=== PATIENT | female | born 1960 | race Caucasian/White ===

== ENCOUNTER 2018-04-07 00:08 | Emergency (ER) | payer BC ==
[2018-04-07] MEDS ORDERED: Albuterol/Ipratropium NEB.SOL* Albuterol 2.5 MG/Ipratropium 0.5 MG 3 ML INH ONE (00:55)
--- NOTE | 2018-04-07 02:10 | ED ---
Shortness of Breath - HPI Summary HPI Summary: Patient complains of shortness of breath, increased use of home nebs, increased sputum production, exertional fatigue 2 days. Called PCP this a.m. and Levaquin and prednisone were called in for her. Patient has history of COPD, on 02 3L /. Denies fever, increasing chronic cough, sore throat, CP, N/V/D, abdominal pain, change in urinary BM. Also denies admission to hospital for alf stay in the past 3 months, dialysis, chemotherapy, immunocompromise , regular EtOH, recent trauma or surgery, estrogen supplements, history of blood clot. - History of Current Complaint Chief Complaint: EDShortnessOfBreath Time Seen by Provider: 04/07/18 00:55 Hx Obtained From: Patient - Allergy/Home Medications Allergies/Adverse Reactions: Allergies Allergy/AdvReac Type Severity Reaction Status Date / Time metronidazole [From Flagyl] Allergy Unknown Verified 04/07/18 00:13 Reaction Details Sulfa (Sulfonamide Allergy Unknown Verified 04/07/18 00:13 Antibiotics) Reaction Details PMH/Surg Hx/FS Hx/Imm Hx Respiratory History: Reports: Hx Asthma, Hx Chronic Bronchitis, Hx Chronic Obstructive Pulmonary Disease (COPD), Hx Pneumonia, Other Respiratory Problems/ Disorders - pneumonia, pseudomonas RECENT DX GI History: Reports: Hx Diverticulosis, Other GI Disorders - Appendectomy Sensory History: Reports: Hx Contacts or Glasses Opthamlomology History: Reports: Hx Contacts or Glasses Psychiatric History: Reports: Hx Anxiety - takes xanax routinely at home - Surgical History Surgery Procedure, Year, and Place: wisdom teeth. x1. hysterectomy. Tubal ligation. Appendectomy- [facility]- 11/2014 ([facility]) Hx Anesthesia Reactions: No - Immunization History Date of Tetanus Vaccine: unk Date of Influenza Vaccine: none Infectious Disease History: No Infectious Disease History: Denies: Traveled Outside the [place] in Last 30 Days - Social History Alcohol Use: None Substance Use Type: Reports: None Smoking Status (MU): Former Smoker Type: Cigarettes Review of Systems Constitutional: Negative Eyes: Negative ENT: Negative Cardiovascular: Negative Positive: Shortness Of Breath, Cough Gastrointestinal: Negative Genitourinary: Negative Musculoskeletal: Negative Skin: Negative Neurological: Negative Psychological: Normal All Other Systems Reviewed And Are Negative: Yes Physical Exam Triage Information Reviewed: Yes Vital Signs On Initial Exam: Initial Vitals Temp Pulse Resp BP Pulse Ox 97.5 F 109 22 139/88 93 04/07/18 00:10 04/07/18 00:10 04/07/18 00:10 04/07/18 00:10 04/07/18 00:10 Vital Signs Reviewed: Yes Appearance: Positive: Well-Appearing Skin: Positive: Warm Head/Face: Positive: Normal Head/Face Inspection Eyes: Positive: Normal Neck: Positive: Supple Respiratory/Lung Sounds: Positive: Decreased Breath Sounds - Left base, Wheezes - mild Bilaterally. Cardiovascular: Positive: Normal Abdomen Description: Positive: Nontender Musculoskeletal: Positive: Normal Neurological: Positive: Normal Psychiatric: Positive: Normal AVPU Assessment: Alert - [place] Coma Scale Best Eye Response: 4 - Spontaneous Best Motor Response: 6 - Obeys Commands Best Verbal Response: 5 - Oriented Coma Scale Total: 15 Diagnostics - Vital Signs Vital Signs Temp Pulse Resp BP Pulse Ox 04/07/18 01:18 100 18 98 04/07/18 01:00 95 94 04/07/18 00:30 111 103/86 89 04/07/18 00:10 97.5 F 109 22 139/88 93 - Laboratory Lab Results: Lab Results 04/07/18 Range/Units 00:57 ABG pH 7.38 (7.35-7.45) ABG pCO2 54 H (35-45) mmHg ABG pO2 76 L (80-100) mmHg ABG HCO3 29.0 (19-31) mmol/L ABG O2 Saturation 95.9 (95-98) % ABG Base Excess 5.4 H (-2.0-2.0) Result Diagrams: 04/07/18 01:44 04/07/18 01:44 Lab Statement: Any lab studies that have been ordered have been reviewed, and results considered in the medical decision making process. Course/Dx - Course Course Of Treatment: Patient complains of shortness of breath, increased use of home nebs, increased sputum production, exertional fatigue 2 days. Called PCP this a.m. and Levaquin and prednisone were called in for her. Patient has history of COPD, on 02 3L 24/. Denies fever, increasing chronic cough, sore throat, CP, N/V/D, abdominal pain, change in urinary BM. Also denies admission to hospital for alf stay in the past 3 months, dialysis, chemotherapy, immunocompromise, regular EtOH, recent trauma or surgery, estrogen supplements, history of blood clot. Discussed patient with Dr. Dobbs. Vital signs within normal limits and stable. Labs unremarkable. Imaging indicates likely pneumonia. No risk factors for HCAP. Patient has home O2, nebs. Currently on Levaquin and prednisone started yesterday. Recommend continue Levaquin and prednisone and nebs as needed. Return for any worsening symptoms. Patient agrees with plan. - Diagnoses Provider Diagnoses: Community acquired pneumonia Discharge - Sign-Out/Discharge Documenting (check all that apply): Discharge/Admit/Transfer - Discharge Plan Condition: Good Disposition: HOME Patient Education Materials: Community Acquired Pneumonia (ED) Referrals: Harpreet Padilla MD [Primary Care Provider] - Additional Instructions: Continue with Levaquin and prednisone. Follow-up with primary care. Return to the ED for any new or worsening symptoms - Billing Disposition and Condition Condition: GOOD Disposition: HOME
[2018-04-07 02:20] LABS: ABS Basophils 0 10^3/ul (0-0.2); ABS Eosinophils 0 10^3/ul (0-0.6); ABS Lymphocytes 0.6 10^3/ul (1.0-4.8); ABS Monocytes 0.1 10^3/ul (0-0.8); ABS Neutrophils 6.4 10^3/ul (1.5-7.7); ABS Nucleated RBC 0 10^3/ul; Eosinophil % 0 % (0-6); Hematocrit 40 % (35-47); Hemoglobin 13.2 g/dl (12.0-16.0); Lymphocyte % 8.5 % (25-47); Mean Corpuscular HGB Conc 34 g/dl (31-36); Mean Corpuscular Hemoglobin 30 pg (27-31); Mean Corpuscular Volume 90 fL (80-97); Mean Platelet Volume 8.5 um3 (7.4-10.4); Nucleated Red Blood Cells % 0; Platelet Count 323 10^3/ul (150-450); Red Blood Count 4.39 10^6/ul (4.0-5.4); Red Cell Distribution Width 14 % (10.5-15); White Blood Count 7.1 10^3/ul (3.5-10.8)
[2018-04-07 02:58] VITALS: BP 119/77
--- NOTE | 2018-04-07 09:06 | RAD ---
INDICATION: Shortness of breath. History of pseudomonas pneumonia. Chronic obstructive pulmonary disease. COMPARISON: November 25, 2014 CT abdomen. December 10, 2013 chest radiograph. TECHNIQUE: Dual energy PA and routine lateral views of the chest were obtained. REPORT: Elevated lung volumes and both diffuse mild prominence of the interstitial markings and patchy rarefaction of the mid to upper lung zone interstitial markings. Patchy alveolar consolidation at the bilateral mid to lower lung zones. Rounded branching opacities at the LEFT lung base are most suspicious for mucus impaction in regions of bronchiectasis based on correlation with prior exams. Probable small pleural effusions. Negative for pneumothorax. Negative for cardiomegaly. Unremarkable central pulmonary vasculature and mediastinal contours. IMPRESSION: 1. Chronic obstructive pulmonary disease. 2. Bilateral basilar inflammatory infiltrates with suggestion of mucus plugging. Probable small pleural effusions. Radiographic follow-up after therapy warranted to assess for resolution in order to exclude underlying neoplastic lesions.
== END 2018-04-07 03:06 | disposition home or self-care (01) ==
LOC: ED 00:08
DX: J18.9 Pneumonia, unspecified organism (principal); R53.83 Other fatigue; R06.02 Shortness of breath; R05 Cough; Z87.891 Personal history of nicotine dependence
CPT/HCPCS: 36415; 71046; 80053; 82803; 83605; 85025; 86140; 99283; A9270-GY

== ENCOUNTER 2018-08-01 17:31 | Inpatient (IN) | payer BC ==
[2018-08-01] MEDS ORDERED: Albuterol/Ipratropium NEB.SOL* Albuterol 2.5 MG/Ipratropium 0.5 MG 3 ML ONE (17:40)
[2018-08-01] MEDS ORDERED: methylPREDNISolone 125 MG* 2 ML VIAL ONE (17:45)
[2018-08-01] MEDS ORDERED: Albuterol/Ipratropium NEB.SOL* Albuterol 2.5 MG/Ipratropium 0.5 MG 3 ML INH ONE (17:48)
[2018-08-01] MEDS ORDERED: methylPREDNISolone 125 MG* 2 ML VIAL IV ONE (18:02)
--- NOTE | 2018-08-01 18:02 | ED ---
Shortness of Breath - HPI Summary HPI Summary: This patient is a 57 year old F presenting to [facility] with a chief complaint of SOB since 1200. Her current O2 sat at 79% on 6 L in room. She endorses productive cough and denies CP. PMHx COPD. 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 Pt denies smoking currently, is a former smoker. - History of Current Complaint Chief Complaint: EDShortnessOfBreath Time Seen by Provider: 08/01/18 17:56 Hx Obtained From: Patient Onset/Duration: Sudden Onset, Lasting Hours, Still Present Current Severity: Severe Dyspnea At: Rest Aggrevating Factors: Nothing Alleviating Factors: Nothing Associated Signs & Symptoms: Cough (Productive) - Allergy/Home Medications Allergies/Adverse Reactions: Allergies Allergy/AdvReac Type Severity Reaction Status Date / Time metronidazole [From Flagyl] Allergy Unknown Verified 08/01/18 18:17 Reaction Details Sulfa (Sulfonamide Allergy Unknown Verified 08/01/18 18:17 Antibiotics) Reaction Details Home Medications: Home Medications Albuterol 2.5MG/3ML (0.083%)* [Ventolin 2.5 MG/3 ML NEB.LUIGI*] 08/01/18 [History ] Albuterol/Ipratropium RESP(NF) [Combivent Respimat (NF)] 08/01/18 [History] Montelukast Sodium TAB* [Singulair TAB*] 10 mg PO DAILY 08/01/18 [History Confirmed 08/01/18] Tiotropium CAP.INH* [Spiriva CAP.INH*] 1 inh INH DAILY 08/01/18 [History Confirmed 08/01/18] PMH/Surg Hx/FS Hx/Imm Hx Endocrine/Hematology History: Denies: Hx Sickle Cell Disease Respiratory History: Reports: Hx Asthma, Hx Chronic Bronchitis, Hx Chronic Obstructive Pulmonary Disease (COPD), Hx Pneumonia, Other Respiratory Problems/ Disorders - pneumonia, pseudomonas RECENT DX GI History: Reports: Hx Diverticulosis, Other GI Disorders - Appendectomy Sensory History: Reports: Hx Contacts or Glasses Denies: Hx Deafness Opthamlomology History: Reports: Hx Contacts or Glasses EENT History: Denies: Hx Deafness Psychiatric History: Reports: Hx Anxiety - takes xanax routinely at home - Surgical History Surgery Procedure, Year, and Place: wisdom teeth. x1. hysterectomy. Tubal ligation. Appendectomy- [facility] [place]- 11/2014 ([facility]) Hx Anesthesia Reactions: No - Immunization History Date of Tetanus Vaccine: unk Date of Influenza Vaccine: none Infectious Disease History: No Infectious Disease History: Denies: Traveled Outside the [place] in Last 30 Days - Social History Alcohol Use: None Substance Use Type: Reports: None Hx Tobacco Use: Yes Smoking Status (MU): Former Smoker Type: Cigarettes Review of Systems Negative: Fever Negative: Chest Pain Positive: Shortness Of Breath, Cough - productive Positive: no symptoms reported All Other Systems Reviewed And Are Negative: Yes Physical Exam - Summary Physical Exam Summary: Appearance: mod distress Skin: warm, dry, reflects adequate perfusion Head/face: normal Eyes: EOMI, LINDSAY ENT: normal Neck: supple, non-tender Respiratory: , bilateral wheeze, poor air entry bilaterally, respiratory distress. Cardiovascular: Tachycardia, pulses symmetrical Abdomen: non-tender, soft Bowel: present Musculoskeletal: normal, strength/ROM intact Neuro: normal, sensory motor intact, A&Ox3 Triage Information Reviewed: Yes Vital Signs On Initial Exam: Initial Vitals Temp Pulse Resp BP Pulse Ox 99.6 F 137 26 136/75 90 08/01/18 17:35 08/01/18 17:35 08/01/18 17:35 08/01/18 17:35 08/01/18 17:35 Vital Signs Reviewed: Yes Diagnostics - Vital Signs Vital Signs Temp Pulse Resp BP Pulse Ox 08/01/18 17:50 133 27 96 08/01/18 17:35 99.6 F 137 26 136/75 90 - Laboratory Lab Results: Lab Results 08/01/18 Range/Units 17:45 Patient Temperature Not Reportable ABG pH Pending ABG pH (Temp Correct) Pending ABG pCO2 Pending ABG pCO2 (Temp Corrct Pending ABG pO2 Pending ABG pO2 (Temp Correct Pending ABG HCO3 Pending ABG O2 Saturation Pending ABG Base Excess Pending Respiration Rate Not Reportable O2 Delivery Device 6lpm nc Ventilator Type Not Reportable Vent Mode Not Reportable FiO2 Not Reportable Inspiratory Time Not Reportable PEEP Not Reportable Pressure Support Not Reportable Pressure Control Not Reportable EPAP Not Reportable IPAP Not Reportable BiPAP Not Reportable Result Diagrams: 08/01/18 17:58 08/01/18 17:58 Lab Statement: Any lab studies that have been ordered have been reviewed, and results considered in the medical decision making process. - Radiology CXR Xray Interpretation: Positive (See Comments) Radiology Interpretation Completed By: ED Physician - Bilateral lower lobe infiltrates. Pending official imaging report. - EKG 1805 Cardiac Rate: Tachycardia - 137 EKG Rhythm: Sinus Rhythm ST Segment: Normal Ectopy: None EKG Interpretation: No acute changes. Course/Dx - Course Course Of Treatment: This patient is a 57 year old F presenting to [facility] with a chief complaint of SOB since 1200. Her current O2 sat at 79% on 6 L in room. She endorses productive cough and denies CP. PMHx COPD. 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 Pt denies smoking. A CXR reveals bilateral lower lobe infiltrates. An EKG revealed sinus tachycardia at 137 BPM with no acute changes. - Diagnoses Differential Diagnosis/HQI/PQRI: Positive: Asthma, Bronchitis, CHF, COPD Exacerbation, Pneumonia, Pulmonary Edema Provider Diagnoses: COPD exacerbation, PNA (pneumonia), Respiratory failure, Hypoxia - Physician Notifications Discussed Care of Patient With: Edward Leonard Time Discussed With Above Provider: 19:35 Instructed by Provider To: Other - Accepts admission. - Critical Care Time Critical Care Time: 75-104 min - 30 Discharge - Sign-Out/Discharge Documenting (check all that apply): Patient Departure - admit - Discharge Plan Condition: Fair Disposition: ADMITTED TO [facility] Referrals: Harpreet Padilla MD [Primary Care Provider] - - Billing Disposition and Condition Condition: FAIR Disposition: Admitted to [facility] - Attestation Statements Document Initiated by Sylwiaibsugey: Yes Documenting Scribe: Duglas Garay Provider For Whom Cristela is Documenting (Include Credential): Dr. Rodriguez Peoples MD Scribe Attestation: Duglas Valle scribed for Dr. Rodriguez Peoples MD on 08/01/18 at 2004. Scribe Documentation Reviewed: Yes Provider Attestation: The documentation as recorded by the Duglas garg accurately reflects the service I personally performed and the decisions made by me, Dr. Rodriguez Peoples MD
--- OUTSIDE RECORDS SUMMARY | 2018-08-01 18:02 | XMS REPORT | Continuity of Care Document ---
:1960 Author Organization [facility] Office Address [address] [address] Phone Care Team Providers Name Role Phone Vivgriselda Harpreet Unavailable Harpreet Padilla Unavailable Dr. Pedro Jo MD Unavailable Unavailable Unavailable Problems ANXIETY (F41.9) (300.00) Keara Mcgee AR (ALLERGIC RHINITIS) (J30.9) (477.9) Keara Mcgee COPD (CHRONIC OBSTRUCTIVE PULMONARY DISEASE) (J44.9) (496) MD Pedro Jo Dr. Prognosis: Long talk with the patient, she is having diarrhea, cough (dry) and some dizziness. We will give her a drug holiday, and have her restart meds next week ().I am going to have her drop her Daliresp to 1/2 pill a day...she will call us with her response. as of 04-Jul-2018 DIVERTICULOSIS (K57.90) (562.10) Keara Mcgee DYSPNEA (R06.00) (786.09) Keara Mcgee FORMER SMOKER (Z87.891) (V15.82) Keara Mcgee Allergies and Adverse Reactions Flagyl *ANTI-INFECTIVE AGENTS - MISC.* (Allergy) HYDROcodone Bitartrate *CHEMICALS* (Allergy) Reaction: Vomiting OxyCODONE HCl *ANALGESICS - OPIOID* (Allergy) Reaction: Vomiting Sulfa Drugs (Allergy) Vicodin *ANALGESICS - OPIOID* (Allergy) Status: Inactive as of 28-Jun-2018 Medications Albuterol Sulfate (2.5 MG/3ML) 0.083% Inhalation Nebulization Solution 1 UAD ((2.5 MG/3ML) 0.083%) Mitzi-D 24 Hour 180-240 MG Oral Tablet Extended Release 24 Hour 1 daily (180-240 MG) ALPRAZolam 0.25 MG Oral Tablet Comments: Medication taken as 1 four times daily, as needed needed. (0.25 MG) Combivent Respimat 20-100 MCG/ACT Inhalation Aerosol Solution 2 puffs UAD (20-100 MCG/ACT) Daliresp 500 MCG Oral Tablet 1 (one) Tablet daily for 30 days Ordered: Start: 28-Jun-2018 Quantity: 30 Shivaluz CALLI NPC, [place] Refills: 2 Flonase 50 MCG/ACT Nasal Suspension 2 sprays ea nostril (50 MCG/ACT) Flonase 50 MCG/ACT Nasal Suspension 2 sprays ea nostril daily (50 MCG/ACT) Ipratropium [place] 0.02 % Inhalation Solution UAD (0.02 %) Montelukast Sodium 10 MG Oral Tablet 1 daily (10 MG) NyQuil Liquicaps 30-6.25-10-250 MG Oral Capsule UAD (30-6.25-10-250 MG) OXYGEN (Inhalation Gas) (Free Text) 3 L UAD Plexus Vitabione Plexus Vitaimone 1 daily Probiotic Oral Capsule 1 two times daily Robitussin DM 100-10 MG/5ML Comments: Medication taken as Oral Syrup as needed (100-10 needed. MG/5ML) Spiriva HandiHaler 18 MCG Inhalation Capsule 1 daily (18 MCG) Symbicort 160-4.5 MCG/ACT Inhalation Aerosol 2 puffs two times daily (160-4.5 MCG/ACT) Ventolin HFA 108 (90 Base) Comments: Medication taken as MCG/ACT Inhalation Aerosol needed. Solution 2 puffs four times daily, as needed (108 (90 Base) MCG/ACT) Vitamin C 1000 MG Oral Tablet 1 daily (1000 MG) Procedures REST OXIMETRY (75102) ERIC Rick Status: Completed 28-Jun-2018 RESPIRATORY FLOW VOLUME LOOP ERIC Rick Status: Completed 2017 (45229) PRE AND POST (94315) ERIC Rick Status: Completed 28-Jun-2018 Appendectomy Marcel DOG CONTROL OFFICER Brionna Status: Completed (65259) RodJASONN Brionna Status: Completed Chest X-ray Marcel DOG CONTROL OFFICER Brionna Status: Completed 07-Apr-2018 Comments: [facility] Chest X-ray Keara Mcgee Status: Completed 28-Jun-2018 Comments: changes consistent with COPD Flu Vaccine RodJASONN Brionna Status: Completed 2016 Comments: Refused PFT Keara Mcgee Status: Completed 28-Jun-2018 Comments: Severe Obstruction. Prevnar 13 KENYATTA Rod Status: Completed 2016 Comments: Pt refuses Tubal Ligation RodJASONN Brionna Status: Completed WISDOM TEETH EXTRACTED RodJASONN Brionna Status: Completed Procedure: [place] Sleepiness ScaleResult: Date: 28-Jun-2018 13:11 [Situation] Sitting and Readin=Would never Status: Completed 28-Jun-2018 13:24 doze; Watching Television: 3=High chance of JASON RodN Brionna dozing; Sitting inactive in a public place (theatre, meeting): 0=Would never doze; As a passenger in a car for an hour without a break: 0=Would never doze; Lying down to rest in the afternoon: 0=Would never doze; Sitting and talking to someone: 0=Would never doze; Sitting quietly after lunch without alcohol: 0=Would never doze; In a car, while stopping for a few minutes in traffic: 0=Would never doze [Total] Score: 03 Family History Father Status: Active Comments: Bone cancer Mother Status: Active Comments: . Heart disease,diabetes Social History Alcohol use: Denies alcohol use. Caffeine use: Coffee. Carbonated beverages. 1 serving / day. 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 No drug use Tobacco use: Former smoker. Comments: Age [age] 1.5ppd Former smoker Female Plan of Treatment AIRFLOW RESISTANCE MEASUREMENT: PULM FUNCT TEST Start: 27-Sep-2018 Intent OSCILLOMETRY (60295) DLCO (CARBON MONOXIDE DIFFUSING CAPACITY) (77632) Start: 27-Sep-2018 Intent PRE AND POST (87180) Start: 27-Sep-2018 Intent RESPIRATORY FLOW VOLUME LOOP (75071) Start: 27-Sep-2018 Intent THORACIC GAS VOLUME: AIRWAY CLOSING VOLUME MEASUREMENT: Start: 27-Sep-2018 Intent PULM FUNCTION TEST BY GAS (68475) TOTAL BODY PLETHYSMOGRAPHY: AIRWAY CLOSING VOLUME Start: 27-Sep-2018 Intent MEASUREMENT: PULM FUNCT TST PLETHYSMOGRAP (99296) TOTAL VITAL CAPACITY (39726) Start: 27-Sep-2018 Intent COMPLETE ECHOCARDIOGRAPHY (88467) Start: 28-Jun-2018 Intent LOW DOSE COMPUTED TOMOGRAPHY OF LUNGS FOR LUNG CANCER Start: 28-Jun-2018 Intent SCREENING (G0297) Medical; FULL PFT 30 - Start: 30-Aug-2018 14:00 Appointment Request Pulmonary [facility] Resp Therapy [place], [facility] Medical; FOLLOW UP mn fu w/full Start: 30-Aug-2018 14:30 Appointment Request [facility] Office MD Pedro Jo Dr. COPD (CHRONIC OBSTRUCTIVE PULMONARY DISEASE) : Alpha 1 Kit Indication: COPD (CHRONIC OBSTRUCTIVE PULMONARY DISEASE) Results No Result Information Available Vital Signs 28-Jun-2018 12:52 Comments: SaO2 taken on 3L cont. Pulse 116 /min Comments: Pattern: Regular O2 SAT 87 % FiO2 3 L/min Comments: 3L O2 Weight 147 lb Height 63 in BMI 26.04 kg/m2 BSA 1.7 m2 Advance Directives HIPAA - Effective on 06/28/2018. Expires on 06/28/2019. Effective: 28-Jun-2018 Scanned Document is available upon request. Encounters Phone Encounter 04-Jul-2018 11:11 To 04-Jul-2018 11:18 Encounter Diagnosis: COPD (CHRONIC OBSTRUCTIVE PULMONARY DISEASE) [place] [facility] Office Visit 28-Jun-2018 12:50 To 28-Jun-2018 14:09 Encounter Reason: COPD - The referring provider is Dr. Harpreet Padilla. The Gold Classification is Stage 4: Very Severe COPD (FEV1 15%). Symptoms include dyspnea on exertion, non-productive cough, productive cough and alexis [facility] Office ar sputum production, while symptoms do not include dyspnea at rest or wheezing. Onset was gradual 8 year(s) ago. The symptoms occur constantly. The patient describes this as moderate in severity and un changed. Associated symptoms include leg edema, while associated symptoms do not include fever, hemoptysis or chest pain. Current treatment includes inhaled albuterol, inhaled short-acting beta-2 agonis ts, inhaled long-acting beta-2 agonists, inhaled anticholinergics, inhaled corticosteroids and supplemental oxygen. By report there is good compliance with treatment and good tolerance of treatment. Per tinent medical history includes smoking (has quit), oxygen dependency and pneumonia, while pertinent medical history does not include steroid dependency, prior intubation and ventilator therapy, congestive heart failure or lung cancer. Encounter Diagnosis: COPD (CHRONIC OBSTRUCTIVE PULMONARY DISEASE), FORMER SMOKER, DYSPNEA Historical Summary 25-Jun-2018 11:20 To 25-Jun-2018 11:52 Pulmonary [facility] Office Payers [facility] [address] [address] [facility] [address] Group Number: NONE tel: Mylene Gotti [address] [facility] [address] tel:
--- OUTSIDE RECORDS SUMMARY | 2018-08-01 18:02 | XMS REPORT | Continuity of Care Document ---
:1960 Author Organization [facility] Office Address [address] [place] [address] Phone Care Team Providers Name Role Phone Vivjuniormandy Harpreet Unavailable Harpreet Padilla Unavailable Dr. Pedro [...] (V15.82) Keara Mcgee Allergies and Adverse Reactions Daliresp *ANTIASTHMATIC AND BRONCHODILATOR AGENTS* (Allergy) Reaction: Diarrhea, Nausea Comments: trouble sleeping and aggression Flagyl *ANTI-INFECTIVE AGENTS - MISC.* (Allergy) HYDROcodone Bitartrate *CHEMICALS* (Allergy) Reaction: Vomiting OxyCODONE HCl *ANALGESICS - OPIOID* (Allergy) Reaction: Vomiting Sulfa Drugs (Allergy) Vicodin *ANALGESICS - OPIOID* (Allergy) Status: Inactive as of 28-Jun-2018 Medications Albuterol Sulfate (2.5 MG/3ML) 0.083% Inhalation Nebulization Solution; 1 UAD ((2.5 MG/3ML) 0.083%) Mitzi-D 24 Hour 180-240 MG Oral Tablet Extended Release 24 Hour; 1 daily (180-240 MG) ALPRAZolam 0.25 MG Oral Tablet; Comments: Medication taken as 1 four times daily, as needed needed. (0.25 MG) Combivent Respimat 20-100 MCG/ACT Inhalation Aerosol Solution; 2 puffs UAD (20-100 MCG/ACT) Daliresp 500 MCG Oral Tablet; 1 (one) Tablet daily for 30 days Ordered: Jun-2018 Start: 28-Jun-2018 Quantity: 30 Goich [facility] [place] Refills: 2 Flonase 50 MCG/ACT Nasal Suspension; 2 sprays ea nostril (50 MCG/ACT) Flonase 50 MCG/ACT Nasal Suspension; 2 sprays ea nostril daily (50 MCG/ACT) Ipratropium [place] 0.02 % Inhalation Solution; UAD (0.02 %) Montelukast Sodium 10 MG Oral Tablet; 1 daily (10 MG) NyQuil Liquicaps 30-6.25-10-250 MG Oral Capsule; UAD (30-6.25-10-250 MG) OXYGEN (Inhalation Gas) (Free Text); 3 L UAD Plexus Vitabione Plexus Vitaimone; 1 daily Probiotic Oral Capsule; 1 two times daily Robitussin DM 100-10 MG/5ML Comments: Medication taken as Oral Syrup; as needed (100-10 needed. MG/5ML) Spiriva HandiHaler 18 MCG Inhalation Capsule; 1 daily (18 MCG) Symbicort 160-4.5 MCG/ACT Inhalation Aerosol; 2 puffs two times daily (160-4.5 MCG/ACT) Ventolin HFA 108 (90 Base) Comments: Medication taken as MCG/ACT Inhalation Aerosol needed. Solution; 2 puffs four times daily, as needed (108 (90 Base) MCG/ACT) Vitamin C 1000 MG Oral Tablet; 1 daily (1000 MG) Procedures REST OXIMETRY (02765) ERIC Rick Status: Completed 28-Jun-2018 RESPIRATORY FLOW VOLUME LOOP ERIC Rick Status: Completed 2017 (54307) PRE AND POST (35814) ERIC Rick Status: Completed 28-Jun-2018 Appendectomy JASON RodN Brionna Status: Completed (23204) JASON RodN Brionna Status: Completed Chest X-ray JASON RodN Brionna Status: Completed 07-Apr-2018 Comments: [facility] Chest X-ray Keara Mcgee Status: Completed 28-Jun-2018 Comments: changes consistent with COPD Flu Vaccine KENYATTA Rod Status: Completed 2016 Comments: Refused PFT Keara Mcgee Status: Completed 28-Jun-2018 Comments: Severe Obstruction. Prevnar 13 JASON RodN Brionna Status: Completed 2016 Comments: Pt refuses Tubal Ligation JASON RodN Brionna Status: Completed WISDOM TEETH EXTRACTED JASON RodN Brionna Status: Completed Procedure: [place] Sleepiness ScaleResult: Date: 28-Jun-2018 13:11 [Situation] Sitting and Readin=Would never Status: Completed 28-Jun-2018 13:24 doze; Watching Television: 3=High chance of KENYATTA Rod dozing; Sitting inactive in a public place [...] / day. 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 No drug use Tobacco use: Former smoker. Comments: Age 14-48 1.5ppd Former smoker Female Plan of Treatment AIRFLOW RESISTANCE MEASUREMENT: PULM FUNCT TEST Start: 27-Sep-2018 Intent OSCILLOMETRY (96534) DLCO (CARBON MONOXIDE DIFFUSING CAPACITY) (01378) Start: 27-Sep-2018 Intent PRE AND POST (41003) Start: 27-Sep-2018 Intent RESPIRATORY FLOW VOLUME LOOP (47559) Start: 27-Sep-2018 Intent THORACIC GAS VOLUME: AIRWAY CLOSING VOLUME MEASUREMENT: Start: 27-Sep-2018 Intent PULM FUNCTION TEST BY GAS (35282) TOTAL BODY PLETHYSMOGRAPHY: AIRWAY CLOSING VOLUME Start: 27-Sep-2018 Intent MEASUREMENT: PULM FUNCT TST PLETHYSMOGRAP (51012) TOTAL VITAL CAPACITY (77223) Start: 27-Sep-2018 Intent COMPLETE ECHOCARDIOGRAPHY (80339) Start: 28-Jun-2018 Intent LOW DOSE COMPUTED TOMOGRAPHY OF LUNGS FOR LUNG CANCER Start: 28-Jun-2018 Intent SCREENING (G0297) Medical; FULL PFT 30 - Start: 30-Aug-2018 14:00 Appointment Request Pulmonary [facility] Office Resp Therapy [place], [place] Medical; FOLLOW UP mn fu w/full Start: 30-Aug-2018 14:30 Appointment Request Pulmonary [facility] Office MD Pedro Jo Dr. COPD [...] Scanned Document is available upon request. Encounters Historical Summary 18-Jul-2018 8:37 To 18-Jul-2018 8:40 [facility] Office Phone Encounter 04-Jul-2018 11:11 To 04-Jul-2018 11:18 Encounter Diagnosis: COPD (CHRONIC OBSTRUCTIVE PULMONARY DISEASE) [place] [facility] Office Visit 28-Jun-2018 12:50 To 28-Jun-2018 14:09 Encounter Reason: COPD - The referring provider is Dr. Harpreet Padilla. The Gold Classification is Stage 4: Very Severe COPD (FEV1 15%). Symptoms include dyspnea on exertion, non-productive cough, productive cough and alexis [facility] Office ar sputum production, while symptoms do [...] treatment and good tolerance of treatment. Per ugo medical history includes smoking (has quit), oxygen dependency and pneumonia, while pertinent medical history does not include steroid dependency, prior intubation and ventilator therapy, congestive heart failure or lung cancer. Encounter Diagnosis: COPD (CHRONIC OBSTRUCTIVE PULMONARY DISEASE), FORMER SMOKER, DYSPNEA Historical Summary 25-Jun-2018 11:20 To 25-Jun-2018 11:52 Pulmonary [facility] Office Payers [facility] [place] [address] [facility] [address] Group Number: NONE tel: Mylene Gotti [address] [place] [phone] tel:
--- OUTSIDE RECORDS SUMMARY | 2018-08-01 18:02 | XMS REPORT | Continuity of Care Document ---
:1960 Author Organization [facility], Address [address] [address] Phone Care Team Providers Name Role Phone Harpreet Padilla Unavailable ValerieHarpreet Unavailable Dr. Pedro Jo MD Unavailable Unavailable Unavailable Problems [id number] DEFICIENCY (E88.01) (273.4) Keara Mcgee Comments: REECE ANXIETY (F41.9) (300.00) Keara Mcgee AR (ALLERGIC [...] Ordered: Jun-2018 Start: 28-Jun-2018 Quantity: 30 Goich [facility] Refills: 2 Flonase 50 MCG/ACT Nasal Suspension; 2 sprays ea nostril (50 MCG/ACT) Flonase 50 MCG/ACT Nasal Suspension; 2 sprays ea nostril daily (50 MCG/ACT) Ipratropium [place] 0.02 % Inhalation Solution; UAD (0.02 %) [...] 1 daily (1000 MG) Procedures REST OXIMETRY (03882) ERIC Rick Status: Completed 28-Jun-2018 RESPIRATORY FLOW VOLUME LOOP ERIC Rick Status: Completed 2017 (56777) PRE AND POST (80706) ERIC Rick Status: Completed 28-Jun-2018 Appendectomy JASON RodN Brionna Status: Completed (13401) Marcel PARAFFIN PLANT SWEATER OPERATOR Brionna Status: Completed Chest X-ray KENYATTA Rod Status: Completed 07-Apr-2018 Comments: [facility] Chest X-ray Keara Mcgee Status: Completed 28-Jun-2018 Comments: changes consistent with COPD Flu Vaccine KENYATTA Rod Status: Completed 2016 Comments: Refused PFT Keara Mcgee Status: Completed 28-Jun-2018 Comments: Severe Obstruction. Prevnar 13 JASON RodN Brionna Status: Completed 2016 Comments: Pt refuses Tubal Ligation JASON RodN Brionna Status: Completed WISDOM TEETH EXTRACTED Marcel PARAFFIN PLANT SWEATER OPERATOR Brionna Status: Completed Procedure: [place] Sleepiness ScaleResult: Date: 28-Jun-2018 13:11 [Situation] Sitting [...] / day. Current work status: Full-time. Comments: [employer] Marital status: . No drug use Tobacco use: Former smoker. Comments: Age [age] 1.5ppd Former smoker Female Plan of Treatment AIRFLOW RESISTANCE MEASUREMENT: PULM FUNCT TEST Start: 27-Sep-2018 Intent OSCILLOMETRY (81325) DLCO (CARBON MONOXIDE DIFFUSING CAPACITY) (18305) Start: 27-Sep-2018 Intent PRE AND POST (34083) Start: 27-Sep-2018 Intent RESPIRATORY FLOW VOLUME LOOP (48497) Start: 27-Sep-2018 Intent THORACIC GAS VOLUME: AIRWAY CLOSING VOLUME MEASUREMENT: Start: 27-Sep-2018 Intent PULM FUNCTION TEST BY GAS (53248) TOTAL BODY PLETHYSMOGRAPHY: AIRWAY CLOSING VOLUME Start: 27-Sep-2018 Intent MEASUREMENT: PULM FUNCT TST PLETHYSMOGRAP (99901) TOTAL VITAL CAPACITY (54919) Start: 27-Sep-2018 Intent COMPLETE ECHOCARDIOGRAPHY (43606) Start: 28-Jun-2018 Intent LOW DOSE COMPUTED TOMOGRAPHY OF LUNGS FOR LUNG CANCER Start: 28-Jun-2018 Intent SCREENING (G0297) Medical; FULL PFT 30 - Start: 30-Aug-2018 14:00 Appointment Request Pulmonary [facility] Office Resp Therapy [place], RT Medical; FOLLOW UP 30 - 2 mnth fu w/full Start: 30-Aug-2018 14:30 Appointment Request [facility] Office MD Pedro Jo Dr. COPD (CHRONIC [...] is available upon request. Encounters Historical Summary 23-Jul-2018 8:57 To 23-Jul-2018 9:10 [facility], Historical Summary 18-Jul-2018 8:37 To 18-Jul-2018 8:40 [facility] Office Phone Encounter 04-Jul-2018 11:11 To 04-Jul-2018 11:18 Encounter Diagnosis: COPD (CHRONIC OBSTRUCTIVE PULMONARY DISEASE) [place] [facility] Office Visit 28-Jun-2018 12:50 To 28-Jun-2018 14:09 Encounter Reason: COPD - The referring provider is Dr. Harpreet Padilla. The Gold Classification is Stage 4: Very Severe COPD (FEV1 15%). Symptoms include dyspnea on exertion, non-productive cough, productive cough and alexis [facility] ar sputum production, while symptoms [...] Summary 25-Jun-2018 11:20 To 25-Jun-2018 11:52 Pulmonary [facility] Office Payers [facility] [address] [address] [facility] [address] Group Number: NONE tel: Mylene Gotti [address] [place] [address] tel:
[2018-08-01] MEDS ORDERED: Magnesium Sulfate IV* 2 GM in NS 0.9% 100 ML* 100 ML IV ONE (18:03)
[2018-08-01] MEDS ORDERED: Magnesium Sulfate 2 GM IV* 2 GM/50 ML BAG ONE (18:07)
[2018-08-01 18:27] LABS: ABS Basophils 0 10^3/ul (0-0.2); ABS Eosinophils 0.1 10^3/ul (0-0.6); ABS Lymphocytes 1.2 10^3/ul (1.0-4.8); ABS Monocytes 0.9 10^3/ul (0-0.8); ABS Neutrophils 9.8 10^3/ul (1.5-7.7); ABS Nucleated RBC 0 10^3/ul; Eosinophil % 0.9 % (0-6); Hematocrit 36 % (35-47); Hemoglobin 11.9 g/dl (12.0-16.0); Lymphocyte % 9.8 % (25-47); Mean Corpuscular HGB Conc 33 g/dl (31-36); Mean Corpuscular Hemoglobin 29 pg (27-31); Mean Corpuscular Volume 89 fL (80-97); Mean Platelet Volume 8.9 um3 (7.4-10.4); Nucleated Red Blood Cells % 0; Platelet Count 363 10^3/ul (150-450); Red Cell Distribution Width 14 % (10.5-15)
[2018-08-01 18:28] LABS: INR 1.05 (0.77-1.02)
[2018-08-01] MEDS ORDERED: Azithromycin IV(*) 500 MG in NS 0.9% 250 ML* 250 ML IVPB ONE (18:30)
[2018-08-01] MEDS ORDERED: cefTRIAXone(*) 1 GM in NS 0.9% 50 ML* 50 ML IVPB ONE (18:30)
[2018-08-01 18:41] LABS: EGFR Non-African American 82.5 (>60)
[2018-08-01] MEDS ORDERED: Magnesium Sulfate 2 GM IV* 2 GM/50 ML BAG IV ONE (19:00)
--- NOTE | 2018-08-01 20:33 | HP ---
H&P (Free Text) History and Physical: PCP: Mere Padilla MD Date/Time: 08/01/20182029 CC: SOB HPI: Mrs Gotti is a 57YO female former smoker HX COPD presents reporting cough x3 days producing yellow to greenish phlegm without F/C, sweats, chest pain, or hemoptysis. Today around 1600 she experienced the rapid onset of SOB, but no chest pain, palpitations, light-headedness, N/V/D, or other issues. She denies LE pain or swelling. She has had similar episodes in the past associated with COPD exacerbations. In ED she was given IV methylprednisolone IV, magnesium IV, albuterol nebs, and placed on BiPap. ABG shows mild compensated hypercarbia pCO2 of 53 pH 7.37. PMedHx COPD seasonal allergies anxiety Ambulatory Orders ALPRAZolam TAB* [Xanax TAB*] 0.25 mg PO QID 01/16/13 Budesonide/Formote 160/4.5(NF) [Symbicort 160/4.5 (NF)] 2 puff INH BID 07/24/13 Combivent Inhaler* 2 puff INH QID 07/24/13 Ascorbic Acid TAB* [Vitamin C TAB*] 1 tab PO DAILY 12/10/13 Albuterol 2.5MG/3ML (0.083%)* [Ventolin 2.5 MG/3 ML NEB.LUIGI*] 08/01/18 Albuterol/Ipratropium RESP(NF) [Combivent Respimat (NF)] 08/01/18 Montelukast Sodium TAB* [Singulair TAB*] 10 mg PO DAILY 08/01/18 Tiotropium CAP.INH* [Spiriva CAP.INH*] 1 inh INH DAILY 08/01/18 Allergies metronidazole [From Flagyl] Allergy (Verified 08/01/18 18:17) Unknown Reaction Details Sulfa (Sulfonamide Antibiotics) Allergy (Verified 08/01/18 18:17) Unknown Reaction Details PSurgHx appendectomy wisdom teeth extraction hysterectomy x1 SocHx: quit smoking ~6 years ago w/ ~30PYHX, no alcohol or recreational drugs; ; full code status FamHx: Mother passed at 68 2nd complications of DM2 & CAD. Father passed at 63 2nd complications of DM2 & CAD. Brothers x2: DM2; Sister: DM2 & CVA ROS: as above, otherwise reviewed and all were negative vitals: Vital Signs Temp 36.7 C 08/01/18 23:19 Pulse 102 08/02/18 01:26 Resp 19 08/02/18 01:26 BP 115/69 08/02/18 00:01 Pulse Ox 97 08/02/18 01:26 Intake & Output 08/01/18 08/01/18 08/02/18 11:59 23:59 11:59 Intake Total 830 2000 Output Total 600 Balance 230 2000 Weight 64.7 kg Intake: IV Fluids 350 2000 NS (0.9%) 2000 Oral 480 Output: Urine 600 Constitutional: NAD, normally developed, well-nourished HEENM: atraumatic; sclera/conjunctiva: anicteric/clear; hearing: clinically intact; oropharynx: clear, mucosa moist Neck: soft tissue: non-tender; thyroid: normal Pulmonary: diminished w/ B end-expiratory wheeze, fair aeration, no accessory muscle use CV: TR/RR, normal S1S2, no carotid bruit, no jugular venous distention, 2+ B DP/ PT, no edema Abdominal: soft, non-distended, non-tender, no rebound/guarding/rigidity, normoactive bowel sounds, no hepatosplenomegaly or masses, no costovertebral angle tenderness Musculoskeletal: general: grossly intact, non-tender Integumental: normal appearance and texture of exposed skin Psychiatric orientation: AA&O to PPS affect: calm mood: cooperative eye contact: fair content: reliable responses: difficult 2nd BiPap mask insight: fair Testing: Lab Results 08/01/18 08/01/18 08/01/18 Range/Units 17:45 17:58 17:58 WBC 12.0 H (3.5-10.8) 10^3/ul RBC 4.10 (4.00-5.40) 10^6/ul Hgb 11.9 L (12.0-16.0) g/dl Hct 36 (35-47) % MCV 89 (80-97) fL MCH 29 (27-31) pg MCHC 33 (31-36) g/dl RDW 14 (10.5-15) % Plt Count 363 (150-450) 10^3/ul MPV 8.9 (7.4-10.4) um3 Neut % (Auto) 81.9 (38-83) % Lymph % (Auto) 9.8 L (25-47) % [place] % (Auto) 7.2 H (0-7) % Eos % (Auto) 0.9 (0-6) % Baso % (Auto) 0.2 (0-2) % Absolute Neuts (auto) 9.8 H (1.5-7.7) 10^3/ul Absolute Lymphs (auto) 1.2 (1.0-4.8) 10^3/ul Absolute Monos (auto) 0.9 H (0-0.8) 10^3/ul Absolute Eos (auto) 0.1 (0-0.6) 10^3/ul Absolute Basos (auto) 0 (0-0.2) 10^3/ul Absolute Nucleated RBC 0 10^3/ul Nucleated RBC % 0 INR (Anticoag Therapy) 1.05 H (0.77-1.02) APTT 36.0 (26.0-36.3) seconds Patient Temperature Not Reportable ABG pH 7.37 (7.35-7.45) ABG pH (Temp Correct) Not Reportable ABG pCO2 58 H (35-45) mmHg ABG pCO2 (Temp Corrct Not Reportable ABG pO2 61 L (80-100) mmHg ABG pO2 (Temp Correct Not Reportable ABG HCO3 29.8 (19-31) mmol/L ABG O2 Saturation 93.5 L (95-98) % ABG Base Excess 6.5 H (-2.0-2.0) Respiration Rate Not Reportable O2 Delivery Device 6lpm nc Ventilator Type Not Reportable Vent Mode Not Reportable FiO2 Not Reportable Inspiratory Time Not Reportable PEEP Not Reportable Pressure Support Not Reportable Pressure Control Not Reportable EPAP Not Reportable IPAP Not Reportable BiPAP Not Reportable Sodium (135-145) mmol/L Potassium (3.5-5.0) mmol/L Chloride (101-111) mmol/L Carbon Dioxide (22-32) mmol/L Anion Gap (2-11) mmol/L BUN (6-24) mg/dL Creatinine (0.51-0.95) mg/dL Est GFR ( Amer) (>60) Est GFR (Non-Af Amer) (>60) BUN/Creatinine Ratio (8-20) Glucose (70-100) mg/dL Lactic Acid (0.5-2.0) mmol/L Calcium (8.6-10.3) mg/dL Total Bilirubin (0.2-1.0) mg/dL AST (13-39) U/L ALT (7-52) U/L Alkaline Phosphatase (34-104) U/L Troponin I (<0.04) ng/mL B-Natriuretic Peptide ( - 100) pg/mL Total Protein (6.4-8.9) g/dL Albumin (3.2-5.2) g/dL Globulin (2-4) g/dL Albumin/Globulin Ratio (1-3) 08/01/18 08/01/18 08/01/18 Range/Units 17:58 17:58 17:58 WBC (3.5-10.8) 10^3/ul RBC (4.00-5.40) 10^6/ul Hgb (12.0-16.0) g/dl Hct (35-47) % MCV (80-97) fL MCH (27-31) pg MCHC (31-36) g/dl RDW (10.5-15) % Plt Count (150-450) 10^3/ul MPV (7.4-10.4) um3 Neut % (Auto) (38-83) % Lymph % (Auto) (25-47) % [place] % (Auto) (0-7) % Eos % (Auto) (0-6) % Baso % (Auto) (0-2) % Absolute Neuts (auto) (1.5-7.7) 10^3/ul Absolute Lymphs (auto) (1.0-4.8) 10^3/ul Absolute Monos (auto) (0-0.8) 10^3/ul Absolute Eos (auto) (0-0.6) 10^3/ul Absolute Basos (auto) (0-0.2) 10^3/ul Absolute Nucleated RBC 10^3/ul Nucleated RBC % INR (Anticoag Therapy) (0.77-1.02) APTT (26.0-36.3) seconds Patient Temperature ABG pH (7.35-7.45) ABG pH (Temp Correct) ABG pCO2 (35-45) mmHg ABG pCO2 (Temp Corrct ABG pO2 (80-100) mmHg ABG pO2 (Temp Correct ABG HCO3 (19-31) mmol/L ABG O2 Saturation (95-98) % ABG Base Excess (-2.0-2.0) Respiration Rate O2 Delivery Device Ventilator Type Vent Mode FiO2 Inspiratory Time PEEP Pressure Support Pressure Control EPAP IPAP BiPAP Sodium 141 (135-145) mmol/L Potassium 3.9 (3.5-5.0) mmol/L Chloride 102 (101-111) mmol/L Carbon Dioxide 32 (22-32) mmol/L Anion Gap 7 (2-11) mmol/L BUN 12 (6-24) mg/dL Creatinine 0.73 (0.51-0.95) mg/dL Est GFR ( Amer) 99.8 (>60) Est GFR (Non-Af Amer) 82.5 (>60) BUN/Creatinine Ratio 16.4 (8-20) Glucose 121 H (70-100) mg/dL Lactic Acid 0.9 (0.5-2.0) mmol/L Calcium 9.0 (8.6-10.3) mg/dL Total Bilirubin 0.40 (0.2-1.0) mg/dL AST 26 (13-39) U/L ALT 23 (7-52) U/L Alkaline Phosphatase 115 H (34-104) U/L Troponin I 0.01 (<0.04) ng/mL B-Natriuretic Peptide 32 ( - 100) pg/mL Total Protein 7.8 (6.4-8.9) g/dL Albumin 3.7 (3.2-5.2) g/dL Globulin 4.1 H (2-4) g/dL Albumin/Globulin Ratio 0.9 L (1-3) 08/01/18 08/01/18 Range/Units 20:01 21:09 WBC (3.5-10.8) 10^3/ul RBC (4.00-5.40) 10^6/ul Hgb (12.0-16.0) g/dl Hct (35-47) % MCV (80-97) fL MCH (27-31) pg MCHC (31-36) g/dl RDW (10.5-15) % Plt Count (150-450) 10^3/ul MPV (7.4-10.4) um3 Neut % (Auto) (38-83) % Lymph % (Auto) (25-47) % [place] % (Auto) (0-7) % Eos % (Auto) (0-6) % Baso % (Auto) (0-2) % Absolute Neuts (auto) (1.5-7.7) 10^3/ul Absolute Lymphs (auto) (1.0-4.8) 10^3/ul Absolute Monos (auto) (0-0.8) 10^3/ul Absolute Eos (auto) (0-0.6) 10^3/ul Absolute Basos (auto) (0-0.2) 10^3/ul Absolute Nucleated RBC 10^3/ul Nucleated RBC % INR (Anticoag Therapy) (0.77-1.02) APTT (26.0-36.3) seconds Patient Temperature Not Reportable ABG pH 7.38 (7.35-7.45) ABG pH (Temp Correct) Not Reportable ABG pCO2 53 H (35-45) mmHg ABG pCO2 (Temp Corrct Not Reportable ABG pO2 240 H (80-100) mmHg ABG pO2 (Temp Correct Not Reportable ABG HCO3 28.9 (19-31) mmol/L ABG O2 Saturation 99.8 H (95-98) % ABG Base Excess 5.1 H (-2.0-2.0) Respiration Rate Not Reportable O2 Delivery Device Bipap Ventilator Type Not Reportable Vent Mode Not Reportable FiO2 100 Inspiratory Time Not Reportable PEEP Not Reportable Pressure Support Not Reportable Pressure Control Not Reportable EPAP 6 IPAP 12 BiPAP S/t Sodium (135-145) mmol/L Potassium (3.5-5.0) mmol/L Chloride (101-111) mmol/L Carbon Dioxide (22-32) mmol/L Anion Gap (2-11) mmol/L BUN (6-24) mg/dL Creatinine (0.51-0.95) mg/dL Est GFR ( Amer) (>60) Est GFR (Non-Af Amer) (>60) BUN/Creatinine Ratio (8-20) Glucose (70-100) mg/dL Lactic Acid (0.5-2.0) mmol/L Calcium (8.6-10.3) mg/dL Total Bilirubin (0.2-1.0) mg/dL AST (13-39) U/L ALT (7-52) U/L Alkaline Phosphatase (34-104) U/L Troponin I 0.02 (<0.04) ng/mL B-Natriuretic Peptide ( - 100) pg/mL Total Protein (6.4-8.9) g/dL Albumin (3.2-5.2) g/dL Globulin (2-4) g/dL Albumin/Globulin Ratio (1-3) ECG, personally reviewed: sinus tachycardia rate 137, no ischemia CXR, personally reviewed: bibasilar infiltrates similar to mildly improved relative to comparison 04/07/2018 Impression: 57F HX COPD presents with sepsis 2nd bibasilar pneumonia & COPD exacerbation DIAGNOSIS & PLAN Primary sepsis 2nd bibasilar pneumonia & COPD exacerbation : 30mg/kg IVF bolus : azithromycin & ceftriaxone IV : blood & sputum CXs : S pneumonia & Legionella urine antigens : check rapid influenza : albuterol nebs : mometasone/formoterol : tiotropium : IV methylprednisolone : guaifenesin : NIPPV protocol : ICU monitoring : supportive care Secondary seasonal allergies : continue montelukast anxiety : continue alprazolam Admission Rational: Inpatient as without the above interventions the risk of impending adverse outcome is unacceptably high; inappropriate for the outpatient setting DVTp: heparin SQ Code Status: full HCP: Critical Care time: 45minutes with >50% spent at the bedside obtaining a history , performing the examination, advising of diagnosis & treatment options along with risks/benefits/reasoning; remainder spent discussing with ER MD, reviewing labs and radiology exams
[2018-08-01] MEDS ORDERED: Melatonin 3 MG TAB PO PRN (21:04)
[2018-08-01] MEDS ORDERED: Acetaminophen TAB* 325 MG PO PRN (21:04)
[2018-08-01] MEDS ORDERED: Albuterol 2.5 MG/3 ML NEB.SOL* (0.083%) INH PRN (21:04)
[2018-08-01] MEDS ORDERED: Ondansetron ODT TAB* 4 MG PO PRN (21:06)
[2018-08-01] MEDS ORDERED: LORazepam INJ* 2 MG/ML 1 ML VIAL IV ONE (21:10)
[2018-08-01] MEDS ORDERED: LORazepam INJ* 2 MG/ML 1 ML VIAL ONE (21:15)
[2018-08-01] MEDS ORDERED: Spiriva Inhaler DEVICE* 1 EACH DEVICE SCH (22:00)
[2018-08-01] MEDS ORDERED: Tiotropium CAP.INH* CAP.INH/18 MCG (USE ORDER SET !) INH SCH (22:00)
[2018-08-01] MEDS: NS 0.9% 1000 ML* 1,000 ML IV SCH ×2 (22:15→23:18)
[2018-08-01] MEDS: guaiFENesin ER TAB 600 MG PO SCH (22:17)
[2018-08-01] MEDS: Mometasone/Formoter 200/5 MDI INH SCH (22:29)
[2018-08-01] MEDS: Tiotropium CAP.INH* CAP.INH/18 MCG (USE ORDER SET !) INH SCH (22:30)
[2018-08-02] MEDS: Benzonatate CAP* 100 MG PO PRN ×3 (01:00→21:36)
[2018-08-02] MEDS: Albuterol 2.5 MG/3 ML NEB.SOL* (0.083%) INH SCH ×4 (01:26→19:47)
[2018-08-02 05:15] LABS: ABS Basophils 0 10^3/ul (0-0.2); ABS Eosinophils 0 10^3/ul (0-0.6); ABS Lymphocytes 0.7 10^3/ul (1.0-4.8); ABS Monocytes 0.1 10^3/ul (0-0.8); ABS Neutrophils 9.1 10^3/ul (1.5-7.7); ABS Nucleated RBC 0 10^3/ul; Eosinophil % 0 % (0-6); Hematocrit 35 % (35-47); Hemoglobin 11.1 g/dl (12.0-16.0); Lymphocyte % 6.6 % (25-47); Mean Corpuscular HGB Conc 32 g/dl (31-36); Mean Corpuscular Hemoglobin 29 pg (27-31); Mean Corpuscular Volume 91 fL (80-97); Mean Platelet Volume 8.5 um3 (7.4-10.4); Nucleated Red Blood Cells % 0; Platelet Count 309 10^3/ul (150-450); Red Blood Count 3.82 10^6/ul (4.00-5.40); Red Cell Distribution Width 15 % (10.5-15); White Blood Count 9.9 10^3/ul (3.5-10.8)
[2018-08-02] MEDS: Omeprazole CAP* 20 MG PO SCH (05:21)
[2018-08-02] MEDS: Heparin VIAL(*) 5000 UNITS/ML VIAL (FIVE THOUSAND) SUBCUT SCH ×3 (05:22→21:27)
[2018-08-02] MEDS: Tiotropium CAP.INH* CAP.INH/18 MCG (USE ORDER SET !) INH SCH (07:36)
[2018-08-02] MEDS: Mometasone/Formoter 200/5 MDI INH SCH ×2 (07:36→19:47)
--- NOTE | 2018-08-02 07:51 | RAD ---
INDICATION: Shortness of breath. COMPARISON: Correlation is made with prior chest x-ray study from April and a prior CT of the chest from July 15, 2018. TECHNIQUE: A portable view of the chest was obtained. FINDINGS: Cardiac and mediastinal contours appear to be within normal limits. There are bibasilar infiltrates with bronchiectasis and trace bilateral pleural effusions which appear to have progressed from the prior CT study although appears similar to the prior chest x-ray study from April 07, 2018. IMPRESSION: BIBASILAR INFILTRATES WITH BRONCHIECTASIS AND TRACE BILATERAL PLEURAL EFFUSIONS. RECOMMEND FOLLOW-UP CHEST X-RAYS TO RESOLUTION. R1
[2018-08-02] MEDS: Docusate CAP* 100 MG PO SCH ×2 (08:46→21:27)
[2018-08-02] MEDS: guaiFENesin ER TAB 600 MG PO SCH (08:47)
[2018-08-02] MEDS: ALPRAZolam TAB* 0.25 MG PO SCH ×4 (08:48→21:27)
[2018-08-02] MEDS: Montelukast Sodium TAB* 10 MG PO SCH ×2 (08:49)
--- NOTE | 2018-08-02 10:13 | PN ---
Subjective Date of Service: 08/02/18 Interval History: Cough no longer productive, no longer wheezing. Overall better, no new c/o. Objective Active Medications: Acetaminophen (Tylenol Tab*) 650 mg PO Q6H PRN PRN Reason: FEVER/PAIN Albuterol (Ventolin 2.5 Mg/3 Ml Neb.Sandra*) 2.5 mg INH Q2H PRN PRN Reason: SOB/WHEEZING Albuterol (Ventolin 2.5 Mg/3 Ml Neb.Sandra*) 2.5 mg INH [id number] AWAKE [facility] Last Admin: 08/02/18 07:32 Dose: 2.5 mg Alprazolam (Xanax Tab*) 0.25 mg PO QID [facility] Last Admin: 08/02/18 08:48 Dose: 0.25 mg Benzonatate (Tessalon Cap*) 100 mg PO Q8H PRN PRN Reason: COUGH Last Admin: 08/02/18 08:48 Dose: 100 mg Device (Tiotropium Inhaler Device*) 1 each .SEE ORDER .USE w/ SPIRIVA CAPS [facility] Docusate Sodium (Colace Cap*) 200 mg PO BID [facility] Last Admin: 08/02/18 08:46 Dose: Not Given Guaifenesin (Mucinex*) 1,200 mg PO BID [facility] Last Admin: 08/02/18 08:47 Dose: 1,200 mg Heparin Sodium (Porcine) (Heparin Vial(*)) 5,000 units SUBCUT Q8HR [facility] Last Admin: 08/02/18 05:22 Dose: 5,000 units Sodium Chloride (Ns 0.9% 1000 Ml*) 1,000 mls @ 0 mls/hr IV WIDE OPEN [facility] Stop: 08/02/18 21:16 Last Admin: 08/01/18 23:18 Dose: 999 mls/hr Ceftriaxone Sodium 1,000 mg/ (Sodium Chloride) 50 mls @ 200 mls/hr IVPB Q24H [facility] Azithromycin 500 mg/ Sodium (Chloride) 250 mls @ 250 mls/hr IVPB Q24H [facility] Melatonin (Melatonin) 3 mg PO BEDTIME PRN; Protocol PRN Reason: Sleep Last Admin: 08/01/18 22:17 Dose: 3 mg Mometasone Furoate/Formoterol Fumar (Dulera 200/5 Mdi*) 2 puff INH BID [facility] Last Admin: 08/02/18 07:36 Dose: 2 puff Montelukast Sodium (Singulair Tab*) 10 mg PO DAILY@2100 [facility] Non-Formulary Medication (Loratadine/Pseudoephedrine [Claritin-D 12 Hour Tablet] ) 1 tab PO DAILY [facility] Omeprazole (Prilosec Cap*) 20 mg PO DAILY@0600 [facility] Last Admin: 08/02/18 05:21 Dose: 20 mg Ondansetron HCl (Zofran Odt Tab*) 4 mg PO Q6H PRN PRN Reason: n/v Prednisone (Deltasone Tab*) 60 mg PO ONCE ONE Stop: 08/03/18 10:16 Prednisone (Deltasone Tab*) 50 mg PO ONCE ONE Stop: 08/03/18 09:01 Tiotropium [place] (Spiriva Cap.Inh*) 1 cap INH DAILY [facility] Last Admin: 08/02/18 07:36 Dose: 1 cap Vital Signs - 8 hr 08/02/18 08/02/18 08/02/18 02:30 03:00 03:30 Temperature Pulse Rate 89 85 81 Respiratory 21 19 22 Rate Blood Pressure 118/61 112/62 105/60 (mmHg) O2 Sat by Pulse 94 95 96 Oximetry 08/02/18 08/02/18 08/02/18 03:40 04:00 04:30 Temperature 97.6 F Pulse Rate 78 76 Respiratory 21 21 Rate Blood Pressure 115/63 109/67 (mmHg) O2 Sat by Pulse 97 98 Oximetry 08/02/18 08/02/18 08/02/18 05:00 05:34 06:22 Temperature 98.1 F Pulse Rate 92 98 Respiratory 19 22 20 Rate Blood Pressure 133/75 125/55 (mmHg) O2 Sat by Pulse 94 91 Oximetry 08/02/18 08/02/18 08/02/18 07:39 08:00 08:48 Temperature Pulse Rate 82 Respiratory 16 19 18 Rate Blood Pressure (mmHg) O2 Sat by Pulse 96 Oximetry Oxygen Devices in Use Now: Nasal Cannula Appearance: Alert, sitting up in her bed. In good spirits. Looks comfortable. Eyes: No Scleral Icterus Respiratory: Symmetrical Chest Expansion and Respiratory Effort, Clear to Percussion, - - diminished BS BL Cardiovascular: NL Sounds; No Murmurs; No JVD, RRR, No Edema, - Extremities: No Edema, No Clubbing, Cyanosis, - Skin: No Rash or Ulcers, No Nodules or Sclerosis, - Neurological: Alert and Oriented x 3, NL Sensation Result Diagrams: 08/02/18 05:04 08/02/18 05:04 Additional Lab and Data: Lab Results 08/01/18 Range/Units 17:45 Patient Temperature Not Reportable ABG pH Pending ABG pH (Temp Correct) Pending ABG pCO2 Pending ABG pCO2 (Temp Corrct Pending ABG pO2 Pending ABG pO2 (Temp Correct Pending ABG HCO3 Pending ABG O2 Saturation Pending ABG Base Excess Pending Respiration Rate Not Reportable O2 Delivery Device 6lpm nc Ventilator Type Not Reportable Vent Mode Not Reportable FiO2 Not Reportable Inspiratory Time Not Reportable PEEP Not Reportable Pressure Support Not Reportable Pressure Control Not Reportable EPAP Not Reportable IPAP Not Reportable BiPAP Not Reportable Microbiology and Other Data: Microbiology 08/01/18 22:45 Gram Stain - Final Sputum 08/01/18 23:35 Streptococcus pneumoniae Ag Screen - Final Urine Negative S. pneumo Antigen 08/01/18 21:55 Nasal Screen MRSA (PCR) - Final Nasal Mrsa Not Detected 08/01/18 22:20 Influenza Types A,B Antigen - Final Nasal Specimen received for Influenza A/B Molecular testing Assess/Plan/Problems-Billing Assessment: - Patient Problems (1) COPD (chronic obstructive pulmonary disease) Current Visit: No Status: Chronic Code(s): J44.9 - CHRONIC OBSTRUCTIVE PULMONARY DISEASE, UNSPECIFIED SNOMED Code(s): 35089549 Comment: COPD exacerbation +/- PNA. Continue azith, ceftr. Prednisone taper. Ancticipate discharge 08/03 if stable. I spoke with as well . (2) Seasonal allergies Current Visit: Yes Status: Acute Code(s): J30.2 - OTHER SEASONAL ALLERGIC RHINITIS SNOMED Code(s): 251149750 (3) Asthma Current Visit: No Status: Chronic Code(s): J45.909 - UNSPECIFIED ASTHMA, UNCOMPLICATED SNOMED Code(s): 255134845 Comment: Continue montelukast, loratidine.
[2018-08-02] MEDS ORDERED: predniSONE TAB* 20 MG PO ONE (10:25)
[2018-08-02 11:10] LABS: Urine Appearance Cloudy; Urine Blood Negative (Negative); Urine Color Yellow; Urine Ketones Negative (Negative); Urine Protein Negative (Negative); Urine Specific Gravity 1.011 (1.010-1.030); Urine Urobilinogen Negative (Negative)
[2018-08-02 11:17] LABS: Urine Red Blood Cell 1+(3-5/hpf) (Absent); Urine White Blood Cell 1+(6-10/hpf) (Absent)
[2018-08-02] MEDS ORDERED: guaiFENesin LIQ* 100 MG/5 ML UDC PO PRN (16:30)
[2018-08-02] MEDS ORDERED: cefTRIAXone VIAL(*) 1,000 MG in NS 0.9% 50 ML* 50 ML IVPB SCH (17:00)
[2018-08-02] MEDS: guaiFENesin LIQ* 100 MG/5 ML UDC PO SCH ×2 (17:07→21:26)
[2018-08-02] MEDS ORDERED: Azithromycin IV(*) 500 MG in NS 0.9% 250 ML* 250 ML IVPB SCH (18:00)
[2018-08-02] MEDS ORDERED: Cetirizine* 10 MG TAB PO SCH (21:00)
[2018-08-02] MEDS ORDERED: Montelukast Sodium TAB* 10 MG PO SCH (21:00)
[2018-08-02] MEDS: Pseudoephedrine HCL ER TAB* 120 MG PO SCH (21:27)
[2018-08-03] MEDS: Albuterol 2.5 MG/3 ML NEB.SOL* (0.083%) INH SCH ×2 (00:57→07:42)
[2018-08-03] MEDS: Omeprazole CAP* 20 MG PO SCH (05:57)
[2018-08-03] MEDS: Heparin VIAL(*) 5000 UNITS/ML VIAL (FIVE THOUSAND) SUBCUT SCH (05:57)
[2018-08-03] MEDS: Tiotropium CAP.INH* CAP.INH/18 MCG (USE ORDER SET !) INH SCH (07:42)
[2018-08-03] MEDS: Mometasone/Formoter 200/5 MDI INH SCH (07:42)
[2018-08-03 08:58] VITALS: BP 119/57
[2018-08-03] MEDS ORDERED: predniSONE TAB* 50 MG PO ONE (09:00)
[2018-08-03] MEDS: ALPRAZolam TAB* 0.25 MG PO SCH (09:15)
[2018-08-03] MEDS: Pseudoephedrine HCL ER TAB* 120 MG PO SCH (09:15)
[2018-08-03] MEDS: guaiFENesin LIQ* 100 MG/5 ML UDC PO SCH (09:15)
[2018-08-03] MEDS: Docusate CAP* 100 MG PO SCH (09:16)
--- NOTE | 2018-08-03 09:21 | PN ---
Progress Note - Progress Note Date of Service: 08/03/18 Note: Time spent on discharge 35 minutes, including exam of patient, discussion with patient, nurse, review of EMR and preparation of discharge documents.
[2018-08-03] MEDS ORDERED: predniSONE TAB* 20 MG PO ONE (10:15)
--- NOTE | 2018-08-03 10:18 | DS ---
CC: Harpreet Padilla MD DISCHARGE SUMMARY: DATE OF ADMISSION: 08/01/18 DATE OF DISCHARGE: 08/03/18 HOSPITAL COURSE: This 57-year-old woman presented with shortness of breath and cough. She has a julee g history of COPD and is on home oxygen. She had a 3-day history of cough with [id number] sputu m. She does not have fevers, chills, sweats, chest pain, or hemoptysis. She was more shortness of b reath on the afternoon of admission and came to the emergency room. The rest of history is detailed in the admission note. The patient was initially admitted to intensive care unit, but improved rapidly and within I believe less than 12 hours was transferred to the medical floor. She has been given some amount of noninvasi ve positive pressure ventilation. She continued to do well and was stable for discharge on the day of discharge. She will complete 7 d ays of cephalosporin, 5 days of azithromycin and have a tapering course of prednisone. Her chest x-ray showed bibasilar infiltrates, not much different from previous x- rays that suspect s he has bronchiectasis whether the changes are related to technique, progression of bronchiectasis or concurrent infection is not clear. In any case, she would be treated for either bronchitis or exacer bation of COPD bronchiectasis and possible pneumonic infiltration infiltration. DISCHARGE DIAGNOSIS: Chronic obstructive pulmonary disease with infection. DISCHARGE MEDICATIONS: 1. Azithromycin 250 mg daily for 3 more days. 2. Cefuroxime 500 mg b.i.d. for 5 days. 3. Prednisone 10 mg taper from 4 to 0 over 4 days. 4. Alprazolam 0.25 mg 4 times a day as prescribed. 5. Combivent inhaler 2 puffs 4 times a day. 6. Budesonide/formoterol 160/4.5 two puffs b.i.d. 7. Ascorbic acid 1 tablet daily. 8. Montelukast 10 mg h.s. 9. Tiotropium 1 daily. 10. Combivent Respimat as prescribed. 11. Albuterol 2.5 mg by nebulizer as prescribed. 12. Loratadine/pseudoephedrine as prescribed. CONDITION ON DISCHARGE: Improved. DISPOSITION ON DISCHARGE: Home. [id number]/[facility] #: [id number]
== END 2018-08-03 10:58 | disposition home or self-care (01) | DRG 140 ==
LOC: ED 17:31 → ICU 20:38 → MED 08-02 06:35
PROVIDERS: ADMIT Hospitalist; ATTEND Internal Medicine
DX: J47.0 Bronchiectasis with acute lower respiratory infection (principal); J18.9 Pneumonia, unspecified organism; Z99.81 Dependence on supplemental oxygen; F41.9 Anxiety disorder, unspecified; J30.2 Other seasonal allergic rhinitis; Z87.891 Personal history of nicotine dependence; Z88.2 Allergy status to sulfonamides; Z88.8 Allergy status to other drugs, medicaments and biological substances; Z79.899 Other long term (current) drug therapy; Z83.3 Family history of diabetes mellitus; Z82.49 Family history of ischemic heart disease and other diseases of the circulatory system
CPT/HCPCS: 36415; 71045; 80048; 80053; 81003; 81015; 82803; 83605; 83880; 84484; 85025; 85610; 85730; 87040; 87070; 87077; 87086; 87186; 87205; 87641; 87899; 93005; 94640; 99283; A9270-GY; J0456; J0696; J1644; J2060; J2930; J3475; J7512

== ENCOUNTER 2019-11-16 18:15 | Inpatient (IN) | payer OTHER ==
--- OUTSIDE RECORDS SUMMARY | 2019-11-16 18:24 | XMS REPORT ---
:1960 Author Organization [facility] Care Team Providers Name Role Phone Unavailable Unavailable Unavailable Problems This patient has no known problems. Allergies, Adverse Reactions, Alerts Allergy Name Allergy Status Severity Reaction(s) Onset Inactive Treating Comments Type Date Date Clinician metronidazol Base Active Unknown Reaction Interface e Ingredient Unknown 1-10 Sulfa Unknown Active Unknown Reaction Unknown (Sulfonamide Unknown 1-10 Antibiotics) amoxicillin Base Active Unknown Reaction Interface Ingredient Unknown 1-10 azithromycin Base Active Unknown Reaction Interface Ingredient Unknown 1-10 Medications Ordered Filled Start Stop Current Ordering Indication Dosage Frequency Signature Comments Components Medication Medication Date Date Medication? Clinician (SIG) Name Name Budesonide/ Budesonide/ No Unknown Unknown Unknown Formote Formote 07-24 160/4.5(Nf) 160/4.5(Nf) ascorbic ascorbic No Unknown Unknown Unknown acid acid 2-05 (vitamin C) (vitamin C) 500 mg 500 mg tablet tablet montelukast montelukast No Unknown Unknown Unknown 10 mg 10 mg 08-01 tablet tablet albuterol albuterol No Unknown Unknown Unknown sulfate 2.5 sulfate 2.5 1-25 mg/3 mL mg/3 mL (0.083 %) (0.083 %) solution solution for for nebulizatio nebulizatio n n ipratropium ipratropium Yes Unknown Unknown Unknown bromide bromide -08 0.02 % 0.02 % solution solution for for inhalation inhalation Clonazepam Clonazepam Yes Unknown Unknown Unknown 1-08 Tiotropium Tiotropium Yes Unknown Unknown Unknown Brom/Olodat Brom/Olodat 1-08 geoff geoff Vital Signs Vital Name Observation Time Observation Value Comments SYSTOLIC mm[Hg] 2019-11-14 18:09:48 133 mm[Hg] mm[Hg] Method: Sit DIASTOLIC mm[Hg] 2019-11-14 18:09:48 55 mm[Hg] mm[Hg] Method: Sit PULSE 2019-11-14 18:09:48 94 /min /min RESP RATE 2019-11-14 18:09:48 22 /min /min TEMP 2019-11-14 18:09:48 97.4 [degF] Procedures This patient has no known procedures. Results Test Description Test Time Test Comments Text Results Atomic Results Result Comments Urine ascorbic acid 2019-11-12 17:40:00 Identifier 1904-2 Result Time Unknown detection 2019-11-12 17:40:00 Test Item Value Reference Range Comments Urine ascorbic acid detection (test code = 1904-2) * Unknown Unknown F Ordering Physician UnknownUrine urobilinogen measurement (units/volume) by test [id number] 17:40:00Identifier 22621-8 Result Time 2019-11-12 17:40: 00Unknown Test Item Value Reference Range Comments Urine urobilinogen measurement Negative Unknown Unknown F (units/volume) by test strip (test code = 49609-4) Ordering Physician UnknownInfluenza virus A RNA detection by probe and target amplification [id number] 17:40:00Identifier 47966-3 Result Time 17:40:00Unknown Test Item Value Reference Range Comments Influenza virus A RNA detection by probe Negative Unknown Unknown F and target amplification method (test code = 40546-7) Ordering Physician UnknownInfluenza virus B RNA detection by probe and target amplification [id number] 17:40:00Identifier 33823-9 Result Time 17:40:00Unknown Test Item Value Reference Range Comments Influenza virus B RNA detection by probe Negative Unknown Unknown F and target amplification method (test code = 97910-9) Ordering Physician UnknownUrine total bilirubin detection by automated test [id number] 17:40:00Identifier 38463-0 Result Time 2019-11-12 17:40: 00Unknown Test Item Value Reference Range Comments Urine total bilirubin detection by Negative Unknown Unknown F automated test strip (test code = 68176-7) Ordering Physician UnknownUrine clarity by refractometry [id number] 17: 40:00Identifier 93215-9 Result Time 2019-11-12 17:40:00Unknown Test Item Value Reference Range Comments Urine clarity by refractometry automated Clear Unknown Unknown F (test code = 40365-0) Ordering Physician UnknownColor of Urine by Lmxo3534-24-79 17:40:00Identifier 79949-5 Result Time 2019-11-12 17:40:00Unknown Test Item Value Reference Range Comments Color of Urine by Auto (test code = 35275-5) Straw Unknown Unknown F Ordering Physician UnknownUrine glucose detection by automated test [id number] -08 17:40:00Identifier 89619-4 Result Time 2019-11-12 17:40:00Unknown Test Item Value Reference Range Comments Urine glucose detection by automated test Negative Unknown Unknown F strip (test code = 40181-8) Ordering Physician UnknownKetones [Mass/volume] in Urine by Automated test [id number] 17:40:00Identifier 95863-8 Result Time 2019-11-12 17:40: 00Unknown Test Item Value Reference Range Comments Ketones [Mass/volume] in Urine by Automated Trace Unknown Unknown F test strip (test code = 45403-2) Ordering Physician UnknownUrine nitrite detection by automated test [id number] -08 17:40:00Identifier 16829-6 Result Time 2019-11-12 17:40:00Unknown Test Item Value Reference Range Comments Urine nitrite detection by automated test Negative Unknown Unknown F strip (test code = 71458-9) Ordering Physician UnknownProtein [Mass/volume] in Urine by Automated test [id number] 17:40:00Identifier 45736-5 Result Time 2019-11-12 17:40: 00Unknown Test Item Value Reference Range Comments Protein [Mass/volume] in Urine by Negative Unknown Unknown F Automated test strip (test code = 53202-1) Ordering Physician UnknownSpecific gravity of Urine by Refractometry cpwvsftin3332-31-15 17:40:00Identifier 68725-8 Result Time 2019-11-12 17:40: 00Unknown Test Item Value Reference Range Comments Specific gravity of Urine by Refractometry 1.004 Unknown Unknown F automated (test code = 27974-5) Ordering Physician UnknownUrine hemoglobin detection by test [id number] 17: 40:00Identifier 5794-3 Result Time 2019-11-12 17:40:00Unknown Test Item Value Reference Range Comments Urine hemoglobin detection by test strip Negative Unknown Unknown F (test code = 5794-3) Ordering Physician UnknownUrine leukocyte esterase detection by automated test [id number] 17:40:00Identifier 38037-3 Result Time 2019-11-12 17:40: 00Unknown Test Item Value Reference Range Comments Urine leukocyte esterase detection by Negative Unknown Unknown F automated test strip (test code = 85290-2) Ordering Physician UnknownArterial blood base excess ixfmvzqmdda6561-65-48 16:24 :00Identifier 1925-7 Result Time 2019-11-12 16:24:00Unknown Test Item Value Reference Range Comments Arterial blood base excess measurement 13.0 mmol/L Unknown Unknown F (test code = 1925-7) Ordering Physician UnknownArterial blood partial pressure of oxygen with temperature rdrazvmzrt4759-88-21 16:24:00Identifier 73156-5 Result Time 16:24:00Unknown Test Item Value Reference Range Comments Arterial blood partial pressure of Not Reportable Unknown Unknown F oxygen with temperature correction (test code = 37963-3) Ordering Physician UnknownArterial blood bicarbonate measurement (moles/volume) 2019-11-12 16:24:00Identifier 1960-4 Result Time 2019-11-12 16:24:00Unknown Test Item Value Reference Range Comments Arterial blood bicarbonate measurement 34.9 mmol/L Unknown Unknown F (moles/volume) (test code = 1960-4) Ordering Physician UnknownArterial blood gas measurement with patient temperature [id number] 16:24:00Identifier 42159-3 Result Time 16:24:00Unknown Test Item Value Reference Range Comments Arterial blood gas measurement with Not Reportable Unknown Unknown F patient temperature correction (test code = 14468-7) Ordering Physician UnknownO2 saturation arterial [id number] 16:24: 00Identifier 2708-6 Result Time 2019-11-12 16:24:00Unknown Test Item Value Reference Range Comments O2 saturation arterial blood (test code = 92.6 % Unknown Unknown F 2708-6) Ordering Physician UnknownArterial blood pH mzcnnrxdhqv1691-68-12 16:24: 00Identifier 2744-1 Result Time 2019-11-12 16:24:00Unknown Test Item Value Reference Range Comments Arterial blood pH measurement (test code = 7.40 Unknown Unknown F 2744-1) Ordering Physician UnknownPO2 arterial cord [id number] 16:24:00Identifier 28468-9 Result Time 2019-11-12 16:24:00Unknown Test Item Value Reference Range Comments PO2 arterial cord blood (test code = 59 mmHg Unknown Unknown F 29100-0) Ordering Physician UnknownArterial pCO2 with temperature djteurqrvk4745-29-39 16 :24:00Identifier 12571-2 Result Time 2019-11-12 16:24:00Unknown Test Item Value Reference Range Comments Arterial pCO2 with temperature Not Reportable Unknown Unknown F correction (test code = 26097-2) Ordering Physician UnknownSerum or plasma troponin i.cardiac measurement (mass/ volume)2019-11-12 16:11:00Identifier 52975-3 Result Time 2019-11-12 16:11: 00Unknown Test Item Value Reference Range Comments Serum or plasma troponin i.cardiac 0.00 ng/mL Unknown Unknown F measurement (mass/volume) (test code = 51002-5) Ordering Physician UnknownSerum or plasma creatine kinase MB measurement (mass/ volume)2019-11-12 16:11:00Identifier 40467-8 Result Time 2019-11-12 16:11: 00Unknown Test Item Value Reference Range Comments Serum or plasma creatine kinase MB 1.9 ng/mL Unknown Unknown F measurement (mass/volume) (test code = 90468-0) Ordering Physician UnknownSerum or plasma alanine aminotransferase measurement ( enzymatic activity/volume)2019-11-12 16:11:00Identifier 1742-6 Result Time 11-12 16:11:00Unknown Test Item Value Reference Range Comments Serum or plasma alanine aminotransferase 9 U/L Unknown Unknown F measurement (enzymatic activity/volume) (test code = 1742-6) Ordering Physician UnknownSerum or plasma albumin/globulin mass nvduc4431-77-72 16:11:00Identifier 1759-0 Result Time 2019-11-12 16:11:00Unknown Test Item Value Reference Range Comments Serum or plasma albumin/globulin mass ratio 1.1 Unknown Unknown F (test code = 1759-0) Ordering Physician UnknownSerum or plasma calcium measurement (mass/volume)11-12 16:11:00Identifier 90595-8 Result Time 2019-11-12 16:11:00Unknown Test Item Value Reference Range Comments Serum or plasma calcium measurement 9.6 mg/dL Unknown Unknown F (mass/volume) (test code = 89520-8) Ordering Physician UnknownSerum or plasma aspartate aminotransferase measurement (enzymatic activity/volume)2019-11-12 16:11:00Identifier 1920-06 Result Time 2019-11-12 16:11:00Unknown Test Item Value Reference Range Comments Serum or plasma aspartate aminotransferase 20 U/L Unknown Unknown F measurement (enzymatic activity/volume) (test code = 1920-06) Ordering Physician UnknownSerum or plasma total bilirubin measurement (mass/ volume)2019-11-12 16:11:00Identifier 1974-12 Result Time 2019-11-12 16:11: 00Unknown Test Item Value Reference Range Comments Serum or plasma total bilirubin 0.50 mg/dL Unknown Unknown F measurement (mass/volume) (test code = 1974-12) Ordering Physician UnknownSerum or plasma C reactive protein measurement (mass/ volume)2019-11-12 16:11:00Identifier 1988-03 Result Time 2019-11-12 16:11: 00Unknown Test Item Value Reference Range Comments Serum or plasma C reactive protein 1.92 mg/L Unknown Unknown F measurement (mass/volume) (test code = 1988-03) Ordering Physician UnknownSerum or plasma carbon dioxide, total measurement ( moles/volume)2019-11-12 16:11:00Identifier 2028-07 Result Time 2019-11-12 16:11: 00Unknown Test Item Value Reference Range Comments Serum or plasma carbon dioxide, total 28 mmol/L Unknown Unknown F measurement (moles/volume) (test code = 2028-07) Ordering Physician UnknownSerum or plasma chloride measurement (moles/volume) 2019-11-12 16:11:00Identifier Result Time 2019-11-12 16:11:00Unknown Test Item Value Reference Range Comments Serum or plasma chloride measurement 98 mmol/L Unknown Unknown F (moles/volume) (test code = 2074-) Ordering Physician UnknownSerum or plasma creatine kinase measurement ( enzymatic activity/volume)2019-11-12 16:11:00Identifier 2157-6 Result Time 11-12 16:11:00Unknown Test Item Value Reference Range Comments Serum or plasma creatine kinase measurement 61 U/L Unknown Unknown F (enzymatic activity/volume) (test code = 2157-6) Ordering Physician UnknownSerum or plasma creatinine measurement (mass/volume) 2019-11-12 16:11:00Identifier 2160-0 Result Time 2019-11-12 16:11:00Unknown Test Item Value Reference Range Comments Serum or plasma creatinine measurement 0.68 mg/dL Unknown Unknown F (mass/volume) (test code = 2160-0) Ordering Physician UnknownSerum glucose measurement (mass/volume)2019-11-12 16: 11:00Identifier 2345-7 Result Time 2019-11-12 16:11:00Unknown Test Item Value Reference Range Comments Serum glucose measurement (mass/volume) 93 mg/dL Unknown Unknown F (test code = 2345-7) Ordering Physician UnknownSerum or plasma lactate measurement (moles/volume)2019 16:11:00Identifier 2524-7 Result Time 2019-11-12 16:11:00Unknown Test Item Value Reference Range Comments Serum or plasma lactate measurement 0.8 mmol/L Unknown Unknown F (moles/volume) (test code = 2524-7) Ordering Physician UnknownSerum or plasma potassium measurement (moles/volume) 2019-11-12 16:11:00Identifier 2823-3 Result Time 2019-11-12 16:11:00Unknown Test Item Value Reference Range Comments Serum or plasma potassium measurement 4.3 mmol/L Unknown Unknown F (moles/volume) (test code = 2823-3) Ordering Physician UnknownSerum total protein measurement (mass/volume) 16:11:00Identifier 2885-2 Result Time 2019-11-12 16:11:00Unknown Test Item Value Reference Range Comments Serum total protein measurement 7.7 g/dL Unknown Unknown F (mass/volume) (test code = 2885-2) Ordering Physician UnknownSerum or plasma sodium measurement (moles/volume)11-12 16:11:00Identifier 2951-2 Result Time 2019-11-12 16:11:00Unknown Test Item Value Reference Range Comments Serum or plasma sodium measurement 138 mmol/L Unknown Unknown F (moles/volume) (test code = 2951-2) Ordering Physician UnknownSerum or plasma natriuretic peptide B measurement ( mass/volume)2019-11-12 16:11:00Identifier 76724-1 Result Time 2019-11-12 16:11: 00Unknown Test Item Value Reference Range Comments Serum or plasma natriuretic peptide B 33 pg/mL Unknown Unknown F measurement (mass/volume) (test code = 69240-3) Ordering Physician UnknownSerum or plasma urea nitrogen measurement (mass/volume )2019-11-12 16:11:00Identifier 3094-0 Result Time 2019-11-12 16:11:00Unknown Test Item Value Reference Range Comments Serum or plasma urea nitrogen measurement 15 mg/dL Unknown Unknown F (mass/volume) (test code = 3094-0) Ordering Physician UnknownSerum or plasma urea nitrogen/creatinine agvml0787-45- 08 16:11:00Identifier 3097-3 Result Time 2019-11-12 16:11:00Unknown Test Item Value Reference Range Comments Serum or plasma urea nitrogen/creatinine 22.1 Unknown Unknown F ratio (test code = 3097-3) Ordering Physician UnknownAutomated blood platelet mean volume goljcqscehh9752- 01-08 16:11:00Identifier 85342-4 Result Time 2019-11-12 16:11:00Unknown Test Item Value Reference Range Comments Automated blood platelet mean volume 8.4 fL Unknown Unknown F measurement (test code = 16663-1) Ordering Physician UnknownSerum or plasma anion mfm8424-38-30 16:11: 00Identifier 64959-5 Result Time 2019-11-12 16:11:00Unknown Test Item Value Reference Range Comments Serum or plasma anion gap (test code = 12 mmol/L Unknown Unknown F 02437-1) Ordering Physician UnknownAutomated blood leukocytes count corrected for nucleated erythrocytes (number/volume)2019-11-12 16:11:00Identifier 42968-9 Result Time 2019-11-12 16:11:00Unknown Test Item Value Reference Range Comments Automated blood leukocytes count 6.6 10^3/uL Unknown Unknown F corrected for nucleated erythrocytes (number/volume) (test code = 86198-6) Ordering Physician UnknownAutomated blood nucleated erythrocytes uosqryaho1193- 01-08 16:11:00Identifier 46394-0 Result Time 2019-11-12 16:11:00Unknown Test Item Value Reference Range Comments Automated blood nucleated erythrocytes 0.0 Unknown Unknown F detection (test code = 54438-5) Ordering Physician UnknownAutomated blood hematocrit (percentage)2019-11-12 16: 11:00Identifier 4544-3 Result Time 2019-11-12 16:11:00Unknown Test Item Value Reference Range Comments Automated blood hematocrit (percentage) (test 39 % Unknown Unknown F code = 4544-3) Ordering Physician UnknownEstimated glomerular filtration rate (GFR) non- Xcfhjwrx8890-66-37 16:11:00Identifier 27445-4 Result Time 2019-11-12 16: 11:00Unknown Test Item Value Reference Range Comments Estimated glomerular filtration rate (GFR) 88.9 Unknown Unknown F non- (test code = 07270-3) Ordering Physician UnknownAutomated blood monocytes/100 vpwogxltkj1805-96-54 16: 11:00Identifier 5905-5 Result Time 2019-11-12 16:11:00Unknown Test Item Value Reference Range Comments Automated blood monocytes/100 leukocytes 5.1 % Unknown Unknown F (test code = 5905-5) Ordering Physician UnknownSerum or plasma albumin measurement by bromocresol green (BCG) dye binding method ([id number] 16:11:00Identifier 80047-4 Result Time 2019-11-12 16:11:00Unknown Test Item Value Reference Range Comments Serum or plasma albumin measurement by 4.0 g/dL Unknown Unknown F bromocresol green (BCG) dye binding method (ma (test code = 66923-1) Ordering Physician UnknownSerum or plasma alkaline phosphatase measurement ( enzymatic activity/volume)2019-11-12 16:11:00Identifier 6768-6 Result Time 11-12 16:11:00Unknown Test Item Value Reference Range Comments Serum or plasma alkaline phosphatase 97 U/L Unknown Unknown F measurement (enzymatic activity/volume) (test code = 6768-6) Ordering Physician UnknownAutomated blood basophil count (number/volume) 16:11:00Identifier 704-7 Result Time 2019-11-12 16:11:00Unknown Test Item Value Reference Range Comments Automated blood basophil count 0.0 10^3/ul Unknown Unknown F (number/volume) (test code = 704-7) Ordering Physician UnknownAutomated blood basophils/100 qddllhdocn2315-13-16 16: 11:00Identifier 706-2 Result Time 2019-11-12 16:11:00Unknown Test Item Value Reference Range Comments Automated blood basophils/100 leukocytes 0.3 % Unknown Unknown F (test code = 706-2) Ordering Physician UnknownAutomated blood eosinophil count (number/volume)11-12 16:11:00Identifier 711-2 Result Time 2019-11-12 16:11:00Unknown Test Item Value Reference Range Comments Automated blood eosinophil count 0.1 10^3/ul Unknown Unknown F (number/volume) (test code = 711-2) Ordering Physician UnknownAutomated blood eosinophils/100 zbmvgwbfdc9444-22-67 16:11:00Identifier 713-8 Result Time 2019-11-12 16:11:00Unknown Test Item Value Reference Range Comments Automated blood eosinophils/100 leukocytes 1.8 % Unknown Unknown F (test code = 713-8) Ordering Physician UnknownBlood hemoglobin measurement (mass/volume)2019-11-12 16:11:00Identifier 718-7 Result Time 2019-11-12 16:11:00Unknown Test Item Value Reference Range Comments Blood hemoglobin measurement 12.5 g/dL Unknown Unknown F (mass/volume) (test code = 718-7) Ordering Physician UnknownBlood lymphocytes automated count (number/volume)11-12 16:11:00Identifier 731-0 Result Time 2019-11-12 16:11:00Unknown Test Item Value Reference Range Comments Blood lymphocytes automated count 1.1 10^3/ul Unknown Unknown F (number/volume) (test code = 731-0) Ordering Physician UnknownAutomated blood lymphocytes/100 ptqgahrqbr8579-54-28 16:11:00Identifier 736-9 Result Time 2019-11-12 16:11:00Unknown Test Item Value Reference Range Comments Automated blood lymphocytes/100 leukocytes 16.3 % Unknown Unknown F (test code = 736-9) Ordering Physician UnknownBlood monocytes automated count (number/volume)2019-11 16:11:00Identifier 742-7 Result Time 2019-11-12 16:11:00Unknown Test Item Value Reference Range Comments Blood monocytes automated count 0.3 10^3/ul Unknown Unknown F (number/volume) (test code = 742-7) Ordering Physician UnknownAutomated blood neutrophils/100 bzdeevmvea6944-64-46 16:11:00Identifier 770-8 Result Time 2019-11-12 16:11:00Unknown Test Item Value Reference Range Comments Automated blood neutrophils/100 leukocytes 76.5 % Unknown Unknown F (test code = 770-8) Ordering Physician UnknownBlood nucleated erythrocytes automated count (number/ volume)2019-11-12 16:11:00Identifier 771-6 Result Time 2019-11-12 16:11: 00Unknown Test Item Value Reference Range Comments Blood nucleated erythrocytes automated 0.0 10^3/ul Unknown Unknown F count (number/volume) (test code = 771-6) Ordering Physician UnknownAutomated blood platelet count (number/volume) 16:11:00Identifier 777-3 Result Time 2019-11-12 16:11:00Unknown Test Item Value Reference Range Comments Automated blood platelet count 254 10^3/uL Unknown Unknown F (number/volume) (test code = 777-3) Ordering Physician UnknownAutomated erythrocyte mean corpuscular hemoglobin ( mass per erythrocyte)2019-11-12 16:11:00Identifier 785-6 Result Time 2019-11-12 16:11:00Unknown Test Item Value Reference Range Comments Automated erythrocyte mean corpuscular 30 pg Unknown Unknown F hemoglobin (mass per erythrocyte) (test code = 785-6) Ordering Physician UnknownAutomated erythrocyte mean corpuscular hemoglobin concentration measurement (mass/ohm1384-80-41 16:11:00Identifier 786-4 Result Time 2019-11-12 16:11:00Unknown Test Item Value Reference Range Comments Automated erythrocyte mean corpuscular 33 g/dL Unknown Unknown F hemoglobin concentration measurement (mass/vol (test code = 786-4) Ordering Physician UnknownAutomated erythrocyte mean corpuscular qkiswe3180-35- 08 16:11:00Identifier 787-2 Result Time 2019-11-12 16:11:00Unknown Test Item Value Reference Range Comments Automated erythrocyte mean corpuscular volume 91 fL Unknown Unknown F (test code = 787-2) Ordering Physician UnknownAutomated erythrocyte distribution width cjcsu7211-18- 08 16:11:00Identifier 788-0 Result Time 2019-11-12 16:11:00Unknown Test Item Value Reference Range Comments Automated erythrocyte distribution width ratio 15 % Unknown Unknown F (test code = 788-0) Ordering Physician UnknownAutomated blood erythrocyte count (number/volume)11-12 16:11:00Identifier 789-8 Result Time 2019-11-12 16:11:00Unknown Test Item Value Reference Range Comments Automated blood erythrocyte count 4.24 10^6 /uL Unknown Unknown F (number/volume) (test code = 789-8) Ordering Physician UnknownLymphocyte proliferation [id number] 16:11: 00Identifier [id number] Result Time 2019-11-12 16:11:00Unknown Test Item Value Reference Range Comments Lymphocyte proliferation test (test 5.0 10^3/ul Unknown Unknown F code = GJR8458) Ordering Physician Unknown
--- OUTSIDE RECORDS SUMMARY | 2019-11-16 18:24 | XMS REPORT ---
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) (acute) exacerbatio exacerbatio n n Allergies, Adverse Reactions, Alerts Allergy Name Allergy Status Severity Reaction(s) Onset Inactive Treating Comments Type Date Date Clinician metronidazol Base Active Unknown Reaction Interface e Ingredient Unknown -27 Sulfa Unknown Active Unknown Reaction Interface (Sulfonamide Unknown 9-27 Antibiotics) amoxicillin Base Active Unknown DIARRHEA Ayah Beam Ingredient 1-10 azithromycin Base Active Unknown Diarrhea Ayah Beam Ingredient 1-10 Medications Ordered Filled Start Stop Current Ordering Indication Dosage Frequency Signature Comments Components Medication Medication Date Date Medication? Clinician (SIG) Name Name No Known No Known No None None None Medications Medications For This For This Patient Patient Procedures This patient has no known procedures. Results This patient has no known results.
[2019-11-16] MEDS ORDERED: Albuterol/Ipratropium NEB.SOL* Albuterol 2.5 MG/Ipratropium 0.5 MG 3 ML INH ONE ×2 (18:45→19:36)
--- NOTE | 2019-11-16 18:45 | ED ---
Shortness of Breath - HPI Summary HPI Summary: Pt is a 59 y/o F presenting to the ED with a chief complaint of shortness of breath initially onset a couple of days ago. Pt states [facility] and d/jenny on 11/15/2019, stating she felt fine. She has been coughing up lots of yellow phlegm, and notes hx of COPD, asthma, PNA, and PTX. Also notes her epigastric region feels rock hard. She denies fever, pain or edema in calves, nausea, or vomiting. Notes she only has 15% usage of her lungs. - History of Current Complaint Chief Complaint: EDShortnessOfBreath Time Seen by Provider: 11/16/19 18:35 Hx Obtained From: Patient Onset/Duration: Gradual Onset, Lasting Days, Still Present Timing: Constant Current Severity: Moderate Dyspnea At: Rest Aggravating Factors: Nothing Alleviating Factors: Nothing Associated Signs & Symptoms: Cough (Productive) - Allergy/Home Medications Allergies/Adverse Reactions: Allergies Allergy/AdvReac Type Severity Reaction Status Date / Time metronidazole [From Flagyl] Allergy Unknown Verified 11/16/19 18:20 Reaction Details Sulfa (Sulfonamide Allergy Unknown Verified 11/16/19 18:20 Antibiotics) Reaction Details amoxicillin AdvReac Diarrhea Verified 11/16/19 18:20 azithromycin AdvReac Diarrhea Verified 11/16/19 18:20 PMH/Surg Hx/FS Hx/Imm Hx Previously Healthy: Yes Endocrine/Hematology History: Denies: Hx Diabetes, Hx Sickle Cell Disease Cardiovascular History: Reports: Other Cardiovascular Problems/Disorders - BLE swelling-possible heART HISTORY Denies: Hx Congestive Heart Failure, Hx Hypercholesterolemia, Hx Hypertension Respiratory History: Reports: Hx Asthma, Hx Chronic Bronchitis, Hx Chronic Obstructive Pulmonary Disease (COPD), Hx Pneumonia, Other Respiratory Problems/ Disorders - pneumonia, pseudomonas GI History: Reports: Hx Diverticulosis, Other GI Disorders - Appendectomy Sensory History: Reports: Hx Contacts or Glasses Denies: Hx Legally Blind, Hx Deafness, Hx Hearing Aid Opthamlomology History: Reports: Hx Contacts or Glasses Denies: Hx Legally Blind Psychiatric History: Reports: Hx Anxiety - Surgical History Surgery Procedure, Year, and Place: wisdom teeth. x1. hysterectomy. Tubal ligation. Appendectomy- [facility] 11/2014 ([place]) Hx Anesthesia Reactions: No - Immunization History Date of Tetanus Vaccine: unk Date of Influenza Vaccine: none Infectious Disease History: No Infectious Disease History: Reports: History Other Infectious Disease - pseudomonas sputum Denies: Traveled Outside the [place] in Last 30 Days - Family History Known Family History: Negative: Diabetes - Social History Alcohol Use: None Hx Substance Use: No Substance Use Type: Reports: None Hx Tobacco Use: Yes Smoking Status (MU): Former Smoker Type: Cigarettes Review of Systems Negative: Fever Positive: Shortness Of Breath, Cough Positive: Abdominal Pain. Negative: Vomiting, Nausea Negative: Myalgia, Edema All Other Systems Reviewed And Are Negative: Yes Physical Exam - Summary Physical Exam Summary: Constitutional: Well-developed, Well-nourished, Alert. (-) Distressed Skin: Warm, Dry HENT: Normocephalic; Atraumatic Eyes: Conjunctiva normal Neck: Musculoskeletal ROM normal neck. (-) JVD, (-) Stridor, (-) Tracheal deviation Cardio: Rhythm regular, rate normal, Heart sounds normal; Intact distal pulses; The pedal pulses are 2+ and symmetric. Radial pulses are 2+ and symmetric. (-) Murmur Pulmonary/Chest wall: Effort normal. Decreased breath sounds. (-) Respiratory distress, (-) Wheezes, (-) Rales Abd: Soft, (-) tenderness, (-) Distension, (-) Guarding, (-) Rebound Musculoskeletal: (-) Edema Lymph: (-) Cervical adenopathy Neuro: Alert, Oriented x3 Psych: Mood and affect Normal Triage Information Reviewed: Yes Vital Signs On Initial Exam: Initial Vitals Temp Pulse Resp BP Pulse Ox 98.9 F 102 22 141/81 92 11/16/19 18:16 11/16/19 18:16 11/16/19 18:16 11/16/19 18:16 11/16/19 18:16 Vital Signs Reviewed: Yes Procedures - Sedation Patient Received Moderate/Deep Sedation with Procedure: No Diagnostics - Vital Signs Vital Signs Temp Pulse Resp BP Pulse Ox 11/16/19 18:16 98.9 F 102 22 141/81 92 - Laboratory Result Diagrams: 11/16/19 18:51 11/16/19 18:51 Lab Statement: Any lab studies that have been ordered have been reviewed, and results considered in the medical decision making process. - Radiology CXR Radiology Interpretation Completed By: ED Physician Summary of Radiographic Findings: Bibasilar infiltrates. Pending official radiology report. - EKG 1851 Cardiac Rate: NL - 96bpm EKG Rhythm: Sinus Rhythm ST Segment: Normal Ectopy: None Summary of EKG Findings: EKG at 185 shows NSR at 96bpm with no ischemic changes. Dr. Combs has reviewed and interpreted this EKG. Course/Dx - Course Course Of Treatment: Pt is a 59 y/o F presenting to the ED with a chief complaint of shortness of breath initially onset a couple of days ago. She has been coughing up lots of yellow phlegm, and notes her epigastric region feels rock hard. She denies fever, pain or edema in calves, nausea, or vomiting. Mentioned she only has 15% usage of her lungs. Physical exam WNL. CXR shows bibasilar infiltrates. Pending official radiology report. EKG at 1851 shows NSR at 96bpm with no ischemic changes. Dr. Combs has reviewed and interpreted this EKG. I spoke with Dr. Ku at 1930 who will come to evaluate pt for admission. Dx includes PNA & COPD exacerbation. - Diagnoses Provider Diagnoses: COPD exacerbation, PNA (pneumonia) Discharge ED - Sign-Out/Discharge Documenting (check all that apply): Patient Departure - Discharge Plan Condition: Stable Disposition: ADMITTED TO [facility] Referrals: Harpreet Padilla MD [Primary Care Provider] - - Billing Disposition and Condition Condition: STABLE Disposition: Admitted to [facility] - Attestation Statements Document Initiated by Cristela: Yes Documenting Scribe: Rae Garcia Provider For Whom Cristela is Documenting (Include Credential): Kody Combs DO. Scribe Attestation: Rae Valle scribed for Kody Combs DO. on 11/16/19 at 2142. Scribe Documentation Reviewed: Yes Provider Attestation: The documentation as recorded by the Rae garg accurately reflects the service I personally performed and the decisions made by , Kody Combs DO. Status of Scribe Document: Viewed
[2019-11-16] MEDS ORDERED: NS 0.9% 1000 ML** 1,000 ML IV ONE (18:46)
[2019-11-16 18:58] LABS: ABS Lymphocytes 0.5 10^3/ul (1.0-4.8); ABS Monocytes 0.2 10^3/ul (0-0.8); ABS Neutrophils 6.6 10^3/ul (1.5-7.7); Hematocrit 36 % (35-47); Hemoglobin 11.8 g/dL (12.0-16.0); Lymphocyte % 6.7 %; Mean Corpuscular HGB Conc 33 g/dL (31-36); Mean Corpuscular Hemoglobin 29 pg (27-31); Mean Corpuscular Volume 90 fL (80-97); Mean Platelet Volume 8.9 fL (7.4-10.4); Platelet Count 213 10^3/uL (150-450); Red Cell Distribution Width 15 % (10-15); White Blood Count 7.3 10^3/uL (3.5-10.8)
[2019-11-16 19:16] LABS: Albumin 3.8 g/dL (3.2-5.2); Albumin/Globulin Ratio 1.2 (1-3); BUN/Creatinine Ratio 32.3 (8-20); Calcium 9.1 mg/dL (8.6-10.3); EGFR African American 113.3 (>60); EGFR Non-African American 93.6 (>60); Globulin 3.3 g/dL (2-4); Potassium 4.1 mmol/L (3.5-5.0); Total Bilirubin 0.5 mg/dL (0.2-1.0); Total Protein 7.1 g/dL (6.4-8.9)
[2019-11-16] MEDS ORDERED: Cefepime 2 GM in Dextrose(*) 2 GM/50 ML BAG IV ONE (19:30)
[2019-11-16] MEDS ORDERED: methylPREDNISolone 125 MG* 2 ML VIAL IV ONE (19:36)
[2019-11-16] MEDS ORDERED: Lorazepam PYXIS KEY PRN (20:21)
[2019-11-16] MEDS ORDERED: LORazepam INJ* 2 MG/ML 1 ML VIAL IV PUSH ONE (20:21)
[2019-11-16] MEDS ORDERED: Lorazepam PYXIS KEY ONE (20:27)
[2019-11-16] MEDS ORDERED: NS 0.9% 1000 ML** 1,000 ML IV SCH (21:15)
[2019-11-16 22:44] LABS: Influenza A Molecular NEGATIVE (Negative); Influenza B Molecular NEGATIVE (Negative)
--- NOTE | 2019-11-16 23:13 | HP ---
HISTORY AND PHYSICAL: DATE OF ADMISSION: 11/16/19 PRIMARY CARE PROVIDER: Dr. Harpreet Padilla. AIRCRAFT STRUCTURAL DESIGN ENGINEER: Velasquez Gotti, patient's . CODE STATUS: Full. SOURCE OF INFORMATION: HPI is obtained from the patient. She is a fair to poor historian. HISTORY OF PRESENT ILLNESS: A 59-year-old female with past medical history of severe GOLD D COPD, emphysema with chronic hypercarbic and hypoxic respiratory failure, on home 3 to 4 L nasal cannula with bronchiectasis; severe anxiety; with benzodiazepine dependence. She was admitted from 11/12/19 to 11/15/19 for a COPD exacerbation with no evidence of acute infiltrate, was discharged on DuoNeb, cefdinir, doxy, and pred taper of 40 mg and an increase in her clonazepam to 4 times per day. The patient reports that she went home and had worsening shortness of breath, anxiety, and also started coughing up productive green sputum, which she notes with a change in color from her typical white. She denies fevers or chills. She denies craig chest pain, orthopnea, myalgia, GI or symptoms. She reports she used her nebulizer only once on the day that she was discharged but she did take her antibiotics and prednisone as instructed. In the emergency room, temperature is 98.9, blood pressure is 140/80, heart rate is 102, she is satting 92% on 5 L, BUN in the high 20s. Repeat labs were unremarkable. Repeat chest x-ray showed no significant change, although there was a possible retrocardiac opacity, although there was no retrocardiac chest x- ray to compare with from her prior admission. Her labs do show mild acute on chronic retention, although an ABG showed a stable pH. EKG showed sinus tachycardia with no evidence of ST changes. Because of her tachypnea, acute on chronic retention, hospitalists were asked to admit for COPD exacerbation, acute on chronic hypercarbic respiratory failure and possible hospital-acquired pneumonia. She received cefepime, methylprednisone, normal saline 1 L, DuoNeb before I evaluated the patient. PAST MEDICAL HISTORY: 1. Severe COPD and emphysema, oxygen dependent. 2. Chronic hypercarbic hypoxic respiratory failure. 3. Severe anxiety with benzodiazepine dependence. 4. Bronchiectasis. 5. History of pneumothorax in 2019 with known pseudomonas ? possible colonization. PAST SURGICAL HISTORY: 1. Pneumothorax in 2019, status post chest tube. 2. Appendectomy. 3. Status post tubal ligation. 4. Status post . MEDICATIONS: 1. Prednisone 40 mg p.o. daily which was prescribed on last admission. 2. Clonazepam 1 mg p.o. 4 times a day which was recently increased. 3. Montelukast 10 mg p.o. daily. 4. Probiotic 1 cap p.o. daily. 5. Doxycycline 100 mg p.o. b.i.d. that was prescribed on last admission. 6. Cefdinir 30 mg p.o. b.i.d. that was prescribed on last admission. 7. Budesonide formoterol 160/4.5 two puffs inhaled b.i.d. 8. Ascorbic acid tab 1000 mg p.o. daily. 9. DuoNeb 1 neb inhaled q.4 hours p.r.n. while awake or as needed. ALLERGIES: METRONIDAZOLE, SULFA, AMOXICILLIN, AZITHROMYCIN. FAMILY HISTORY: Her mother is from heart disease and her father is from bone cancer. SOCIAL HISTORY: The patient is disabled. Lives at home with her . She has a [id number] history of tobacco and quit in 1999. She denies alcohol or illicits. REVIEW OF SYSTEMS: Constitutional: Negative for fevers, chills, or malaise. HEENT: Negative for headaches, vision changes, sore throat. Cardiovascular: Negative for chest pain, palpitations, or orthopnea. Respiratory: Positive for shortness of breath, cough, and chest tightness. GI: Negative for nausea, vomiting, diarrhea, abdominal pain. : Negative for dysuria, hematuria. Musculoskeletal: Negative for myalgias, arthralgias. Skin: Negative for new rashes or lesions. Neurologic: Negative for focal weakness or numbness. Psychiatric: Positive for increased in anxiety. Negative for depression, suicidal attempts. Endocrine: Negative for polyuria or polydipsia. Heme: Negative for easy bruising, bleeding, or lymphadenopathy. PHYSICAL EXAMINATION GENERAL APPEARANCE: This is an anxious woman, mildly tachypneic in the low 20s , but can speak in full sentences. Pleasant and conversant. Largely overwhelmed. A and O x3 and follows all commands. VITAL SIGNS: At the time of physical exam, blood pressure is 140/80, temperature is 98, pulse is 100 and sinus, oxygen saturation is 94 on 5 L, and respiratory rate is 22. HEENT: Pupils are equal and reactive. She has anicteric sclerae. Extraocular muscles are intact. Her mucous membranes are dry in her oropharynx, but otherwise without lesions. NECK: Supple with no supraclavicular or cervical lymphadenopathy. RESPIRATORY: She has pursed-lip breathing with respiratory rate in the 20s. No intercostal muscles have been used. She can speak in full sentences. She has inspiratory and expiratory wheezes and otherwise distant lung sounds. CARDIAC: She has sinus tachycardia with no murmurs, rubs, or gallops. Belly is soft, nontender, and nondistended with normoactive bowel sounds. SIN: Without rashes or lesions. MUSCULOSKELETAL: She moves all 4 limbs spontaneously. EXTREMITIES: Warm and well perfused without evidence of edema. NEURO: Cranial nerves II through XII are intact. No focal neurologic deficits. Sensation intact. PSYCH: The patient is anxiety and affect is congruent. DIAGNOSTIC STUDIES/LAB DATA: White blood cell count 7.3, hemoglobin 11.8, hematocrit 36, platelets 213. CMP: Sodium 141, potassium 4.1, chloride 97, carbon dioxide 42, anion gap 2, BUN 21, creatinine 0.65. Lactic acid 0.8. Glucose 136. AST 19, ALT 19, alk phos 82. Imaging includes chest x-ray which shows diffuse evidence of interstitial lung disease with scarring, atelectasis, clear costophrenic angles, no cardiomegaly, retrocardiac space shows possible opacity adjacent to the pleura. Only significant change from 11/12/19 chest x-ray is the appearance of possible retrocardiac opacity. EKG shows sinus tachycardia with no evidence of acute ST changes. ASSESSMENT AND PLAN: A 59-year-old female with severe emphysema and GOLD D chronic obstructive pulmonary disease with chronic hypercarbic and hypoxic respiratory failure, on home 3 to 4 L nasal cannula; bronchiectasis; severe anxiety with benzo dependence. She was admitted from 11/12/19 to 11/15/19 for chronic obstructive pulmonary disease exacerbation, ? community acquired pneumonia, who is re- presenting with chronic obstructive pulmonary disease exacerbation that was most likely driven by inflammation and anxiety, although chest x-ray does show retrocardiac opacity, cannot exclude hospital-acquired pneumonia given she was discharged within the last 48 hours. She has no signs of sepsis or end-organ damage and her work of breathing is stable for admission to the floor. 1. Acute on chronic hypercarbic respiratory failure. The patient shows preserved pH, most of her shortness of breath is driven by anxiety and there is no acute need for BiPAP at this time. Her work of breathing is improved with nebs and clonazepam. We will continue DuoNeb q. 4 hours while awake. Methylprednisone 125 mg x1 was given. We will place her on Solu-Medrol IV 40 mg q.8 for now, may need a longer and more intensive taper in the future, was optimized on triple antibiotic therapy at home. Oxygen requirements of 5 L on nasal cannula at this time. 2. Chronic obstructive pulmonary disease exacerbation. As per above, seems driven by inflammation, although cannot rule out a possible true infection, was covered with steroids and DuoNeb as per above. 3. Possible hospital-acquired pneumonia. Per IDSA guidelines, reasonable to cover with 2 g cefepime q.2 hours. She did have known colonization of pseudomonas that was resistant to levofloxacin in the past and given her acute deterioration at home, it is reasonable to cover with a broader spectrum for true HAP. Sputum culture can be induced, Strep pneumo and urine legionella can be checked. 4. Anxiety. Her home meds can be continued. Her clonazepam was recently increased. 5. DVT prophylaxis: The patient was placed on Lovenox. 6. Code status is full. DISPOSITION: Stable to be admitted to [address] [place] [address] with telemetry given her sinus tachycardia. TIME SPENT: Sixty-five minutes was spent on planning this admission with over half of that spent directly at the bedside with the patient to provide direct patient care. Plan of care is discussed with the patient and her , they have no further questions. [id number]/[facility] #: [id number] MTDD
[2019-11-17] MEDS: clonazePAM TAB(*) 1 MG PO PRN ×5 (00:18→22:35)
[2019-11-17] MEDS: Enoxaparin(*) 40 MG/0.4 ML SYR SUBCUT SCH ×2 (00:19→22:37)
[2019-11-17] MEDS: Cefepime 2 GM in Dextrose(*) 2 GM/50 ML BAG IV SCH ×3 (04:58→23:33)
[2019-11-17] MEDS ORDERED: methylPREDNISolone SOD 40 MG* 1 ML VIAL IV SCH (06:00)
[2019-11-17 06:07] LABS: ABS Lymphocytes 0.5 10^3/ul (1.0-4.8); ABS Monocytes 0.3 10^3/ul (0-0.8); ABS Neutrophils 4.5 10^3/ul (1.5-7.7); Hematocrit 32 % (35-47); Hemoglobin 10.1 g/dL (12.0-16.0); Lymphocyte % 9.2 %; Mean Corpuscular HGB Conc 32 g/dL (31-36); Mean Corpuscular Hemoglobin 29 pg (27-31); Mean Corpuscular Volume 92 fL (80-97); Mean Platelet Volume 8.7 fL (7.4-10.4); Platelet Count 171 10^3/uL (150-450); Red Blood Count 3.44 10^6 /uL (3.70-4.87); Red Cell Distribution Width 15 % (10-15); White Blood Count 5.3 10^3/uL (3.5-10.8)
[2019-11-17 06:21] LABS: BUN/Creatinine Ratio 29.6 (8-20); Calcium 8.3 mg/dL (8.6-10.3); EGFR African American 87.9 (>60); EGFR Non-African American 72.6 (>60); Potassium 4.4 mmol/L (3.5-5.0)
[2019-11-17 06:46] LABS: TSH (Thyroid Stimulating Horm) 0.22 mcIU/mL (0.34-5.60)
[2019-11-17] MEDS: Lactobacillus Acidophilus* 1 TAB PO SCH (07:35)
[2019-11-17] MEDS: Ascorbic Acid TAB* 500 MG PO SCH (07:35)
[2019-11-17] MEDS: Albuterol/Ipratropium NEB.SOL* Albuterol 2.5 MG/Ipratropium 0.5 MG 3 ML INH PRN ×2 (09:58→17:09)
[2019-11-17] MEDS: Saline NASAL SPRAY 0.65%* BTL BOTH NARES PRN ×2 (12:48→22:37)
[2019-11-17] MEDS: guaiFENesin 100 mg/5 ml LIQ unit dose cup PO PRN ×2 (14:15→22:34)
[2019-11-17] MEDS ORDERED: SPIRIVA Respimat* (tiotropium) 2.5 mcg/inh Inhaler INH SCH (17:00)
[2019-11-17] MEDS: methylPREDNISolone SOD 40 MG* 1 ML VIAL IV SCH (17:36)
[2019-11-17] MEDS ORDERED: Albuterol 2.5 MG/3 ML NEB.SOL* (0.083%) INH PRN (19:15)
[2019-11-17] MEDS: Mometasone/Formoter 200/5 MDI INH SCH ×2 (20:02→22:44)
[2019-11-17] MEDS: Albuterol/Ipratropium NEB.SOL* Albuterol 2.5 MG/Ipratropium 0.5 MG 3 ML INH SCH (20:05)
--- NOTE | 2019-11-17 21:41 | PN ---
Subjective Date of Service: 11/17/19 Interval History: patient reports that she continues to fell like lungs at tight and she can not breath. Respirations easy and even. O2 sat 96 %, Denies chest pain. Denies abd pain n/v/d. denies fever or chills. Patient reports that she feels very anxious and is requesting increasing medications to help with anxiety. Patient and family updated- about findings and condition. Family History: Unchanged from Admission Social History: Unchanged from Admission Past Medical History: Unchanged from Admission Objective Active Medications: Albuterol (Ventolin 2.5 Mg/3 Ml Neb.Sandra*) 2.5 mg INH Q4H PRN PRN Reason: SOB/WHEEZING Albuterol/Ipratropium (Duoneb (Albuterol 2.5 Mg/Ipratropium 0.5 Mg)) 1 neb INH Q4H [facility] Last Admin: 11/17/19 20:05 Dose: 1 neb Ascorbic Acid (Vitamin C Tab*) 1,000 mg PO DAILY [facility] Last Admin: 11/17/19 07:35 Dose: 1,000 mg Clonazepam (Klonopin Tab(*)) 1 mg PO FIVE TIMES DAILY PRN PRN Reason: ANXIETY Enoxaparin Sodium (Lovenox(*)) 40 mg SUBCUT BEDTIME [facility] Last Admin: 11/17/19 00:19 Dose: 40 mg Guaifenesin (Robitussin 100 Mg/5ml Liq) 5 ml PO Q6H PRN PRN Reason: COUGH Last Admin: 11/17/19 14:15 Dose: 5 ml Cefepime HCl (Maxipime 2 Gm In Dextrose Duplex (*)) 2 gm in 50 mls @ 100 mls/ hr IV Q8H [facility] Last Admin: 11/17/19 12:39 Dose: 100 mls/hr Lactobacillus Rhamnosus (Lactobacillus Acidophilus*) 1 tab PO DAILY [facility] Last Admin: 11/17/19 07:35 Dose: 1 tab Methylprednisolone Sodium Succinate (Solu-Medrol 40 Mg) 40 mg IV Q12H [facility] Last Admin: 11/17/19 17:36 Dose: 40 mg Miscellaneous (Ativan Pyxis Webb) 1 ea N/A .ATIVAN IV WEBB PRN PRN Reason: PYXIS WEBB Mometasone Furoate/Formoterol Fumar (Dulera 200/5 Mdi*) 2 puff INH BID [facility] Last Admin: 11/17/19 20:02 Dose: Not Given Montelukast Sodium (Singulair Tab*) 10 mg PO BEDTIME [facility] Sodium Chloride (Sodium Chloride 0.65% Nasal [place]*) 1 spray BOTH NARES Q4H PRN PRN Reason: CONGESTION Last Admin: 11/17/19 12:48 Dose: 1 spray Vital Signs - 8 hr 11/17/19 11/17/19 11/17/19 15:15 18:18 20:07 Temperature 98.1 F Pulse Rate 75 75 Respiratory 16 22 20 Rate Blood Pressure 133/67 (mmHg) O2 Sat by Pulse 99 99 Oximetry Oxygen Devices in Use Now: Nasal Cannula Appearance: alert, oriented x 3 , mild respiratory distress, appears anxious Eyes: No Scleral Icterus Ears/Nose/Mouth/Throat: Clear Oropharnyx, Mucous Membranes Moist Neck: NL Appearance and Movements; NL JVP, Trachea Midline Respiratory: Symmetrical Chest Expansion and Respiratory Effort, - - diminshed t /o bilat Cardiovascular: NL Sounds; No Murmurs; No JVD, No Edema Abdominal: NL Sounds; No Tenderness; No Distention Extremities: No Edema, No Clubbing, Cyanosis Skin: No Rash or Ulcers Neurological: Alert and Oriented x 3 Nutrition: Taking PO's Result Diagrams: 11/17/19 05:57 11/17/19 05:57 Microbiology and Other Data: Microbiology 11/17/19 04:11 Gram Stain - Final Sputum Assess/Plan/Problems-Billing Assessment: - Patient Problems (1) Healthcare-associated pneumonia Current Visit: No Status: Acute Code(s): J18.9 - PNEUMONIA, UNSPECIFIED ORGANISM SNOMED Code(s): 475117557 Comment: - CXR -bibasliar infiltrates - Previously had Pseudomonas pneumonia - Continue cefepime Solu-Medrol, nebs (2) Acute respiratory failure with hypoxia and hypercarbia Current Visit: No Status: Acute Code(s): J96.01 - ACUTE RESPIRATORY FAILURE WITH HYPOXIA; J96.02 - ACUTE RESPIRATORY FAILURE WITH HYPERCAPNIA SNOMED Code( s): 845936102 Comment: - 2/2 underlying pneumonia with underlying COPD exacerbation - will continue solu medrol at 40 mg Q12h - continue duo nebs, spiriva and dulera - cefepime - blood cultures pending (3) COPD exacerbation Current Visit: No Status: Acute Code(s): J44.1 - CHRONIC OBSTRUCTIVE PULMONARY DISEASE W (ACUTE) EXACERBATION SNOMED Code(s): 718693057 Comment: - Secondary to HAP - - CXR -bibasliar infiltrates - Previously had Pseudomonas pneumonia - Continue cefepime Solu-Medrol, nebs - will likely require longer taper prednisone at discharge (4) Anxiety Current Visit: No Status: Chronic Code(s): F41.9 - ANXIETY DISORDER, UNSPECIFIED SNOMED Code(s): 81861485 Comment: - Continue clonazepam (frequency increased from home dose) (5) DVT prophylaxis Current Visit: No Status: Acute Code(s): ESR4032 - SNOMED Code(s): 159939298 Comment: - Lovenox (6) Full code status Current Visit: No Status: Acute Code(s): Z78.9 - OTHER SPECIFIED HEALTH STATUS SNOMED Code(s): 773571061 Comment:
[2019-11-17] MEDS: Montelukast Sodium TAB* 10 MG PO SCH (22:35)
[2019-11-18] MEDS: Albuterol/Ipratropium NEB.SOL* Albuterol 2.5 MG/Ipratropium 0.5 MG 3 ML INH SCH ×7 (00:23→20:01)
[2019-11-18] MEDS: clonazePAM TAB(*) 1 MG PO PRN ×3 (03:46→20:32)
[2019-11-18] MEDS: methylPREDNISolone SOD 40 MG* 1 ML VIAL IV SCH ×2 (06:03→18:38)
[2019-11-18] MEDS: Cefepime 2 GM in Dextrose(*) 2 GM/50 ML BAG IV SCH ×3 (06:05→20:32)
[2019-11-18] MEDS: guaiFENesin 100 mg/5 ml LIQ unit dose cup PO PRN ×2 (06:09→20:32)
[2019-11-18] MEDS: Lactobacillus Acidophilus* 1 TAB PO SCH (08:15)
[2019-11-18] MEDS: Ascorbic Acid TAB* 500 MG PO SCH (08:15)
[2019-11-18] MEDS: Saline NASAL SPRAY 0.65%* BTL BOTH NARES PRN ×3 (08:15→20:36)
[2019-11-18] MEDS: Mometasone/Formoter 200/5 MDI INH SCH ×2 (09:30→20:02)
[2019-11-18 12:06] LABS: BUN/Creatinine Ratio 33.3 (8-20); Calcium 9.2 mg/dL (8.6-10.3); EGFR African American 100.7 (>60); EGFR Non-African American 83.2 (>60); Potassium 4.3 mmol/L (3.5-5.0)
[2019-11-18 12:18] LABS: Free T4 0.92 ng/dL (0.61-1.12)
--- NOTE | 2019-11-18 19:46 | PN ---
Subjective Date of Service: 11/18/19 Interval History: continues to c/o short of breath . Patient is maintaining oxygen saturations of 99% on 5 liters nc. Patient reports that she continues to feel anxious Denies chest pain. denies abd pain n/v/d. Family History: Unchanged from Admission Social History: Unchanged from Admission Past Medical History: Unchanged from Admission Objective Active Medications: Albuterol (Ventolin 2.5 Mg/3 Ml Neb.Sandra*) 2.5 mg INH Q4H PRN PRN Reason: SOB/WHEEZING Albuterol/Ipratropium (Duoneb (Albuterol 2.5 Mg/Ipratropium 0.5 Mg)) 1 neb INH Q4H [facility] Ascorbic Acid (Vitamin C Tab*) 1,000 mg PO DAILY [facility] Last Admin: 11/18/19 08:15 Dose: 1,000 mg Clonazepam (Klonopin Tab(*)) 1 mg PO FIVE TIMES DAILY PRN PRN Reason: ANXIETY Last Admin: 11/18/19 08:15 Dose: 1 mg Enoxaparin Sodium (Lovenox(*)) 40 mg SUBCUT BEDTIME [facility] Last Admin: 11/17/19 22:37 Dose: 40 mg Guaifenesin (Robitussin 100 Mg/5ml Liq) 5 ml PO Q6H PRN PRN Reason: COUGH Last Admin: 11/18/19 06:09 Dose: 5 ml Cefepime HCl (Maxipime 2 Gm In Dextrose Duplex (*)) 2 gm in 50 mls @ 100 mls/ hr IV Q8H [facility] Last Admin: 11/18/19 14:10 Dose: 100 mls/hr Lactobacillus Rhamnosus (Lactobacillus Acidophilus*) 1 tab PO DAILY [facility] Last Admin: 11/18/19 08:15 Dose: 1 tab Methylprednisolone Sodium Succinate (Solu-Medrol 40 Mg) 40 mg IV Q12H [facility] Last Admin: 11/18/19 18:38 Dose: 40 mg Miscellaneous (Ativan Pyxis Webb) 1 ea N/A .ATIVAN IV WEBB PRN PRN Reason: PYXIS WEBB Mometasone Furoate/Formoterol Fumar (Dulera 200/5 Mdi*) 2 puff INH BID [facility] Last Admin: 11/18/19 09:30 Dose: 2 inh Montelukast Sodium (Singulair Tab*) 10 mg PO BEDTIME [facility] Last Admin: 11/17/19 22:35 Dose: 10 mg Sodium Chloride (Sodium Chloride 0.65% Nasal [place]*) 1 spray BOTH NARES Q4H PRN PRN Reason: CONGESTION Last Admin: 11/18/19 14:20 Dose: 1 spray Vital Signs - 8 hr 11/18/19 11/18/19 11/18/19 14:10 15:15 16:48 Temperature 97.7 F Pulse Rate 76 74 Respiratory 20 20 15 Rate Blood Pressure 137/69 (mmHg) O2 Sat by Pulse 98 97 Oximetry Oxygen Devices in Use Now: Nasal Cannula Appearance: appears anxious, alert Eyes: No Scleral Icterus Ears/Nose/Mouth/Throat: NL Teeth, Lips, Gums, Mucous Membranes Moist Neck: NL Appearance and Movements; NL JVP Respiratory: Symmetrical Chest Expansion and Respiratory Effort, - - diminished t/o bilat , few scattered exp wheezes Cardiovascular: NL Sounds; No Murmurs; No JVD, No Edema Abdominal: NL Sounds; No Tenderness; No Distention Extremities: No Edema, No Clubbing, Cyanosis Skin: No Rash or Ulcers, No Nodules or Sclerosis Neurological: Alert and Oriented x 3 Nutrition: Taking PO's Result Diagrams: 11/17/19 05:57 11/19/19 07:19 Microbiology and Other Data: Microbiology 11/17/19 04:11 Gram Stain - Final Sputum Assess/Plan/Problems-Billing Assessment: - Patient Problems (1) Healthcare-associated pneumonia Current Visit: No Status: Acute Code(s): J18.9 - PNEUMONIA, UNSPECIFIED ORGANISM SNOMED Code(s): 738168055 Comment: - CXR -bibasliar infiltrates - Sputum with Pseudomonas Aeruginosa - Continue cefepime Solu-Medrol, nebs (2) Acute respiratory failure with hypoxia and hypercarbia Current Visit: No Status: Acute Code(s): J96.01 - ACUTE RESPIRATORY FAILURE WITH HYPOXIA; J96.02 - ACUTE RESPIRATORY FAILURE WITH HYPERCAPNIA SNOMED Code( s): 177745106 Comment: - 2/2 underlying pneumonia with underlying COPD exacerbation - will continue solu medrol at 40 mg Q12h - continue duo nebs, spiriva and dulera - cefepime - blood cultures pending (3) COPD exacerbation Current Visit: No Status: Acute Code(s): J44.1 - CHRONIC OBSTRUCTIVE PULMONARY DISEASE W (ACUTE) EXACERBATION SNOMED Code(s): 421328870 Comment: - Secondary to HAP - - CXR -bibasliar infiltrates - Previously had Pseudomonas pneumonia - Continue cefepime Solu-Medrol, nebs- will add meta nebs - will likely require longer taper prednisone at discharge (4) Anxiety Current Visit: No Status: Chronic Code(s): F41.9 - ANXIETY DISORDER, UNSPECIFIED SNOMED Code(s): 91913630 Comment: - Continue clonazepam (frequency increased from home dose) (5) DVT prophylaxis Current Visit: No Status: Acute Code(s): GVG5203 - SNOMED Code(s): 593155373 Comment: - Lovenox (6) Full code status Current Visit: No Status: Acute Code(s): Z78.9 - OTHER SPECIFIED HEALTH STATUS SNOMED Code(s): 963207536 Comment: Status and Disposition: inpatient
[2019-11-18] MEDS: Montelukast Sodium TAB* 10 MG PO SCH (20:32)
[2019-11-18] MEDS: Enoxaparin(*) 40 MG/0.4 ML SYR SUBCUT SCH (20:32)
[2019-11-18] MEDS: Polyethylene Glycol 3350* 17 GM PACKET PO PRN (20:36)
[2019-11-19] MEDS: Albuterol/Ipratropium NEB.SOL* Albuterol 2.5 MG/Ipratropium 0.5 MG 3 ML INH SCH ×7 (00:04→23:05)
[2019-11-19] MEDS: guaiFENesin 100 mg/5 ml LIQ unit dose cup PO PRN ×2 (02:27→21:19)
[2019-11-19] MEDS: clonazePAM TAB(*) 1 MG PO PRN ×5 (02:27→21:23)
[2019-11-19] MEDS: methylPREDNISolone SOD 40 MG* 1 ML VIAL IV SCH ×2 (06:15→17:42)
[2019-11-19] MEDS: Cefepime 2 GM in Dextrose(*) 2 GM/50 ML BAG IV SCH ×2 (06:16→13:16)
[2019-11-19] MEDS: Mometasone/Formoter 200/5 MDI INH SCH ×2 (07:42→20:18)
[2019-11-19 07:57] LABS: BUN/Creatinine Ratio 38.8 (8-20); Calcium 8.4 mg/dL (8.6-10.3); EGFR African American 109.4 (>60); EGFR Non-African American 90.4 (>60); Potassium 4.1 mmol/L (3.5-5.0)
[2019-11-19] MEDS ORDERED: TOBRAMYCIN 300 MG/5 ML INH SCH (09:00)
[2019-11-19] MEDS: Ascorbic Acid TAB* 500 MG PO SCH (09:51)
[2019-11-19] MEDS: Lactobacillus Acidophilus* 1 TAB PO SCH (09:51)
[2019-11-19] MEDS: Saline NASAL SPRAY 0.65%* BTL BOTH NARES PRN ×2 (09:51→19:45)
--- NOTE | 2019-11-19 17:41 | PN ---
Subjective Date of Service: 11/19/19 Interval History: patient reports that she continues to feel anxious. Continues to report shortness of breath, but does report slight improvement. Denies chest pain. Denies fever or chills. Denies abd pain n/v/d. Patient continues to reported minimal improvement in breathing- encouraged patient to ambulate today Family History: Unchanged from Admission Social History: Unchanged from Admission Past Medical History: Unchanged from Admission Objective Active Medications: Albuterol (Ventolin 2.5 Mg/3 Ml Neb.Sandra*) 2.5 mg INH Q4H PRN PRN Reason: SOB/WHEEZING Albuterol/Ipratropium (Duoneb (Albuterol 2.5 Mg/Ipratropium 0.5 Mg)) 1 neb INH Q4H [facility] Last Admin: 11/19/19 14:23 Dose: 1 neb Ascorbic Acid (Vitamin C Tab*) 1,000 mg PO DAILY [facility] Last Admin: 11/19/19 09:51 Dose: 1,000 mg Clonazepam (Klonopin Tab(*)) 1 mg PO FIVE TIMES DAILY PRN PRN Reason: ANXIETY Last Admin: 11/19/19 16:57 Dose: 1 mg Enoxaparin Sodium (Lovenox(*)) 40 mg SUBCUT BEDTIME [facility] Last Admin: 11/18/19 20:32 Dose: 40 mg Guaifenesin (Robitussin 100 Mg/5ml Liq) 5 ml PO Q6H PRN PRN Reason: COUGH Last Admin: 11/19/19 02:27 Dose: 5 ml Cefepime HCl (Maxipime 2 Gm In Dextrose Duplex (*)) 2 gm in 50 mls @ 100 mls/ hr IV Q8H [facility] Last Admin: 11/19/19 13:16 Dose: 100 mls/hr Lactobacillus Rhamnosus (Lactobacillus Acidophilus*) 1 tab PO DAILY [facility] Last Admin: 11/19/19 09:51 Dose: 1 tab Magnesium Hydroxide (Milk Of Magnesia Liq*) 30 ml PO Q4H PRN PRN Reason: CONSTIPATION Miscellaneous (Ativan Pyxis Webb) 1 ea N/A .ATIVAN IV WEBB PRN PRN Reason: PYXIS WEBB Mometasone Furoate/Formoterol Fumar (Dulera 200/5 Mdi*) 2 puff INH BID [facility] Last Admin: 11/19/19 07:42 Dose: 2 puff Montelukast Sodium (Singulair Tab*) 10 mg PO BEDTIME [facility] Last Admin: 11/18/19 20:32 Dose: 10 mg Polyethylene Glycol/Electrolytes (Miralax*) 17 gm PO DAILY PRN PRN Reason: CONSTIPATION Last Admin: 11/18/19 20:36 Dose: 17 gm Prednisone (Deltasone 20 Mg Tab) 40 mg PO DAILY [facility] Sodium Chloride (Sodium Chloride 0.65% Nasal [place]*) 1 spray BOTH NARES Q4H PRN PRN Reason: CONGESTION Last Admin: 11/19/19 09:51 Dose: 1 spray Tobramycin (Trish(Nf)) 300 mg INH Q12HR [facility] Last Admin: 11/19/19 10:22 Dose: 300 mg Vital Signs - 8 hr 11/19/19 11/19/19 11/19/19 09:51 10:22 11:15 Temperature 97.1 F Pulse Rate 68 83 Respiratory 24 20 20 Rate Blood Pressure 144/61 (mmHg) O2 Sat by Pulse 98 93 Oximetry 11/19/19 11/19/19 11/19/19 12:44 13:16 14:26 Temperature Pulse Rate 83 Respiratory 22 24 20 Rate Blood Pressure (mmHg) O2 Sat by Pulse 96 Oximetry 11/19/19 11/19/19 15:15 16:57 Temperature 98.7 F Pulse Rate 92 Respiratory 18 20 Rate Blood Pressure 149/69 (mmHg) O2 Sat by Pulse 93 Oximetry Oxygen Devices in Use Now: Nasal Cannula Appearance: mild respiratory distress, alert Eyes: No Scleral Icterus Ears/Nose/Mouth/Throat: Clear Oropharnyx, Mucous Membranes Moist Neck: NL Appearance and Movements; NL JVP, Trachea Midline Respiratory: Symmetrical Chest Expansion and Respiratory Effort, - - diminished with exp wheezes bilat Cardiovascular: NL Sounds; No Murmurs; No JVD, No Edema Abdominal: NL Sounds; No Tenderness; No Distention Extremities: No Edema, No Clubbing, Cyanosis Skin: No Rash or Ulcers Neurological: Alert and Oriented x 3 Nutrition: Taking PO's Result Diagrams: 11/17/19 05:57 11/19/19 07:19 Microbiology and Other Data: Microbiology 11/17/19 04:11 Gram Stain - Final Sputum Assess/Plan/Problems-Billing Assessment: - Patient Problems (1) Healthcare-associated pneumonia Current Visit: No Status: Acute Code(s): J18.9 - PNEUMONIA, UNSPECIFIED ORGANISM SNOMED Code(s): 352648778 Comment: - CXR -bibasliar infiltrates - Sputum with Pseudomonas Aeruginosa- - Continue nebs - stopped cefepime- finished 7 days between 11/12-11/19/2019 - 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 next available - outpatient is option - blood cultures pending (3) COPD exacerbation Current Visit: No Status: Acute Code(s): J44.1 - CHRONIC OBSTRUCTIVE PULMONARY DISEASE W (ACUTE) EXACERBATION SNOMED Code(s): 801126339 Comment: - Secondary to HAP - - CXR -bibasliar infiltrates - Previously had Pseudomonas pneumonia - continue nebs- will add meta nebs - stopped cefepime - change solumedrol to prednisone - will likely require longer taper prednisone at discharge (4) Anxiety Current Visit: No Status: Chronic Code(s): F41.9 - ANXIETY DISORDER, UNSPECIFIED SNOMED Code(s): 79028896 Comment: - Continue clonazepam (frequency increased from home dose) (5) DVT prophylaxis Current Visit: No Status: Acute Code(s): NTQ5536 - SNOMED Code(s): 971169515 Comment: - Lovenox (6) Full code status Current Visit: No Status: Acute Code(s): Z78.9 - OTHER SPECIFIED HEALTH STATUS SNOMED Code(s): 914546921 Comment: Status and Disposition: inpatient- discharge when medically stable
[2019-11-19] MEDS: Magnesium Hydroxide LIQ* 30 ML UDC PO PRN (21:20)
[2019-11-19] MEDS: Montelukast Sodium TAB* 10 MG PO SCH (21:20)
[2019-11-19] MEDS: Enoxaparin(*) 40 MG/0.4 ML SYR SUBCUT SCH (22:37)
[2019-11-20] MEDS: Albuterol/Ipratropium NEB.SOL* Albuterol 2.5 MG/Ipratropium 0.5 MG 3 ML INH SCH ×5 (03:05→19:22)
[2019-11-20] MEDS: Mometasone/Formoter 200/5 MDI INH SCH ×2 (07:20→19:23)
[2019-11-20] MEDS: clonazePAM TAB(*) 1 MG PO PRN ×3 (07:41→18:18)
[2019-11-20] MEDS: Ascorbic Acid TAB* 500 MG PO SCH (07:41)
[2019-11-20] MEDS: Lactobacillus Acidophilus* 1 TAB PO SCH (07:41)
[2019-11-20] MEDS: Magnesium Hydroxide LIQ* 30 ML UDC PO PRN (10:33)
[2019-11-20] MEDS: Polyethylene Glycol 3350* 17 GM PACKET PO PRN (10:33)
[2019-11-20] MEDS: methylPREDNISolone SOD 40 MG* 1 ML VIAL IV SCH (10:33)
[2019-11-20] MEDS ORDERED: Iohexol 300* (CONTRAST) 10 ML SDV IV ONE (11:17)
--- NOTE | 2019-11-20 12:23 | PN ---
Subjective Date of Service: 11/20/19 Interval History: Reports ongoing SOB and reports feeling poorly. Family History: Unchanged from Admission Social History: Unchanged from Admission Past Medical History: Unchanged from Admission Objective Active Medications: Albuterol (Ventolin 2.5 Mg/3 Ml Neb.Sandra*) 2.5 mg INH Q4H PRN PRN Reason: SOB/WHEEZING Albuterol/Ipratropium (Duoneb (Albuterol 2.5 Mg/Ipratropium 0.5 Mg)) 1 neb INH Q4H [facility] Last Admin: 11/20/19 10:37 Dose: 1 neb Ascorbic Acid (Vitamin C Tab*) 1,000 mg PO DAILY [facility] Last Admin: 11/20/19 07:41 Dose: 1,000 mg Clonazepam (Klonopin Tab(*)) 1 mg PO FIVE TIMES DAILY PRN PRN Reason: ANXIETY Last Admin: 11/20/19 07:41 Dose: 1 mg Enoxaparin Sodium (Lovenox(*)) 40 mg SUBCUT BEDTIME [facility] Last Admin: 11/19/19 22:37 Dose: 40 mg Guaifenesin (Robitussin 100 Mg/5ml Liq) 5 ml PO Q6H PRN PRN Reason: COUGH Last Admin: 11/19/19 21:19 Dose: 5 ml Lactobacillus Rhamnosus (Lactobacillus Acidophilus*) 1 tab PO DAILY [facility] Last Admin: 11/20/19 07:41 Dose: 1 tab Magnesium Hydroxide (Milk Of Magnesia Liq*) 30 ml PO Q4H PRN PRN Reason: CONSTIPATION Last Admin: 11/20/19 10:33 Dose: 30 ml Methylprednisolone Sodium Succinate (Solu-Medrol 40 Mg) 40 mg IV DAILY [facility] Last Admin: 11/20/19 10:33 Dose: 40 mg Miscellaneous (Ativan Pyxis Webb) 1 ea N/A .ATIVAN IV WEBB PRN PRN Reason: PYXIS WEBB Mometasone Furoate/Formoterol Fumar (Dulera 200/5 Mdi*) 2 puff INH BID [facility] Last Admin: 11/20/19 07:20 Dose: 2 puff Montelukast Sodium (Singulair Tab*) 10 mg PO BEDTIME [facility] Last Admin: 11/19/19 21:20 Dose: 10 mg Polyethylene Glycol/Electrolytes (Miralax*) 17 gm PO DAILY PRN PRN Reason: CONSTIPATION Last Admin: 11/20/19 10:33 Dose: 17 gm Sodium Chloride (Sodium Chloride 0.65% Nasal [place]*) 1 spray BOTH NARES Q4H PRN PRN Reason: CONGESTION Last Admin: 11/19/19 19:45 Dose: 1 spray Vital Signs - 8 hr 11/20/19 11/20/19 11/20/19 07:15 07:21 07:41 Temperature 97.6 F Pulse Rate 74 74 Respiratory 16 20 20 Rate Blood Pressure 106/46 (mmHg) O2 Sat by Pulse 100 98 Oximetry 11/20/19 11/20/19 11/20/19 08:00 10:16 10:38 Temperature Pulse Rate 74 Respiratory 22 22 20 Rate Blood Pressure (mmHg) O2 Sat by Pulse 95 Oximetry 11/20/19 11:15 Temperature 97.7 F Pulse Rate 73 Respiratory 16 Rate Blood Pressure 132/53 (mmHg) O2 Sat by Pulse 94 Oximetry Oxygen Devices in Use Now: Nasal Cannula Eyes: No Scleral Icterus Ears/Nose/Mouth/Throat: NL Teeth, Lips, Gums Neck: NL Appearance and Movements; NL JVP Respiratory: Symmetrical Chest Expansion and Respiratory Effort, - - Dec breat sounds bilaterally and occasional rhonchi Cardiovascular: NL Sounds; No Murmurs; No JVD Abdominal: NL Sounds; No Tenderness; No Distention Extremities: No Edema Neurological: Alert and Oriented x 3 Result Diagrams: 11/17/19 05:57 11/19/19 07:19 Microbiology and Other Data: Microbiology 11/17/19 04:11 Gram Stain - Final Sputum Assess/Plan/Problems-Billing Assessment: - Patient Problems (1) Acute respiratory failure with hypoxia and hypercarbia Current Visit: No Status: Acute Code(s): J96.01 - ACUTE RESPIRATORY FAILURE WITH HYPOXIA; J96.02 - ACUTE RESPIRATORY FAILURE WITH HYPERCAPNIA SNOMED Code( s): 915570577 Comment: - 2/2 underlying pneumonia with underlying COPD exacerbation - Was transitioned to po prednisone.will increase to solumedrol 40 iv daily - continue duo nebs, spiriva and dulera - cefepime - completed 7 days - stoppped - consult to pulm. next available - outpatient is option - blood cultures pending -Ongoing sob.Severe bronchiectasis and emphesema.Last Ct with PTX in 2019.Will get a CT wth Contrast to r/o malignancy, abscess and eval emphesema.bronchiectasis (2) COPD exacerbation Current Visit: No Status: Acute Code(s): J44.1 - CHRONIC OBSTRUCTIVE PULMONARY DISEASE W (ACUTE) EXACERBATION SNOMED Code(s): 249135114 Comment: - Secondary to HAP - - CXR -bibasliar infiltrates - Previously had Pseudomonas pneumonia - continue nebs- will add meta nebs - stopped cefepime - change prednisone to solumedrol - will likely require longer taper prednisone at discharge (3) Healthcare-associated pneumonia Current Visit: No Status: Acute Code(s): J18.9 - PNEUMONIA, UNSPECIFIED ORGANISM SNOMED Code(s): 735016687 Comment: - CXR -bibasliar infiltrates - Sputum with Pseudomonas Aeruginosa- - Continue nebs - stopped cefepime- finished 7 days between 11/12-11/19/2019 - 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- ok to stop IV antibiotics, would not recommend trish nebs d/t the risk of increased resistance - will stop -CT today (4) Anxiety Current Visit: No Status: Chronic Code(s): F41.9 - ANXIETY DISORDER, UNSPECIFIED SNOMED Code(s): 52025697 Comment: - Continue clonazepam (frequency increased from home dose) (5) DVT prophylaxis Current Visit: No Status: Acute Code(s): LSK1217 - SNOMED Code(s): 161147578 Comment: - Lovenox (6) Full code status Current Visit: No Status: Acute Code(s): Z78.9 - OTHER SPECIFIED HEALTH STATUS SNOMED Code(s): 652991761 Comment: Status and Disposition: inpatient- discharge when medically stable
[2019-11-20] MEDS: Saline NASAL SPRAY 0.65%* BTL BOTH NARES PRN ×2 (12:27→20:19)
[2019-11-20] MEDS: guaiFENesin 100 mg/5 ml LIQ unit dose cup PO PRN (19:22)
[2019-11-20] MEDS: Acetylcysteine INHALATION SOL* 200 MG/ML NEB.SOLN 10 ML INH SCH (19:22)
[2019-11-20] MEDS: Montelukast Sodium TAB* 10 MG PO SCH (20:19)
[2019-11-20] MEDS: Enoxaparin(*) 40 MG/0.4 ML SYR SUBCUT SCH (20:20)
[2019-11-21] MEDS: Albuterol/Ipratropium NEB.SOL* Albuterol 2.5 MG/Ipratropium 0.5 MG 3 ML INH SCH ×7 (00:20→23:34)
[2019-11-21] MEDS: Acetylcysteine INHALATION SOL* 200 MG/ML NEB.SOLN 10 ML INH SCH ×4 (00:20→19:57)
[2019-11-21] MEDS: guaiFENesin 100 mg/5 ml LIQ unit dose cup PO PRN ×2 (02:42→08:33)
[2019-11-21] MEDS: clonazePAM TAB(*) 1 MG PO PRN ×4 (02:42→20:29)
[2019-11-21 05:43] LABS: Hematocrit 31 % (35-47); Hemoglobin 9.9 g/dL (12.0-16.0); Mean Corpuscular HGB Conc 32 g/dL (31-36); Mean Corpuscular Hemoglobin 29 pg (27-31); Mean Corpuscular Volume 91 fL (80-97); Red Blood Count 3.37 10^6 /uL (3.70-4.87); Red Cell Distribution Width 16 % (10-15); White Blood Count 11.1 10^3/uL (3.5-10.8)
[2019-11-21 05:48] LABS: BUN/Creatinine Ratio 40.3 (8-20); Calcium 8.2 mg/dL (8.6-10.3); EGFR African American 119.6 (>60); EGFR Non-African American 98.9 (>60); Potassium 3.9 mmol/L (3.5-5.0)
[2019-11-21 06:07] LABS: ABS Lymphocytes 1.8 10^3/ul (1.0-4.8); ABS Monocytes 1.3 10^3/ul (0-0.8); Eosinophil % 0.3 %; Large Platelets Present; Lymphocyte % 15.8 %; Mean Platelet Volume 10.4 fL (7.4-10.4); Platelet Count 127 10^3/uL (150-450); Polychromasia 1+
[2019-11-21] MEDS: Mometasone/Formoter 200/5 MDI INH SCH ×2 (07:47→23:16)
[2019-11-21] MEDS: methylPREDNISolone SOD 40 MG* 1 ML VIAL IV SCH (08:32)
[2019-11-21] MEDS: Lactobacillus Acidophilus* 1 TAB PO SCH (08:33)
[2019-11-21] MEDS: Ascorbic Acid TAB* 500 MG PO SCH (08:33)
[2019-11-21] MEDS: Saline NASAL SPRAY 0.65%* BTL BOTH NARES PRN ×2 (09:57→15:07)
--- NOTE | 2019-11-21 16:05 | PN ---
Subjective Date of Service: 11/21/19 Interval History: Still very sob and tight.Cough. Family History: Unchanged from Admission Social History: Unchanged from Admission Past Medical History: Unchanged from Admission Objective Active Medications: Acetylcysteine (Mucomyst Inhalation Sandra*) 400 mg INH RT.[id number] AWAKE [facility] Last Admin: 11/21/19 14:34 Dose: 400 mg Albuterol (Ventolin 2.5 Mg/3 Ml Neb.Sandra*) 2.5 mg INH Q4H PRN PRN Reason: SOB/WHEEZING Albuterol/Ipratropium (Duoneb (Albuterol 2.5 Mg/Ipratropium 0.5 Mg)) 1 neb INH Q4H [facility] Last Admin: 11/21/19 14:34 Dose: 1 neb Ascorbic Acid (Vitamin C Tab*) 1,000 mg PO DAILY [facility] Last Admin: 11/21/19 08:33 Dose: 1,000 mg Clonazepam (Klonopin Tab(*)) 1 mg PO FIVE TIMES DAILY PRN PRN Reason: ANXIETY Last Admin: 11/21/19 11:37 Dose: 1 mg Enoxaparin Sodium (Lovenox(*)) 40 mg SUBCUT BEDTIME [facility] Last Admin: 11/20/19 20:20 Dose: 40 mg Guaifenesin (Robitussin 100 Mg/5ml Liq) 5 ml PO Q6H PRN PRN Reason: COUGH Last Admin: 11/21/19 08:33 Dose: 5 ml Lactobacillus Rhamnosus (Lactobacillus Acidophilus*) 1 tab PO DAILY [facility] Last Admin: 11/21/19 08:33 Dose: 1 tab Magnesium Hydroxide (Milk Of Magnesia Liq*) 30 ml PO Q4H PRN PRN Reason: CONSTIPATION Last Admin: 11/20/19 10:33 Dose: 30 ml Methylprednisolone Sodium Succinate (Solu-Medrol 40 Mg) 40 mg IV DAILY [facility] Last Admin: 11/21/19 08:32 Dose: 40 mg Miscellaneous (Ativan Pyxis Webb) 1 ea N/A .ATIVAN IV WEBB PRN PRN Reason: PYXIS WEBB Mometasone Furoate/Formoterol Fumar (Dulera 200/5 Mdi*) 2 puff INH BID [facility] Last Admin: 11/21/19 07:47 Dose: 2 puff Montelukast Sodium (Singulair Tab*) 10 mg PO BEDTIME [facility] Last Admin: 11/20/19 20:19 Dose: 10 mg Polyethylene Glycol/Electrolytes (Miralax*) 17 gm PO DAILY PRN PRN Reason: CONSTIPATION Last Admin: 11/20/19 10:33 Dose: 17 gm Sodium Chloride (Sodium Chloride 0.65% Nasal [place]*) 1 spray BOTH NARES Q4H PRN PRN Reason: CONGESTION Last Admin: 11/21/19 15:07 Dose: 1 spray Vital Signs - 8 hr 11/21/19 11/21/19 11/21/19 08:00 08:32 09:20 Temperature Pulse Rate Respiratory 20 20 Rate Blood Pressure 120/46 (mmHg) O2 Sat by Pulse Oximetry 11/21/19 11/21/19 11/21/19 10:11 11:15 11:37 Temperature 98.4 F Pulse Rate 84 Respiratory 20 20 20 Rate Blood Pressure 115/31 (mmHg) O2 Sat by Pulse 99 Oximetry 11/21/19 11/21/19 11/21/19 13:08 14:36 15:15 Temperature 97.9 F Pulse Rate 98 Respiratory 22 18 20 Rate Blood Pressure 115/50 (mmHg) O2 Sat by Pulse 95 Oximetry Oxygen Devices in Use Now: Nasal Cannula Eyes: No Scleral Icterus Ears/Nose/Mouth/Throat: NL Teeth, Lips, Gums Neck: NL Appearance and Movements; NL JVP Respiratory: Symmetrical Chest Expansion and Respiratory Effort, - - Dec bilateral air entry very tight some rhonchi Cardiovascular: NL Sounds; No Murmurs; No JVD Abdominal: NL Sounds; No Tenderness; No Distention Extremities: No Edema Neurological: Alert and Oriented x 3 Result Diagrams: 11/21/19 05:18 11/21/19 05:18 Microbiology and Other Data: Microbiology 11/17/19 04:11 Gram Stain - Final Sputum Assess/Plan/Problems-Billing Assessment: - Patient Problems (1) Acute respiratory failure with hypoxia and hypercarbia Current Visit: No Status: Acute Code(s): J96.01 - ACUTE RESPIRATORY FAILURE WITH HYPOXIA; J96.02 - ACUTE RESPIRATORY FAILURE WITH HYPERCAPNIA SNOMED Code( s): 240071885 Comment: - 2/2 underlying pneumonia with underlying COPD exacerbation - Was transitioned to po prednisone.will increase to solumedrol 40 iv daily - continue duo nebs, spiriva and dulera - cefepime - completed 7 days - stoppped - consult to pulm. next available - outpatient is option - blood cultures pending -Ongoing sob.Severe bronchiectasis and emphesema.Last Ct with PTX in 2019. -CT reviewed.Severe bronchiectasis with mucous plugging -Mucomyst, Chest PT (2) COPD exacerbation Current Visit: No Status: Acute Code(s): J44.1 - CHRONIC OBSTRUCTIVE PULMONARY DISEASE W (ACUTE) EXACERBATION SNOMED Code(s): 878970341 Comment: - Secondary to HAP - - CXR -bibasliar infiltrates - Previously had Pseudomonas pneumonia - continue nebs- will add meta nebs - stopped cefepime - change prednisone to solumedrol - will likely require longer taper prednisone at discharge (3) Healthcare-associated pneumonia Current Visit: No Status: Acute Code(s): J18.9 - PNEUMONIA, UNSPECIFIED ORGANISM SNOMED Code(s): 509625764 Comment: - CXR -bibasliar infiltrates - Sputum with Pseudomonas Aeruginosa- - Continue nebs - stopped cefepime- finished 7 days between 11/12-11/19/2019 - 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- ok to stop IV antibiotics, would not recommend trish nebs d/t the risk of increased resistance - will stop -CT today (4) Anxiety Current Visit: No Status: Chronic Code(s): F41.9 - ANXIETY DISORDER, UNSPECIFIED SNOMED Code(s): 16210045 Comment: - Continue clonazepam (frequency increased from home dose) (5) DVT prophylaxis Current Visit: No Status: Acute Code(s): DIT0265 - SNOMED Code(s): 971325873 Comment: - Lovenox (6) Full code status Current Visit: No Status: Acute Code(s): Z78.9 - OTHER SPECIFIED HEALTH STATUS SNOMED Code(s): 423532905 Comment: Status and Disposition: inpatient- discharge when medically stable
[2019-11-21] MEDS: Enoxaparin(*) 40 MG/0.4 ML SYR SUBCUT SCH (20:24)
[2019-11-21] MEDS: Montelukast Sodium TAB* 10 MG PO SCH (20:24)
[2019-11-22] MEDS: clonazePAM TAB(*) 1 MG PO PRN ×6 (01:09→23:56)
[2019-11-22] MEDS: Acetylcysteine INHALATION SOL* 200 MG/ML NEB.SOLN 10 ML INH SCH ×4 (02:51→20:56)
[2019-11-22] MEDS: Albuterol/Ipratropium NEB.SOL* Albuterol 2.5 MG/Ipratropium 0.5 MG 3 ML INH SCH ×6 (02:53→23:04)
[2019-11-22 06:42] LABS: ABS Eosinophils 0.1 10^3/ul (0-0.6); ABS Monocytes 0.9 10^3/ul (0-0.8); ABS Neutrophils 5.1 10^3/ul (1.5-7.7); Eosinophil % 0.7 %; Hematocrit 30 % (35-47); Lymphocyte % 24.6 %; Mean Corpuscular HGB Conc 33 g/dL (31-36); Mean Corpuscular Hemoglobin 30 pg (27-31); Mean Corpuscular Volume 91 fL (80-97); Mean Platelet Volume 9.1 fL (7.4-10.4); Platelet Count 162 10^3/uL (150-450); Red Blood Count 3.36 10^6 /uL (3.70-4.87); Red Cell Distribution Width 16 % (10-15); White Blood Count 8.1 10^3/uL (3.5-10.8)
[2019-11-22 07:01] LABS: BUN/Creatinine Ratio 53.4 (8-20); Blood Urea Nitrogen 31 mg/dL (6-24); Calcium 8.1 mg/dL (8.6-10.3); Chloride 98 mmol/L (101-111); EGFR African American 129.2 (>60); EGFR Non-African American 106.8 (>60); Glucose 85 mg/dL (70-100); Potassium 3.8 mmol/L (3.5-5.0); Sodium 142 mmol/L (135-145)
[2019-11-22 07:07] LABS: CO2 Carbon Dioxide 45 mmol/L (22-32)
[2019-11-22] MEDS: Mometasone/Formoter 200/5 MDI INH SCH ×2 (07:12→20:56)
[2019-11-22] MEDS: Ascorbic Acid TAB* 500 MG PO SCH (09:04)
[2019-11-22] MEDS: Lactobacillus Acidophilus* 1 TAB PO SCH (09:05)
[2019-11-22] MEDS: methylPREDNISolone SOD 40 MG* 1 ML VIAL IV SCH (09:05)
[2019-11-22] MEDS: Saline NASAL SPRAY 0.65%* BTL BOTH NARES PRN ×2 (10:37→23:57)
[2019-11-22] MEDS ORDERED: Simethicone TAB* 80 MG TAB.CHEW PO PRN (14:04)
[2019-11-22] MEDS ORDERED: Simethicone TAB* 80 MG TAB.CHEW PO ONE (14:04)
--- NOTE | 2019-11-22 14:04 | PN ---
Subjective Date of Service: 11/22/19 Interval History: Reports ongoing sob and chest tightness Family History: Unchanged from Admission Social History: Unchanged from Admission Past Medical History: Unchanged from Admission Objective Active Medications: Acetylcysteine (Mucomyst Inhalation Sandra*) 400 mg INH [id number] AWAKE [facility] Last Admin: 11/22/19 07:12 Dose: 400 mg Albuterol (Ventolin 2.5 Mg/3 Ml Neb.Sandra*) 2.5 mg INH Q4H PRN PRN Reason: SOB/WHEEZING Albuterol/Ipratropium (Duoneb (Albuterol 2.5 Mg/Ipratropium 0.5 Mg)) 1 neb INH Q4H [facility] Last Admin: 11/22/19 11:17 Dose: 1 neb Ascorbic Acid (Vitamin C Tab*) 1,000 mg PO DAILY [facility] Last Admin: 11/22/19 09:04 Dose: 1,000 mg Clonazepam (Klonopin Tab(*)) 1 mg PO Q3H PRN PRN Reason: ANXIETY Last Admin: 11/22/19 12:27 Dose: 1 mg Enoxaparin Sodium (Lovenox(*)) 40 mg SUBCUT BEDTIME [facility] Last Admin: 11/21/19 20:24 Dose: 40 mg Guaifenesin (Robitussin 100 Mg/5ml Liq) 5 ml PO Q6H PRN PRN Reason: COUGH Last Admin: 11/21/19 08:33 Dose: 5 ml Lactobacillus Rhamnosus (Lactobacillus Acidophilus*) 1 tab PO DAILY [facility] Last Admin: 11/22/19 09:05 Dose: 1 tab Magnesium Hydroxide (Milk Of Magnesia Liq*) 30 ml PO Q4H PRN PRN Reason: CONSTIPATION Last Admin: 11/20/19 10:33 Dose: 30 ml Methylprednisolone Sodium Succinate (Solu-Medrol 40 Mg) 40 mg IV DAILY [facility] Last Admin: 11/22/19 09:05 Dose: 40 mg Miscellaneous (Ativan Pyxis Webb) 1 ea N/A .ATIVAN IV WEBB PRN PRN Reason: PYXIS WEBB Mometasone Furoate/Formoterol Fumar (Dulera 200/5 Mdi*) 2 puff INH BID [facility] Last Admin: 11/22/19 07:12 Dose: 2 puff Montelukast Sodium (Singulair Tab*) 10 mg PO BEDTIME [facility] Last Admin: 11/21/19 20:24 Dose: 10 mg Polyethylene Glycol/Electrolytes (Miralax*) 17 gm PO DAILY PRN PRN Reason: CONSTIPATION Last Admin: 11/20/19 10:33 Dose: 17 gm Sodium Chloride (Sodium Chloride 0.65% Nasal [place]*) 1 spray BOTH NARES Q4H PRN PRN Reason: CONGESTION Last Admin: 11/22/19 10:37 Dose: 1 spray Vital Signs - 8 hr 11/22/19 11/22/19 11/22/19 06:47 07:15 07:25 Temperature 98.0 F Pulse Rate 87 86 Respiratory 18 18 18 Rate Blood Pressure 108/51 (mmHg) O2 Sat by Pulse 97 98 Oximetry 11/22/19 11/22/19 11/22/19 09:05 11:15 11:18 Temperature 98.1 F Pulse Rate 87 86 Respiratory 20 22 20 Rate Blood Pressure 124/56 (mmHg) O2 Sat by Pulse 94 95 Oximetry 11/22/19 11/22/19 11:25 12:27 Temperature Pulse Rate Respiratory 22 20 Rate Blood Pressure (mmHg) O2 Sat by Pulse Oximetry Oxygen Devices in Use Now: Nasal Cannula Eyes: No Scleral Icterus Ears/Nose/Mouth/Throat: NL Teeth, Lips, Gums Neck: NL Appearance and Movements; NL JVP Respiratory: - - dec bilateral air entry Cardiovascular: NL Sounds; No Murmurs; No JVD Abdominal: NL Sounds; No Tenderness; No Distention Extremities: No Edema, - - edema present Neurological: Alert and Oriented x 3 Result Diagrams: 11/22/19 06:33 11/22/19 06:33 Microbiology and Other Data: Microbiology 11/17/19 04:11 Gram Stain - Final Sputum Assess/Plan/Problems-Billing Assessment: - Patient Problems (1) Acute respiratory failure with hypoxia and hypercarbia Current Visit: No Status: Acute Code(s): J96.01 - ACUTE RESPIRATORY FAILURE WITH HYPOXIA; J96.02 - ACUTE RESPIRATORY FAILURE WITH HYPERCAPNIA SNOMED Code( s): 126097793 Comment: - 2/2 underlying pneumonia with underlying COPD exacerbation - Was transitioned to po prednisone.will increase to solumedrol 40 iv daily - continue duo nebs, spiriva and dulera - cefepime - completed 7 days - stoppped - consult to pulm. next available - outpatient is option - blood cultures pending -Ongoing sob.Severe bronchiectasis and emphesema.Last Ct with PTX in 2019. -CT reviewed.Severe bronchiectasis with mucous plugging -Mucomyst, Chest PT (2) COPD exacerbation Current Visit: No Status: Acute Code(s): J44.1 - CHRONIC OBSTRUCTIVE PULMONARY DISEASE W (ACUTE) EXACERBATION SNOMED Code(s): 458728232 Comment: - Secondary to HAP - - CXR -bibasliar infiltrates - Previously had Pseudomonas pneumonia - continue nebs- will add meta nebs - stopped cefepime - change prednisone to solumedrol as she was very sob on po prednisone - will likely require longer taper prednisone at discharge (3) Healthcare-associated pneumonia Current Visit: No Status: Acute Code(s): J18.9 - PNEUMONIA, UNSPECIFIED ORGANISM SNOMED Code(s): 882982362 Comment: - CXR -bibasliar infiltrates - Sputum with Pseudomonas Aeruginosa- - Continue nebs - stopped cefepime- finished 7 days between 11/12-11/19/2019 - 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- ok to stop IV antibiotics, would not recommend trish nebs d/t the risk of increased resistance - will stop -CT today (4) Anxiety Current Visit: No Status: Chronic Code(s): F41.9 - ANXIETY DISORDER, UNSPECIFIED SNOMED Code(s): 70320778 Comment: - Continue clonazepam (frequency increased from home dose) (5) DVT prophylaxis Current Visit: No Status: Acute Code(s): ACN8699 - SNOMED Code(s): 395878915 Comment: - Lovenox (6) Full code status Current Visit: No Status: Acute Code(s): Z78.9 - OTHER SPECIFIED HEALTH STATUS SNOMED Code(s): 232897800 Comment: Status and Disposition: inpatient- discharge when medically stable
[2019-11-22] MEDS: Pantoprazole IV* 40 MG IV SCH (15:44)
[2019-11-22] MEDS: Enoxaparin(*) 40 MG/0.4 ML SYR SUBCUT SCH (20:07)
[2019-11-22] MEDS: Montelukast Sodium TAB* 10 MG PO SCH (23:56)
[2019-11-23] MEDS: Albuterol/Ipratropium NEB.SOL* Albuterol 2.5 MG/Ipratropium 0.5 MG 3 ML INH SCH ×6 (02:59→23:44)
[2019-11-23] MEDS: Acetylcysteine INHALATION SOL* 200 MG/ML NEB.SOLN 10 ML INH SCH ×5 (02:59→23:44)
[2019-11-23 04:53] LABS: ABS Lymphocytes 1.7 10^3/ul (1.0-4.8); ABS Neutrophils 4.8 10^3/ul (1.5-7.7); Eosinophil % 0.4 %; Hematocrit 30 % (35-47); Hemoglobin 9.9 g/dL (12.0-16.0); Mean Corpuscular HGB Conc 33 g/dL (31-36); Mean Corpuscular Hemoglobin 30 pg (27-31); Mean Corpuscular Volume 92 fL (80-97); Mean Platelet Volume 9.7 fL (7.4-10.4); Platelet Count 166 10^3/uL (150-450); Red Cell Distribution Width 15 % (10-15); White Blood Count 7.6 10^3/uL (3.5-10.8)
[2019-11-23 05:11] LABS: BUN/Creatinine Ratio 42.2 (8-20); Calcium 8.2 mg/dL (8.6-10.3); EGFR African American 115.3 (>60); EGFR Non-African American 95.3 (>60); Potassium 3.7 mmol/L (3.5-5.0)
[2019-11-23] MEDS: Mometasone/Formoter 200/5 MDI INH SCH ×2 (06:59→19:26)
[2019-11-23] MEDS: clonazePAM TAB(*) 1 MG PO PRN ×4 (07:25→19:34)
[2019-11-23] MEDS: methylPREDNISolone SOD 40 MG* 1 ML VIAL IV SCH (08:29)
[2019-11-23] MEDS: Pantoprazole IV* 40 MG IV SCH (08:29)
[2019-11-23] MEDS: Ascorbic Acid TAB* 500 MG PO SCH (08:29)
[2019-11-23] MEDS: Lactobacillus Acidophilus* 1 TAB PO SCH (08:29)
[2019-11-23] MEDS: Saline NASAL SPRAY 0.65%* BTL BOTH NARES PRN ×2 (11:33→19:34)
--- NOTE | 2019-11-23 11:39 | PN ---
Subjective Date of Service: 11/23/19 Interval History: reports improvement in breathing for the first time.still reports tightness with deep breaths Family History: Unchanged from Admission Social History: Unchanged from Admission Past Medical History: Unchanged from Admission Objective Active Medications: Acetylcysteine (Mucomyst Inhalation Sandra*) 400 mg INH RT.[id number] [facility] Last Admin: 11/23/19 06:59 Dose: 400 mg Albuterol (Ventolin 2.5 Mg/3 Ml Neb.Sandra*) 2.5 mg INH Q4H PRN PRN Reason: SOB/WHEEZING Albuterol/Ipratropium (Duoneb (Albuterol 2.5 Mg/Ipratropium 0.5 Mg)) 1 neb INH Q4H [facility] Last Admin: 11/23/19 11:11 Dose: 1 neb Ascorbic Acid (Vitamin C Tab*) 1,000 mg PO DAILY [facility] Last Admin: 11/23/19 08:29 Dose: Not Given Clonazepam (Klonopin Tab(*)) 1 mg PO Q3H PRN PRN Reason: ANXIETY Last Admin: 11/23/19 07:25 Dose: 1 mg Enoxaparin Sodium (Lovenox(*)) 40 mg SUBCUT BEDTIME [facility] Last Admin: 11/22/19 20:07 Dose: 40 mg Guaifenesin (Robitussin 100 Mg/5ml Liq) 5 ml PO Q6H PRN PRN Reason: COUGH Last Admin: 11/21/19 08:33 Dose: 5 ml Lactobacillus Rhamnosus (Lactobacillus Acidophilus*) 1 tab PO DAILY [facility] Last Admin: 11/23/19 08:29 Dose: 1 tab Magnesium Hydroxide (Milk Of Magnesia Liq*) 30 ml PO Q4H PRN PRN Reason: CONSTIPATION Last Admin: 11/20/19 10:33 Dose: 30 ml Methylprednisolone Sodium Succinate (Solu-Medrol 40 Mg) 40 mg IV DAILY [facility] Last Admin: 11/23/19 08:29 Dose: 40 mg Miscellaneous (Ativan Pyxis Webb) 1 ea N/A .ATIVAN IV WEBB PRN PRN Reason: PYXIS WEBB Mometasone Furoate/Formoterol Fumar (Dulera 200/5 Mdi*) 2 puff INH BID [facility] Last Admin: 11/23/19 06:59 Dose: 2 puff Montelukast Sodium (Singulair Tab*) 10 mg PO BEDTIME [facility] Last Admin: 11/22/19 23:56 Dose: 10 mg Pantoprazole Sodium (Protonix Iv*) 40 mg IV DAILY [facility] Last Admin: 11/23/19 08:29 Dose: 40 mg Polyethylene Glycol/Electrolytes (Miralax*) 17 gm PO DAILY PRN PRN Reason: CONSTIPATION Last Admin: 11/20/19 10:33 Dose: 17 gm Simethicone (Mylicon Tab*) 80 mg PO Q6H PRN PRN Reason: INDIGESTION Sodium Chloride (Sodium Chloride 0.65% Nasal [place]*) 1 spray BOTH NARES Q4H PRN PRN Reason: CONGESTION Last Admin: 11/23/19 11:33 Dose: 1 spray Vital Signs - 8 hr 11/23/19 11/23/19 11/23/19 05:35 07:04 07:06 Temperature Pulse Rate 105 107 Respiratory 20 18 18 Rate Blood Pressure (mmHg) O2 Sat by Pulse 89 89 Oximetry 11/23/19 11/23/19 11/23/19 07:18 07:25 08:13 Temperature 98.1 F Pulse Rate 83 Respiratory 20 20 20 Rate Blood Pressure 111/41 (mmHg) O2 Sat by Pulse 93 Oximetry 11/23/19 11/23/19 10:12 11:11 Temperature Pulse Rate 89 Respiratory 18 18 Rate Blood Pressure (mmHg) O2 Sat by Pulse 90 Oximetry Oxygen Devices in Use Now: Nasal Cannula Eyes: No Scleral Icterus Ears/Nose/Mouth/Throat: NL Teeth, Lips, Gums Neck: NL Appearance and Movements; NL JVP Respiratory: Symmetrical Chest Expansion and Respiratory Effort, - - dec bilateral air entry no expiratory wheezes today Cardiovascular: NL Sounds; No Murmurs; No JVD Abdominal: NL Sounds; No Tenderness; No Distention Extremities: No Edema Result Diagrams: 11/23/19 04:07 11/23/19 04:07 Microbiology and Other Data: Microbiology 11/17/19 04:11 Gram Stain - Final Sputum Assess/Plan/Problems-Billing Assessment: - Patient Problems (1) Acute respiratory failure with hypoxia and hypercarbia Current Visit: No Status: Acute Code(s): J96.01 - ACUTE RESPIRATORY FAILURE WITH HYPOXIA; J96.02 - ACUTE RESPIRATORY FAILURE WITH HYPERCAPNIA SNOMED Code( s): 684158382 Comment: - 2/2 underlying pneumonia with underlying COPD exacerbation - Was transitioned to po prednisone.will increase to solumedrol 40 iv daily - continue duo nebs, spiriva and dulera - cefepime - completed 7 days - stoppped - consult to pulm. next available - outpatient is option - blood cultures pending -Ongoing sob.Severe bronchiectasis and emphesema.Last Ct with PTX in 2019. -CT reviewed.Severe bronchiectasis with mucous plugging -Mucomyst, Chest PT (2) COPD exacerbation Current Visit: No Status: Acute Code(s): J44.1 - CHRONIC OBSTRUCTIVE PULMONARY DISEASE W (ACUTE) EXACERBATION SNOMED Code(s): 135650298 Comment: - Secondary to HAP - - CXR -bibasliar infiltrates - Previously had Pseudomonas pneumonia - continue nebs- will add meta nebs - stopped cefepime - change prednisone to solumedrol as she was very sob on po prednisone - reports that PO prednisone has not worked for the patient in the past -Will discuss further with pulmonary (3) Healthcare-associated pneumonia Current Visit: No Status: Acute Code(s): J18.9 - PNEUMONIA, UNSPECIFIED ORGANISM SNOMED Code(s): 172728704 Comment: - CXR -bibasliar infiltrates - Sputum with Pseudomonas Aeruginosa- - Continue nebs - stopped cefepime- finished 7 days between 11/12-11/19/2019 - 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- ok to stop IV antibiotics, would not recommend trish nebs d/t the risk of increased resistance - will stop -CT today (4) Anxiety Current Visit: No Status: Chronic Code(s): F41.9 - ANXIETY DISORDER, UNSPECIFIED SNOMED Code(s): 23504587 Comment: - Continue clonazepam (frequency increased from home dose) (5) DVT prophylaxis Current Visit: No Status: Acute Code(s): UKF2772 - SNOMED Code(s): 150935763 Comment: - Lovenox (6) Full code status Current Visit: No Status: Acute Code(s): Z78.9 - OTHER SPECIFIED HEALTH STATUS SNOMED Code(s): 584993238 Comment: Status and Disposition: inpatient- discharge when medically stable
[2019-11-23] MEDS: guaiFENesin 100 mg/5 ml LIQ unit dose cup PO PRN (19:34)
[2019-11-23] MEDS: Enoxaparin(*) 40 MG/0.4 ML SYR SUBCUT SCH (21:40)
[2019-11-23] MEDS: Montelukast Sodium TAB* 10 MG PO SCH (21:40)
[2019-11-24] MEDS: clonazePAM TAB(*) 1 MG PO PRN ×4 (00:19→21:59)
[2019-11-24] MEDS: Albuterol/Ipratropium NEB.SOL* Albuterol 2.5 MG/Ipratropium 0.5 MG 3 ML INH SCH ×5 (03:18→19:47)
[2019-11-24 06:00] LABS: ABS Eosinophils 0.1 10^3/ul (0-0.6); ABS Lymphocytes 1.9 10^3/ul (1.0-4.8); ABS Monocytes 0.9 10^3/ul (0-0.8); ABS Neutrophils 5.4 10^3/ul (1.5-7.7); Eosinophil % 0.9 %; Hematocrit 31 % (35-47); Hemoglobin 9.9 g/dL (12.0-16.0); Lymphocyte % 23.1 %; Mean Corpuscular HGB Conc 33 g/dL (31-36); Mean Corpuscular Hemoglobin 30 pg (27-31); Mean Corpuscular Volume 91 fL (80-97); Mean Platelet Volume 9.4 fL (7.4-10.4); Platelet Count 173 10^3/uL (150-450); Red Blood Count 3.35 10^6 /uL (3.70-4.87); Red Cell Distribution Width 16 % (10-15); White Blood Count 8.2 10^3/uL (3.5-10.8)
[2019-11-24 06:17] LABS: BUN/Creatinine Ratio 44.8 (8-20); Blood Urea Nitrogen 26 mg/dL (6-24); Calcium 8.6 mg/dL (8.6-10.3); Chloride 98 mmol/L (101-111); EGFR African American 129.2 (>60); EGFR Non-African American 106.8 (>60); Glucose 87 mg/dL (70-100); Potassium 3.9 mmol/L (3.5-5.0); Sodium 141 mmol/L (135-145)
[2019-11-24 06:20] LABS: CO2 Carbon Dioxide 43 mmol/L (22-32)
[2019-11-24] MEDS: Acetylcysteine INHALATION SOL* 200 MG/ML NEB.SOLN 10 ML INH SCH ×3 (07:28→19:46)
[2019-11-24] MEDS: Mometasone/Formoter 200/5 MDI INH SCH ×2 (07:29→19:47)
[2019-11-24] MEDS: Ascorbic Acid TAB* 500 MG PO SCH (09:12)
[2019-11-24] MEDS: methylPREDNISolone SOD 40 MG* 1 ML VIAL IV SCH (09:12)
[2019-11-24] MEDS: Lactobacillus Acidophilus* 1 TAB PO SCH (09:12)
[2019-11-24] MEDS: Saline NASAL SPRAY 0.65%* BTL BOTH NARES PRN (09:13)
[2019-11-24] MEDS: Pantoprazole IV* 40 MG IV SCH (09:13)
--- NOTE | 2019-11-24 17:04 | PN ---
Subjective Date of Service: 11/24/19 Interval History: Reports improvement in breathing. Reports tightness in her diaphragm area that is ongoing. Family History: Unchanged from Admission Social History: Unchanged from Admission Past Medical History: Unchanged from Admission Objective Active Medications: Acetylcysteine (Mucomyst Inhalation Sandra*) 400 mg INH RT.[id number] [facility] Last Admin: 11/24/19 13:57 Dose: 400 mg Albuterol (Ventolin 2.5 Mg/3 Ml Neb.Sandra*) 2.5 mg INH Q4H PRN PRN Reason: SOB/WHEEZING Albuterol/Ipratropium (Duoneb (Albuterol 2.5 Mg/Ipratropium 0.5 Mg)) 1 neb INH Q4H [facility] Last Admin: 11/24/19 13:57 Dose: 1 neb Ascorbic Acid (Vitamin C Tab*) 1,000 mg PO DAILY [facility] Last Admin: 11/24/19 09:12 Dose: 1,000 mg Clonazepam (Klonopin Tab(*)) 1 mg PO Q3H PRN PRN Reason: ANXIETY Last Admin: 11/24/19 12:53 Dose: 1 mg Enoxaparin Sodium (Lovenox(*)) 40 mg SUBCUT BEDTIME [facility] Last Admin: 11/23/19 21:40 Dose: 40 mg Guaifenesin (Robitussin 100 Mg/5ml Liq) 5 ml PO Q6H PRN PRN Reason: COUGH Last Admin: 11/21/19 08:33 Dose: 5 ml Lactobacillus Rhamnosus (Lactobacillus Acidophilus*) 1 tab PO DAILY [facility] Last Admin: 11/24/19 09:12 Dose: 1 tab Magnesium Hydroxide (Milk Of Magnesia Liq*) 30 ml PO Q4H PRN PRN Reason: CONSTIPATION Last Admin: 11/20/19 10:33 Dose: 30 ml Methylprednisolone Sodium Succinate (Solu-Medrol 40 Mg) 40 mg IV DAILY [facility] Last Admin: 11/24/19 09:12 Dose: 40 mg Miscellaneous (Ativan Pyxis Webb) 1 ea N/A .ATIVAN IV WEBB PRN PRN Reason: PYXIS WEBB Mometasone Furoate/Formoterol Fumar (Dulera 200/5 Mdi*) 2 puff INH BID [facility] Last Admin: 11/24/19 07:29 Dose: 2 puff Montelukast Sodium (Singulair Tab*) 10 mg PO BEDTIME [facility] Last Admin: 11/23/19 21:40 Dose: 10 mg Pantoprazole Sodium (Protonix Iv*) 40 mg IV DAILY [facility] Last Admin: 11/24/19 09:13 Dose: 40 mg Polyethylene Glycol/Electrolytes (Miralax*) 17 gm PO DAILY PRN PRN Reason: CONSTIPATION Last Admin: 11/20/19 10:33 Dose: 17 gm Simethicone (Mylicon Tab*) 80 mg PO Q6H PRN PRN Reason: INDIGESTION Sodium Chloride (Sodium Chloride 0.65% Nasal [place]*) 1 spray BOTH NARES Q4H PRN PRN Reason: CONGESTION Last Admin: 11/24/19 09:13 Dose: 1 spray Vital Signs - 8 hr 11/24/19 11/24/19 11/24/19 09:13 11:16 11:17 Temperature 98.2 F Pulse Rate 88 86 Respiratory 20 20 16 Rate Blood Pressure 116/58 (mmHg) O2 Sat by Pulse 97 97 Oximetry 11/24/19 11/24/19 11/24/19 11:50 12:53 13:59 Temperature Pulse Rate 89 Respiratory 20 20 18 Rate Blood Pressure (mmHg) O2 Sat by Pulse 97 Oximetry 11/24/19 11/24/19 15:46 15:56 Temperature 97.6 F Pulse Rate 85 Respiratory 20 20 Rate Blood Pressure 117/51 (mmHg) O2 Sat by Pulse 95 Oximetry Oxygen Devices in Use Now: Nasal Cannula Eyes: No Scleral Icterus Ears/Nose/Mouth/Throat: NL Teeth, Lips, Gums Neck: NL Appearance and Movements; NL JVP Respiratory: Symmetrical Chest Expansion and Respiratory Effort, - - dec bilateral air entry.no wheezes or rhonchi Cardiovascular: NL Sounds; No Murmurs; No JVD Abdominal: NL Sounds; No Tenderness; No Distention Extremities: No Edema Neurological: Alert and Oriented x 3 Result Diagrams: 11/24/19 05:33 11/24/19 05:33 Microbiology and Other Data: Microbiology 11/17/19 04:11 Gram Stain - Final Sputum Assess/Plan/Problems-Billing Assessment: - Patient Problems (1) Acute respiratory failure with hypoxia and hypercarbia Current Visit: No Status: Acute Code(s): J96.01 - ACUTE RESPIRATORY FAILURE WITH HYPOXIA; J96.02 - ACUTE RESPIRATORY FAILURE WITH HYPERCAPNIA SNOMED Code( s): 473479152 Comment: - 2/2 underlying pneumonia with underlying COPD exacerbation and bronchiectasis - Was transitioned to po prednisone.will increase to solumedrol 40 iv daily - continue duo nebs, spiriva and dulera - cefepime - completed 7 days - stoppped - consult to pulm. next available - outpatient is option - blood cultures pending -Ongoing sob.Severe bronchiectasis and emphesema.Last Ct with PTX in 2019. -CT reviewed.Severe bronchiectasis with mucous plugging -Mucomyst, Chest PT -Consult with Dr Mccoy today -Improving -on 3.5-4l home oxygen at baseline -Discussed with case.Close to getting BIPAP machine -Need 0ximetry on oxygen tonight to qualify for BIPAP( ordered (2) COPD exacerbation Current Visit: No Status: Acute Code(s): J44.1 - CHRONIC OBSTRUCTIVE PULMONARY DISEASE W (ACUTE) EXACERBATION SNOMED Code(s): 184678841 Comment: - Secondary to HAP - - CXR -bibasliar infiltrates - Previously had Pseudomonas pneumonia - continue nebs- will add meta nebs - stopped cefepime - change prednisone to solumedrol as she was very sob on po prednisone - reports that PO prednisone has not worked for the patient in the past -Will discuss further with pulmonary (3) Healthcare-associated pneumonia Current Visit: No Status: Acute Code(s): J18.9 - PNEUMONIA, UNSPECIFIED ORGANISM SNOMED Code(s): 201799093 Comment: - CXR -bibasliar infiltrates - Sputum with Pseudomonas Aeruginosa- - Continue nebs - stopped cefepime- finished 7 days between 11/12-11/19/2019 - 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- ok to stop IV antibiotics, would not recommend trish nebs d/t the risk of increased resistance -stopped -CT reviewed (4) Anxiety Current Visit: No Status: Chronic Code(s): F41.9 - ANXIETY DISORDER, UNSPECIFIED SNOMED Code(s): 87668912 Comment: - Continue clonazepam (frequency increased from home dose) (5) DVT prophylaxis Current Visit: No Status: Acute Code(s): MIT2101 - SNOMED Code(s): 228440860 Comment: - Lovenox (6) Full code status Current Visit: No Status: Acute Code(s): Z78.9 - OTHER SPECIFIED HEALTH STATUS SNOMED Code(s): 266943801 Comment: Status and Disposition: oximetry on oxygen for bipap qualification today, pulmonary evaluation and anticipated discharge in am if improved
--- NOTE | 2019-11-24 19:23 | CONS ---
PULMONARY CONSULTATION REPORT: DATE OF CONSULT: 11/24/19 CONSULTATION REQUESTED BY: Dr. Vazquez. REASON FOR CONSULT: Evaluation of bronchiectasis and COPD. HISTORY OF PRESENT ILLNESS: The patient is a 59-year-old female with significant smoking history; also with occupational exposures to chemicals, exhaust fumes; with history of GOLD stage D COPD with chronic hypercapnic and hypoxemic respiratory failure, on home O2 at 3 to 4 L; history of bronchiectasis ; severe anxiety; and benzodiazepine dependence. The patient was recently admitted for acute COPD exacerbation in November, was treated with antibiotics and prednisone taper. She returns back for evaluation of worsening shortness of breath associated with cough and green phlegm. The patient at baseline has cough productive of white phlegm. She denied fevers or chills. She has denied chest pain, orthopnea, palpitations, syncope, myalgias, urinary complaints. She has history of bloating and abdominal discomfort after eating. The patient has been on nebulizers and budesonide/formoterol inhaler at home. She has been on montelukast for allergies. Further evaluation in the emergency room revealed the patient with O2 sats at 92% on 5 L. Chest x-ray showed possible airspace opacity in the retrocardiac area, which was further evaluated with a CT scan. I have personally reviewed CT scan of the chest from 11/20/19. The patient with evidence of emphysematous changes in the upper lung zones. The patient with evidence of significant bronchiectasis predominantly in the lower lungs with evidence of mucus plugging. The patient reports that she recently had pneumothorax while she was having air travel, which appears to have been the inciting event. The patient also reports anxiety affects her breathing. The patient had arterial blood gas on admission that showed hypercapnia with a chronic picture with pCO2 of 67 and normal pH. She was also noted to have worsening of hypercapnia with elevated bicarb on the BMP. She has seen intensivist in [place] and also seen intensivist in [place]. She would like to establish locally. The patient is currently being treated for acute COPD exacerbation and acute bronchiectasis exacerbation. She was noted to have pseudomonas on sputum cultures, which is resistant to ciprofloxacin, cefazolin, and levofloxacin. The patient is currently on Solu-Medrol and Mucomyst. She was also initiated on nebulizers. The patient reports some improvement in her symptoms. Still continues to have productive cough. She also reports chest tightness. She has discomfort in her abdomen and inability to take deep breaths after eating. She also feels bloated. She has completed a 7-day course of cefepime. PAST MEDICAL HISTORY: 1. Severe COPD and emphysema, O2 dependent. 2. Chronic hypercapnic and hypoxemic respiratory failure. 3. Severe anxiety with benzodiazepine dependence. 4. Bronchiectasis. 5. 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 PAST SURGICAL HISTORY: 1. Pneumothorax in 2019, status post chest tube placement. 2. Appendectomy. 3. Tubal ligation. 4. . MEDICATIONS: 1. Prednisone 40 mg from last admission. 2. Klonopin. 3. Montelukast. 4. Probiotic. 5. Doxycycline. 6. Cefdinir. 7. Budesonide. 8. Ascorbic acid. 9. DuoNeb. ALLERGIES: METRONIDAZOLE, SULFA, AMOXICILLIN, AZITHROMYCIN. FAMILY HISTORY: Mother with heart disease and father from bone cancer. SOCIAL HISTORY: The patient is disabled, lives at home with her . She has a 18-euqh-mgei history of smoking and quit in 1999. Denies alcohol or drug abuse. REVIEW OF SYSTEMS: All 14 systems reviewed and as per HPI. PHYSICAL EXAM: The patient is a thin female, in no apparent distress, slightly anxious. Vital Signs: Temperature 98.2, pulse 89 beats per minute, respiratory rate 18 per minute, O2 sat 97% on 5 L, blood pressure 116/58. HEENT: Pupils equal, reactive to light. Mucous membranes moist. Lungs: Diminished air entry bilaterally, expiratory wheeze present. Cardiovascular: S1, S2 present, regular. Abdomen: Soft, nontender, nondistended. Bowel sounds present. Extremities: Normal range of motion. Skin: No rash. DIAGNOSTIC STUDIES/LAB DATA: WBC count 8.2, hemoglobin 9.9, hematocrit 31, platelet count 173. Blood gas analysis showed pH of 7.41, pCO2 of 67, pO2 of 101, bicarb 36.2. Sodium 141, potassium 3.9, chloride 98, bicarb 43, BUN 26, creatinine 0.58. Influenza A and B negative. Sputum cultures suggestive of pseudomonas with susceptibility to meropenem, Zosyn, and cefepime. Chest x-ray and CT scan of the chest as described above in HPI. IMPRESSION AND RECOMMENDATIONS: 59-year-old female with bronchiectasis and chronic obstructive pulmonary disease, with acute chronic obstructive pulmonary disease exacerbation and bronchiectasis exacerbation secondary to pseudomonas. The patient is improving clinically. I encouraged the patient to use flutter device regularly. Would also continue with chest PT. She has completed course of antibiotics. She is currently receiving nebulizers and Mucomyst to help mobilize her secretions. O2 requirement is slightly higher than her baseline. Her pCO2 has also been increasing. She is a candidate for BiPAP at home given chronic hypercapnic respiratory failure. Discussed possible lung transplant in the future. Thank you for allowing me to participate in the care of the patient. Will follow up with the patient also as an outpatient. [id number]/[facility] #: [id number] TYRESE
[2019-11-24] MEDS: Montelukast Sodium TAB* 10 MG PO SCH (21:51)
[2019-11-24] MEDS: Enoxaparin(*) 40 MG/0.4 ML SYR SUBCUT SCH (21:51)
[2019-11-25] MEDS: Acetylcysteine INHALATION SOL* 200 MG/ML NEB.SOLN 10 ML INH SCH ×4 (00:35→19:05)
[2019-11-25] MEDS: Albuterol/Ipratropium NEB.SOL* Albuterol 2.5 MG/Ipratropium 0.5 MG 3 ML INH SCH ×7 (00:35→22:37)
[2019-11-25] MEDS: clonazePAM TAB(*) 1 MG PO PRN ×4 (05:45→21:33)
[2019-11-25] MEDS: Saline NASAL SPRAY 0.65%* BTL BOTH NARES PRN ×2 (05:46→10:49)
[2019-11-25 07:01] LABS: ABS Eosinophils 0.1 10^3/ul (0-0.6); ABS Lymphocytes 1.6 10^3/ul (1.0-4.8); ABS Monocytes 0.6 10^3/ul (0-0.8); ABS Neutrophils 3.8 10^3/ul (1.5-7.7); Eosinophil % 0.8 %; Hematocrit 31 % (35-47); Hemoglobin 10.1 g/dL (12.0-16.0); Lymphocyte % 26.2 %; Mean Corpuscular HGB Conc 33 g/dL (31-36); Mean Corpuscular Hemoglobin 30 pg (27-31); Mean Corpuscular Volume 91 fL (80-97); Mean Platelet Volume 9.4 fL (7.4-10.4); Platelet Count 169 10^3/uL (150-450); Red Blood Count 3.38 10^6 /uL (3.70-4.87); Red Cell Distribution Width 15 % (10-15)
[2019-11-25 07:11] LABS: BUN/Creatinine Ratio 40.3 (8-20); Calcium 8.2 mg/dL (8.6-10.3); EGFR African American 119.6 (>60); EGFR Non-African American 98.9 (>60); Potassium 3.9 mmol/L (3.5-5.0)
[2019-11-25] MEDS: Mometasone/Formoter 200/5 MDI INH SCH ×2 (08:51→19:04)
[2019-11-25] MEDS: Pantoprazole IV* 40 MG IV SCH (08:59)
[2019-11-25] MEDS: Lactobacillus Acidophilus* 1 TAB PO SCH (08:59)
[2019-11-25] MEDS: Ascorbic Acid TAB* 500 MG PO SCH (08:59)
[2019-11-25] MEDS: methylPREDNISolone SOD 40 MG* 1 ML VIAL IV SCH (08:59)
--- NOTE | 2019-11-25 13:50 | PN ---
Subjective Date of Service: 11/25/19 Interval History: Ms. Gotti states that she is SOB currently and believes this is related to anxiety. She has a dry cough that is chronic and has been coughing less recently. She denies wheeze, fever, although she does c/o chills, sweats, which she states is chronic. She has been experiencing loose stools, but no abd pain, n/v/d. She c/o feeling "jittery" and increasingly anxious with PO steroid use, but is willing to transition to PO starting tomorrow. She has no other complaints today. Family History: Unchanged from Admission Social History: Unchanged from Admission Past Medical History: Unchanged from Admission Objective Active Medications: Acetylcysteine (Mucomyst Inhalation Sandra*) 400 mg INH RT.[id number] [facility] Last Admin: 11/25/19 11:33 Dose: 400 mg Albuterol (Ventolin 2.5 Mg/3 Ml Neb.Sandra*) 2.5 mg INH Q4H PRN PRN Reason: SOB/WHEEZING Albuterol/Ipratropium (Duoneb (Albuterol 2.5 Mg/Ipratropium 0.5 Mg)) 1 neb INH Q4H [facility] Last Admin: 11/25/19 11:33 Dose: 1 neb Ascorbic Acid (Vitamin C Tab*) 1,000 mg PO DAILY [facility] Last Admin: 11/25/19 08:59 Dose: 1,000 mg Clonazepam (Klonopin Tab(*)) 1 mg PO Q3H PRN PRN Reason: ANXIETY Last Admin: 11/25/19 09:00 Dose: 1 mg Enoxaparin Sodium (Lovenox(*)) 40 mg SUBCUT BEDTIME [facility] Last Admin: 11/24/19 21:51 Dose: 40 mg Guaifenesin (Robitussin 100 Mg/5ml Liq) 5 ml PO Q6H PRN PRN Reason: COUGH Last Admin: 11/21/19 08:33 Dose: 5 ml Lactobacillus Rhamnosus (Lactobacillus Acidophilus*) 1 tab PO DAILY [facility] Last Admin: 11/25/19 08:59 Dose: 1 tab Magnesium Hydroxide (Milk Of Magnesia Liq*) 30 ml PO Q4H PRN PRN Reason: CONSTIPATION Last Admin: 11/20/19 10:33 Dose: 30 ml Miscellaneous (Ativan Pyxis Webb) 1 ea N/A .ATIVAN IV WEBB PRN PRN Reason: PYXIS WEBB Mometasone Furoate/Formoterol Fumar (Dulera 200/5 Mdi*) 2 puff INH BID [facility] Last Admin: 11/25/19 08:51 Dose: 2 puff Montelukast Sodium (Singulair Tab*) 10 mg PO BEDTIME [facility] Last Admin: 11/24/19 21:51 Dose: 10 mg Pantoprazole Sodium (Protonix Iv*) 40 mg IV DAILY [facility] Last Admin: 11/25/19 08:59 Dose: 40 mg Polyethylene Glycol/Electrolytes (Miralax*) 17 gm PO DAILY PRN PRN Reason: CONSTIPATION Last Admin: 11/20/19 10:33 Dose: 17 gm Prednisone (Deltasone 10 Mg Tab) 40 mg PO DAILY [facility]; Taper Stop: 12/16/19 08:59 Simethicone (Mylicon Tab*) 80 mg PO Q6H PRN PRN Reason: INDIGESTION Sodium Chloride (Sodium Chloride 0.65% Nasal [place]*) 1 spray BOTH NARES Q4H PRN PRN Reason: CONGESTION Last Admin: 11/25/19 10:49 Dose: 1 spray Vital Signs: Temp Pulse Resp BP Pulse Ox 98.8 F 81 18 118/51 100 11/25/19 11:38 11/25/19 11:38 11/25/19 12:18 11/25/19 11:38 11/25/19 11:38 Oxygen Devices in Use Now: Nasal Cannula Appearance: Ms. Gotti is a middle-aged white woman who appears cachectic and older than stated age; she is mildly anxious with some increased work of breathing. Eyes: No Scleral Icterus, PERRLA Ears/Nose/Mouth/Throat: NL Teeth, Lips, Gums, Clear Oropharnyx, Mucous Membranes Moist Neck: NL Appearance and Movements; NL JVP, Trachea Midline Respiratory: - - mild increased work of breathing; breath sounds diminished with end expiratory wheezing throughout b/l lung sears Cardiovascular: NL Sounds; No Murmurs; No JVD, RRR, No Edema Abdominal: NL Sounds; No Tenderness; No Distention, No Hepatosplenomegaly Extremities: No Edema, No Clubbing, Cyanosis Neurological: Alert and Oriented x 3 Result Diagrams: 11/25/19 06:39 11/25/19 06:39 Microbiology and Other Data: Microbiology 11/17/19 04:11 Gram Stain - Final Sputum Assess/Plan/Problems-Billing Assessment: 59 PMHx severe COPD, chronic hypercapneic, hypoxic respiratory failure, chronic anxiety presents with COPD exacerbation after hospitalization from 11/12-11/15 for same. - Patient Problems (1) Acute respiratory failure with hypoxia and hypercarbia Comment: -acute on chronic respiratory failure -2/2 underlying pneumonia with underlying COPD exacerbation and bronchiectasis -solumedrol 40 IV to PO prednisone 40 with plans to taper by 10mg q5d -continue duo nebs, spiriva and dulera -completed 7d course of cefepime -continue Mucomyst, Chest PT -pulmonology consulted; thank you for recommendations -inpatient overnight pulse ox shows no desat overnight -pulm recommends BiPAP overnight/with naps outpatient, for hypercapnia -on baseline supplemental O2 requirements -CM working on obtaining BiPAP (2) COPD exacerbation Comment: -secondary to HAP -CXR -bibasliar infiltrates -previously had Pseudomonas pneumonia -continue nebs -completed 7d course cefepime -transition from IV to PO steroid; patient reports increased anxiety with PO steroids, which will be managed with timing adjustment of PO anxiety rx (3) Healthcare-associated pneumonia Comment: -CXR -bibasliar infiltrates -sputum with Pseudomonas Aeruginosa -continue nebs -stopped cefepime- finished 7 days between 11/12-11/19/2019 -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- ok to stop IV antibiotics, would not recommend trish nebs d/t the risk of increased resistance -stopped (4) Anxiety Comment: - Continue clonazepam (frequency increased from home dose) (5) DVT prophylaxis Comment: -Lovenox (6) Full code status Comment: Status and Disposition: Inpatient. Discharge when stable. Attempting to obtain outpatient BiPAP.
[2019-11-25] MEDS: guaiFENesin 100 mg/5 ml LIQ unit dose cup PO PRN (17:45)
[2019-11-25] MEDS: Montelukast Sodium TAB* 10 MG PO SCH (21:33)
[2019-11-25] MEDS: Enoxaparin(*) 40 MG/0.4 ML SYR SUBCUT SCH (21:34)
[2019-11-26] MEDS: clonazePAM TAB(*) 1 MG PO PRN ×3 (00:46→13:54)
[2019-11-26] MEDS: Acetylcysteine INHALATION SOL* 200 MG/ML NEB.SOLN 10 ML INH SCH ×3 (01:20→11:11)
[2019-11-26] MEDS: Albuterol/Ipratropium NEB.SOL* Albuterol 2.5 MG/Ipratropium 0.5 MG 3 ML INH SCH ×4 (03:02→14:51)
[2019-11-26] MEDS: Mometasone/Formoter 200/5 MDI INH SCH (07:38)
[2019-11-26] MEDS: Lactobacillus Acidophilus* 1 TAB PO SCH (08:26)
[2019-11-26] MEDS: Ascorbic Acid TAB* 500 MG PO SCH (08:26)
[2019-11-26] MEDS: guaiFENesin 100 mg/5 ml LIQ unit dose cup PO PRN (08:27)
[2019-11-26] MEDS: Saline NASAL SPRAY 0.65%* BTL BOTH NARES PRN (08:27)
--- NOTE | 2019-11-26 08:50 | PN ---
Hospitalist Progress Note Date of Service: 11/26/19 Ms. Gotti is a 59yof PMHx chronic respiratory failure due to severe COPD. She received overnight pulse oximetry test on 11/24/2019 and sats remained greater than or equal to 90% while on home dose of 3.5L O2 per [place]. Patient attempted to use hospital BiPAP overnight, but became anxious and was unable to tolerate > 15min. BiPAP has been proven ineffective for this patient. Therefore, I feel that Ms. Gotti would benefit from a non-invasive mechanical ventilator.
[2019-11-26] MEDS ORDERED: Pantoprazole TAB * 40 MG TAB PO SCH (09:00)
[2019-11-26] MEDS ORDERED: busPIRone TAB* 10 MG PO SCH (12:00)
[2019-11-26 12:50] VITALS: BP 136/59
--- NOTE | 2019-11-26 21:51 | DS ---
CC: Dr. Harpreet Padilla; Dr. Bindu Mccoy; Dr. Taty Buenrostro * DISCHARGE SUMMARY: DATE OF ADMISSION: 11/16/19 DATE OF DISCHARGE: 11/26/19 PRIMARY CARE PROVIDER: Dr. Harpreet Padilla. OTHER PROVIDER: Dr. Bindu Mccoy. ATTENDING PHYSICIAN: Dr. Taty Buenrostro * (dictated by SABAS Lombardi). PRIMARY DIAGNOSES: 1. Acute on chronic respiratory failure with hypoxia and hypercapnia. 2. Chronic obstructive pulmonary disease exacerbation. 3. Generalized anxiety disorder. SECONDARY DIAGNOSES: 1. Severe chronic obstructive pulmonary disease and emphysema requiring oxygen at all times. 2. Chronic hypercarbic, hypoxic respiratory failure. 3. Bronchiectasis. 4. History of pneumothorax 2019 with known pseudomonas, questionable colonization. 5. Severe anxiety, on chronic benzodiazepine. STUDIES WHILE IN THE HOSPITAL: 1. Chest x-ray, impression: Perihilar and bibasilar infiltrates, unchanged. Recommend continued followup. Bronchiectasis, COPD. 2. CT chest with impression: Emphysema. Extensive bronchiectasis with pulmonary nodularity that appears to represent mucus plugging with ectatic airways. There is no loculated fluid collection to suggest pulmonary parenchymal abscess. CONSULTATIONS WHILE IN THE HOSPITAL: Pulmonology. Recommendations: A 59-year- old female with bronchiectasis and COPD, acute chronic obstructive pulmonary disease exacerbation and bronchiectasis exacerbation secondary to pseudomonas. The patient improving clinically, encourage flutter device. Continue chest PT. She has completed a course of antibiotics. Currently receiving nebulizers and Mucomyst to help mobilize secretions. O2 requirement slightly higher than baseline. PCO2 increasing. Candidate for BiPAP at home given chronic hypercapnic respiratory failure. Discussed possible lung transplant in the future. We will follow along outpatient. DISCHARGE MEDICATIONS: Home medications: 1. Albuterol/ipratropium 1 neb inhalation q.4 hours p.r.n. 2. Ascorbic acid 1000 mg p.o. daily. 3. Budesonide/formoterol 160/4.5 two puffs inhalation b.i.d. 4. Clonazepam 1 mg p.o. four times a day p.r.n. 5. Lactobacillus acidophilus 1 cap p.o. daily. 6. Montelukast sodium 10 mg p.o. at bedtime. New home medications: 1. Buspirone 10 mg p.o. b.i.d. 2. Prednisone taper 40 mg p.o. x4 days, then decrease by 10 mg p.o. q.5 days. After this is finished, start 5 mg p.o. daily until outpatient followup with Pulmonology. HISTORY OF PRESENT ILLNESS/HOSPITAL COURSE: Ms. Gotti is a 59-year-old female with past medical history of severe GOLD-D COPD; chronic hypoxic, hypercapnic respiratory failure, on 3 to 4 L; bronchiectasis; severe anxiety, with benzodiazepine dependence, who presented to the hospital on 11/16/19, with complaints of worsening shortness of breath, anxiety, productive cough. It is important to note that she was admitted 11/12/19 to 11/15/19 for COPD exacerbation without evidence of infiltrate and was discharged on DuoNeb, cefdinir, and doxy as well as prednisone taper. For full and complete details, please see the history and physical dictated by Dr. Kaela Ku, but in short, the patient presented with the above symptoms. She was admitted for acute on chronic respiratory failure. Differentials included COPD exacerbation, community -acquired pneumonia, hospital- acquired pneumonia, or anxiety driven dyspnea. She has had many sputum cultures in the past that have grown . She was therefore started on cefepime and completed a 7-day course of cefepime ranging from 11/12/19 to 11/19/19. The patient had overlying COPD exacerbation during her hospitalization and was placed on methyl prednisolone IV. She was eventually transitioned to oral prednisone with instructions to taper. The patient has a very extensive history of anxiety, which she admits exacerbates her shortness of breath at times. For this, we discussed possible psychiatric followup for nonpharmacological anxiety management. In the interim, the patient was placed on buspirone and she will continue her home clonazepam and to follow with her primary care provider. The patient will also follow with Dr. Mccoy outpatient. Throughout her stay, the patient was afebrile. There was 1 episode of mild leukocytosis, which was suspected to be due to prednisone. She is chronically hypercapnic and at discharge, her CO2 level is 40. Urine was negative for legionella or Strep pneumo. Sputum culture from grew pseudomonas, which again was treated with cefepime. At the time of discharge, the patient continues to have shortness of breath and anxiety. She will report a dry cough, but notes that she is coughing less. She denies wheezing or fever, but does complain of chronic chills/sweats. During her hospital stay, pulse oximetry testing was performed and the patient was noted to never desat below 90. She was therefore not eligible for BiPAP. She was sent home with an Astral device and instructions on how to use the device. Ms. Gotti is stable for discharge home. PHYSICAL EXAMINATION: General: Ms. Gotti is a well-developed, thin, middle- aged white woman, who appears older than her stated age. She has some increased work of breathing and can speak in mostly full sentences. She is experiencing mild respiratory distress. Heart rate, regular rate and rhythm with S1 and S2 present. No murmurs, rubs, clicks, or gallops. There is no JVD or peripheral edema. Pulmonary: Symmetrical chest expansion, some use of accessory muscles, breath sounds diminished throughout without wheeze, rhonchi, or rales. Abdomen: Flat bowel sounds in all quadrants. Soft, nontender to palpation. Musculoskeletal: Full range of motion without pain or deformities. Neuro: The patient is awake. She is alert and oriented x3. Cranial nerves II through XII grossly intact. DISCHARGE PLAN: Ms. Gotti will be discharged to home. CONDITION: Fair. The patient is stable, but is generally in poor health and likely will return. DISPOSITION: Home. ACTIVITY: As tolerated. MEDICATIONS: 1. Buspirone 10 mg p.o. b.i.d. 2. Prednisone taper as above. EDUCATION: 1. Follow up outpatient with [facility], [facility]. 2. Continue chest PT and flutter valve. 3. Follow up with primary care provider in 4 to 7 days, discuss recent hospitalization, anxiety. 4. Consider Psychiatry for management of anxiety. 5. Follow up with Pulmonology, Dr. Mccoy, within 2 weeks. 6. Return to the ER or nearest hospital if she experiences any return or worsening of symptoms, chest pain or discomfort, shortness of breath, dizziness , lightheadedness, loss of consciousness, high fever, chills, night sweats, or any other worrisome signs or symptoms. This is a summarized report of complex medical history and hospital stay. For further details, please see the entire medical record. TIME SPENT: Approximately 35 minutes was spent on this discharge. Greater than half that time was spent [id number] with the patient discussing discharge plans and instructions. SABAS MAN [id number]/[facility] #: [id number] MTDCam
== END 2019-11-26 16:25 | disposition home or self-care (01) | DRG 140 ==
LOC: ED 18:15 → MEDTELE 20:16
PROVIDERS: ADMIT Internal Medicine; ATTEND Internal Medicine
PROC: 5A09357 Assistance with Respiratory Ventilation, Less than 24 Consecutive Hours, Continuous Positive Airway Pressure (ICD-10-PCS; principal; 2019-11-25)
DX: J43.9 Emphysema, unspecified (principal); J96.21 Acute and chronic respiratory failure with hypoxia; J15.1 Pneumonia due to Pseudomonas; J96.22 Acute and chronic respiratory failure with hypercapnia; J47.1 Bronchiectasis with (acute) exacerbation; J47.0 Bronchiectasis with acute lower respiratory infection; K57.90 Diverticulosis of intestine, part unspecified, without perforation or abscess without bleeding; Y95 Nosocomial condition; F41.1 Generalized anxiety disorder; Z88.2 Allergy status to sulfonamides; Z88.0 Allergy status to penicillin; Z88.1 Allergy status to other antibiotic agents; Z87.891 Personal history of nicotine dependence; Z28.21 Immunization not carried out because of patient refusal; Z79.899 Other long term (current) drug therapy; Z99.81 Dependence on supplemental oxygen; Z79.51 Long term (current) use of inhaled steroids
CPT/HCPCS: 36415; 71046; 71260; 80048; 80053; 82803; 83605; 84439; 84443; 84481; 84484; 85025; 87070; 87077; 87186; 87205; 87899; 93005; 94640; 94660; 94667; 94668; 94762; 99284; A9270-GY; J0692; J1650; J2060; J2920; J2930; J3535; J7512; Q9967

== ENCOUNTER 2020-01-19 15:44 | Inpatient (IN) | payer OTHER ==
[~2020-01-19 15:44] MED LIST: Cefepime 2 GM in Dextrose(*) 2 GM/50 ML BAG IV SCH
--- OUTSIDE RECORDS SUMMARY | 2020-01-19 15:55 | XMS REPORT ---
:1960 Author Organization [facility] Care Team Providers Name Role Phone Unavailable [...] Physician UnknownUrine urobilinogen measurement (units/volume) by test [id number] 17:40:00Identifier 93602-0 Result Time 2019-11-12 17:40: 00Unknown Test Item Value Reference Range Comments Urine urobilinogen measurement Negative Unknown Unknown F (units/volume) by test strip (test code = 88647-5) Ordering Physician UnknownInfluenza virus A RNA detection by probe and target amplification [id number] 17:40:00Identifier 29927-2 Result Time 17:40:00Unknown Test Item Value Reference Range Comments Influenza virus A RNA detection by probe Negative Unknown Unknown F and target amplification method (test code = 00373-5) Ordering Physician UnknownInfluenza virus B RNA detection by probe and target amplification [id number] 17:40:00Identifier 98640-6 Result Time 17:40:00Unknown Test Item Value Reference Range Comments Influenza virus B RNA detection by probe Negative Unknown Unknown F and target amplification method (test code = 22316-0) Ordering Physician UnknownUrine total bilirubin detection by automated test [id number] 17:40:00Identifier 34308-3 Result Time 2019-11-12 17:40: 00Unknown Test Item Value Reference Range Comments Urine total bilirubin detection by Negative Unknown Unknown F automated test strip (test code = 28173-5) Ordering Physician UnknownUrine clarity by refractometry [id number] 17: 40:00Identifier 21713-1 Result Time 2019-11-12 17:40:00Unknown Test Item Value Reference Range Comments Urine clarity by refractometry automated Clear Unknown Unknown F (test code = 41815-2) Ordering Physician UnknownColor of Urine by [id number] 17:40:00Identifier 57609-1 Result Time 2019-11-12 17:40:00Unknown Test Item Value Reference Range Comments Color of Urine by Auto (test code = 13003-5) Straw Unknown Unknown F Ordering Physician UnknownUrine glucose detection by automated test [id number] -08 17:40:00Identifier 62745-8 Result Time 2019-11-12 17:40:00Unknown Test Item Value Reference Range Comments Urine glucose detection by automated test Negative Unknown Unknown F strip (test code = 18591-4) Ordering Physician UnknownKetones [Mass/volume] in Urine by Automated test [id number] 17:40:00Identifier 30349-2 Result Time 2019-11-12 17:40: 00Unknown Test Item Value Reference Range Comments Ketones [Mass/volume] in Urine by Automated Trace Unknown Unknown F test strip (test code = 33591-6) Ordering Physician UnknownUrine nitrite detection by automated test [id number] -08 17:40:00Identifier 98164-7 Result Time 2019-11-12 17:40:00Unknown Test Item Value Reference Range Comments Urine nitrite detection by automated test Negative Unknown Unknown F strip (test code = 85575-2) Ordering Physician UnknownProtein [Mass/volume] in Urine by Automated test [id number] 17:40:00Identifier 50741-4 Result Time 2019-11-12 17:40: 00Unknown Test Item Value Reference Range Comments Protein [Mass/volume] in Urine by Negative Unknown Unknown F Automated test strip (test code = 15941-4) Ordering Physician UnknownSpecific gravity of Urine by Refractometry [id number] 17:40:00Identifier 96558-6 Result Time 2019-11-12 17:40: 00Unknown Test Item Value Reference Range Comments Specific gravity of Urine by Refractometry 1.004 Unknown Unknown F automated (test code = 63873-2) Ordering Physician UnknownUrine hemoglobin detection by test [id number] 17: 40:00Identifier 5794-3 Result Time 2019-11-12 17:40:00Unknown Test Item Value Reference Range Comments Urine hemoglobin detection by test strip Negative Unknown Unknown F (test code = 5794-3) Ordering Physician UnknownUrine leukocyte esterase detection by automated test [id number] 17:40:00Identifier 93308-8 Result Time 2019-11-12 17:40: 00Unknown Test Item Value Reference Range Comments Urine leukocyte esterase detection by Negative Unknown Unknown F automated test strip (test code = 29766-3) Ordering Physician UnknownArterial blood base excess [id number] 16:24 :00Identifier 1925-7 Result Time 2019-11-12 16:24:00Unknown Test Item Value Reference Range Comments Arterial blood base excess measurement 13.0 mmol/L Unknown Unknown F (test code = 1925-7) Ordering Physician UnknownArterial blood partial pressure of oxygen with temperature [id number] 16:24:00Identifier 64598-7 Result Time 16:24:00Unknown Test Item Value Reference Range Comments Arterial blood partial pressure of Not Reportable Unknown Unknown F oxygen with temperature correction (test code = 05193-4) Ordering Physician UnknownArterial blood bicarbonate measurement (moles/volume) 2019-11-12 16:24:00Identifier 1960-4 Result Time 2019-11-12 16:24:00Unknown Test Item Value Reference Range Comments Arterial blood bicarbonate measurement 34.9 mmol/L Unknown Unknown F (moles/volume) (test code = 1960-4) Ordering Physician UnknownArterial blood gas measurement with patient temperature [id number] 16:24:00Identifier 12433-2 Result Time 16:24:00Unknown Test Item Value Reference Range Comments Arterial blood gas measurement with Not Reportable Unknown Unknown F patient temperature correction (test code = 48035-6) Ordering Physician UnknownO2 saturation arterial [id number] 16:24: 00Identifier 2708-6 Result Time 2019-11-12 16:24:00Unknown Test Item Value Reference Range Comments O2 saturation arterial blood (test code = 92.6 % Unknown Unknown F 2708-6) Ordering Physician UnknownArterial blood pH [id number] 16:24: 00Identifier 2744-1 Result Time 2019-11-12 16:24:00Unknown Test Item Value Reference Range Comments Arterial blood pH measurement (test code = 7.40 Unknown Unknown F 2744-1) Ordering Physician UnknownPO2 arterial cord [id number] 16:24:00Identifier 74794-8 Result Time 2019-11-12 16:24:00Unknown Test Item Value Reference Range Comments PO2 arterial cord blood (test code = 59 mmHg Unknown Unknown F 74218-0) Ordering Physician UnknownArterial pCO2 with temperature [id number] 16 :24:00Identifier 49603-9 Result Time 2019-11-12 16:24:00Unknown Test Item Value Reference Range Comments Arterial pCO2 with temperature Not Reportable Unknown Unknown F correction (test code = 14076-9) Ordering Physician UnknownSerum or plasma troponin i.cardiac measurement (mass/ volume)2019-11-12 16:11:00Identifier 13954-4 Result Time 2019-11-12 16:11: 00Unknown Test Item Value Reference Range Comments Serum or plasma troponin i.cardiac 0.00 ng/mL Unknown Unknown F measurement (mass/volume) (test code = 48039-4) Ordering Physician UnknownSerum or plasma creatine kinase MB measurement (mass/ volume)2019-11-12 16:11:00Identifier 96887-1 Result Time 2019-11-12 16:11: 00Unknown Test Item Value Reference Range Comments Serum or plasma creatine kinase MB 1.9 ng/mL Unknown Unknown F measurement (mass/volume) (test code = 75632-9) Ordering Physician UnknownSerum or plasma alanine aminotransferase measurement ( enzymatic activity/volume)2019-11-12 16:11:00Identifier 1742-6 Result Time 11-12 16:11:00Unknown Test Item Value Reference Range Comments Serum or plasma alanine aminotransferase 9 U/L Unknown Unknown F measurement (enzymatic activity/volume) (test code = 1742-6) Ordering Physician UnknownSerum or plasma albumin/globulin mass [id number] 16:11:00Identifier 1759-0 Result Time 2019-11-12 16:11:00Unknown Test Item Value Reference Range Comments Serum or plasma albumin/globulin mass ratio 1.1 Unknown Unknown F (test code = 1759-0) Ordering Physician UnknownSerum or plasma calcium measurement (mass/volume)11-12 16:11:00Identifier 21797-7 Result Time 2019-11-12 16:11:00Unknown Test Item Value Reference Range Comments Serum or plasma calcium measurement 9.6 mg/dL Unknown Unknown F (mass/volume) (test code = 16716-2) Ordering Physician UnknownSerum or plasma aspartate aminotransferase [...] natriuretic peptide B measurement ( mass/volume)2019-11-12 16:11:00Identifier 54797-2 Result Time 2019-11-12 16:11: 00Unknown Test Item Value Reference Range Comments Serum or plasma natriuretic peptide B 33 pg/mL Unknown Unknown F measurement (mass/volume) (test code = 74757-2) Ordering Physician UnknownSerum or plasma urea nitrogen measurement (mass/volume )2019-11-12 16:11:00Identifier 3094-0 Result Time 2019-11-12 16:11:00Unknown Test Item Value Reference Range Comments Serum or plasma urea nitrogen measurement 15 mg/dL Unknown Unknown F (mass/volume) (test code = 3094-0) Ordering Physician UnknownSerum or plasma urea nitrogen/creatinine [id number]- 08 16:11:00Identifier 3097-3 Result Time 2019-11-12 16:11:00Unknown Test Item Value Reference Range Comments Serum or plasma urea nitrogen/creatinine 22.1 Unknown Unknown F ratio (test code = 3097-3) Ordering Physician UnknownAutomated blood platelet mean volume xbxwzqnevvk5416- 01-08 16:11:00Identifier 38856-4 Result Time 2019-11-12 16:11:00Unknown Test Item Value Reference Range Comments Automated blood platelet mean volume 8.4 fL Unknown Unknown F measurement (test code = 40799-6) Ordering Physician UnknownSerum or plasma anion [id number] 16:11: 00Identifier 58636-8 Result Time 2019-11-12 16:11:00Unknown Test Item Value Reference Range Comments Serum or plasma anion gap (test code = 12 mmol/L Unknown Unknown F 89819-8) Ordering Physician UnknownAutomated blood leukocytes count corrected for nucleated erythrocytes (number/volume)2019-11-12 16:11:00Identifier 45462-6 Result Time 2019-11-12 16:11:00Unknown Test Item Value Reference Range Comments Automated blood leukocytes count 6.6 10^3/uL Unknown Unknown F corrected for nucleated erythrocytes (number/volume) (test code = 11013-9) Ordering Physician UnknownAutomated blood nucleated erythrocytes beaolmdvz5302- 01-08 16:11:00Identifier 46688-2 Result Time 2019-11-12 16:11:00Unknown Test Item Value Reference Range Comments Automated blood nucleated erythrocytes 0.0 Unknown Unknown F detection (test code = 88056-1) Ordering Physician UnknownAutomated blood hematocrit (percentage)2019-11-12 16: 11:00Identifier 4544-3 Result Time 2019-11-12 16:11:00Unknown Test Item Value Reference Range Comments Automated blood hematocrit (percentage) (test 39 % Unknown Unknown F code = 4544-3) Ordering Physician UnknownEstimated glomerular filtration rate (GFR) non- Xlhaujvu1906-42-46 16:11:00Identifier 19780-1 Result Time 2019-11-12 16: 11:00Unknown Test Item Value Reference Range Comments Estimated glomerular filtration rate (GFR) 88.9 Unknown Unknown F non- (test code = 57003-2) Ordering Physician UnknownAutomated blood monocytes/100 [id number] 16: 11:00Identifier 5905-5 Result Time 2019-11-12 16:11:00Unknown Test Item Value Reference Range Comments Automated blood monocytes/100 leukocytes 5.1 % Unknown Unknown F (test code = 5905-5) Ordering Physician UnknownSerum or plasma albumin measurement by bromocresol green (BCG) dye binding method ([id number] 16:11:00Identifier 34265-7 Result Time 2019-11-12 16:11:00Unknown Test Item Value Reference Range Comments Serum or plasma albumin measurement by 4.0 g/dL Unknown Unknown F bromocresol green (BCG) dye binding method (ma (test code = 43370-4) Ordering Physician UnknownSerum or plasma alkaline phosphatase [...] = 704-7) Ordering Physician UnknownAutomated blood basophils/100 nvyvfdxjev1330-02-72 16: 11:00Identifier 706-2 Result Time 2019-11-12 16:11:00Unknown [...] = 711-2) Ordering Physician UnknownAutomated blood eosinophils/100 tbjyygyvzy1848-66-02 16:11:00Identifier 713-8 Result Time 2019-11-12 16:11:00Unknown Test [...] = 731-0) Ordering Physician UnknownAutomated blood lymphocytes/100 izwshlajrp3680-94-68 16:11:00Identifier 736-9 Result Time 2019-11-12 16:11:00Unknown Test Item Value Reference Range Comments Automated blood lymphocytes/100 leukocytes 16.3 % Unknown Unknown F (test code = 736-9) Ordering Physician UnknownBlood monocytes automated count (number/volume)2019-11 16:11:00Identifier 742-7 Result Time 2019-11-12 16:11:00Unknown Test Item Value Reference Range Comments Blood monocytes automated count 0.3 10^3/ul Unknown Unknown F (number/volume) (test code = 742-7) Ordering Physician UnknownAutomated blood neutrophils/100 vmacydeuwr8106-25-90 16:11:00Identifier 770-8 Result Time 2019-11-12 16:11:00Unknown Test [...] UnknownAutomated erythrocyte mean corpuscular hemoglobin concentration measurement (mass/npv5027-23-19 16:11:00Identifier 786-4 Result Time 2019-11-12 16:11:00Unknown Test Item Value Reference Range Comments Automated erythrocyte mean corpuscular 33 g/dL Unknown Unknown F hemoglobin concentration measurement (mass/vol (test code = 786-4) Ordering Physician UnknownAutomated erythrocyte mean corpuscular holwph8054-73- 08 16:11:00Identifier 787-2 Result Time 2019-11-12 16:11:00Unknown Test Item Value Reference Range Comments Automated erythrocyte mean corpuscular volume 91 fL Unknown Unknown F (test code = 787-2) Ordering Physician UnknownAutomated erythrocyte distribution width [id number]- 08 16:11:00Identifier 788-0 Result Time 2019-11-12 16:11:00Unknown [...] code = 789-8) Ordering Physician UnknownLymphocyte proliferation [id number] 16:11: 00Identifier [id number] Result Time 2019-11-12 16:11:00Unknown Test Item Value Reference Range Comments Lymphocyte proliferation test (test 5.0 10^3/ul Unknown Unknown F code = WYU6542) Ordering Physician Unknown
--- OUTSIDE RECORDS SUMMARY | 2020-01-19 15:55 | XMS REPORT ---
:1960 Author Organization [facility] Team Providers Name Role Phone Unavailable [...] Budesonide/ No Unknown Unknown Unknown Formote Formote - 160/4.5(Nf) 160/4.5(Nf) ascorbic ascorbic No Unknown Unknown [...] Physician UnknownUrine urobilinogen measurement (units/volume) by test [id number] 17:40:00Identifier 25778-7 Result Time 2019-11-12 17:40: 00Unknown Test Item Value Reference Range Comments Urine urobilinogen measurement Negative Unknown Unknown F (units/volume) by test strip (test code = 26442-7) Ordering Physician UnknownInfluenza virus A RNA detection by probe and target amplification [id number] 17:40:00Identifier 63674-2 Result Time 17:40:00Unknown Test Item Value Reference Range Comments Influenza virus A RNA detection by probe Negative Unknown Unknown F and target amplification method (test code = 20121-2) Ordering Physician UnknownInfluenza virus B RNA detection by probe and target amplification [id number] 17:40:00Identifier 30546-5 Result Time 17:40:00Unknown Test Item Value Reference Range Comments Influenza virus B RNA detection by probe Negative Unknown Unknown F and target amplification method (test code = 70722-0) Ordering Physician UnknownUrine total bilirubin detection by automated test [id number] 17:40:00Identifier 68617-3 Result Time 2019-11-12 17:40: 00Unknown Test Item Value Reference Range Comments Urine total bilirubin detection by Negative Unknown Unknown F automated test strip (test code = 34207-0) Ordering Physician UnknownUrine clarity by refractometry [id number] 17: 40:00Identifier 52995-0 Result Time 2019-11-12 17:40:00Unknown Test Item Value Reference Range Comments Urine clarity by refractometry automated Clear Unknown Unknown F (test code = 26584-1) Ordering Physician UnknownColor of Urine by Ctqm7975-63-38 17:40:00Identifier 10167-4 Result Time 2019-11-12 17:40:00Unknown Test Item Value Reference Range Comments Color of Urine by Auto (test code = 84837-1) Straw Unknown Unknown F Ordering Physician UnknownUrine glucose detection by automated test fgyuq4036-79 -08 17:40:00Identifier 54292-0 Result Time 2019-11-12 17:40:00Unknown Test Item Value Reference Range Comments Urine glucose detection by automated test Negative Unknown Unknown F strip (test code = 86815-7) Ordering Physician UnknownKetones [Mass/volume] in Urine by Automated test [id number] 17:40:00Identifier 86637-4 Result Time 2019-11-12 17:40: 00Unknown Test Item Value Reference Range Comments Ketones [Mass/volume] in Urine by Automated Trace Unknown Unknown F test strip (test code = 05763-2) Ordering Physician UnknownUrine nitrite detection by automated test [id number] -08 17:40:00Identifier 85914-0 Result Time 2019-11-12 17:40:00Unknown Test Item Value Reference Range Comments Urine nitrite detection by automated test Negative Unknown Unknown F strip (test code = 18692-8) Ordering Physician UnknownProtein [Mass/volume] in Urine by Automated test [id number] 17:40:00Identifier 61614-3 Result Time 2019-11-12 17:40: 00Unknown Test Item Value Reference Range Comments Protein [Mass/volume] in Urine by Negative Unknown Unknown F Automated test strip (test code = 16781-0) Ordering Physician UnknownSpecific gravity of Urine by Refractometry [id number] 17:40:00Identifier 86715-0 Result Time 2019-11-12 17:40: 00Unknown Test Item Value Reference Range Comments Specific gravity of Urine by Refractometry 1.004 Unknown Unknown F automated (test code = 77380-1) Ordering Physician UnknownUrine hemoglobin detection by test [id number] 17: 40:00Identifier 5794-3 Result Time 2019-11-12 17:40:00Unknown Test Item Value Reference Range Comments Urine hemoglobin detection by test strip Negative Unknown Unknown F (test code = 5794-3) Ordering Physician UnknownUrine leukocyte esterase detection by automated test [id number] 17:40:00Identifier 36258-3 Result Time 2019-11-12 17:40: 00Unknown Test Item Value Reference Range Comments Urine leukocyte esterase detection by Negative Unknown Unknown F automated test strip (test code = 70967-9) Ordering Physician UnknownArterial blood base excess [id number] 16:24 :00Identifier 1925-7 Result Time 2019-11-12 16:24:00Unknown Test Item Value Reference Range Comments Arterial blood base excess measurement 13.0 mmol/L Unknown Unknown F (test code = 1925-7) Ordering Physician UnknownArterial blood partial pressure of oxygen with temperature kvagbjmhni8558-44-35 16:24:00Identifier 07573-4 Result Time 16:24:00Unknown Test Item Value Reference Range Comments Arterial blood partial pressure of Not Reportable Unknown Unknown F oxygen with temperature correction (test code = 70133-6) Ordering Physician UnknownArterial blood bicarbonate measurement (moles/volume) 2019-11-12 16:24:00Identifier 1960-4 Result Time 2019-11-12 16:24:00Unknown Test Item Value Reference Range Comments Arterial blood bicarbonate measurement 34.9 mmol/L Unknown Unknown F (moles/volume) (test code = 1960-4) Ordering Physician UnknownArterial blood gas measurement with patient temperature rirhzgyrbx6703-28-64 16:24:00Identifier 97454-9 Result Time 16:24:00Unknown Test Item Value Reference Range Comments Arterial blood gas measurement with Not Reportable Unknown Unknown F patient temperature correction (test code = 14292-4) Ordering Physician UnknownO2 saturation arterial fivzq7520-98-22 16:24: 00Identifier 2708-6 Result Time 2019-11-12 16:24:00Unknown Test Item Value Reference Range Comments O2 saturation arterial blood (test code = 92.6 % Unknown Unknown F 2708-6) Ordering Physician UnknownArterial blood pH urodhewlexl1387-92-23 16:24: 00Identifier 2744-1 Result Time 2019-11-12 16:24:00Unknown Test Item Value Reference Range Comments Arterial blood pH measurement (test code = 7.40 Unknown Unknown F 2744-1) Ordering Physician UnknownPO2 arterial cord lfgcm2531-96-95 16:24:00Identifier 43067-7 Result Time 2019-11-12 16:24:00Unknown Test Item Value Reference Range Comments PO2 arterial cord blood (test code = 59 mmHg Unknown Unknown F 11676-9) Ordering Physician UnknownArterial pCO2 with temperature ubkxttdkoz0551-03-97 16 :24:00Identifier 32465-8 Result Time 2019-11-12 16:24:00Unknown Test Item Value Reference Range Comments Arterial pCO2 with temperature Not Reportable Unknown Unknown F correction (test code = 34862-4) Ordering Physician UnknownSerum or plasma troponin i.cardiac measurement (mass/ volume)2019-11-12 16:11:00Identifier 58226-4 Result Time 2019-11-12 16:11: 00Unknown Test Item Value Reference Range Comments Serum or plasma troponin i.cardiac 0.00 ng/mL Unknown Unknown F measurement (mass/volume) (test code = 57425-9) Ordering Physician UnknownSerum or plasma creatine kinase MB measurement (mass/ volume)2019-11-12 16:11:00Identifier 03133-0 Result Time 2019-11-12 16:11: 00Unknown Test Item Value Reference Range Comments Serum or plasma creatine kinase MB 1.9 ng/mL Unknown Unknown F measurement (mass/volume) (test code = 35326-5) Ordering Physician UnknownSerum or plasma alanine aminotransferase measurement ( enzymatic activity/volume)2019-11-12 16:11:00Identifier 1742-6 Result Time 11-12 16:11:00Unknown Test Item Value Reference Range Comments Serum or plasma alanine aminotransferase 9 U/L Unknown Unknown F measurement (enzymatic activity/volume) (test code = 1742-6) Ordering Physician UnknownSerum or plasma albumin/globulin mass [id number] 16:11:00Identifier 1759-0 Result Time 2019-11-12 16:11:00Unknown Test Item Value Reference Range Comments Serum or plasma albumin/globulin mass ratio 1.1 Unknown Unknown F (test code = 1759-0) Ordering Physician UnknownSerum or plasma calcium measurement (mass/volume)11-12 16:11:00Identifier 58916-0 Result Time 2019-11-12 16:11:00Unknown Test Item Value Reference Range Comments Serum or plasma calcium measurement 9.6 mg/dL Unknown Unknown F (mass/volume) (test code = 33658-8) Ordering Physician UnknownSerum or plasma aspartate aminotransferase [...] natriuretic peptide B measurement ( mass/volume)2019-11-12 16:11:00Identifier 44086-9 Result Time 2019-11-12 16:11: 00Unknown Test Item Value Reference Range Comments Serum or plasma natriuretic peptide B 33 pg/mL Unknown Unknown F measurement (mass/volume) (test code = 55813-5) Ordering Physician UnknownSerum or plasma urea nitrogen measurement (mass/volume )2019-11-12 16:11:00Identifier 3094-0 Result Time 2019-11-12 16:11:00Unknown Test Item Value Reference Range Comments Serum or plasma urea nitrogen measurement 15 mg/dL Unknown Unknown F (mass/volume) (test code = 3094-0) Ordering Physician UnknownSerum or plasma urea nitrogen/creatinine dwrwd0334-04- 08 16:11:00Identifier 3097-3 Result Time 2019-11-12 16:11:00Unknown Test Item Value Reference Range Comments Serum or plasma urea nitrogen/creatinine 22.1 Unknown Unknown F ratio (test code = 3097-3) Ordering Physician UnknownAutomated blood platelet mean volume kvqkphyibrn0991- 01-08 16:11:00Identifier 60443-3 Result Time 2019-11-12 16:11:00Unknown Test Item Value Reference Range Comments Automated blood platelet mean volume 8.4 fL Unknown Unknown F measurement (test code = 93123-6) Ordering Physician UnknownSerum or plasma anion ads8396-87-38 16:11: 00Identifier 29310-1 Result Time 2019-11-12 16:11:00Unknown Test Item Value Reference Range Comments Serum or plasma anion gap (test code = 12 mmol/L Unknown Unknown F 11896-4) Ordering Physician UnknownAutomated blood leukocytes count corrected for nucleated erythrocytes (number/volume)2019-11-12 16:11:00Identifier 05061-8 Result Time 2019-11-12 16:11:00Unknown Test Item Value Reference Range Comments Automated blood leukocytes count 6.6 10^3/uL Unknown Unknown F corrected for nucleated erythrocytes (number/volume) (test code = 00298-8) Ordering Physician UnknownAutomated blood nucleated erythrocytes emhbcuesb5047- 01-08 16:11:00Identifier 50697-8 Result Time 2019-11-12 16:11:00Unknown Test Item Value Reference Range Comments Automated blood nucleated erythrocytes 0.0 Unknown Unknown F detection (test code = 84859-9) Ordering Physician UnknownAutomated blood hematocrit (percentage)2019-11-12 16: 11:00Identifier 4544-3 Result Time 2019-11-12 16:11:00Unknown Test Item Value Reference Range Comments Automated blood hematocrit (percentage) (test 39 % Unknown Unknown F code = 4544-3) Ordering Physician UnknownEstimated glomerular filtration rate (GFR) non- Egiaxfhn4927-28-79 16:11:00Identifier 52055-4 Result Time 2019-11-12 16: 11:00Unknown Test Item Value Reference Range Comments Estimated glomerular filtration rate (GFR) 88.9 Unknown Unknown F non- (test code = 55020-3) Ordering Physician UnknownAutomated blood monocytes/100 vgqxcbbclz7343-90-96 16: 11:00Identifier 5905-5 Result Time 2019-11-12 16:11:00Unknown Test Item Value Reference Range Comments Automated blood monocytes/100 leukocytes 5.1 % Unknown Unknown F (test code = 5905-5) Ordering Physician UnknownSerum or plasma albumin measurement by bromocresol green (BCG) dye binding method ([id number] 16:11:00Identifier 48833-9 Result Time 2019-11-12 16:11:00Unknown Test Item Value Reference Range Comments Serum or plasma albumin measurement by 4.0 g/dL Unknown Unknown F bromocresol green (BCG) dye binding method (ma (test code = 84329-6) Ordering Physician UnknownSerum or plasma alkaline phosphatase [...] = 704-7) Ordering Physician UnknownAutomated blood basophils/100 npabctafzz5289-95-84 16: 11:00Identifier 706-2 Result Time 2019-11-12 16:11:00Unknown [...] = 711-2) Ordering Physician UnknownAutomated blood eosinophils/100 zcdjmvjpiy2450-13-67 16:11:00Identifier 713-8 Result Time 2019-11-12 16:11:00Unknown Test [...] = 731-0) Ordering Physician UnknownAutomated blood lymphocytes/100 raqjhotrwv7681-74-51 16:11:00Identifier 736-9 Result Time 2019-11-12 16:11:00Unknown Test Item Value Reference Range Comments Automated blood lymphocytes/100 leukocytes 16.3 % Unknown Unknown F (test code = 736-9) Ordering Physician UnknownBlood monocytes automated count (number/volume)2019-11 16:11:00Identifier 742-7 Result Time 2019-11-12 16:11:00Unknown Test Item Value Reference Range Comments Blood monocytes automated count 0.3 10^3/ul Unknown Unknown F (number/volume) (test code = 742-7) Ordering Physician UnknownAutomated blood neutrophils/100 qpwysyayvl9050-47-67 16:11:00Identifier 770-8 Result Time 2019-11-12 16:11:00Unknown Test [...] UnknownAutomated erythrocyte mean corpuscular hemoglobin concentration measurement (mass/pof3762-08-47 16:11:00Identifier 786-4 Result Time 2019-11-12 16:11:00Unknown Test Item Value Reference Range Comments Automated erythrocyte mean corpuscular 33 g/dL Unknown Unknown F hemoglobin concentration measurement (mass/vol (test code = 786-4) Ordering Physician UnknownAutomated erythrocyte mean corpuscular sptote7477-30- 08 16:11:00Identifier 787-2 Result Time 2019-11-12 16:11:00Unknown Test Item Value Reference Range Comments Automated erythrocyte mean corpuscular volume 91 fL Unknown Unknown F (test code = 787-2) Ordering Physician UnknownAutomated erythrocyte distribution width xpsvx7611-25- 08 16:11:00Identifier 788-0 Result Time 2019-11-12 16:11:00Unknown [...] code = 789-8) Ordering Physician UnknownLymphocyte proliferation vzfl8484-54-22 16:11: 00Identifier UBC2190 Result Time 2019-11-12 16:11:00Unknown Test Item Value Reference Range Comments Lymphocyte proliferation test (test 5.0 10^3/ul Unknown Unknown F code = XAT9812) Ordering Physician Unknown
--- OUTSIDE RECORDS SUMMARY | 2020-01-19 15:55 | XMS REPORT ---
:1960 Author Organization [facility] Care Team Providers Name Role Phone Unavailable [...] Physician UnknownUrine urobilinogen measurement (units/volume) by test [id number] 17:40:00Identifier 48185-9 Result Time 2019-11-12 17:40: 00Unknown Test Item Value Reference Range Comments Urine urobilinogen measurement Negative Unknown Unknown F (units/volume) by test strip (test code = 30396-8) Ordering Physician UnknownInfluenza virus A RNA detection by probe and target amplification [id number] 17:40:00Identifier 41797-1 Result Time 17:40:00Unknown Test Item Value Reference Range Comments Influenza virus A RNA detection by probe Negative Unknown Unknown F and target amplification method (test code = 18316-1) Ordering Physician UnknownInfluenza virus B RNA detection by probe and target amplification [id number] 17:40:00Identifier 51449-1 Result Time 17:40:00Unknown Test Item Value Reference Range Comments Influenza virus B RNA detection by probe Negative Unknown Unknown F and target amplification method (test code = 56439-1) Ordering Physician UnknownUrine total bilirubin detection by automated test [id number] 17:40:00Identifier 40070-5 Result Time 2019-11-12 17:40: 00Unknown Test Item Value Reference Range Comments Urine total bilirubin detection by Negative Unknown Unknown F automated test strip (test code = 50781-0) Ordering Physician UnknownUrine clarity by refractometry [id number] 17: 40:00Identifier 39537-1 Result Time 2019-11-12 17:40:00Unknown Test Item Value Reference Range Comments Urine clarity by refractometry automated Clear Unknown Unknown F (test code = 49303-1) Ordering Physician UnknownColor of Urine by Tbef9805-69-93 17:40:00Identifier 84229-7 Result Time 2019-11-12 17:40:00Unknown Test Item Value Reference Range Comments Color of Urine by Auto (test code = 77093-5) Straw Unknown Unknown F Ordering Physician UnknownUrine glucose detection by automated test [id number] -08 17:40:00Identifier 37045-6 Result Time 2019-11-12 17:40:00Unknown Test Item Value Reference Range Comments Urine glucose detection by automated test Negative Unknown Unknown F strip (test code = 95344-5) Ordering Physician UnknownKetones [Mass/volume] in Urine by Automated test [id number] 17:40:00Identifier 86833-5 Result Time 2019-11-12 17:40: 00Unknown Test Item Value Reference Range Comments Ketones [Mass/volume] in Urine by Automated Trace Unknown Unknown F test strip (test code = 67416-3) Ordering Physician UnknownUrine nitrite detection by automated test [id number] -08 17:40:00Identifier 04934-5 Result Time 2019-11-12 17:40:00Unknown Test Item Value Reference Range Comments Urine nitrite detection by automated test Negative Unknown Unknown F strip (test code = 20766-0) Ordering Physician UnknownProtein [Mass/volume] in Urine by Automated test durts2822-82-21 17:40:00Identifier 45297-8 Result Time 2019-11-12 17:40: 00Unknown Test Item Value Reference Range Comments Protein [Mass/volume] in Urine by Negative Unknown Unknown F Automated test strip (test code = 58401-3) Ordering Physician UnknownSpecific gravity of Urine by Refractometry [id number] 17:40:00Identifier 05663-9 Result Time 2019-11-12 17:40: 00Unknown Test Item Value Reference Range Comments Specific gravity of Urine by Refractometry 1.004 Unknown Unknown F automated (test code = 65185-0) Ordering Physician UnknownUrine hemoglobin detection by test [id number] 17: 40:00Identifier 5794-3 Result Time 2019-11-12 17:40:00Unknown Test Item Value Reference Range Comments Urine hemoglobin detection by test strip Negative Unknown Unknown F (test code = 5794-3) Ordering Physician UnknownUrine leukocyte esterase detection by automated test [id number] 17:40:00Identifier 79421-9 Result Time 2019-11-12 17:40: 00Unknown Test Item Value Reference Range Comments Urine leukocyte esterase detection by Negative Unknown Unknown F automated test strip (test code = 78650-7) Ordering Physician UnknownArterial blood base excess gcwinwhyjmt5497-85-93 16:24 :00Identifier 1925-7 Result Time 2019-11-12 16:24:00Unknown Test Item Value Reference Range Comments Arterial blood base excess measurement 13.0 mmol/L Unknown Unknown F (test code = 1925-7) Ordering Physician UnknownArterial blood partial pressure of oxygen with temperature ahbsigkxfd8455-44-75 16:24:00Identifier 90414-5 Result Time 16:24:00Unknown Test Item Value Reference Range Comments Arterial blood partial pressure of Not Reportable Unknown Unknown F oxygen with temperature correction (test code = 59215-8) Ordering Physician UnknownArterial blood bicarbonate measurement (moles/volume) 2019-11-12 16:24:00Identifier 1960-4 Result Time 2019-11-12 16:24:00Unknown Test Item Value Reference Range Comments Arterial blood bicarbonate measurement 34.9 mmol/L Unknown Unknown F (moles/volume) (test code = 1960-4) Ordering Physician UnknownArterial blood gas measurement with patient temperature gwakagpcuf6144-76-87 16:24:00Identifier 64373-1 Result Time 16:24:00Unknown Test Item Value Reference Range Comments Arterial blood gas measurement with Not Reportable Unknown Unknown F patient temperature correction (test code = 53783-3) Ordering Physician UnknownO2 saturation arterial [id number] 16:24: 00Identifier 2708-6 Result Time 2019-11-12 16:24:00Unknown Test Item Value Reference Range Comments O2 saturation arterial blood (test code = 92.6 % Unknown Unknown F 2708-6) Ordering Physician UnknownArterial blood pH tuyyxvxnbxt3073-65-80 16:24: 00Identifier 2744-1 Result Time 2019-11-12 16:24:00Unknown Test Item Value Reference Range Comments Arterial blood pH measurement (test code = 7.40 Unknown Unknown F 2744-1) Ordering Physician UnknownPO2 arterial cord heltr2536-99-22 16:24:00Identifier 53382-4 Result Time 2019-11-12 16:24:00Unknown Test Item Value Reference Range Comments PO2 arterial cord blood (test code = 59 mmHg Unknown Unknown F 50559-9) Ordering Physician UnknownArterial pCO2 with temperature hbjpcahzvk9049-28-97 16 :24:00Identifier 81643-6 Result Time 2019-11-12 16:24:00Unknown Test Item Value Reference Range Comments Arterial pCO2 with temperature Not Reportable Unknown Unknown F correction (test code = 46595-1) Ordering Physician UnknownSerum or plasma troponin i.cardiac measurement (mass/ volume)2019-11-12 16:11:00Identifier 28196-8 Result Time 2019-11-12 16:11: 00Unknown Test Item Value Reference Range Comments Serum or plasma troponin i.cardiac 0.00 ng/mL Unknown Unknown F measurement (mass/volume) (test code = 53380-5) Ordering Physician UnknownSerum or plasma creatine kinase MB measurement (mass/ volume)2019-11-12 16:11:00Identifier 72084-7 Result Time 2019-11-12 16:11: 00Unknown Test Item Value Reference Range Comments Serum or plasma creatine kinase MB 1.9 ng/mL Unknown Unknown F measurement (mass/volume) (test code = 49190-9) Ordering Physician UnknownSerum or plasma alanine aminotransferase measurement ( enzymatic activity/volume)2019-11-12 16:11:00Identifier 1742-6 Result Time 11-12 16:11:00Unknown Test Item Value Reference Range Comments Serum or plasma alanine aminotransferase 9 U/L Unknown Unknown F measurement (enzymatic activity/volume) (test code = 1742-6) Ordering Physician UnknownSerum or plasma albumin/globulin mass mykrm1683-25-41 16:11:00Identifier 1759-0 Result Time 2019-11-12 16:11:00Unknown Test Item Value Reference Range Comments Serum or plasma albumin/globulin mass ratio 1.1 Unknown Unknown F (test code = 1759-0) Ordering Physician UnknownSerum or plasma calcium measurement (mass/volume)11-12 16:11:00Identifier 08669-1 Result Time 2019-11-12 16:11:00Unknown Test Item Value Reference Range Comments Serum or plasma calcium measurement 9.6 mg/dL Unknown Unknown F (mass/volume) (test code = 20288-4) Ordering Physician UnknownSerum or plasma aspartate aminotransferase [...] natriuretic peptide B measurement ( mass/volume)2019-11-12 16:11:00Identifier 27975-1 Result Time 2019-11-12 16:11: 00Unknown Test Item Value Reference Range Comments Serum or plasma natriuretic peptide B 33 pg/mL Unknown Unknown F measurement (mass/volume) (test code = 38107-2) Ordering Physician UnknownSerum or plasma urea nitrogen measurement (mass/volume )2019-11-12 16:11:00Identifier 3094-0 Result Time 2019-11-12 16:11:00Unknown Test Item Value Reference Range Comments Serum or plasma urea nitrogen measurement 15 mg/dL Unknown Unknown F (mass/volume) (test code = 3094-0) Ordering Physician UnknownSerum or plasma urea nitrogen/creatinine qnvlq0600-06- 08 16:11:00Identifier 3097-3 Result Time 2019-11-12 16:11:00Unknown Test Item Value Reference Range Comments Serum or plasma urea nitrogen/creatinine 22.1 Unknown Unknown F ratio (test code = 3097-3) Ordering Physician UnknownAutomated blood platelet mean volume zveniqwyzvh8546- 01-08 16:11:00Identifier 21214-1 Result Time 2019-11-12 16:11:00Unknown Test Item Value Reference Range Comments Automated blood platelet mean volume 8.4 fL Unknown Unknown F measurement (test code = 05282-5) Ordering Physician UnknownSerum or plasma anion gur5679-16-38 16:11: 00Identifier 93264-1 Result Time 2019-11-12 16:11:00Unknown Test Item Value Reference Range Comments Serum or plasma anion gap (test code = 12 mmol/L Unknown Unknown F 50119-8) Ordering Physician UnknownAutomated blood leukocytes count corrected for nucleated erythrocytes (number/volume)2019-11-12 16:11:00Identifier 77623-9 Result Time 2019-11-12 16:11:00Unknown Test Item Value Reference Range Comments Automated blood leukocytes count 6.6 10^3/uL Unknown Unknown F corrected for nucleated erythrocytes (number/volume) (test code = 75476-9) Ordering Physician UnknownAutomated blood nucleated erythrocytes jppecewqe2180- 01-08 16:11:00Identifier 53741-6 Result Time 2019-11-12 16:11:00Unknown Test Item Value Reference Range Comments Automated blood nucleated erythrocytes 0.0 Unknown Unknown F detection (test code = 85297-1) Ordering Physician UnknownAutomated blood hematocrit (percentage)2019-11-12 16: 11:00Identifier 4544-3 Result Time 2019-11-12 16:11:00Unknown Test Item Value Reference Range Comments Automated blood hematocrit (percentage) (test 39 % Unknown Unknown F code = 4544-3) Ordering Physician UnknownEstimated glomerular filtration rate (GFR) non- Nbuguhie3814-09-53 16:11:00Identifier 86759-6 Result Time 2019-11-12 16: 11:00Unknown Test Item Value Reference Range Comments Estimated glomerular filtration rate (GFR) 88.9 Unknown Unknown F non- (test code = 75666-5) Ordering Physician UnknownAutomated blood monocytes/100 revadoumgd2548-05-71 16: 11:00Identifier 5905-5 Result Time 2019-11-12 16:11:00Unknown Test Item Value Reference Range Comments Automated blood monocytes/100 leukocytes 5.1 % Unknown Unknown F (test code = 5905-5) Ordering Physician UnknownSerum or plasma albumin measurement by bromocresol green (BCG) dye binding method ([id number] 16:11:00Identifier 62179-7 Result Time 2019-11-12 16:11:00Unknown Test Item Value Reference Range Comments Serum or plasma albumin measurement by 4.0 g/dL Unknown Unknown F bromocresol green (BCG) dye binding method (ma (test code = 71369-3) Ordering Physician UnknownSerum or plasma alkaline phosphatase [...] = 704-7) Ordering Physician UnknownAutomated blood basophils/100 yxtgtuiysz6419-65-91 16: 11:00Identifier 706-2 Result Time 2019-11-12 16:11:00Unknown [...] = 711-2) Ordering Physician UnknownAutomated blood eosinophils/100 jgtanijttc3965-68-21 16:11:00Identifier 713-8 Result Time 2019-11-12 16:11:00Unknown Test [...] = 731-0) Ordering Physician UnknownAutomated blood lymphocytes/100 evrcmnwqlw1794-80-97 16:11:00Identifier 736-9 Result Time 2019-11-12 16:11:00Unknown Test Item Value Reference Range Comments Automated blood lymphocytes/100 leukocytes 16.3 % Unknown Unknown F (test code = 736-9) Ordering Physician UnknownBlood monocytes automated count (number/volume)2019-11 16:11:00Identifier 742-7 Result Time 2019-11-12 16:11:00Unknown Test Item Value Reference Range Comments Blood monocytes automated count 0.3 10^3/ul Unknown Unknown F (number/volume) (test code = 742-7) Ordering Physician UnknownAutomated blood neutrophils/100 puoaoxucwy2315-73-54 16:11:00Identifier 770-8 Result Time 2019-11-12 16:11:00Unknown Test [...] UnknownAutomated erythrocyte mean corpuscular hemoglobin concentration measurement (mass/fxr7325-80-66 16:11:00Identifier 786-4 Result Time 2019-11-12 16:11:00Unknown Test Item Value Reference Range Comments Automated erythrocyte mean corpuscular 33 g/dL Unknown Unknown F hemoglobin concentration measurement (mass/vol (test code = 786-4) Ordering Physician UnknownAutomated erythrocyte mean corpuscular xfywal2052-38- 08 16:11:00Identifier 787-2 Result Time 2019-11-12 16:11:00Unknown Test Item Value Reference Range Comments Automated erythrocyte mean corpuscular volume 91 fL Unknown Unknown F (test code = 787-2) Ordering Physician UnknownAutomated erythrocyte distribution width bhpww0393-43- 08 16:11:00Identifier 788-0 Result Time 2019-11-12 16:11:00Unknown [...] code = 789-8) Ordering Physician UnknownLymphocyte proliferation aoec6992-81-93 16:11: 00Identifier [id number] Result Time 2019-11-12 16:11:00Unknown Test Item Value Reference Range Comments Lymphocyte proliferation test (test 5.0 10^3/ul Unknown Unknown F code = HOT5178) Ordering Physician Unknown
--- OUTSIDE RECORDS SUMMARY | 2020-01-19 15:55 | XMS REPORT ---
:1960 Author Organization [facility] Care Team Providers Name Role Phone Unavailable [...] Physician UnknownUrine urobilinogen measurement (units/volume) by test [id number] 17:40:00Identifier 78513-4 Result Time 2019-11-12 17:40: 00Unknown Test Item Value Reference Range Comments Urine urobilinogen measurement Negative Unknown Unknown F (units/volume) by test strip (test code = 08014-9) Ordering Physician UnknownInfluenza virus A RNA detection by probe and target amplification [id number] 17:40:00Identifier 33005-0 Result Time 17:40:00Unknown Test Item Value Reference Range Comments Influenza virus A RNA detection by probe Negative Unknown Unknown F and target amplification method (test code = 56858-3) Ordering Physician UnknownInfluenza virus B RNA detection by probe and target amplification [id number] 17:40:00Identifier 40834-6 Result Time 17:40:00Unknown Test Item Value Reference Range Comments Influenza virus B RNA detection by probe Negative Unknown Unknown F and target amplification method (test code = 89031-2) Ordering Physician UnknownUrine total bilirubin detection by automated test [id number] 17:40:00Identifier 37014-1 Result Time 2019-11-12 17:40: 00Unknown Test Item Value Reference Range Comments Urine total bilirubin detection by Negative Unknown Unknown F automated test strip (test code = 00821-3) Ordering Physician UnknownUrine clarity by refractometry [id number] 17: 40:00Identifier 21063-5 Result Time 2019-11-12 17:40:00Unknown Test Item Value Reference Range Comments Urine clarity by refractometry automated Clear Unknown Unknown F (test code = 14709-2) Ordering Physician UnknownColor of Urine by Pvho3829-98-11 17:40:00Identifier 63214-3 Result Time 2019-11-12 17:40:00Unknown Test Item Value Reference Range Comments Color of Urine by Auto (test code = 17754-6) Straw Unknown Unknown F Ordering Physician UnknownUrine glucose detection by automated test [id number] -08 17:40:00Identifier 02140-3 Result Time 2019-11-12 17:40:00Unknown Test Item Value Reference Range Comments Urine glucose detection by automated test Negative Unknown Unknown F strip (test code = 48573-4) Ordering Physician UnknownKetones [Mass/volume] in Urine by Automated test [id number] 17:40:00Identifier 67042-5 Result Time 2019-11-12 17:40: 00Unknown Test Item Value Reference Range Comments Ketones [Mass/volume] in Urine by Automated Trace Unknown Unknown F test strip (test code = 95223-7) Ordering Physician UnknownUrine nitrite detection by automated test drepm1124-37 -08 17:40:00Identifier 70561-8 Result Time 2019-11-12 17:40:00Unknown Test Item Value Reference Range Comments Urine nitrite detection by automated test Negative Unknown Unknown F strip (test code = 28770-0) Ordering Physician UnknownProtein [Mass/volume] in Urine by Automated test [id number] 17:40:00Identifier 35472-2 Result Time 2019-11-12 17:40: 00Unknown Test Item Value Reference Range Comments Protein [Mass/volume] in Urine by Negative Unknown Unknown F Automated test strip (test code = 86185-8) Ordering Physician UnknownSpecific gravity of Urine by Refractometry [id number] 17:40:00Identifier 70644-3 Result Time 2019-11-12 17:40: 00Unknown Test Item Value Reference Range Comments Specific gravity of Urine by Refractometry 1.004 Unknown Unknown F automated (test code = 31567-9) Ordering Physician UnknownUrine hemoglobin detection by test [id number] 17: 40:00Identifier 5794-3 Result Time 2019-11-12 17:40:00Unknown Test Item Value Reference Range Comments Urine hemoglobin detection by test strip Negative Unknown Unknown F (test code = 5794-3) Ordering Physician UnknownUrine leukocyte esterase detection by automated test [id number] 17:40:00Identifier 14540-1 Result Time 2019-11-12 17:40: 00Unknown Test Item Value Reference Range Comments Urine leukocyte esterase detection by Negative Unknown Unknown F automated test strip (test code = 32725-6) Ordering Physician UnknownArterial blood base excess [id number] 16:24 :00Identifier 1925-7 Result Time 2019-11-12 16:24:00Unknown Test Item Value Reference Range Comments Arterial blood base excess measurement 13.0 mmol/L Unknown Unknown F (test code = 1925-7) Ordering Physician UnknownArterial blood partial pressure of oxygen with temperature aoaujietjd1082-27-27 16:24:00Identifier 49936-9 Result Time 16:24:00Unknown Test Item Value Reference Range Comments Arterial blood partial pressure of Not Reportable Unknown Unknown F oxygen with temperature correction (test code = 45490-5) Ordering Physician UnknownArterial blood bicarbonate measurement (moles/volume) 2019-11-12 16:24:00Identifier 1960-4 Result Time 2019-11-12 16:24:00Unknown Test Item Value Reference Range Comments Arterial blood bicarbonate measurement 34.9 mmol/L Unknown Unknown F (moles/volume) (test code = 1960-4) Ordering Physician UnknownArterial blood gas measurement with patient temperature zxucimjpze2984-58-43 16:24:00Identifier 03276-6 Result Time 16:24:00Unknown Test Item Value Reference Range Comments Arterial blood gas measurement with Not Reportable Unknown Unknown F patient temperature correction (test code = 94941-3) Ordering Physician UnknownO2 saturation arterial vmtvh3247-77-89 16:24: 00Identifier 2708-6 Result Time 2019-11-12 16:24:00Unknown Test Item Value Reference Range Comments O2 saturation arterial blood (test code = 92.6 % Unknown Unknown F 2708-6) Ordering Physician UnknownArterial blood pH flpdnygziuu6280-16-74 16:24: 00Identifier 2744-1 Result Time 2019-11-12 16:24:00Unknown Test Item Value Reference Range Comments Arterial blood pH measurement (test code = 7.40 Unknown Unknown F 2744-1) Ordering Physician UnknownPO2 arterial cord pacdl2833-00-45 16:24:00Identifier 22899-1 Result Time 2019-11-12 16:24:00Unknown Test Item Value Reference Range Comments PO2 arterial cord blood (test code = 59 mmHg Unknown Unknown F 34518-4) Ordering Physician UnknownArterial pCO2 with temperature gojcttrvrr8489-42-71 16 :24:00Identifier 65549-3 Result Time 2019-11-12 16:24:00Unknown Test Item Value Reference Range Comments Arterial pCO2 with temperature Not Reportable Unknown Unknown F correction (test code = 11452-2) Ordering Physician UnknownSerum or plasma troponin i.cardiac measurement (mass/ volume)2019-11-12 16:11:00Identifier 66662-8 Result Time 2019-11-12 16:11: 00Unknown Test Item Value Reference Range Comments Serum or plasma troponin i.cardiac 0.00 ng/mL Unknown Unknown F measurement (mass/volume) (test code = 92234-5) Ordering Physician UnknownSerum or plasma creatine kinase MB measurement (mass/ volume)2019-11-12 16:11:00Identifier 21203-6 Result Time 2019-11-12 16:11: 00Unknown Test Item Value Reference Range Comments Serum or plasma creatine kinase MB 1.9 ng/mL Unknown Unknown F measurement (mass/volume) (test code = 29212-0) Ordering Physician UnknownSerum or plasma alanine aminotransferase measurement ( enzymatic activity/volume)2019-11-12 16:11:00Identifier 1742-6 Result Time 11-12 16:11:00Unknown Test Item Value Reference Range Comments Serum or plasma alanine aminotransferase 9 U/L Unknown Unknown F measurement (enzymatic activity/volume) (test code = 1742-6) Ordering Physician UnknownSerum or plasma albumin/globulin mass amqym1850-87-48 16:11:00Identifier 1759-0 Result Time 2019-11-12 16:11:00Unknown Test Item Value Reference Range Comments Serum or plasma albumin/globulin mass ratio 1.1 Unknown Unknown F (test code = 1759-0) Ordering Physician UnknownSerum or plasma calcium measurement (mass/volume)11-12 16:11:00Identifier 36700-9 Result Time 2019-11-12 16:11:00Unknown Test Item Value Reference Range Comments Serum or plasma calcium measurement 9.6 mg/dL Unknown Unknown F (mass/volume) (test code = 24926-5) Ordering Physician UnknownSerum or plasma aspartate aminotransferase [...] natriuretic peptide B measurement ( mass/volume)2019-11-12 16:11:00Identifier 74732-2 Result Time 2019-11-12 16:11: 00Unknown Test Item Value Reference Range Comments Serum or plasma natriuretic peptide B 33 pg/mL Unknown Unknown F measurement (mass/volume) (test code = 77417-4) Ordering Physician UnknownSerum or plasma urea nitrogen measurement (mass/volume )2019-11-12 16:11:00Identifier 3094-0 Result Time 2019-11-12 16:11:00Unknown Test Item Value Reference Range Comments Serum or plasma urea nitrogen measurement 15 mg/dL Unknown Unknown F (mass/volume) (test code = 3094-0) Ordering Physician UnknownSerum or plasma urea nitrogen/creatinine nfvny9313-26- 08 16:11:00Identifier 3097-3 Result Time 2019-11-12 16:11:00Unknown Test Item Value Reference Range Comments Serum or plasma urea nitrogen/creatinine 22.1 Unknown Unknown F ratio (test code = 3097-3) Ordering Physician UnknownAutomated blood platelet mean volume mpeinuoezvb3165- 01-08 16:11:00Identifier 87601-1 Result Time 2019-11-12 16:11:00Unknown Test Item Value Reference Range Comments Automated blood platelet mean volume 8.4 fL Unknown Unknown F measurement (test code = 49020-2) Ordering Physician UnknownSerum or plasma anion zcw7541-40-51 16:11: 00Identifier 55435-7 Result Time 2019-11-12 16:11:00Unknown Test Item Value Reference Range Comments Serum or plasma anion gap (test code = 12 mmol/L Unknown Unknown F 27534-4) Ordering Physician UnknownAutomated blood leukocytes count corrected for nucleated erythrocytes (number/volume)2019-11-12 16:11:00Identifier 74233-1 Result Time 2019-11-12 16:11:00Unknown Test Item Value Reference Range Comments Automated blood leukocytes count 6.6 10^3/uL Unknown Unknown F corrected for nucleated erythrocytes (number/volume) (test code = 61845-4) Ordering Physician UnknownAutomated blood nucleated erythrocytes roadmelsn6055- 01-08 16:11:00Identifier 69986-8 Result Time 2019-11-12 16:11:00Unknown Test Item Value Reference Range Comments Automated blood nucleated erythrocytes 0.0 Unknown Unknown F detection (test code = 32391-2) Ordering Physician UnknownAutomated blood hematocrit (percentage)2019-11-12 16: 11:00Identifier 4544-3 Result Time 2019-11-12 16:11:00Unknown Test Item Value Reference Range Comments Automated blood hematocrit (percentage) (test 39 % Unknown Unknown F code = 4544-3) Ordering Physician UnknownEstimated glomerular filtration rate (GFR) non- Myfyspqy0672-17-30 16:11:00Identifier 55311-6 Result Time 2019-11-12 16: 11:00Unknown Test Item Value Reference Range Comments Estimated glomerular filtration rate (GFR) 88.9 Unknown Unknown F non- (test code = 50379-5) Ordering Physician UnknownAutomated blood monocytes/100 meldkcdhav9264-49-18 16: 11:00Identifier 5905-5 Result Time 2019-11-12 16:11:00Unknown Test Item Value Reference Range Comments Automated blood monocytes/100 leukocytes 5.1 % Unknown Unknown F (test code = 5905-5) Ordering Physician UnknownSerum or plasma albumin measurement by bromocresol green (BCG) dye binding method ([id number] 16:11:00Identifier 44169-6 Result Time 2019-11-12 16:11:00Unknown Test Item Value Reference Range Comments Serum or plasma albumin measurement by 4.0 g/dL Unknown Unknown F bromocresol green (BCG) dye binding method (ma (test code = 40871-4) Ordering Physician UnknownSerum or plasma alkaline phosphatase [...] = 704-7) Ordering Physician UnknownAutomated blood basophils/100 slpabvitpt4792-56-06 16: 11:00Identifier 706-2 Result Time 2019-11-12 16:11:00Unknown [...] = 711-2) Ordering Physician UnknownAutomated blood eosinophils/100 kqkcidjfes2512-75-76 16:11:00Identifier 713-8 Result Time 2019-11-12 16:11:00Unknown Test [...] = 731-0) Ordering Physician UnknownAutomated blood lymphocytes/100 xmgjnwoceo3396-75-83 16:11:00Identifier 736-9 Result Time 2019-11-12 16:11:00Unknown Test Item Value Reference Range Comments Automated blood lymphocytes/100 leukocytes 16.3 % Unknown Unknown F (test code = 736-9) Ordering Physician UnknownBlood monocytes automated count (number/volume)2019-11 16:11:00Identifier 742-7 Result Time 2019-11-12 16:11:00Unknown Test Item Value Reference Range Comments Blood monocytes automated count 0.3 10^3/ul Unknown Unknown F (number/volume) (test code = 742-7) Ordering Physician UnknownAutomated blood neutrophils/100 onennevcta8728-13-89 16:11:00Identifier 770-8 Result Time 2019-11-12 16:11:00Unknown Test [...] UnknownAutomated erythrocyte mean corpuscular hemoglobin concentration measurement (mass/gnh7069-24-95 16:11:00Identifier 786-4 Result Time 2019-11-12 16:11:00Unknown Test Item Value Reference Range Comments Automated erythrocyte mean corpuscular 33 g/dL Unknown Unknown F hemoglobin concentration measurement (mass/vol (test code = 786-4) Ordering Physician UnknownAutomated erythrocyte mean corpuscular kbdbla3614-40- 08 16:11:00Identifier 787-2 Result Time 2019-11-12 16:11:00Unknown Test Item Value Reference Range Comments Automated erythrocyte mean corpuscular volume 91 fL Unknown Unknown F (test code = 787-2) Ordering Physician UnknownAutomated erythrocyte distribution width blmtg0563-05- 08 16:11:00Identifier 788-0 Result Time 2019-11-12 16:11:00Unknown [...] code = 789-8) Ordering Physician UnknownLymphocyte proliferation ymlj2055-16-82 16:11: 00Identifier VIL2916 Result Time 2019-11-12 16:11:00Unknown Test Item Value Reference Range Comments Lymphocyte proliferation test (test 5.0 10^3/ul Unknown Unknown F code = IKC4755) Ordering Physician Unknown
--- OUTSIDE RECORDS SUMMARY | 2020-01-19 15:56 | XMS REPORT ---
:1960 Author Organization [facility] Care Team Providers Name Role Phone Unavailable [...] Physician UnknownUrine urobilinogen measurement (units/volume) by test [id number] 17:40:00Identifier 84464-2 Result Time 2019-11-12 17:40: 00Unknown Test Item Value Reference Range Comments Urine urobilinogen measurement Negative Unknown Unknown F (units/volume) by test strip (test code = 61352-9) Ordering Physician UnknownInfluenza virus A RNA detection by probe and target amplification [id number] 17:40:00Identifier 67350-3 Result Time 17:40:00Unknown Test Item Value Reference Range Comments Influenza virus A RNA detection by probe Negative Unknown Unknown F and target amplification method (test code = 06817-9) Ordering Physician UnknownInfluenza virus B RNA detection by probe and target amplification [id number] 17:40:00Identifier 41158-6 Result Time 17:40:00Unknown Test Item Value Reference Range Comments Influenza virus B RNA detection by probe Negative Unknown Unknown F and target amplification method (test code = 28145-5) Ordering Physician UnknownUrine total bilirubin detection by automated test aeotx8499-67-65 17:40:00Identifier 25159-1 Result Time 2019-11-12 17:40: 00Unknown Test Item Value Reference Range Comments Urine total bilirubin detection by Negative Unknown Unknown F automated test strip (test code = 27158-9) Ordering Physician UnknownUrine clarity by refractometry [id number] 17: 40:00Identifier 07488-3 Result Time 2019-11-12 17:40:00Unknown Test Item Value Reference Range Comments Urine clarity by refractometry automated Clear Unknown Unknown F (test code = 70374-6) Ordering Physician UnknownColor of Urine by Qufg5433-84-10 17:40:00Identifier 90984-0 Result Time 2019-11-12 17:40:00Unknown Test Item Value Reference Range Comments Color of Urine by Auto (test code = 51320-5) Straw Unknown Unknown F Ordering Physician UnknownUrine glucose detection by automated test [id number] -08 17:40:00Identifier 11730-7 Result Time 2019-11-12 17:40:00Unknown Test Item Value Reference Range Comments Urine glucose detection by automated test Negative Unknown Unknown F strip (test code = 55386-3) Ordering Physician UnknownKetones [Mass/volume] in Urine by Automated test gftiz2038-20-11 17:40:00Identifier 36012-2 Result Time 2019-11-12 17:40: 00Unknown Test Item Value Reference Range Comments Ketones [Mass/volume] in Urine by Automated Trace Unknown Unknown F test strip (test code = 98509-1) Ordering Physician UnknownUrine nitrite detection by automated test efowa1112-54 -08 17:40:00Identifier 86575-0 Result Time 2019-11-12 17:40:00Unknown Test Item Value Reference Range Comments Urine nitrite detection by automated test Negative Unknown Unknown F strip (test code = 15753-6) Ordering Physician UnknownProtein [Mass/volume] in Urine by Automated test zqskn9077-80-62 17:40:00Identifier 13107-8 Result Time 2019-11-12 17:40: 00Unknown Test Item Value Reference Range Comments Protein [Mass/volume] in Urine by Negative Unknown Unknown F Automated test strip (test code = 20572-1) Ordering Physician UnknownSpecific gravity of Urine by Refractometry hadjqddub8441-96-83 17:40:00Identifier 94608-7 Result Time 2019-11-12 17:40: 00Unknown Test Item Value Reference Range Comments Specific gravity of Urine by Refractometry 1.004 Unknown Unknown F automated (test code = 20863-4) Ordering Physician UnknownUrine hemoglobin detection by test [id number] 17: 40:00Identifier 5794-3 Result Time 2019-11-12 17:40:00Unknown Test Item Value Reference Range Comments Urine hemoglobin detection by test strip Negative Unknown Unknown F (test code = 5794-3) Ordering Physician UnknownUrine leukocyte esterase detection by automated test ayryj3846-75-29 17:40:00Identifier 29382-5 Result Time 2019-11-12 17:40: 00Unknown Test Item Value Reference Range Comments Urine leukocyte esterase detection by Negative Unknown Unknown F automated test strip (test code = 05549-5) Ordering Physician UnknownArterial blood base excess dnafukejgra5033-85-41 16:24 :00Identifier 1925-7 Result Time 2019-11-12 16:24:00Unknown Test Item Value Reference Range Comments Arterial blood base excess measurement 13.0 mmol/L Unknown Unknown F (test code = 1925-7) Ordering Physician UnknownArterial blood partial pressure of oxygen with temperature gkdahskasf9629-36-59 16:24:00Identifier 26042-1 Result Time 16:24:00Unknown Test Item Value Reference Range Comments Arterial blood partial pressure of Not Reportable Unknown Unknown F oxygen with temperature correction (test code = 48209-7) Ordering Physician UnknownArterial blood bicarbonate measurement (moles/volume) 2019-11-12 16:24:00Identifier 1960-4 Result Time 2019-11-12 16:24:00Unknown Test Item Value Reference Range Comments Arterial blood bicarbonate measurement 34.9 mmol/L Unknown Unknown F (moles/volume) (test code = 1960-4) Ordering Physician UnknownArterial blood gas measurement with patient temperature ttzevutqav6406-26-15 16:24:00Identifier 60847-1 Result Time 16:24:00Unknown Test Item Value Reference Range Comments Arterial blood gas measurement with Not Reportable Unknown Unknown F patient temperature correction (test code = 18056-0) Ordering Physician UnknownO2 saturation arterial ehcin9642-78-09 16:24: 00Identifier 2708-6 Result Time 2019-11-12 16:24:00Unknown Test Item Value Reference Range Comments O2 saturation arterial blood (test code = 92.6 % Unknown Unknown F 2708-6) Ordering Physician UnknownArterial blood pH nmnztsrlbpz9579-17-24 16:24: 00Identifier 2744-1 Result Time 2019-11-12 16:24:00Unknown Test Item Value Reference Range Comments Arterial blood pH measurement (test code = 7.40 Unknown Unknown F 2744-1) Ordering Physician UnknownPO2 arterial cord odvxs1632-26-25 16:24:00Identifier 17369-6 Result Time 2019-11-12 16:24:00Unknown Test Item Value Reference Range Comments PO2 arterial cord blood (test code = 59 mmHg Unknown Unknown F 41526-8) Ordering Physician UnknownArterial pCO2 with temperature vilfwhbzlf7836-04-60 16 :24:00Identifier 00738-5 Result Time 2019-11-12 16:24:00Unknown Test Item Value Reference Range Comments Arterial pCO2 with temperature Not Reportable Unknown Unknown F correction (test code = 92252-7) Ordering Physician UnknownSerum or plasma troponin i.cardiac measurement (mass/ volume)2019-11-12 16:11:00Identifier 11107-2 Result Time 2019-11-12 16:11: 00Unknown Test Item Value Reference Range Comments Serum or plasma troponin i.cardiac 0.00 ng/mL Unknown Unknown F measurement (mass/volume) (test code = 65692-7) Ordering Physician UnknownSerum or plasma creatine kinase MB measurement (mass/ volume)2019-11-12 16:11:00Identifier 34067-9 Result Time 2019-11-12 16:11: 00Unknown Test Item Value Reference Range Comments Serum or plasma creatine kinase MB 1.9 ng/mL Unknown Unknown F measurement (mass/volume) (test code = 42354-8) Ordering Physician UnknownSerum or plasma alanine aminotransferase measurement ( enzymatic activity/volume)2019-11-12 16:11:00Identifier 1742-6 Result Time 11-12 16:11:00Unknown Test Item Value Reference Range Comments Serum or plasma alanine aminotransferase 9 U/L Unknown Unknown F measurement (enzymatic activity/volume) (test code = 1742-6) Ordering Physician UnknownSerum or plasma albumin/globulin mass koslr7608-31-43 16:11:00Identifier 1759-0 Result Time 2019-11-12 16:11:00Unknown Test Item Value Reference Range Comments Serum or plasma albumin/globulin mass ratio 1.1 Unknown Unknown F (test code = 1759-0) Ordering Physician UnknownSerum or plasma calcium measurement (mass/volume)11-12 16:11:00Identifier 75760-3 Result Time 2019-11-12 16:11:00Unknown Test Item Value Reference Range Comments Serum or plasma calcium measurement 9.6 mg/dL Unknown Unknown F (mass/volume) (test code = 52000-0) Ordering Physician UnknownSerum or plasma aspartate aminotransferase [...] natriuretic peptide B measurement ( mass/volume)2019-11-12 16:11:00Identifier 40729-5 Result Time 2019-11-12 16:11: 00Unknown Test Item Value Reference Range Comments Serum or plasma natriuretic peptide B 33 pg/mL Unknown Unknown F measurement (mass/volume) (test code = 36123-4) Ordering Physician UnknownSerum or plasma urea nitrogen measurement (mass/volume )2019-11-12 16:11:00Identifier 3094-0 Result Time 2019-11-12 16:11:00Unknown Test Item Value Reference Range Comments Serum or plasma urea nitrogen measurement 15 mg/dL Unknown Unknown F (mass/volume) (test code = 3094-0) Ordering Physician UnknownSerum or plasma urea nitrogen/creatinine tsqlm9805-51- 08 16:11:00Identifier 3097-3 Result Time 2019-11-12 16:11:00Unknown Test Item Value Reference Range Comments Serum or plasma urea nitrogen/creatinine 22.1 Unknown Unknown F ratio (test code = 3097-3) Ordering Physician UnknownAutomated blood platelet mean volume tejlvapznxr2176- 01-08 16:11:00Identifier 68506-7 Result Time 2019-11-12 16:11:00Unknown Test Item Value Reference Range Comments Automated blood platelet mean volume 8.4 fL Unknown Unknown F measurement (test code = 91872-7) Ordering Physician UnknownSerum or plasma anion cdh9610-05-78 16:11: 00Identifier 35387-9 Result Time 2019-11-12 16:11:00Unknown Test Item Value Reference Range Comments Serum or plasma anion gap (test code = 12 mmol/L Unknown Unknown F 68355-6) Ordering Physician UnknownAutomated blood leukocytes count corrected for nucleated erythrocytes (number/volume)2019-11-12 16:11:00Identifier 53572-3 Result Time 2019-11-12 16:11:00Unknown Test Item Value Reference Range Comments Automated blood leukocytes count 6.6 10^3/uL Unknown Unknown F corrected for nucleated erythrocytes (number/volume) (test code = 07743-8) Ordering Physician UnknownAutomated blood nucleated erythrocytes weqgxanhu1386- 01-08 16:11:00Identifier 74151-7 Result Time 2019-11-12 16:11:00Unknown Test Item Value Reference Range Comments Automated blood nucleated erythrocytes 0.0 Unknown Unknown F detection (test code = 52769-5) Ordering Physician UnknownAutomated blood hematocrit (percentage)2019-11-12 16: 11:00Identifier 4544-3 Result Time 2019-11-12 16:11:00Unknown Test Item Value Reference Range Comments Automated blood hematocrit (percentage) (test 39 % Unknown Unknown F code = 4544-3) Ordering Physician UnknownEstimated glomerular filtration rate (GFR) non- Reiratyq4194-38-14 16:11:00Identifier 37585-5 Result Time 2019-11-12 16: 11:00Unknown Test Item Value Reference Range Comments Estimated glomerular filtration rate (GFR) 88.9 Unknown Unknown F non- (test code = 97997-0) Ordering Physician UnknownAutomated blood monocytes/100 sbchehpsap0859-53-80 16: 11:00Identifier 5905-5 Result Time 2019-11-12 16:11:00Unknown Test Item Value Reference Range Comments Automated blood monocytes/100 leukocytes 5.1 % Unknown Unknown F (test code = 5905-5) Ordering Physician UnknownSerum or plasma albumin measurement by bromocresol green (BCG) dye binding method (mr0275-99-62 16:11:00Identifier 38568-9 Result Time 2019-11-12 16:11:00Unknown Test Item Value Reference Range Comments Serum or plasma albumin measurement by 4.0 g/dL Unknown Unknown F bromocresol green (BCG) dye binding method (ma (test code = 38694-5) Ordering Physician UnknownSerum or plasma alkaline phosphatase [...] = 704-7) Ordering Physician UnknownAutomated blood basophils/100 atalmtvndi0602-87-67 16: 11:00Identifier 706-2 Result Time 2019-11-12 16:11:00Unknown [...] = 711-2) Ordering Physician UnknownAutomated blood eosinophils/100 ygudeygany6998-22-76 16:11:00Identifier 713-8 Result Time 2019-11-12 16:11:00Unknown Test [...] = 731-0) Ordering Physician UnknownAutomated blood lymphocytes/100 ugbnaanjir6416-34-82 16:11:00Identifier 736-9 Result Time 2019-11-12 16:11:00Unknown Test Item Value Reference Range Comments Automated blood lymphocytes/100 leukocytes 16.3 % Unknown Unknown F (test code = 736-9) Ordering Physician UnknownBlood monocytes automated count (number/volume)2019-11 16:11:00Identifier 742-7 Result Time 2019-11-12 16:11:00Unknown Test Item Value Reference Range Comments Blood monocytes automated count 0.3 10^3/ul Unknown Unknown F (number/volume) (test code = 742-7) Ordering Physician UnknownAutomated blood neutrophils/100 zzwcfozrtd3038-76-11 16:11:00Identifier 770-8 Result Time 2019-11-12 16:11:00Unknown Test [...] UnknownAutomated erythrocyte mean corpuscular hemoglobin concentration measurement (mass/uql6460-94-86 16:11:00Identifier 786-4 Result Time 2019-11-12 16:11:00Unknown Test Item Value Reference Range Comments Automated erythrocyte mean corpuscular 33 g/dL Unknown Unknown F hemoglobin concentration measurement (mass/vol (test code = 786-4) Ordering Physician UnknownAutomated erythrocyte mean corpuscular ieytdn6441-19- 08 16:11:00Identifier 787-2 Result Time 2019-11-12 16:11:00Unknown Test Item Value Reference Range Comments Automated erythrocyte mean corpuscular volume 91 fL Unknown Unknown F (test code = 787-2) Ordering Physician UnknownAutomated erythrocyte distribution width eggdo4937-37- 08 16:11:00Identifier 788-0 Result Time 2019-11-12 16:11:00Unknown [...] code = 789-8) Ordering Physician UnknownLymphocyte proliferation kvum6536-78-88 16:11: 00Identifier NIH2386 Result Time 2019-11-12 16:11:00Unknown Test Item Value Reference Range Comments Lymphocyte proliferation test (test 5.0 10^3/ul Unknown Unknown F code = AGL6785) Ordering Physician Unknown
--- OUTSIDE RECORDS SUMMARY | 2020-01-19 15:56 | XMS REPORT ---
:1960 Author Organization [facility] Care Team Providers Name Role Phone Unavailable [...] Physician UnknownUrine urobilinogen measurement (units/volume) by test [id number] 17:40:00Identifier 84844-8 Result Time 2019-11-12 17:40: 00Unknown Test Item Value Reference Range Comments Urine urobilinogen measurement Negative Unknown Unknown F (units/volume) by test strip (test code = 98389-7) Ordering Physician UnknownInfluenza virus A RNA detection by probe and target amplification [id number] 17:40:00Identifier 07954-0 Result Time 17:40:00Unknown Test Item Value Reference Range Comments Influenza virus A RNA detection by probe Negative Unknown Unknown F and target amplification method (test code = 07474-7) Ordering Physician UnknownInfluenza virus B RNA detection by probe and target amplification [id number] 17:40:00Identifier 89338-2 Result Time 17:40:00Unknown Test Item Value Reference Range Comments Influenza virus B RNA detection by probe Negative Unknown Unknown F and target amplification method (test code = 88672-1) Ordering Physician UnknownUrine total bilirubin detection by automated test [id number] 17:40:00Identifier 61328-6 Result Time 2019-11-12 17:40: 00Unknown Test Item Value Reference Range Comments Urine total bilirubin detection by Negative Unknown Unknown F automated test strip (test code = 10512-0) Ordering Physician UnknownUrine clarity by refractometry [id number] 17: 40:00Identifier 26023-4 Result Time 2019-11-12 17:40:00Unknown Test Item Value Reference Range Comments Urine clarity by refractometry automated Clear Unknown Unknown F (test code = 42013-6) Ordering Physician UnknownColor of Urine by Bpul5904-83-84 17:40:00Identifier 76704-5 Result Time 2019-11-12 17:40:00Unknown Test Item Value Reference Range Comments Color of Urine by Auto (test code = 02809-6) Straw Unknown Unknown F Ordering Physician UnknownUrine glucose detection by automated test [id number] -08 17:40:00Identifier 70773-6 Result Time 2019-11-12 17:40:00Unknown Test Item Value Reference Range Comments Urine glucose detection by automated test Negative Unknown Unknown F strip (test code = 87423-5) Ordering Physician UnknownKetones [Mass/volume] in Urine by Automated test [id number] 17:40:00Identifier 05737-0 Result Time 2019-11-12 17:40: 00Unknown Test Item Value Reference Range Comments Ketones [Mass/volume] in Urine by Automated Trace Unknown Unknown F test strip (test code = 98214-3) Ordering Physician UnknownUrine nitrite detection by automated test [id number] -08 17:40:00Identifier 09055-0 Result Time 2019-11-12 17:40:00Unknown Test Item Value Reference Range Comments Urine nitrite detection by automated test Negative Unknown Unknown F strip (test code = 51314-2) Ordering Physician UnknownProtein [Mass/volume] in Urine by Automated test [id number] 17:40:00Identifier 62245-4 Result Time 2019-11-12 17:40: 00Unknown Test Item Value Reference Range Comments Protein [Mass/volume] in Urine by Negative Unknown Unknown F Automated test strip (test code = 48891-5) Ordering Physician UnknownSpecific gravity of Urine by Refractometry [id number] 17:40:00Identifier 56827-2 Result Time 2019-11-12 17:40: 00Unknown Test Item Value Reference Range Comments Specific gravity of Urine by Refractometry 1.004 Unknown Unknown F automated (test code = 35292-1) Ordering Physician UnknownUrine hemoglobin detection by test [id number] 17: 40:00Identifier 5794-3 Result Time 2019-11-12 17:40:00Unknown Test Item Value Reference Range Comments Urine hemoglobin detection by test strip Negative Unknown Unknown F (test code = 5794-3) Ordering Physician UnknownUrine leukocyte esterase detection by automated test [id number] 17:40:00Identifier 02383-9 Result Time 2019-11-12 17:40: 00Unknown Test Item Value Reference Range Comments Urine leukocyte esterase detection by Negative Unknown Unknown F automated test strip (test code = 28147-3) Ordering Physician UnknownArterial blood base excess [id number] 16:24 :00Identifier 1925-7 Result Time 2019-11-12 16:24:00Unknown Test Item Value Reference Range Comments Arterial blood base excess measurement 13.0 mmol/L Unknown Unknown F (test code = 1925-7) Ordering Physician UnknownArterial blood partial pressure of oxygen with temperature cdcdyewmck0219-77-80 16:24:00Identifier 64239-4 Result Time 16:24:00Unknown Test Item Value Reference Range Comments Arterial blood partial pressure of Not Reportable Unknown Unknown F oxygen with temperature correction (test code = 64037-4) Ordering Physician UnknownArterial blood bicarbonate measurement (moles/volume) 2019-11-12 16:24:00Identifier 1960-4 Result Time 2019-11-12 16:24:00Unknown Test Item Value Reference Range Comments Arterial blood bicarbonate measurement 34.9 mmol/L Unknown Unknown F (moles/volume) (test code = 1960-4) Ordering Physician UnknownArterial blood gas measurement with patient temperature mevsvdhgvu0231-67-39 16:24:00Identifier 49112-7 Result Time 16:24:00Unknown Test Item Value Reference Range Comments Arterial blood gas measurement with Not Reportable Unknown Unknown F patient temperature correction (test code = 84663-4) Ordering Physician UnknownO2 saturation arterial kgwoe9620-98-78 16:24: 00Identifier 2708-6 Result Time 2019-11-12 16:24:00Unknown Test Item Value Reference Range Comments O2 saturation arterial blood (test code = 92.6 % Unknown Unknown F 2708-6) Ordering Physician UnknownArterial blood pH ejwlmiqroax7266-07-79 16:24: 00Identifier 2744-1 Result Time 2019-11-12 16:24:00Unknown Test Item Value Reference Range Comments Arterial blood pH measurement (test code = 7.40 Unknown Unknown F 2744-1) Ordering Physician UnknownPO2 arterial cord [id number] 16:24:00Identifier 88303-1 Result Time 2019-11-12 16:24:00Unknown Test Item Value Reference Range Comments PO2 arterial cord blood (test code = 59 mmHg Unknown Unknown F 87035-0) Ordering Physician UnknownArterial pCO2 with temperature fetcygqzup7957-50-36 16 :24:00Identifier 35171-2 Result Time 2019-11-12 16:24:00Unknown Test Item Value Reference Range Comments Arterial pCO2 with temperature Not Reportable Unknown Unknown F correction (test code = 93499-5) Ordering Physician UnknownSerum or plasma troponin i.cardiac measurement (mass/ volume)2019-11-12 16:11:00Identifier 05090-6 Result Time 2019-11-12 16:11: 00Unknown Test Item Value Reference Range Comments Serum or plasma troponin i.cardiac 0.00 ng/mL Unknown Unknown F measurement (mass/volume) (test code = 85178-7) Ordering Physician UnknownSerum or plasma creatine kinase MB measurement (mass/ volume)2019-11-12 16:11:00Identifier 84616-0 Result Time 2019-11-12 16:11: 00Unknown Test Item Value Reference Range Comments Serum or plasma creatine kinase MB 1.9 ng/mL Unknown Unknown F measurement (mass/volume) (test code = 17350-2) Ordering Physician UnknownSerum or plasma alanine aminotransferase measurement ( enzymatic activity/volume)2019-11-12 16:11:00Identifier 1742-6 Result Time 11-12 16:11:00Unknown Test Item Value Reference Range Comments Serum or plasma alanine aminotransferase 9 U/L Unknown Unknown F measurement (enzymatic activity/volume) (test code = 1742-6) Ordering Physician UnknownSerum or plasma albumin/globulin mass kkjoj1571-27-08 16:11:00Identifier 1759-0 Result Time 2019-11-12 16:11:00Unknown Test Item Value Reference Range Comments Serum or plasma albumin/globulin mass ratio 1.1 Unknown Unknown F (test code = 1759-0) Ordering Physician UnknownSerum or plasma calcium measurement (mass/volume)11-12 16:11:00Identifier 11203-7 Result Time 2019-11-12 16:11:00Unknown Test Item Value Reference Range Comments Serum or plasma calcium measurement 9.6 mg/dL Unknown Unknown F (mass/volume) (test code = 45868-7) Ordering Physician UnknownSerum or plasma aspartate aminotransferase [...] natriuretic peptide B measurement ( mass/volume)2019-11-12 16:11:00Identifier 06257-5 Result Time 2019-11-12 16:11: 00Unknown Test Item Value Reference Range Comments Serum or plasma natriuretic peptide B 33 pg/mL Unknown Unknown F measurement (mass/volume) (test code = 00132-8) Ordering Physician UnknownSerum or plasma urea nitrogen measurement (mass/volume )2019-11-12 16:11:00Identifier 3094-0 Result Time 2019-11-12 16:11:00Unknown Test Item Value Reference Range Comments Serum or plasma urea nitrogen measurement 15 mg/dL Unknown Unknown F (mass/volume) (test code = 3094-0) Ordering Physician UnknownSerum or plasma urea nitrogen/creatinine bxhmj5188-40- 08 16:11:00Identifier 3097-3 Result Time 2019-11-12 16:11:00Unknown Test Item Value Reference Range Comments Serum or plasma urea nitrogen/creatinine 22.1 Unknown Unknown F ratio (test code = 3097-3) Ordering Physician UnknownAutomated blood platelet mean volume baoarqmieyd7604- 01-08 16:11:00Identifier 64081-1 Result Time 2019-11-12 16:11:00Unknown Test Item Value Reference Range Comments Automated blood platelet mean volume 8.4 fL Unknown Unknown F measurement (test code = 08911-8) Ordering Physician UnknownSerum or plasma anion zlt0782-72-97 16:11: 00Identifier 23552-2 Result Time 2019-11-12 16:11:00Unknown Test Item Value Reference Range Comments Serum or plasma anion gap (test code = 12 mmol/L Unknown Unknown F 48413-1) Ordering Physician UnknownAutomated blood leukocytes count corrected for nucleated erythrocytes (number/volume)2019-11-12 16:11:00Identifier 19355-4 Result Time 2019-11-12 16:11:00Unknown Test Item Value Reference Range Comments Automated blood leukocytes count 6.6 10^3/uL Unknown Unknown F corrected for nucleated erythrocytes (number/volume) (test code = 75864-9) Ordering Physician UnknownAutomated blood nucleated erythrocytes szxwqzbhm2527- 01-08 16:11:00Identifier 27641-0 Result Time 2019-11-12 16:11:00Unknown Test Item Value Reference Range Comments Automated blood nucleated erythrocytes 0.0 Unknown Unknown F detection (test code = 47440-6) Ordering Physician UnknownAutomated blood hematocrit (percentage)2019-11-12 16: 11:00Identifier 4544-3 Result Time 2019-11-12 16:11:00Unknown Test Item Value Reference Range Comments Automated blood hematocrit (percentage) (test 39 % Unknown Unknown F code = 4544-3) Ordering Physician UnknownEstimated glomerular filtration rate (GFR) non- Waatipfl3136-85-89 16:11:00Identifier 09978-9 Result Time 2019-11-12 16: 11:00Unknown Test Item Value Reference Range Comments Estimated glomerular filtration rate (GFR) 88.9 Unknown Unknown F non- (test code = 06001-2) Ordering Physician UnknownAutomated blood monocytes/100 lesvkhexqr4452-64-45 16: 11:00Identifier 5905-5 Result Time 2019-11-12 16:11:00Unknown Test Item Value Reference Range Comments Automated blood monocytes/100 leukocytes 5.1 % Unknown Unknown F (test code = 5905-5) Ordering Physician UnknownSerum or plasma albumin measurement by bromocresol green (BCG) dye binding method (bm0222-72-59 16:11:00Identifier 15680-5 Result Time 2019-11-12 16:11:00Unknown Test Item Value Reference Range Comments Serum or plasma albumin measurement by 4.0 g/dL Unknown Unknown F bromocresol green (BCG) dye binding method (ma (test code = 21070-7) Ordering Physician UnknownSerum or plasma alkaline phosphatase [...] = 704-7) Ordering Physician UnknownAutomated blood basophils/100 zpcfufioja3963-84-85 16: 11:00Identifier 706-2 Result Time 2019-11-12 16:11:00Unknown [...] = 711-2) Ordering Physician UnknownAutomated blood eosinophils/100 fqbxcjohsw9058-95-41 16:11:00Identifier 713-8 Result Time 2019-11-12 16:11:00Unknown Test [...] = 731-0) Ordering Physician UnknownAutomated blood lymphocytes/100 enyftnajiy8992-44-44 16:11:00Identifier 736-9 Result Time 2019-11-12 16:11:00Unknown Test Item Value Reference Range Comments Automated blood lymphocytes/100 leukocytes 16.3 % Unknown Unknown F (test code = 736-9) Ordering Physician UnknownBlood monocytes automated count (number/volume)2019-11 16:11:00Identifier 742-7 Result Time 2019-11-12 16:11:00Unknown Test Item Value Reference Range Comments Blood monocytes automated count 0.3 10^3/ul Unknown Unknown F (number/volume) (test code = 742-7) Ordering Physician UnknownAutomated blood neutrophils/100 gfulahzaut4561-53-37 16:11:00Identifier 770-8 Result Time 2019-11-12 16:11:00Unknown Test [...] UnknownAutomated erythrocyte mean corpuscular hemoglobin concentration measurement (mass/hzm5299-83-73 16:11:00Identifier 786-4 Result Time 2019-11-12 16:11:00Unknown Test Item Value Reference Range Comments Automated erythrocyte mean corpuscular 33 g/dL Unknown Unknown F hemoglobin concentration measurement (mass/vol (test code = 786-4) Ordering Physician UnknownAutomated erythrocyte mean corpuscular kkhunp2635-33- 08 16:11:00Identifier 787-2 Result Time 2019-11-12 16:11:00Unknown Test Item Value Reference Range Comments Automated erythrocyte mean corpuscular volume 91 fL Unknown Unknown F (test code = 787-2) Ordering Physician UnknownAutomated erythrocyte distribution width lgzwy9881-63- 08 16:11:00Identifier 788-0 Result Time 2019-11-12 16:11:00Unknown [...] code = 789-8) Ordering Physician UnknownLymphocyte proliferation tgdn5877-29-12 16:11: 00Identifier [id number] Result Time 2019-11-12 16:11:00Unknown Test Item Value Reference Range Comments Lymphocyte proliferation test (test 5.0 10^3/ul Unknown Unknown F code = YMX5113) Ordering Physician Unknown
--- OUTSIDE RECORDS SUMMARY | 2020-01-19 15:56 | XMS REPORT ---
:1960 Author Organization [facility] Care Team Providers Name Role Phone Unavailable [...] Physician UnknownUrine urobilinogen measurement (units/volume) by test [id number] 17:40:00Identifier 06623-5 Result Time 2019-11-12 17:40: 00Unknown Test Item Value Reference Range Comments Urine urobilinogen measurement Negative Unknown Unknown F (units/volume) by test strip (test code = 65232-8) Ordering Physician UnknownInfluenza virus A RNA detection by probe and target amplification [id number] 17:40:00Identifier 99848-7 Result Time 17:40:00Unknown Test Item Value Reference Range Comments Influenza virus A RNA detection by probe Negative Unknown Unknown F and target amplification method (test code = 12674-7) Ordering Physician UnknownInfluenza virus B RNA detection by probe and target amplification [id number] 17:40:00Identifier 67348-5 Result Time 17:40:00Unknown Test Item Value Reference Range Comments Influenza virus B RNA detection by probe Negative Unknown Unknown F and target amplification method (test code = 50826-9) Ordering Physician UnknownUrine total bilirubin detection by automated test [id number] 17:40:00Identifier 30371-3 Result Time 2019-11-12 17:40: 00Unknown Test Item Value Reference Range Comments Urine total bilirubin detection by Negative Unknown Unknown F automated test strip (test code = 69887-7) Ordering Physician UnknownUrine clarity by refractometry [id number] 17: 40:00Identifier 89085-9 Result Time 2019-11-12 17:40:00Unknown Test Item Value Reference Range Comments Urine clarity by refractometry automated Clear Unknown Unknown F (test code = 94051-9) Ordering Physician UnknownColor of Urine by Gspg0312-05-49 17:40:00Identifier 11909-6 Result Time 2019-11-12 17:40:00Unknown Test Item Value Reference Range Comments Color of Urine by Auto (test code = 52188-3) Straw Unknown Unknown F Ordering Physician UnknownUrine glucose detection by automated test [id number] -08 17:40:00Identifier 63662-1 Result Time 2019-11-12 17:40:00Unknown Test Item Value Reference Range Comments Urine glucose detection by automated test Negative Unknown Unknown F strip (test code = 61118-1) Ordering Physician UnknownKetones [Mass/volume] in Urine by Automated test [id number] 17:40:00Identifier 24993-4 Result Time 2019-11-12 17:40: 00Unknown Test Item Value Reference Range Comments Ketones [Mass/volume] in Urine by Automated Trace Unknown Unknown F test strip (test code = 93812-9) Ordering Physician UnknownUrine nitrite detection by automated test ditbm1404-33 -08 17:40:00Identifier 04874-7 Result Time 2019-11-12 17:40:00Unknown Test Item Value Reference Range Comments Urine nitrite detection by automated test Negative Unknown Unknown F strip (test code = 14399-3) Ordering Physician UnknownProtein [Mass/volume] in Urine by Automated test [id number] 17:40:00Identifier 20363-5 Result Time 2019-11-12 17:40: 00Unknown Test Item Value Reference Range Comments Protein [Mass/volume] in Urine by Negative Unknown Unknown F Automated test strip (test code = 00847-6) Ordering Physician UnknownSpecific gravity of Urine by Refractometry [id number] 17:40:00Identifier 40790-3 Result Time 2019-11-12 17:40: 00Unknown Test Item Value Reference Range Comments Specific gravity of Urine by Refractometry 1.004 Unknown Unknown F automated (test code = 79292-0) Ordering Physician UnknownUrine hemoglobin detection by test [id number] 17: 40:00Identifier 5794-3 Result Time 2019-11-12 17:40:00Unknown Test Item Value Reference Range Comments Urine hemoglobin detection by test strip Negative Unknown Unknown F (test code = 5794-3) Ordering Physician UnknownUrine leukocyte esterase detection by automated test zwsrn3128-94-77 17:40:00Identifier 18435-6 Result Time 2019-11-12 17:40: 00Unknown Test Item Value Reference Range Comments Urine leukocyte esterase detection by Negative Unknown Unknown F automated test strip (test code = 39845-6) Ordering Physician UnknownArterial blood base excess osniuquljlp4539-66-61 16:24 :00Identifier 1925-7 Result Time 2019-11-12 16:24:00Unknown Test Item Value Reference Range Comments Arterial blood base excess measurement 13.0 mmol/L Unknown Unknown F (test code = 1925-7) Ordering Physician UnknownArterial blood partial pressure of oxygen with temperature amjyunpatc2704-37-83 16:24:00Identifier 16377-5 Result Time 16:24:00Unknown Test Item Value Reference Range Comments Arterial blood partial pressure of Not Reportable Unknown Unknown F oxygen with temperature correction (test code = 42266-1) Ordering Physician UnknownArterial blood bicarbonate measurement (moles/volume) 2019-11-12 16:24:00Identifier 1960-4 Result Time 2019-11-12 16:24:00Unknown Test Item Value Reference Range Comments Arterial blood bicarbonate measurement 34.9 mmol/L Unknown Unknown F (moles/volume) (test code = 1960-4) Ordering Physician UnknownArterial blood gas measurement with patient temperature scmjvqexfd1832-64-41 16:24:00Identifier 75571-0 Result Time 16:24:00Unknown Test Item Value Reference Range Comments Arterial blood gas measurement with Not Reportable Unknown Unknown F patient temperature correction (test code = 78259-8) Ordering Physician UnknownO2 saturation arterial ntrue8038-43-81 16:24: 00Identifier 2708-6 Result Time 2019-11-12 16:24:00Unknown Test Item Value Reference Range Comments O2 saturation arterial blood (test code = 92.6 % Unknown Unknown F 2708-6) Ordering Physician UnknownArterial blood pH hrjmelfpjrb3229-07-37 16:24: 00Identifier 2744-1 Result Time 2019-11-12 16:24:00Unknown Test Item Value Reference Range Comments Arterial blood pH measurement (test code = 7.40 Unknown Unknown F 2744-1) Ordering Physician UnknownPO2 arterial cord xhsau4788-03-71 16:24:00Identifier 21824-6 Result Time 2019-11-12 16:24:00Unknown Test Item Value Reference Range Comments PO2 arterial cord blood (test code = 59 mmHg Unknown Unknown F 49360-6) Ordering Physician UnknownArterial pCO2 with temperature kfhqlztmzp9840-15-99 16 :24:00Identifier 42180-3 Result Time 2019-11-12 16:24:00Unknown Test Item Value Reference Range Comments Arterial pCO2 with temperature Not Reportable Unknown Unknown F correction (test code = 11138-4) Ordering Physician UnknownSerum or plasma troponin i.cardiac measurement (mass/ volume)2019-11-12 16:11:00Identifier 17149-3 Result Time 2019-11-12 16:11: 00Unknown Test Item Value Reference Range Comments Serum or plasma troponin i.cardiac 0.00 ng/mL Unknown Unknown F measurement (mass/volume) (test code = 54251-8) Ordering Physician UnknownSerum or plasma creatine kinase MB measurement (mass/ volume)2019-11-12 16:11:00Identifier 95886-3 Result Time 2019-11-12 16:11: 00Unknown Test Item Value Reference Range Comments Serum or plasma creatine kinase MB 1.9 ng/mL Unknown Unknown F measurement (mass/volume) (test code = 54115-4) Ordering Physician UnknownSerum or plasma alanine aminotransferase measurement ( enzymatic activity/volume)2019-11-12 16:11:00Identifier 1742-6 Result Time 11-12 16:11:00Unknown Test Item Value Reference Range Comments Serum or plasma alanine aminotransferase 9 U/L Unknown Unknown F measurement (enzymatic activity/volume) (test code = 1742-6) Ordering Physician UnknownSerum or plasma albumin/globulin mass jgwrp3956-19-23 16:11:00Identifier 1759-0 Result Time 2019-11-12 16:11:00Unknown Test Item Value Reference Range Comments Serum or plasma albumin/globulin mass ratio 1.1 Unknown Unknown F (test code = 1759-0) Ordering Physician UnknownSerum or plasma calcium measurement (mass/volume)11-12 16:11:00Identifier 69476-0 Result Time 2019-11-12 16:11:00Unknown Test Item Value Reference Range Comments Serum or plasma calcium measurement 9.6 mg/dL Unknown Unknown F (mass/volume) (test code = 55767-3) Ordering Physician UnknownSerum or plasma aspartate aminotransferase [...] natriuretic peptide B measurement ( mass/volume)2019-11-12 16:11:00Identifier 86044-4 Result Time 2019-11-12 16:11: 00Unknown Test Item Value Reference Range Comments Serum or plasma natriuretic peptide B 33 pg/mL Unknown Unknown F measurement (mass/volume) (test code = 28141-0) Ordering Physician UnknownSerum or plasma urea nitrogen measurement (mass/volume )2019-11-12 16:11:00Identifier 3094-0 Result Time 2019-11-12 16:11:00Unknown Test Item Value Reference Range Comments Serum or plasma urea nitrogen measurement 15 mg/dL Unknown Unknown F (mass/volume) (test code = 3094-0) Ordering Physician UnknownSerum or plasma urea nitrogen/creatinine atacg7111-39- 08 16:11:00Identifier 3097-3 Result Time 2019-11-12 16:11:00Unknown Test Item Value Reference Range Comments Serum or plasma urea nitrogen/creatinine 22.1 Unknown Unknown F ratio (test code = 3097-3) Ordering Physician UnknownAutomated blood platelet mean volume fhvzqvoiczn7726- 01-08 16:11:00Identifier 59980-7 Result Time 2019-11-12 16:11:00Unknown Test Item Value Reference Range Comments Automated blood platelet mean volume 8.4 fL Unknown Unknown F measurement (test code = 07779-1) Ordering Physician UnknownSerum or plasma anion hiv9200-31-30 16:11: 00Identifier 41736-7 Result Time 2019-11-12 16:11:00Unknown Test Item Value Reference Range Comments Serum or plasma anion gap (test code = 12 mmol/L Unknown Unknown F 59504-1) Ordering Physician UnknownAutomated blood leukocytes count corrected for nucleated erythrocytes (number/volume)2019-11-12 16:11:00Identifier 45479-8 Result Time 2019-11-12 16:11:00Unknown Test Item Value Reference Range Comments Automated blood leukocytes count 6.6 10^3/uL Unknown Unknown F corrected for nucleated erythrocytes (number/volume) (test code = 14940-4) Ordering Physician UnknownAutomated blood nucleated erythrocytes fnlkwdava7986- 01-08 16:11:00Identifier 50061-7 Result Time 2019-11-12 16:11:00Unknown Test Item Value Reference Range Comments Automated blood nucleated erythrocytes 0.0 Unknown Unknown F detection (test code = 73083-9) Ordering Physician UnknownAutomated blood hematocrit (percentage)2019-11-12 16: 11:00Identifier 4544-3 Result Time 2019-11-12 16:11:00Unknown Test Item Value Reference Range Comments Automated blood hematocrit (percentage) (test 39 % Unknown Unknown F code = 4544-3) Ordering Physician UnknownEstimated glomerular filtration rate (GFR) non- Qyoefzlu7424-29-23 16:11:00Identifier 76989-9 Result Time 2019-11-12 16: 11:00Unknown Test Item Value Reference Range Comments Estimated glomerular filtration rate (GFR) 88.9 Unknown Unknown F non- (test code = 26862-9) Ordering Physician UnknownAutomated blood monocytes/100 pdmembbiqn5416-00-05 16: 11:00Identifier 5905-5 Result Time 2019-11-12 16:11:00Unknown Test Item Value Reference Range Comments Automated blood monocytes/100 leukocytes 5.1 % Unknown Unknown F (test code = 5905-5) Ordering Physician UnknownSerum or plasma albumin measurement by bromocresol green (BCG) dye binding method ([id number] 16:11:00Identifier 99917-7 Result Time 2019-11-12 16:11:00Unknown Test Item Value Reference Range Comments Serum or plasma albumin measurement by 4.0 g/dL Unknown Unknown F bromocresol green (BCG) dye binding method (ma (test code = 98135-7) Ordering Physician UnknownSerum or plasma alkaline phosphatase [...] = 704-7) Ordering Physician UnknownAutomated blood basophils/100 itlloupckc5254-96-47 16: 11:00Identifier 706-2 Result Time 2019-11-12 16:11:00Unknown [...] = 711-2) Ordering Physician UnknownAutomated blood eosinophils/100 rqbbnmrdih1864-20-28 16:11:00Identifier 713-8 Result Time 2019-11-12 16:11:00Unknown Test [...] = 731-0) Ordering Physician UnknownAutomated blood lymphocytes/100 rmwtskljuo2027-08-97 16:11:00Identifier 736-9 Result Time 2019-11-12 16:11:00Unknown Test Item Value Reference Range Comments Automated blood lymphocytes/100 leukocytes 16.3 % Unknown Unknown F (test code = 736-9) Ordering Physician UnknownBlood monocytes automated count (number/volume)2019-11 16:11:00Identifier 742-7 Result Time 2019-11-12 16:11:00Unknown Test Item Value Reference Range Comments Blood monocytes automated count 0.3 10^3/ul Unknown Unknown F (number/volume) (test code = 742-7) Ordering Physician UnknownAutomated blood neutrophils/100 vjogivqbop9544-17-66 16:11:00Identifier 770-8 Result Time 2019-11-12 16:11:00Unknown Test [...] UnknownAutomated erythrocyte mean corpuscular hemoglobin concentration measurement (mass/lxk5795-40-24 16:11:00Identifier 786-4 Result Time 2019-11-12 16:11:00Unknown Test Item Value Reference Range Comments Automated erythrocyte mean corpuscular 33 g/dL Unknown Unknown F hemoglobin concentration measurement (mass/vol (test code = 786-4) Ordering Physician UnknownAutomated erythrocyte mean corpuscular yeerlb5693-07- 08 16:11:00Identifier 787-2 Result Time 2019-11-12 16:11:00Unknown Test Item Value Reference Range Comments Automated erythrocyte mean corpuscular volume 91 fL Unknown Unknown F (test code = 787-2) Ordering Physician UnknownAutomated erythrocyte distribution width rknbn2375-90- 08 16:11:00Identifier 788-0 Result Time 2019-11-12 16:11:00Unknown [...] code = 789-8) Ordering Physician UnknownLymphocyte proliferation yhzc9935-72-53 16:11: 00Identifier JUD6312 Result Time 2019-11-12 16:11:00Unknown Test Item Value Reference Range Comments Lymphocyte proliferation test (test 5.0 10^3/ul Unknown Unknown F code = KGY4080) Ordering Physician Unknown
--- OUTSIDE RECORDS SUMMARY | 2020-01-19 15:56 | XMS REPORT ---
:1960 Author Organization [facility] Care Team Providers Name Role Phone Unavailable [...] Physician UnknownUrine urobilinogen measurement (units/volume) by test [id number] 17:40:00Identifier 17063-2 Result Time 2019-11-12 17:40: 00Unknown Test Item Value Reference Range Comments Urine urobilinogen measurement Negative Unknown Unknown F (units/volume) by test strip (test code = 81934-3) Ordering Physician UnknownInfluenza virus A RNA detection by probe and target amplification [id number] 17:40:00Identifier 14803-1 Result Time 17:40:00Unknown Test Item Value Reference Range Comments Influenza virus A RNA detection by probe Negative Unknown Unknown F and target amplification method (test code = 02525-4) Ordering Physician UnknownInfluenza virus B RNA detection by probe and target amplification [id number] 17:40:00Identifier 53897-3 Result Time 17:40:00Unknown Test Item Value Reference Range Comments Influenza virus B RNA detection by probe Negative Unknown Unknown F and target amplification method (test code = 82443-5) Ordering Physician UnknownUrine total bilirubin detection by automated test chxmi4951-98-39 17:40:00Identifier 27083-8 Result Time 2019-11-12 17:40: 00Unknown Test Item Value Reference Range Comments Urine total bilirubin detection by Negative Unknown Unknown F automated test strip (test code = 87799-1) Ordering Physician UnknownUrine clarity by refractometry qvrwshtuq0595-08-05 17: 40:00Identifier 66670-5 Result Time 2019-11-12 17:40:00Unknown Test Item Value Reference Range Comments Urine clarity by refractometry automated Clear Unknown Unknown F (test code = 68244-0) Ordering Physician UnknownColor of Urine by Kllr8705-20-06 17:40:00Identifier 49782-2 Result Time 2019-11-12 17:40:00Unknown Test Item Value Reference Range Comments Color of Urine by Auto (test code = 23220-2) Straw Unknown Unknown F Ordering Physician UnknownUrine glucose detection by automated test ioihz7012-66 -08 17:40:00Identifier 73163-7 Result Time 2019-11-12 17:40:00Unknown Test Item Value Reference Range Comments Urine glucose detection by automated test Negative Unknown Unknown F strip (test code = 87256-2) Ordering Physician UnknownKetones [Mass/volume] in Urine by Automated test ykzro7541-02-28 17:40:00Identifier 46624-0 Result Time 2019-11-12 17:40: 00Unknown Test Item Value Reference Range Comments Ketones [Mass/volume] in Urine by Automated Trace Unknown Unknown F test strip (test code = 38138-6) Ordering Physician UnknownUrine nitrite detection by automated test bqluj8045-16 -08 17:40:00Identifier 43672-3 Result Time 2019-11-12 17:40:00Unknown Test Item Value Reference Range Comments Urine nitrite detection by automated test Negative Unknown Unknown F strip (test code = 92478-1) Ordering Physician UnknownProtein [Mass/volume] in Urine by Automated test knefw4389-38-77 17:40:00Identifier 27422-6 Result Time 2019-11-12 17:40: 00Unknown Test Item Value Reference Range Comments Protein [Mass/volume] in Urine by Negative Unknown Unknown F Automated test strip (test code = 09922-4) Ordering Physician UnknownSpecific gravity of Urine by Refractometry bwrrgwdbf9407-30-26 17:40:00Identifier 24409-3 Result Time 2019-11-12 17:40: 00Unknown Test Item Value Reference Range Comments Specific gravity of Urine by Refractometry 1.004 Unknown Unknown F automated (test code = 84918-3) Ordering Physician UnknownUrine hemoglobin detection by test [id number] 17: 40:00Identifier 5794-3 Result Time 2019-11-12 17:40:00Unknown Test Item Value Reference Range Comments Urine hemoglobin detection by test strip Negative Unknown Unknown F (test code = 5794-3) Ordering Physician UnknownUrine leukocyte esterase detection by automated test flxcg5498-11-38 17:40:00Identifier 78833-9 Result Time 2019-11-12 17:40: 00Unknown Test Item Value Reference Range Comments Urine leukocyte esterase detection by Negative Unknown Unknown F automated test strip (test code = 33128-0) Ordering Physician UnknownArterial blood base excess hbjicpgvvde4185-53-23 16:24 :00Identifier 1925-7 Result Time 2019-11-12 16:24:00Unknown Test Item Value Reference Range Comments Arterial blood base excess measurement 13.0 mmol/L Unknown Unknown F (test code = 1925-7) Ordering Physician UnknownArterial blood partial pressure of oxygen with temperature nbpbnizuzl4529-76-12 16:24:00Identifier 51433-5 Result Time 16:24:00Unknown Test Item Value Reference Range Comments Arterial blood partial pressure of Not Reportable Unknown Unknown F oxygen with temperature correction (test code = 11975-8) Ordering Physician UnknownArterial blood bicarbonate measurement (moles/volume) 2019-11-12 16:24:00Identifier 1960-4 Result Time 2019-11-12 16:24:00Unknown Test Item Value Reference Range Comments Arterial blood bicarbonate measurement 34.9 mmol/L Unknown Unknown F (moles/volume) (test code = 1960-4) Ordering Physician UnknownArterial blood gas measurement with patient temperature mcnbcrwntf5945-51-45 16:24:00Identifier 83932-3 Result Time 16:24:00Unknown Test Item Value Reference Range Comments Arterial blood gas measurement with Not Reportable Unknown Unknown F patient temperature correction (test code = 51618-2) Ordering Physician UnknownO2 saturation arterial dahzn9552-76-06 16:24: 00Identifier 2708-6 Result Time 2019-11-12 16:24:00Unknown Test Item Value Reference Range Comments O2 saturation arterial blood (test code = 92.6 % Unknown Unknown F 2708-6) Ordering Physician UnknownArterial blood pH yeyerbfbvkf9795-27-39 16:24: 00Identifier 2744-1 Result Time 2019-11-12 16:24:00Unknown Test Item Value Reference Range Comments Arterial blood pH measurement (test code = 7.40 Unknown Unknown F 2744-1) Ordering Physician UnknownPO2 arterial cord bfzqt6881-37-83 16:24:00Identifier 29054-4 Result Time 2019-11-12 16:24:00Unknown Test Item Value Reference Range Comments PO2 arterial cord blood (test code = 59 mmHg Unknown Unknown F 39220-4) Ordering Physician UnknownArterial pCO2 with temperature hsfwdnklok1510-22-07 16 :24:00Identifier 37969-8 Result Time 2019-11-12 16:24:00Unknown Test Item Value Reference Range Comments Arterial pCO2 with temperature Not Reportable Unknown Unknown F correction (test code = 82284-5) Ordering Physician UnknownSerum or plasma troponin i.cardiac measurement (mass/ volume)2019-11-12 16:11:00Identifier 47782-1 Result Time 2019-11-12 16:11: 00Unknown Test Item Value Reference Range Comments Serum or plasma troponin i.cardiac 0.00 ng/mL Unknown Unknown F measurement (mass/volume) (test code = 68570-9) Ordering Physician UnknownSerum or plasma creatine kinase MB measurement (mass/ volume)2019-11-12 16:11:00Identifier 78664-8 Result Time 2019-11-12 16:11: 00Unknown Test Item Value Reference Range Comments Serum or plasma creatine kinase MB 1.9 ng/mL Unknown Unknown F measurement (mass/volume) (test code = 93708-0) Ordering Physician UnknownSerum or plasma alanine aminotransferase measurement ( enzymatic activity/volume)2019-11-12 16:11:00Identifier 1742-6 Result Time 11-12 16:11:00Unknown Test Item Value Reference Range Comments Serum or plasma alanine aminotransferase 9 U/L Unknown Unknown F measurement (enzymatic activity/volume) (test code = 1742-6) Ordering Physician UnknownSerum or plasma albumin/globulin mass dxgpz5520-18-10 16:11:00Identifier 1759-0 Result Time 2019-11-12 16:11:00Unknown Test Item Value Reference Range Comments Serum or plasma albumin/globulin mass ratio 1.1 Unknown Unknown F (test code = 1759-0) Ordering Physician UnknownSerum or plasma calcium measurement (mass/volume)11-12 16:11:00Identifier 97709-0 Result Time 2019-11-12 16:11:00Unknown Test Item Value Reference Range Comments Serum or plasma calcium measurement 9.6 mg/dL Unknown Unknown F (mass/volume) (test code = 40401-1) Ordering Physician UnknownSerum or plasma aspartate aminotransferase [...] natriuretic peptide B measurement ( mass/volume)2019-11-12 16:11:00Identifier 73474-2 Result Time 2019-11-12 16:11: 00Unknown Test Item Value Reference Range Comments Serum or plasma natriuretic peptide B 33 pg/mL Unknown Unknown F measurement (mass/volume) (test code = 53130-8) Ordering Physician UnknownSerum or plasma urea nitrogen measurement (mass/volume )2019-11-12 16:11:00Identifier 3094-0 Result Time 2019-11-12 16:11:00Unknown Test Item Value Reference Range Comments Serum or plasma urea nitrogen measurement 15 mg/dL Unknown Unknown F (mass/volume) (test code = 3094-0) Ordering Physician UnknownSerum or plasma urea nitrogen/creatinine daqox7276-63- 08 16:11:00Identifier 3097-3 Result Time 2019-11-12 16:11:00Unknown Test Item Value Reference Range Comments Serum or plasma urea nitrogen/creatinine 22.1 Unknown Unknown F ratio (test code = 3097-3) Ordering Physician UnknownAutomated blood platelet mean volume cmalpsfdkhu2415- 01-08 16:11:00Identifier 21749-8 Result Time 2019-11-12 16:11:00Unknown Test Item Value Reference Range Comments Automated blood platelet mean volume 8.4 fL Unknown Unknown F measurement (test code = 25413-5) Ordering Physician UnknownSerum or plasma anion bfi9478-58-00 16:11: 00Identifier 77966-2 Result Time 2019-11-12 16:11:00Unknown Test Item Value Reference Range Comments Serum or plasma anion gap (test code = 12 mmol/L Unknown Unknown F 43301-5) Ordering Physician UnknownAutomated blood leukocytes count corrected for nucleated erythrocytes (number/volume)2019-11-12 16:11:00Identifier 08583-9 Result Time 2019-11-12 16:11:00Unknown Test Item Value Reference Range Comments Automated blood leukocytes count 6.6 10^3/uL Unknown Unknown F corrected for nucleated erythrocytes (number/volume) (test code = 98980-5) Ordering Physician UnknownAutomated blood nucleated erythrocytes kpsgivytz4540- 01-08 16:11:00Identifier 46036-8 Result Time 2019-11-12 16:11:00Unknown Test Item Value Reference Range Comments Automated blood nucleated erythrocytes 0.0 Unknown Unknown F detection (test code = 89201-0) Ordering Physician UnknownAutomated blood hematocrit (percentage)2019-11-12 16: 11:00Identifier 4544-3 Result Time 2019-11-12 16:11:00Unknown Test Item Value Reference Range Comments Automated blood hematocrit (percentage) (test 39 % Unknown Unknown F code = 4544-3) Ordering Physician UnknownEstimated glomerular filtration rate (GFR) non- Wzefdymz1233-38-33 16:11:00Identifier 42482-0 Result Time 2019-11-12 16: 11:00Unknown Test Item Value Reference Range Comments Estimated glomerular filtration rate (GFR) 88.9 Unknown Unknown F non- (test code = 33826-1) Ordering Physician UnknownAutomated blood monocytes/100 ybhrmbgezg3973-07-58 16: 11:00Identifier 5905-5 Result Time 2019-11-12 16:11:00Unknown Test Item Value Reference Range Comments Automated blood monocytes/100 leukocytes 5.1 % Unknown Unknown F (test code = 5905-5) Ordering Physician UnknownSerum or plasma albumin measurement by bromocresol green (BCG) dye binding method (ix6522-19-13 16:11:00Identifier 05765-6 Result Time 2019-11-12 16:11:00Unknown Test Item Value Reference Range Comments Serum or plasma albumin measurement by 4.0 g/dL Unknown Unknown F bromocresol green (BCG) dye binding method (ma (test code = 90863-0) Ordering Physician UnknownSerum or plasma alkaline phosphatase [...] = 704-7) Ordering Physician UnknownAutomated blood basophils/100 orehbmlysn8561-20-20 16: 11:00Identifier 706-2 Result Time 2019-11-12 16:11:00Unknown [...] = 711-2) Ordering Physician UnknownAutomated blood eosinophils/100 hmjjicdpte3791-07-67 16:11:00Identifier 713-8 Result Time 2019-11-12 16:11:00Unknown Test [...] = 731-0) Ordering Physician UnknownAutomated blood lymphocytes/100 xfttbxdgtr1000-01-07 16:11:00Identifier 736-9 Result Time 2019-11-12 16:11:00Unknown Test Item Value Reference Range Comments Automated blood lymphocytes/100 leukocytes 16.3 % Unknown Unknown F (test code = 736-9) Ordering Physician UnknownBlood monocytes automated count (number/volume)2019-11 16:11:00Identifier 742-7 Result Time 2019-11-12 16:11:00Unknown Test Item Value Reference Range Comments Blood monocytes automated count 0.3 10^3/ul Unknown Unknown F (number/volume) (test code = 742-7) Ordering Physician UnknownAutomated blood neutrophils/100 vcdlhvtaup3399-42-41 16:11:00Identifier 770-8 Result Time 2019-11-12 16:11:00Unknown Test [...] UnknownAutomated erythrocyte mean corpuscular hemoglobin concentration measurement (mass/rrr6941-53-42 16:11:00Identifier 786-4 Result Time 2019-11-12 16:11:00Unknown Test Item Value Reference Range Comments Automated erythrocyte mean corpuscular 33 g/dL Unknown Unknown F hemoglobin concentration measurement (mass/vol (test code = 786-4) Ordering Physician UnknownAutomated erythrocyte mean corpuscular hxrxel1968-48- 08 16:11:00Identifier 787-2 Result Time 2019-11-12 16:11:00Unknown Test Item Value Reference Range Comments Automated erythrocyte mean corpuscular volume 91 fL Unknown Unknown F (test code = 787-2) Ordering Physician UnknownAutomated erythrocyte distribution width oskwu6010-85- 08 16:11:00Identifier 788-0 Result Time 2019-11-12 16:11:00Unknown [...] code = 789-8) Ordering Physician UnknownLymphocyte proliferation tjjd8125-19-48 16:11: 00Identifier QLU8745 Result Time 2019-11-12 16:11:00Unknown Test Item Value Reference Range Comments Lymphocyte proliferation test (test 5.0 10^3/ul Unknown Unknown F code = HAA9278) Ordering Physician Unknown
--- OUTSIDE RECORDS SUMMARY | 2020-01-19 15:56 | XMS REPORT ---
:1960 Author Organization [facility] Care Team Providers Name Role Phone Unavailable [...] Physician UnknownUrine urobilinogen measurement (units/volume) by test [id number] 17:40:00Identifier 51484-9 Result Time 2019-11-12 17:40: 00Unknown Test Item Value Reference Range Comments Urine urobilinogen measurement Negative Unknown Unknown F (units/volume) by test strip (test code = 46673-9) Ordering Physician UnknownInfluenza virus A RNA detection by probe and target amplification [id number] 17:40:00Identifier 24046-5 Result Time 17:40:00Unknown Test Item Value Reference Range Comments Influenza virus A RNA detection by probe Negative Unknown Unknown F and target amplification method (test code = 88470-3) Ordering Physician UnknownInfluenza virus B RNA detection by probe and target amplification [id number] 17:40:00Identifier 55748-7 Result Time 17:40:00Unknown Test Item Value Reference Range Comments Influenza virus B RNA detection by probe Negative Unknown Unknown F and target amplification method (test code = 87059-2) Ordering Physician UnknownUrine total bilirubin detection by automated test [id number] 17:40:00Identifier 24404-5 Result Time 2019-11-12 17:40: 00Unknown Test Item Value Reference Range Comments Urine total bilirubin detection by Negative Unknown Unknown F automated test strip (test code = 38156-4) Ordering Physician UnknownUrine clarity by refractometry mdpwbtevy4780-30-28 17: 40:00Identifier 36083-4 Result Time 2019-11-12 17:40:00Unknown Test Item Value Reference Range Comments Urine clarity by refractometry automated Clear Unknown Unknown F (test code = 16306-8) Ordering Physician UnknownColor of Urine by Igpp2586-60-34 17:40:00Identifier 93797-9 Result Time 2019-11-12 17:40:00Unknown Test Item Value Reference Range Comments Color of Urine by Auto (test code = 95496-3) Straw Unknown Unknown F Ordering Physician UnknownUrine glucose detection by automated test [id number] -08 17:40:00Identifier 96974-9 Result Time 2019-11-12 17:40:00Unknown Test Item Value Reference Range Comments Urine glucose detection by automated test Negative Unknown Unknown F strip (test code = 30538-0) Ordering Physician UnknownKetones [Mass/volume] in Urine by Automated test rutrh7124-52-10 17:40:00Identifier 59503-2 Result Time 2019-11-12 17:40: 00Unknown Test Item Value Reference Range Comments Ketones [Mass/volume] in Urine by Automated Trace Unknown Unknown F test strip (test code = 89513-4) Ordering Physician UnknownUrine nitrite detection by automated test inlcn9685-07 -08 17:40:00Identifier 25157-6 Result Time 2019-11-12 17:40:00Unknown Test Item Value Reference Range Comments Urine nitrite detection by automated test Negative Unknown Unknown F strip (test code = 09349-7) Ordering Physician UnknownProtein [Mass/volume] in Urine by Automated test [id number] 17:40:00Identifier 21477-6 Result Time 2019-11-12 17:40: 00Unknown Test Item Value Reference Range Comments Protein [Mass/volume] in Urine by Negative Unknown Unknown F Automated test strip (test code = 65989-6) Ordering Physician UnknownSpecific gravity of Urine by Refractometry fiobfhvxe0340-88-63 17:40:00Identifier 80635-7 Result Time 2019-11-12 17:40: 00Unknown Test Item Value Reference Range Comments Specific gravity of Urine by Refractometry 1.004 Unknown Unknown F automated (test code = 18728-7) Ordering Physician UnknownUrine hemoglobin detection by test [id number] 17: 40:00Identifier 5794-3 Result Time 2019-11-12 17:40:00Unknown Test Item Value Reference Range Comments Urine hemoglobin detection by test strip Negative Unknown Unknown F (test code = 5794-3) Ordering Physician UnknownUrine leukocyte esterase detection by automated test [id number] 17:40:00Identifier 07546-4 Result Time 2019-11-12 17:40: 00Unknown Test Item Value Reference Range Comments Urine leukocyte esterase detection by Negative Unknown Unknown F automated test strip (test code = 55490-5) Ordering Physician UnknownArterial blood base excess irrfctqltld1731-97-11 16:24 :00Identifier 1925-7 Result Time 2019-11-12 16:24:00Unknown Test Item Value Reference Range Comments Arterial blood base excess measurement 13.0 mmol/L Unknown Unknown F (test code = 1925-7) Ordering Physician UnknownArterial blood partial pressure of oxygen with temperature opxbjatpew6149-44-94 16:24:00Identifier 89078-7 Result Time 16:24:00Unknown Test Item Value Reference Range Comments Arterial blood partial pressure of Not Reportable Unknown Unknown F oxygen with temperature correction (test code = 40807-8) Ordering Physician UnknownArterial blood bicarbonate measurement (moles/volume) 2019-11-12 16:24:00Identifier 1960-4 Result Time 2019-11-12 16:24:00Unknown Test Item Value Reference Range Comments Arterial blood bicarbonate measurement 34.9 mmol/L Unknown Unknown F (moles/volume) (test code = 1960-4) Ordering Physician UnknownArterial blood gas measurement with patient temperature rucyeltfdh4208-97-65 16:24:00Identifier 05654-4 Result Time 16:24:00Unknown Test Item Value Reference Range Comments Arterial blood gas measurement with Not Reportable Unknown Unknown F patient temperature correction (test code = 30055-8) Ordering Physician UnknownO2 saturation arterial otyom1899-49-43 16:24: 00Identifier 2708-6 Result Time 2019-11-12 16:24:00Unknown Test Item Value Reference Range Comments O2 saturation arterial blood (test code = 92.6 % Unknown Unknown F 2708-6) Ordering Physician UnknownArterial blood pH khgvmoprtov4593-85-60 16:24: 00Identifier 2744-1 Result Time 2019-11-12 16:24:00Unknown Test Item Value Reference Range Comments Arterial blood pH measurement (test code = 7.40 Unknown Unknown F 2744-1) Ordering Physician UnknownPO2 arterial cord ikjaf6363-35-37 16:24:00Identifier 47618-1 Result Time 2019-11-12 16:24:00Unknown Test Item Value Reference Range Comments PO2 arterial cord blood (test code = 59 mmHg Unknown Unknown F 05955-0) Ordering Physician UnknownArterial pCO2 with temperature jbdcutneob7698-50-61 16 :24:00Identifier 36520-9 Result Time 2019-11-12 16:24:00Unknown Test Item Value Reference Range Comments Arterial pCO2 with temperature Not Reportable Unknown Unknown F correction (test code = 93984-8) Ordering Physician UnknownSerum or plasma troponin i.cardiac measurement (mass/ volume)2019-11-12 16:11:00Identifier 54379-8 Result Time 2019-11-12 16:11: 00Unknown Test Item Value Reference Range Comments Serum or plasma troponin i.cardiac 0.00 ng/mL Unknown Unknown F measurement (mass/volume) (test code = 18758-9) Ordering Physician UnknownSerum or plasma creatine kinase MB measurement (mass/ volume)2019-11-12 16:11:00Identifier 30099-7 Result Time 2019-11-12 16:11: 00Unknown Test Item Value Reference Range Comments Serum or plasma creatine kinase MB 1.9 ng/mL Unknown Unknown F measurement (mass/volume) (test code = 59528-1) Ordering Physician UnknownSerum or plasma alanine aminotransferase measurement ( enzymatic activity/volume)2019-11-12 16:11:00Identifier 1742-6 Result Time 11-12 16:11:00Unknown Test Item Value Reference Range Comments Serum or plasma alanine aminotransferase 9 U/L Unknown Unknown F measurement (enzymatic activity/volume) (test code = 1742-6) Ordering Physician UnknownSerum or plasma albumin/globulin mass epeam4825-29-31 16:11:00Identifier 1759-0 Result Time 2019-11-12 16:11:00Unknown Test Item Value Reference Range Comments Serum or plasma albumin/globulin mass ratio 1.1 Unknown Unknown F (test code = 1759-0) Ordering Physician UnknownSerum or plasma calcium measurement (mass/volume)11-12 16:11:00Identifier 12136-8 Result Time 2019-11-12 16:11:00Unknown Test Item Value Reference Range Comments Serum or plasma calcium measurement 9.6 mg/dL Unknown Unknown F (mass/volume) (test code = 95200-6) Ordering Physician UnknownSerum or plasma aspartate aminotransferase [...] natriuretic peptide B measurement ( mass/volume)2019-11-12 16:11:00Identifier 50807-4 Result Time 2019-11-12 16:11: 00Unknown Test Item Value Reference Range Comments Serum or plasma natriuretic peptide B 33 pg/mL Unknown Unknown F measurement (mass/volume) (test code = 33508-0) Ordering Physician UnknownSerum or plasma urea nitrogen measurement (mass/volume )2019-11-12 16:11:00Identifier 3094-0 Result Time 2019-11-12 16:11:00Unknown Test Item Value Reference Range Comments Serum or plasma urea nitrogen measurement 15 mg/dL Unknown Unknown F (mass/volume) (test code = 3094-0) Ordering Physician UnknownSerum or plasma urea nitrogen/creatinine isiib1598-73- 08 16:11:00Identifier 3097-3 Result Time 2019-11-12 16:11:00Unknown Test Item Value Reference Range Comments Serum or plasma urea nitrogen/creatinine 22.1 Unknown Unknown F ratio (test code = 3097-3) Ordering Physician UnknownAutomated blood platelet mean volume bqepgsrtwkv6299- 01-08 16:11:00Identifier 22908-5 Result Time 2019-11-12 16:11:00Unknown Test Item Value Reference Range Comments Automated blood platelet mean volume 8.4 fL Unknown Unknown F measurement (test code = 19850-5) Ordering Physician UnknownSerum or plasma anion fku9976-93-36 16:11: 00Identifier 79062-3 Result Time 2019-11-12 16:11:00Unknown Test Item Value Reference Range Comments Serum or plasma anion gap (test code = 12 mmol/L Unknown Unknown F 95341-3) Ordering Physician UnknownAutomated blood leukocytes count corrected for nucleated erythrocytes (number/volume)2019-11-12 16:11:00Identifier 72957-9 Result Time 2019-11-12 16:11:00Unknown Test Item Value Reference Range Comments Automated blood leukocytes count 6.6 10^3/uL Unknown Unknown F corrected for nucleated erythrocytes (number/volume) (test code = 95448-1) Ordering Physician UnknownAutomated blood nucleated erythrocytes qhohtimip6499- 01-08 16:11:00Identifier 12483-5 Result Time 2019-11-12 16:11:00Unknown Test Item Value Reference Range Comments Automated blood nucleated erythrocytes 0.0 Unknown Unknown F detection (test code = 86762-7) Ordering Physician UnknownAutomated blood hematocrit (percentage)2019-11-12 16: 11:00Identifier 4544-3 Result Time 2019-11-12 16:11:00Unknown Test Item Value Reference Range Comments Automated blood hematocrit (percentage) (test 39 % Unknown Unknown F code = 4544-3) Ordering Physician UnknownEstimated glomerular filtration rate (GFR) non- Bqvcmvfz1712-51-01 16:11:00Identifier 02448-3 Result Time 2019-11-12 16: 11:00Unknown Test Item Value Reference Range Comments Estimated glomerular filtration rate (GFR) 88.9 Unknown Unknown F non- (test code = 43472-2) Ordering Physician UnknownAutomated blood monocytes/100 nyntlcbpit6008-58-28 16: 11:00Identifier 5905-5 Result Time 2019-11-12 16:11:00Unknown Test Item Value Reference Range Comments Automated blood monocytes/100 leukocytes 5.1 % Unknown Unknown F (test code = 5905-5) Ordering Physician UnknownSerum or plasma albumin measurement by bromocresol green (BCG) dye binding method ([id number] 16:11:00Identifier 88840-6 Result Time 2019-11-12 16:11:00Unknown Test Item Value Reference Range Comments Serum or plasma albumin measurement by 4.0 g/dL Unknown Unknown F bromocresol green (BCG) dye binding method (ma (test code = 25656-8) Ordering Physician UnknownSerum or plasma alkaline phosphatase [...] = 704-7) Ordering Physician UnknownAutomated blood basophils/100 tvsbzmorda8556-81-65 16: 11:00Identifier 706-2 Result Time 2019-11-12 16:11:00Unknown [...] = 711-2) Ordering Physician UnknownAutomated blood eosinophils/100 eglzxiybqj3901-38-83 16:11:00Identifier 713-8 Result Time 2019-11-12 16:11:00Unknown Test [...] = 731-0) Ordering Physician UnknownAutomated blood lymphocytes/100 ssbdphojja2589-51-69 16:11:00Identifier 736-9 Result Time 2019-11-12 16:11:00Unknown Test Item Value Reference Range Comments Automated blood lymphocytes/100 leukocytes 16.3 % Unknown Unknown F (test code = 736-9) Ordering Physician UnknownBlood monocytes automated count (number/volume)2019-11 16:11:00Identifier 742-7 Result Time 2019-11-12 16:11:00Unknown Test Item Value Reference Range Comments Blood monocytes automated count 0.3 10^3/ul Unknown Unknown F (number/volume) (test code = 742-7) Ordering Physician UnknownAutomated blood neutrophils/100 qxsamqsjlp5396-04-32 16:11:00Identifier 770-8 Result Time 2019-11-12 16:11:00Unknown Test [...] UnknownAutomated erythrocyte mean corpuscular hemoglobin concentration measurement (mass/otf4619-93-41 16:11:00Identifier 786-4 Result Time 2019-11-12 16:11:00Unknown Test Item Value Reference Range Comments Automated erythrocyte mean corpuscular 33 g/dL Unknown Unknown F hemoglobin concentration measurement (mass/vol (test code = 786-4) Ordering Physician UnknownAutomated erythrocyte mean corpuscular hyzlsb9461-05- 08 16:11:00Identifier 787-2 Result Time 2019-11-12 16:11:00Unknown Test Item Value Reference Range Comments Automated erythrocyte mean corpuscular volume 91 fL Unknown Unknown F (test code = 787-2) Ordering Physician UnknownAutomated erythrocyte distribution width fbhza2121-04- 08 16:11:00Identifier 788-0 Result Time 2019-11-12 16:11:00Unknown [...] code = 789-8) Ordering Physician UnknownLymphocyte proliferation hsdn9071-15-83 16:11: 00Identifier [id number] Result Time 2019-11-12 16:11:00Unknown Test Item Value Reference Range Comments Lymphocyte proliferation test (test 5.0 10^3/ul Unknown Unknown F code = RKK3824) Ordering Physician Unknown
--- OUTSIDE RECORDS SUMMARY | 2020-01-19 15:56 | XMS REPORT ---
:1960 Author Organization [facility] Care Team Providers Name Role Phone Unavailable [...] Physician UnknownUrine urobilinogen measurement (units/volume) by test [id number] 17:40:00Identifier 34604-8 Result Time 2019-11-12 17:40: 00Unknown Test Item Value Reference Range Comments Urine urobilinogen measurement Negative Unknown Unknown F (units/volume) by test strip (test code = 22486-8) Ordering Physician UnknownInfluenza virus A RNA detection by probe and target amplification [id number] 17:40:00Identifier 05886-0 Result Time 17:40:00Unknown Test Item Value Reference Range Comments Influenza virus A RNA detection by probe Negative Unknown Unknown F and target amplification method (test code = 19509-7) Ordering Physician UnknownInfluenza virus B RNA detection by probe and target amplification [id number] 17:40:00Identifier 26158-6 Result Time 17:40:00Unknown Test Item Value Reference Range Comments Influenza virus B RNA detection by probe Negative Unknown Unknown F and target amplification method (test code = 37336-1) Ordering Physician UnknownUrine total bilirubin detection by automated test [id number] 17:40:00Identifier 13253-3 Result Time 2019-11-12 17:40: 00Unknown Test Item Value Reference Range Comments Urine total bilirubin detection by Negative Unknown Unknown F automated test strip (test code = 68639-5) Ordering Physician UnknownUrine clarity by refractometry [id number] 17: 40:00Identifier 26153-3 Result Time 2019-11-12 17:40:00Unknown Test Item Value Reference Range Comments Urine clarity by refractometry automated Clear Unknown Unknown F (test code = 77120-2) Ordering Physician UnknownColor of Urine by Vhjk5835-95-86 17:40:00Identifier 29810-6 Result Time 2019-11-12 17:40:00Unknown Test Item Value Reference Range Comments Color of Urine by Auto (test code = 38139-9) Straw Unknown Unknown F Ordering Physician UnknownUrine glucose detection by automated test [id number] -08 17:40:00Identifier 91024-8 Result Time 2019-11-12 17:40:00Unknown Test Item Value Reference Range Comments Urine glucose detection by automated test Negative Unknown Unknown F strip (test code = 10312-9) Ordering Physician UnknownKetones [Mass/volume] in Urine by Automated test [id number] 17:40:00Identifier 19924-0 Result Time 2019-11-12 17:40: 00Unknown Test Item Value Reference Range Comments Ketones [Mass/volume] in Urine by Automated Trace Unknown Unknown F test strip (test code = 86624-7) Ordering Physician UnknownUrine nitrite detection by automated test [id number] -08 17:40:00Identifier 82437-6 Result Time 2019-11-12 17:40:00Unknown Test Item Value Reference Range Comments Urine nitrite detection by automated test Negative Unknown Unknown F strip (test code = 48006-6) Ordering Physician UnknownProtein [Mass/volume] in Urine by Automated test [id number] 17:40:00Identifier 49889-2 Result Time 2019-11-12 17:40: 00Unknown Test Item Value Reference Range Comments Protein [Mass/volume] in Urine by Negative Unknown Unknown F Automated test strip (test code = 96604-4) Ordering Physician UnknownSpecific gravity of Urine by Refractometry [id number] 17:40:00Identifier 23898-6 Result Time 2019-11-12 17:40: 00Unknown Test Item Value Reference Range Comments Specific gravity of Urine by Refractometry 1.004 Unknown Unknown F automated (test code = 39631-9) Ordering Physician UnknownUrine hemoglobin detection by test fabfs2729-03-38 17: 40:00Identifier 5794-3 Result Time 2019-11-12 17:40:00Unknown Test Item Value Reference Range Comments Urine hemoglobin detection by test strip Negative Unknown Unknown F (test code = 5794-3) Ordering Physician UnknownUrine leukocyte esterase detection by automated test [id number] 17:40:00Identifier 50174-7 Result Time 2019-11-12 17:40: 00Unknown Test Item Value Reference Range Comments Urine leukocyte esterase detection by Negative Unknown Unknown F automated test strip (test code = 92944-9) Ordering Physician UnknownArterial blood base excess [id number] 16:24 :00Identifier 1925-7 Result Time 2019-11-12 16:24:00Unknown Test Item Value Reference Range Comments Arterial blood base excess measurement 13.0 mmol/L Unknown Unknown F (test code = 1925-7) Ordering Physician UnknownArterial blood partial pressure of oxygen with temperature eizzgxanvr0727-71-27 16:24:00Identifier 19394-4 Result Time 16:24:00Unknown Test Item Value Reference Range Comments Arterial blood partial pressure of Not Reportable Unknown Unknown F oxygen with temperature correction (test code = 36194-5) Ordering Physician UnknownArterial blood bicarbonate measurement (moles/volume) 2019-11-12 16:24:00Identifier 1960-4 Result Time 2019-11-12 16:24:00Unknown Test Item Value Reference Range Comments Arterial blood bicarbonate measurement 34.9 mmol/L Unknown Unknown F (moles/volume) (test code = 1960-4) Ordering Physician UnknownArterial blood gas measurement with patient temperature filkgzfjhn5817-17-75 16:24:00Identifier 27148-3 Result Time 16:24:00Unknown Test Item Value Reference Range Comments Arterial blood gas measurement with Not Reportable Unknown Unknown F patient temperature correction (test code = 82704-4) Ordering Physician UnknownO2 saturation arterial [id number] 16:24: 00Identifier 2708-6 Result Time 2019-11-12 16:24:00Unknown Test Item Value Reference Range Comments O2 saturation arterial blood (test code = 92.6 % Unknown Unknown F 2708-6) Ordering Physician UnknownArterial blood pH hdzckwszmir8640-82-62 16:24: 00Identifier 2744-1 Result Time 2019-11-12 16:24:00Unknown Test Item Value Reference Range Comments Arterial blood pH measurement (test code = 7.40 Unknown Unknown F 2744-1) Ordering Physician UnknownPO2 arterial cord udfsu1648-34-27 16:24:00Identifier 47475-9 Result Time 2019-11-12 16:24:00Unknown Test Item Value Reference Range Comments PO2 arterial cord blood (test code = 59 mmHg Unknown Unknown F 75111-7) Ordering Physician UnknownArterial pCO2 with temperature zrjqewwczt8281-86-82 16 :24:00Identifier 64862-6 Result Time 2019-11-12 16:24:00Unknown Test Item Value Reference Range Comments Arterial pCO2 with temperature Not Reportable Unknown Unknown F correction (test code = 77278-5) Ordering Physician UnknownSerum or plasma troponin i.cardiac measurement (mass/ volume)2019-11-12 16:11:00Identifier 71641-3 Result Time 2019-11-12 16:11: 00Unknown Test Item Value Reference Range Comments Serum or plasma troponin i.cardiac 0.00 ng/mL Unknown Unknown F measurement (mass/volume) (test code = 40084-8) Ordering Physician UnknownSerum or plasma creatine kinase MB measurement (mass/ volume)2019-11-12 16:11:00Identifier 55901-4 Result Time 2019-11-12 16:11: 00Unknown Test Item Value Reference Range Comments Serum or plasma creatine kinase MB 1.9 ng/mL Unknown Unknown F measurement (mass/volume) (test code = 28451-8) Ordering Physician UnknownSerum or plasma alanine aminotransferase measurement ( enzymatic activity/volume)2019-11-12 16:11:00Identifier 1742-6 Result Time 11-12 16:11:00Unknown Test Item Value Reference Range Comments Serum or plasma alanine aminotransferase 9 U/L Unknown Unknown F measurement (enzymatic activity/volume) (test code = 1742-6) Ordering Physician UnknownSerum or plasma albumin/globulin mass [id number] 16:11:00Identifier 1759-0 Result Time 2019-11-12 16:11:00Unknown Test Item Value Reference Range Comments Serum or plasma albumin/globulin mass ratio 1.1 Unknown Unknown F (test code = 1759-0) Ordering Physician UnknownSerum or plasma calcium measurement (mass/volume)11-12 16:11:00Identifier 53518-5 Result Time 2019-11-12 16:11:00Unknown Test Item Value Reference Range Comments Serum or plasma calcium measurement 9.6 mg/dL Unknown Unknown F (mass/volume) (test code = 52095-6) Ordering Physician UnknownSerum or plasma aspartate aminotransferase [...] natriuretic peptide B measurement ( mass/volume)2019-11-12 16:11:00Identifier 57096-9 Result Time 2019-11-12 16:11: 00Unknown Test Item Value Reference Range Comments Serum or plasma natriuretic peptide B 33 pg/mL Unknown Unknown F measurement (mass/volume) (test code = 59610-0) Ordering Physician UnknownSerum or plasma urea nitrogen measurement (mass/volume )2019-11-12 16:11:00Identifier 3094-0 Result Time 2019-11-12 16:11:00Unknown Test Item Value Reference Range Comments Serum or plasma urea nitrogen measurement 15 mg/dL Unknown Unknown F (mass/volume) (test code = 3094-0) Ordering Physician UnknownSerum or plasma urea nitrogen/creatinine vftub1917-42- 08 16:11:00Identifier 3097-3 Result Time 2019-11-12 16:11:00Unknown Test Item Value Reference Range Comments Serum or plasma urea nitrogen/creatinine 22.1 Unknown Unknown F ratio (test code = 3097-3) Ordering Physician UnknownAutomated blood platelet mean volume tqgemqqsbtv0031- 01-08 16:11:00Identifier 46544-0 Result Time 2019-11-12 16:11:00Unknown Test Item Value Reference Range Comments Automated blood platelet mean volume 8.4 fL Unknown Unknown F measurement (test code = 37731-3) Ordering Physician UnknownSerum or plasma anion fyr4393-40-85 16:11: 00Identifier 60002-3 Result Time 2019-11-12 16:11:00Unknown Test Item Value Reference Range Comments Serum or plasma anion gap (test code = 12 mmol/L Unknown Unknown F 66620-0) Ordering Physician UnknownAutomated blood leukocytes count corrected for nucleated erythrocytes (number/volume)2019-11-12 16:11:00Identifier 33494-9 Result Time 2019-11-12 16:11:00Unknown Test Item Value Reference Range Comments Automated blood leukocytes count 6.6 10^3/uL Unknown Unknown F corrected for nucleated erythrocytes (number/volume) (test code = 77385-0) Ordering Physician UnknownAutomated blood nucleated erythrocytes mesfzvqae6763- 01-08 16:11:00Identifier 22455-1 Result Time 2019-11-12 16:11:00Unknown Test Item Value Reference Range Comments Automated blood nucleated erythrocytes 0.0 Unknown Unknown F detection (test code = 13192-8) Ordering Physician UnknownAutomated blood hematocrit (percentage)2019-11-12 16: 11:00Identifier 4544-3 Result Time 2019-11-12 16:11:00Unknown Test Item Value Reference Range Comments Automated blood hematocrit (percentage) (test 39 % Unknown Unknown F code = 4544-3) Ordering Physician UnknownEstimated glomerular filtration rate (GFR) non- Vjqfllqk9559-88-24 16:11:00Identifier 71445-9 Result Time 2019-11-12 16: 11:00Unknown Test Item Value Reference Range Comments Estimated glomerular filtration rate (GFR) 88.9 Unknown Unknown F non- (test code = 39047-8) Ordering Physician UnknownAutomated blood monocytes/100 ixovpvnpma5169-52-96 16: 11:00Identifier 5905-5 Result Time 2019-11-12 16:11:00Unknown Test Item Value Reference Range Comments Automated blood monocytes/100 leukocytes 5.1 % Unknown Unknown F (test code = 5905-5) Ordering Physician UnknownSerum or plasma albumin measurement by bromocresol green (BCG) dye binding method ([id number] 16:11:00Identifier 73364-2 Result Time 2019-11-12 16:11:00Unknown Test Item Value Reference Range Comments Serum or plasma albumin measurement by 4.0 g/dL Unknown Unknown F bromocresol green (BCG) dye binding method (ma (test code = 62520-4) Ordering Physician UnknownSerum or plasma alkaline phosphatase [...] = 704-7) Ordering Physician UnknownAutomated blood basophils/100 ojtmrcxfsk0552-91-17 16: 11:00Identifier 706-2 Result Time 2019-11-12 16:11:00Unknown [...] = 711-2) Ordering Physician UnknownAutomated blood eosinophils/100 bvxcvrgmsw6051-36-24 16:11:00Identifier 713-8 Result Time 2019-11-12 16:11:00Unknown Test [...] = 731-0) Ordering Physician UnknownAutomated blood lymphocytes/100 sabuhpibes9081-41-82 16:11:00Identifier 736-9 Result Time 2019-11-12 16:11:00Unknown Test Item Value Reference Range Comments Automated blood lymphocytes/100 leukocytes 16.3 % Unknown Unknown F (test code = 736-9) Ordering Physician UnknownBlood monocytes automated count (number/volume)2019-11 16:11:00Identifier 742-7 Result Time 2019-11-12 16:11:00Unknown Test Item Value Reference Range Comments Blood monocytes automated count 0.3 10^3/ul Unknown Unknown F (number/volume) (test code = 742-7) Ordering Physician UnknownAutomated blood neutrophils/100 oljfkbakhx4996-21-11 16:11:00Identifier 770-8 Result Time 2019-11-12 16:11:00Unknown Test [...] UnknownAutomated erythrocyte mean corpuscular hemoglobin concentration measurement (mass/qvs6901-26-69 16:11:00Identifier 786-4 Result Time 2019-11-12 16:11:00Unknown Test Item Value Reference Range Comments Automated erythrocyte mean corpuscular 33 g/dL Unknown Unknown F hemoglobin concentration measurement (mass/vol (test code = 786-4) Ordering Physician UnknownAutomated erythrocyte mean corpuscular moflki0280-76- 08 16:11:00Identifier 787-2 Result Time 2019-11-12 16:11:00Unknown Test Item Value Reference Range Comments Automated erythrocyte mean corpuscular volume 91 fL Unknown Unknown F (test code = 787-2) Ordering Physician UnknownAutomated erythrocyte distribution width hkuko8146-20- 08 16:11:00Identifier 788-0 Result Time 2019-11-12 16:11:00Unknown [...] code = 789-8) Ordering Physician UnknownLymphocyte proliferation xdtn5762-42-66 16:11: 00Identifier [id number] Result Time 2019-11-12 16:11:00Unknown Test Item Value Reference Range Comments Lymphocyte proliferation test (test 5.0 10^3/ul Unknown Unknown F code = IUQ7687) Ordering Physician Unknown
--- OUTSIDE RECORDS SUMMARY | 2020-01-19 15:56 | XMS REPORT ---
:1960 Author Organization [facility] Care Team Providers Name Role Phone Unavailable [...] Physician UnknownUrine urobilinogen measurement (units/volume) by test [id number] 17:40:00Identifier 24133-2 Result Time 2019-11-12 17:40: 00Unknown Test Item Value Reference Range Comments Urine urobilinogen measurement Negative Unknown Unknown F (units/volume) by test strip (test code = 51387-6) Ordering Physician UnknownInfluenza virus A RNA detection by probe and target amplification [id number] 17:40:00Identifier 86735-2 Result Time 17:40:00Unknown Test Item Value Reference Range Comments Influenza virus A RNA detection by probe Negative Unknown Unknown F and target amplification method (test code = 34553-7) Ordering Physician UnknownInfluenza virus B RNA detection by probe and target amplification [id number] 17:40:00Identifier 48851-2 Result Time 17:40:00Unknown Test Item Value Reference Range Comments Influenza virus B RNA detection by probe Negative Unknown Unknown F and target amplification method (test code = 71112-7) Ordering Physician UnknownUrine total bilirubin detection by automated test [id number] 17:40:00Identifier 20370-6 Result Time 2019-11-12 17:40: 00Unknown Test Item Value Reference Range Comments Urine total bilirubin detection by Negative Unknown Unknown F automated test strip (test code = 90267-0) Ordering Physician UnknownUrine clarity by refractometry [id number] 17: 40:00Identifier 71369-8 Result Time 2019-11-12 17:40:00Unknown Test Item Value Reference Range Comments Urine clarity by refractometry automated Clear Unknown Unknown F (test code = 83727-1) Ordering Physician UnknownColor of Urine by Upgg2041-04-16 17:40:00Identifier 93153-9 Result Time 2019-11-12 17:40:00Unknown Test Item Value Reference Range Comments Color of Urine by Auto (test code = 21536-9) Straw Unknown Unknown F Ordering Physician UnknownUrine glucose detection by automated test [id number] -08 17:40:00Identifier 45285-7 Result Time 2019-11-12 17:40:00Unknown Test Item Value Reference Range Comments Urine glucose detection by automated test Negative Unknown Unknown F strip (test code = 53356-8) Ordering Physician UnknownKetones [Mass/volume] in Urine by Automated test [id number] 17:40:00Identifier 25616-6 Result Time 2019-11-12 17:40: 00Unknown Test Item Value Reference Range Comments Ketones [Mass/volume] in Urine by Automated Trace Unknown Unknown F test strip (test code = 52079-5) Ordering Physician UnknownUrine nitrite detection by automated test [id number] -08 17:40:00Identifier 18368-4 Result Time 2019-11-12 17:40:00Unknown Test Item Value Reference Range Comments Urine nitrite detection by automated test Negative Unknown Unknown F strip (test code = 95221-7) Ordering Physician UnknownProtein [Mass/volume] in Urine by Automated test [id number] 17:40:00Identifier 72877-0 Result Time 2019-11-12 17:40: 00Unknown Test Item Value Reference Range Comments Protein [Mass/volume] in Urine by Negative Unknown Unknown F Automated test strip (test code = 01722-6) Ordering Physician UnknownSpecific gravity of Urine by Refractometry [id number] 17:40:00Identifier 99066-1 Result Time 2019-11-12 17:40: 00Unknown Test Item Value Reference Range Comments Specific gravity of Urine by Refractometry 1.004 Unknown Unknown F automated (test code = 70879-4) Ordering Physician UnknownUrine hemoglobin detection by test [id number] 17: 40:00Identifier 5794-3 Result Time 2019-11-12 17:40:00Unknown Test Item Value Reference Range Comments Urine hemoglobin detection by test strip Negative Unknown Unknown F (test code = 5794-3) Ordering Physician UnknownUrine leukocyte esterase detection by automated test [id number] 17:40:00Identifier 24387-5 Result Time 2019-11-12 17:40: 00Unknown Test Item Value Reference Range Comments Urine leukocyte esterase detection by Negative Unknown Unknown F automated test strip (test code = 27732-3) Ordering Physician UnknownArterial blood base excess [id number] 16:24 :00Identifier 1925-7 Result Time 2019-11-12 16:24:00Unknown Test Item Value Reference Range Comments Arterial blood base excess measurement 13.0 mmol/L Unknown Unknown F (test code = 1925-7) Ordering Physician UnknownArterial blood partial pressure of oxygen with temperature [id number] 16:24:00Identifier 98579-5 Result Time 16:24:00Unknown Test Item Value Reference Range Comments Arterial blood partial pressure of Not Reportable Unknown Unknown F oxygen with temperature correction (test code = 49581-9) Ordering Physician UnknownArterial blood bicarbonate measurement (moles/volume) 2019-11-12 16:24:00Identifier 1960-4 Result Time 2019-11-12 16:24:00Unknown Test Item Value Reference Range Comments Arterial blood bicarbonate measurement 34.9 mmol/L Unknown Unknown F (moles/volume) (test code = 1960-4) Ordering Physician UnknownArterial blood gas measurement with patient temperature dltmqjgypq1094-74-26 16:24:00Identifier 24535-1 Result Time 16:24:00Unknown Test Item Value Reference Range Comments Arterial blood gas measurement with Not Reportable Unknown Unknown F patient temperature correction (test code = 02599-5) Ordering Physician UnknownO2 saturation arterial nptum6988-42-56 16:24: 00Identifier 2708-6 Result Time 2019-11-12 16:24:00Unknown Test Item Value Reference Range Comments O2 saturation arterial blood (test code = 92.6 % Unknown Unknown F 2708-6) Ordering Physician UnknownArterial blood pH ehkvlhukbmp4741-15-92 16:24: 00Identifier 2744-1 Result Time 2019-11-12 16:24:00Unknown Test Item Value Reference Range Comments Arterial blood pH measurement (test code = 7.40 Unknown Unknown F 2744-1) Ordering Physician UnknownPO2 arterial cord zyzym5419-05-07 16:24:00Identifier 92484-6 Result Time 2019-11-12 16:24:00Unknown Test Item Value Reference Range Comments PO2 arterial cord blood (test code = 59 mmHg Unknown Unknown F 43116-8) Ordering Physician UnknownArterial pCO2 with temperature qztyepjdir7153-50-98 16 :24:00Identifier 22121-3 Result Time 2019-11-12 16:24:00Unknown Test Item Value Reference Range Comments Arterial pCO2 with temperature Not Reportable Unknown Unknown F correction (test code = 41959-4) Ordering Physician UnknownSerum or plasma troponin i.cardiac measurement (mass/ volume)2019-11-12 16:11:00Identifier 65818-0 Result Time 2019-11-12 16:11: 00Unknown Test Item Value Reference Range Comments Serum or plasma troponin i.cardiac 0.00 ng/mL Unknown Unknown F measurement (mass/volume) (test code = 02058-8) Ordering Physician UnknownSerum or plasma creatine kinase MB measurement (mass/ volume)2019-11-12 16:11:00Identifier 14454-5 Result Time 2019-11-12 16:11: 00Unknown Test Item Value Reference Range Comments Serum or plasma creatine kinase MB 1.9 ng/mL Unknown Unknown F measurement (mass/volume) (test code = 23905-5) Ordering Physician UnknownSerum or plasma alanine aminotransferase measurement ( enzymatic activity/volume)2019-11-12 16:11:00Identifier 1742-6 Result Time 11-12 16:11:00Unknown Test Item Value Reference Range Comments Serum or plasma alanine aminotransferase 9 U/L Unknown Unknown F measurement (enzymatic activity/volume) (test code = 1742-6) Ordering Physician UnknownSerum or plasma albumin/globulin mass gmgnh9273-72-53 16:11:00Identifier 1759-0 Result Time 2019-11-12 16:11:00Unknown Test Item Value Reference Range Comments Serum or plasma albumin/globulin mass ratio 1.1 Unknown Unknown F (test code = 1759-0) Ordering Physician UnknownSerum or plasma calcium measurement (mass/volume)11-12 16:11:00Identifier 64917-2 Result Time 2019-11-12 16:11:00Unknown Test Item Value Reference Range Comments Serum or plasma calcium measurement 9.6 mg/dL Unknown Unknown F (mass/volume) (test code = 25215-4) Ordering Physician UnknownSerum or plasma aspartate aminotransferase [...] natriuretic peptide B measurement ( mass/volume)2019-11-12 16:11:00Identifier 75783-1 Result Time 2019-11-12 16:11: 00Unknown Test Item Value Reference Range Comments Serum or plasma natriuretic peptide B 33 pg/mL Unknown Unknown F measurement (mass/volume) (test code = 67462-5) Ordering Physician UnknownSerum or plasma urea nitrogen measurement (mass/volume )2019-11-12 16:11:00Identifier 3094-0 Result Time 2019-11-12 16:11:00Unknown Test Item Value Reference Range Comments Serum or plasma urea nitrogen measurement 15 mg/dL Unknown Unknown F (mass/volume) (test code = 3094-0) Ordering Physician UnknownSerum or plasma urea nitrogen/creatinine wpvwk4120-47- 08 16:11:00Identifier 3097-3 Result Time 2019-11-12 16:11:00Unknown Test Item Value Reference Range Comments Serum or plasma urea nitrogen/creatinine 22.1 Unknown Unknown F ratio (test code = 3097-3) Ordering Physician UnknownAutomated blood platelet mean volume ghjiygokoze1946- 01-08 16:11:00Identifier 80247-6 Result Time 2019-11-12 16:11:00Unknown Test Item Value Reference Range Comments Automated blood platelet mean volume 8.4 fL Unknown Unknown F measurement (test code = 37283-2) Ordering Physician UnknownSerum or plasma anion aat3849-64-01 16:11: 00Identifier 99200-7 Result Time 2019-11-12 16:11:00Unknown Test Item Value Reference Range Comments Serum or plasma anion gap (test code = 12 mmol/L Unknown Unknown F 62381-3) Ordering Physician UnknownAutomated blood leukocytes count corrected for nucleated erythrocytes (number/volume)2019-11-12 16:11:00Identifier 14559-4 Result Time 2019-11-12 16:11:00Unknown Test Item Value Reference Range Comments Automated blood leukocytes count 6.6 10^3/uL Unknown Unknown F corrected for nucleated erythrocytes (number/volume) (test code = 46716-6) Ordering Physician UnknownAutomated blood nucleated erythrocytes vgzzrqoix1330- 01-08 16:11:00Identifier 72833-6 Result Time 2019-11-12 16:11:00Unknown Test Item Value Reference Range Comments Automated blood nucleated erythrocytes 0.0 Unknown Unknown F detection (test code = 28450-4) Ordering Physician UnknownAutomated blood hematocrit (percentage)2019-11-12 16: 11:00Identifier 4544-3 Result Time 2019-11-12 16:11:00Unknown Test Item Value Reference Range Comments Automated blood hematocrit (percentage) (test 39 % Unknown Unknown F code = 4544-3) Ordering Physician UnknownEstimated glomerular filtration rate (GFR) non- Xsykyyca8764-07-68 16:11:00Identifier 74762-3 Result Time 2019-11-12 16: 11:00Unknown Test Item Value Reference Range Comments Estimated glomerular filtration rate (GFR) 88.9 Unknown Unknown F non- (test code = 96666-7) Ordering Physician UnknownAutomated blood monocytes/100 kddegujewd4661-05-62 16: 11:00Identifier 5905-5 Result Time 2019-11-12 16:11:00Unknown Test Item Value Reference Range Comments Automated blood monocytes/100 leukocytes 5.1 % Unknown Unknown F (test code = 5905-5) Ordering Physician UnknownSerum or plasma albumin measurement by bromocresol green (BCG) dye binding method ([id number] 16:11:00Identifier 87966-6 Result Time 2019-11-12 16:11:00Unknown Test Item Value Reference Range Comments Serum or plasma albumin measurement by 4.0 g/dL Unknown Unknown F bromocresol green (BCG) dye binding method (ma (test code = 55844-5) Ordering Physician UnknownSerum or plasma alkaline phosphatase [...] = 704-7) Ordering Physician UnknownAutomated blood basophils/100 ohkvksgcta7276-82-90 16: 11:00Identifier 706-2 Result Time 2019-11-12 16:11:00Unknown [...] = 711-2) Ordering Physician UnknownAutomated blood eosinophils/100 mazmvlxbcx7366-23-42 16:11:00Identifier 713-8 Result Time 2019-11-12 16:11:00Unknown Test [...] = 731-0) Ordering Physician UnknownAutomated blood lymphocytes/100 ugzynyrutr0149-89-78 16:11:00Identifier 736-9 Result Time 2019-11-12 16:11:00Unknown Test Item Value Reference Range Comments Automated blood lymphocytes/100 leukocytes 16.3 % Unknown Unknown F (test code = 736-9) Ordering Physician UnknownBlood monocytes automated count (number/volume)2019-11 16:11:00Identifier 742-7 Result Time 2019-11-12 16:11:00Unknown Test Item Value Reference Range Comments Blood monocytes automated count 0.3 10^3/ul Unknown Unknown F (number/volume) (test code = 742-7) Ordering Physician UnknownAutomated blood neutrophils/100 rmtvlhzatn3447-96-46 16:11:00Identifier 770-8 Result Time 2019-11-12 16:11:00Unknown Test [...] UnknownAutomated erythrocyte mean corpuscular hemoglobin concentration measurement (mass/yrv4561-44-45 16:11:00Identifier 786-4 Result Time 2019-11-12 16:11:00Unknown Test Item Value Reference Range Comments Automated erythrocyte mean corpuscular 33 g/dL Unknown Unknown F hemoglobin concentration measurement (mass/vol (test code = 786-4) Ordering Physician UnknownAutomated erythrocyte mean corpuscular ikvpon7364-45- 08 16:11:00Identifier 787-2 Result Time 2019-11-12 16:11:00Unknown Test Item Value Reference Range Comments Automated erythrocyte mean corpuscular volume 91 fL Unknown Unknown F (test code = 787-2) Ordering Physician UnknownAutomated erythrocyte distribution width vgsci7890-09- 08 16:11:00Identifier 788-0 Result Time 2019-11-12 16:11:00Unknown [...] code = 789-8) Ordering Physician UnknownLymphocyte proliferation bnrm7494-92-63 16:11: 00Identifier NDT0802 Result Time 2019-11-12 16:11:00Unknown Test Item Value Reference Range Comments Lymphocyte proliferation test (test 5.0 10^3/ul Unknown Unknown F code = HLB5151) Ordering Physician Unknown
--- OUTSIDE RECORDS SUMMARY | 2020-01-19 15:56 | XMS REPORT ---
:1960 Author Organization [facility] Care Team Providers Name Role Phone Unavailable [...] Physician UnknownUrine urobilinogen measurement (units/volume) by test [id number] 17:40:00Identifier 82468-5 Result Time 2019-11-12 17:40: 00Unknown Test Item Value Reference Range Comments Urine urobilinogen measurement Negative Unknown Unknown F (units/volume) by test strip (test code = 79473-1) Ordering Physician UnknownInfluenza virus A RNA detection by probe and target amplification dzswet2784-67-48 17:40:00Identifier 94191-1 Result Time 17:40:00Unknown Test Item Value Reference Range Comments Influenza virus A RNA detection by probe Negative Unknown Unknown F and target amplification method (test code = 57166-1) Ordering Physician UnknownInfluenza virus B RNA detection by probe and target amplification [id number] 17:40:00Identifier 20348-9 Result Time 17:40:00Unknown Test Item Value Reference Range Comments Influenza virus B RNA detection by probe Negative Unknown Unknown F and target amplification method (test code = 29013-2) Ordering Physician UnknownUrine total bilirubin detection by automated test dpxja7209-30-16 17:40:00Identifier 19035-1 Result Time 2019-11-12 17:40: 00Unknown Test Item Value Reference Range Comments Urine total bilirubin detection by Negative Unknown Unknown F automated test strip (test code = 73123-8) Ordering Physician UnknownUrine clarity by refractometry [id number] 17: 40:00Identifier 64487-4 Result Time 2019-11-12 17:40:00Unknown Test Item Value Reference Range Comments Urine clarity by refractometry automated Clear Unknown Unknown F (test code = 09647-9) Ordering Physician UnknownColor of Urine by Gujh8070-63-52 17:40:00Identifier 91202-1 Result Time 2019-11-12 17:40:00Unknown Test Item Value Reference Range Comments Color of Urine by Auto (test code = 69908-2) Straw Unknown Unknown F Ordering Physician UnknownUrine glucose detection by automated test [id number] -08 17:40:00Identifier 55183-3 Result Time 2019-11-12 17:40:00Unknown Test Item Value Reference Range Comments Urine glucose detection by automated test Negative Unknown Unknown F strip (test code = 69324-2) Ordering Physician UnknownKetones [Mass/volume] in Urine by Automated test zhtus0697-41-76 17:40:00Identifier 42204-5 Result Time 2019-11-12 17:40: 00Unknown Test Item Value Reference Range Comments Ketones [Mass/volume] in Urine by Automated Trace Unknown Unknown F test strip (test code = 33464-7) Ordering Physician UnknownUrine nitrite detection by automated test ibdkk2994-23 -08 17:40:00Identifier 27237-8 Result Time 2019-11-12 17:40:00Unknown Test Item Value Reference Range Comments Urine nitrite detection by automated test Negative Unknown Unknown F strip (test code = 87707-3) Ordering Physician UnknownProtein [Mass/volume] in Urine by Automated test kshmq6584-27-01 17:40:00Identifier 55920-9 Result Time 2019-11-12 17:40: 00Unknown Test Item Value Reference Range Comments Protein [Mass/volume] in Urine by Negative Unknown Unknown F Automated test strip (test code = 76748-1) Ordering Physician UnknownSpecific gravity of Urine by Refractometry sqbbqtvly9380-25-10 17:40:00Identifier 72301-2 Result Time 2019-11-12 17:40: 00Unknown Test Item Value Reference Range Comments Specific gravity of Urine by Refractometry 1.004 Unknown Unknown F automated (test code = 38758-9) Ordering Physician UnknownUrine hemoglobin detection by test qxxvt3869-56-07 17: 40:00Identifier 5794-3 Result Time 2019-11-12 17:40:00Unknown Test Item Value Reference Range Comments Urine hemoglobin detection by test strip Negative Unknown Unknown F (test code = 5794-3) Ordering Physician UnknownUrine leukocyte esterase detection by automated test [id number] 17:40:00Identifier 48354-8 Result Time 2019-11-12 17:40: 00Unknown Test Item Value Reference Range Comments Urine leukocyte esterase detection by Negative Unknown Unknown F automated test strip (test code = 11889-2) Ordering Physician UnknownArterial blood base excess oitvwhlsukx5325-10-15 16:24 :00Identifier 1925-7 Result Time 2019-11-12 16:24:00Unknown Test Item Value Reference Range Comments Arterial blood base excess measurement 13.0 mmol/L Unknown Unknown F (test code = 1925-7) Ordering Physician UnknownArterial blood partial pressure of oxygen with temperature ifqrovviaf3473-01-51 16:24:00Identifier 75399-2 Result Time 16:24:00Unknown Test Item Value Reference Range Comments Arterial blood partial pressure of Not Reportable Unknown Unknown F oxygen with temperature correction (test code = 76797-8) Ordering Physician UnknownArterial blood bicarbonate measurement (moles/volume) 2019-11-12 16:24:00Identifier 1960-4 Result Time 2019-11-12 16:24:00Unknown Test Item Value Reference Range Comments Arterial blood bicarbonate measurement 34.9 mmol/L Unknown Unknown F (moles/volume) (test code = 1960-4) Ordering Physician UnknownArterial blood gas measurement with patient temperature ohxudrozvt6060-98-49 16:24:00Identifier 09972-4 Result Time 16:24:00Unknown Test Item Value Reference Range Comments Arterial blood gas measurement with Not Reportable Unknown Unknown F patient temperature correction (test code = 60067-3) Ordering Physician UnknownO2 saturation arterial ndqwj7062-74-66 16:24: 00Identifier 2708-6 Result Time 2019-11-12 16:24:00Unknown Test Item Value Reference Range Comments O2 saturation arterial blood (test code = 92.6 % Unknown Unknown F 2708-6) Ordering Physician UnknownArterial blood pH bnzztoeflif5694-20-47 16:24: 00Identifier 2744-1 Result Time 2019-11-12 16:24:00Unknown Test Item Value Reference Range Comments Arterial blood pH measurement (test code = 7.40 Unknown Unknown F 2744-1) Ordering Physician UnknownPO2 arterial cord ycnca4471-39-37 16:24:00Identifier 42598-6 Result Time 2019-11-12 16:24:00Unknown Test Item Value Reference Range Comments PO2 arterial cord blood (test code = 59 mmHg Unknown Unknown F 56642-1) Ordering Physician UnknownArterial pCO2 with temperature uhownfxpsm1974-21-19 16 :24:00Identifier 59234-5 Result Time 2019-11-12 16:24:00Unknown Test Item Value Reference Range Comments Arterial pCO2 with temperature Not Reportable Unknown Unknown F correction (test code = 55476-4) Ordering Physician UnknownSerum or plasma troponin i.cardiac measurement (mass/ volume)2019-11-12 16:11:00Identifier 70148-3 Result Time 2019-11-12 16:11: 00Unknown Test Item Value Reference Range Comments Serum or plasma troponin i.cardiac 0.00 ng/mL Unknown Unknown F measurement (mass/volume) (test code = 79621-1) Ordering Physician UnknownSerum or plasma creatine kinase MB measurement (mass/ volume)2019-11-12 16:11:00Identifier 31783-8 Result Time 2019-11-12 16:11: 00Unknown Test Item Value Reference Range Comments Serum or plasma creatine kinase MB 1.9 ng/mL Unknown Unknown F measurement (mass/volume) (test code = 99731-8) Ordering Physician UnknownSerum or plasma alanine aminotransferase measurement ( enzymatic activity/volume)2019-11-12 16:11:00Identifier 1742-6 Result Time 11-12 16:11:00Unknown Test Item Value Reference Range Comments Serum or plasma alanine aminotransferase 9 U/L Unknown Unknown F measurement (enzymatic activity/volume) (test code = 1742-6) Ordering Physician UnknownSerum or plasma albumin/globulin mass qnjsm4788-41-07 16:11:00Identifier 1759-0 Result Time 2019-11-12 16:11:00Unknown Test Item Value Reference Range Comments Serum or plasma albumin/globulin mass ratio 1.1 Unknown Unknown F (test code = 1759-0) Ordering Physician UnknownSerum or plasma calcium measurement (mass/volume)11-12 16:11:00Identifier 38885-2 Result Time 2019-11-12 16:11:00Unknown Test Item Value Reference Range Comments Serum or plasma calcium measurement 9.6 mg/dL Unknown Unknown F (mass/volume) (test code = 10539-0) Ordering Physician UnknownSerum or plasma aspartate aminotransferase [...] natriuretic peptide B measurement ( mass/volume)2019-11-12 16:11:00Identifier 21873-7 Result Time 2019-11-12 16:11: 00Unknown Test Item Value Reference Range Comments Serum or plasma natriuretic peptide B 33 pg/mL Unknown Unknown F measurement (mass/volume) (test code = 80238-1) Ordering Physician UnknownSerum or plasma urea nitrogen measurement (mass/volume )2019-11-12 16:11:00Identifier 3094-0 Result Time 2019-11-12 16:11:00Unknown Test Item Value Reference Range Comments Serum or plasma urea nitrogen measurement 15 mg/dL Unknown Unknown F (mass/volume) (test code = 3094-0) Ordering Physician UnknownSerum or plasma urea nitrogen/creatinine aystq6930-44- 08 16:11:00Identifier 3097-3 Result Time 2019-11-12 16:11:00Unknown Test Item Value Reference Range Comments Serum or plasma urea nitrogen/creatinine 22.1 Unknown Unknown F ratio (test code = 3097-3) Ordering Physician UnknownAutomated blood platelet mean volume qekggnnsszu3037- 01-08 16:11:00Identifier 08520-0 Result Time 2019-11-12 16:11:00Unknown Test Item Value Reference Range Comments Automated blood platelet mean volume 8.4 fL Unknown Unknown F measurement (test code = 51738-1) Ordering Physician UnknownSerum or plasma anion amw7868-33-22 16:11: 00Identifier 00462-4 Result Time 2019-11-12 16:11:00Unknown Test Item Value Reference Range Comments Serum or plasma anion gap (test code = 12 mmol/L Unknown Unknown F 65961-2) Ordering Physician UnknownAutomated blood leukocytes count corrected for nucleated erythrocytes (number/volume)2019-11-12 16:11:00Identifier 49925-5 Result Time 2019-11-12 16:11:00Unknown Test Item Value Reference Range Comments Automated blood leukocytes count 6.6 10^3/uL Unknown Unknown F corrected for nucleated erythrocytes (number/volume) (test code = 02458-4) Ordering Physician UnknownAutomated blood nucleated erythrocytes oagmpbjek3233- 01-08 16:11:00Identifier 67949-6 Result Time 2019-11-12 16:11:00Unknown Test Item Value Reference Range Comments Automated blood nucleated erythrocytes 0.0 Unknown Unknown F detection (test code = 53260-5) Ordering Physician UnknownAutomated blood hematocrit (percentage)2019-11-12 16: 11:00Identifier 4544-3 Result Time 2019-11-12 16:11:00Unknown Test Item Value Reference Range Comments Automated blood hematocrit (percentage) (test 39 % Unknown Unknown F code = 4544-3) Ordering Physician UnknownEstimated glomerular filtration rate (GFR) non- Kykejcqe5841-50-15 16:11:00Identifier 50959-6 Result Time 2019-11-12 16: 11:00Unknown Test Item Value Reference Range Comments Estimated glomerular filtration rate (GFR) 88.9 Unknown Unknown F non- (test code = 35920-8) Ordering Physician UnknownAutomated blood monocytes/100 vxyfgsxnka2577-79-68 16: 11:00Identifier 5905-5 Result Time 2019-11-12 16:11:00Unknown Test Item Value Reference Range Comments Automated blood monocytes/100 leukocytes 5.1 % Unknown Unknown F (test code = 5905-5) Ordering Physician UnknownSerum or plasma albumin measurement by bromocresol green (BCG) dye binding method ([id number] 16:11:00Identifier 12949-5 Result Time 2019-11-12 16:11:00Unknown Test Item Value Reference Range Comments Serum or plasma albumin measurement by 4.0 g/dL Unknown Unknown F bromocresol green (BCG) dye binding method (ma (test code = 05808-7) Ordering Physician UnknownSerum or plasma alkaline phosphatase [...] = 704-7) Ordering Physician UnknownAutomated blood basophils/100 zauykjljcc2497-89-35 16: 11:00Identifier 706-2 Result Time 2019-11-12 16:11:00Unknown [...] = 711-2) Ordering Physician UnknownAutomated blood eosinophils/100 nchqtiwapi4807-09-55 16:11:00Identifier 713-8 Result Time 2019-11-12 16:11:00Unknown Test [...] = 731-0) Ordering Physician UnknownAutomated blood lymphocytes/100 gdefwcnbqr3294-59-00 16:11:00Identifier 736-9 Result Time 2019-11-12 16:11:00Unknown Test Item Value Reference Range Comments Automated blood lymphocytes/100 leukocytes 16.3 % Unknown Unknown F (test code = 736-9) Ordering Physician UnknownBlood monocytes automated count (number/volume)2019-11 16:11:00Identifier 742-7 Result Time 2019-11-12 16:11:00Unknown Test Item Value Reference Range Comments Blood monocytes automated count 0.3 10^3/ul Unknown Unknown F (number/volume) (test code = 742-7) Ordering Physician UnknownAutomated blood neutrophils/100 uzbzixxdhm5439-00-14 16:11:00Identifier 770-8 Result Time 2019-11-12 16:11:00Unknown Test [...] UnknownAutomated erythrocyte mean corpuscular hemoglobin concentration measurement (mass/kuh3402-54-25 16:11:00Identifier 786-4 Result Time 2019-11-12 16:11:00Unknown Test Item Value Reference Range Comments Automated erythrocyte mean corpuscular 33 g/dL Unknown Unknown F hemoglobin concentration measurement (mass/vol (test code = 786-4) Ordering Physician UnknownAutomated erythrocyte mean corpuscular jpozka4753-42- 08 16:11:00Identifier 787-2 Result Time 2019-11-12 16:11:00Unknown Test Item Value Reference Range Comments Automated erythrocyte mean corpuscular volume 91 fL Unknown Unknown F (test code = 787-2) Ordering Physician UnknownAutomated erythrocyte distribution width hfkky2996-35- 08 16:11:00Identifier 788-0 Result Time 2019-11-12 16:11:00Unknown [...] code = 789-8) Ordering Physician UnknownLymphocyte proliferation xdns2647-16-91 16:11: 00Identifier [id number] Result Time 2019-11-12 16:11:00Unknown Test Item Value Reference Range Comments Lymphocyte proliferation test (test 5.0 10^3/ul Unknown Unknown F code = RGI9836) Ordering Physician Unknown
--- OUTSIDE RECORDS SUMMARY | 2020-01-19 15:56 | XMS REPORT | Continuity of Care Document ---
:1960 External Reference #:[id number] Author Name Bindu Mccoy MD (transmitted by agent of provider Marisa Means) Address [address], [address] [place] [address] Care Team Providers Name Role Phone Harpreet Kelly MD - Family Care Team Information Automatic Blocker Medicine Problems Active Problems Provider Date Acute exacerbation of chronic obstructive Abdi Cormier M.D. Onset: airways disease Social History Type Date Description Comments Sex Unknown ETOH Use Denies alcohol use Tobacco Use Start: Unknown End: Patient is a former Smoked for 40 years Unknown smoker about 1 pack a day quit 8 years ago Recreational Drug Use Denies Drug Use Smoking Status Reviewed: 01/06/20 Patient is a former Smoked for 40 years smoker about 1 pack a day quit 8 years ago Exercise Type/Frequency Does not exercise Allergies, Adverse Reactions, Alerts Active Allergies Reaction Severity Comments Date Flagyl 09/11/2013 Sulfa Antibiotics 09/11/2013 Oxycodone 09/11/2013 Medications Active Medications SIG Qnty Indications Ordering Date Provider Acetylcysteine 5cc through 180ml J15.1 Bindu Mccoy, 11/28/2019 20% nebulizer 2 times MD Solution a day Symbicort 2 puffs po bid 1units Unknown 160-4.5mcg/Act Aerosol Robitussin Chest 10 ml po q4h prn 118ml Unknown Congestion 100mg/5ML Syrup Vitamin C 1 po qd Unknown 1000mg Chewtabs Combivent Respimat inhale one puff by Unknown mouth four times a 20-100mcg/Act Aerosol day Ipratropium Use 1 Ampule In Unknown Witter/Albuterol Nebulizer Every 4 Sulfate Hours as Needed 0.5-2.5(3)mg/3ML For Shortness Of Solution Breath And Forwheezing Buspirone HCL take 1 tablet by 30tabs Bindu Mccoy, 10mg mouth daily Tablets Prednisone take 1 tablet by 30tabs Bindu Mccoy, 5mg Tablets mouth once daily Clonazepam Take 1 Tablet By Unknown 1mg Tablets Mouth Three Times Daily For Anxiety . DO Not Exceed 3 Per 24 Hours Acidophilus 1 by mouth every Unknown Capsules day Lidocaine apply to affected Unknown 5% Cream area(s) 3 to 4 times daily as needed History Medications Amoxicillin/Clavulanate 1 tab every 14tabs J15.1 Bindu 11/28/2019 - Potassium 12 hrs MD Darius 01/05/2020 500-125mg Tablets Immunizations Description No Information Available Vital Signs Date Vital Result Comment 01/06/2020 1:17pm Height 63 inches 5'3" Weight 110.00 lb Heart Rate 104 /min BP Systolic 110 mmHg BP Diastolic 58 mmHg O2 % BldC Oximetry 87 % BMI (Body Mass Index) 19.5 kg/m2 11/28/2019 12:55pm Height 63 inches 5'3" Weight 111.00 lb Heart Rate 98 /min BP Systolic Sitting 106 mmHg BP Diastolic Sitting 60 mmHg O2 % BldC Oximetry 90 % on 4 liters BMI (Body Mass Index) 19.7 kg/m2 Results Description No Information Available Procedures Description No Information Available Medical Devices Description No Information Available Encounters Type Date Location Provider Dx Diagnosis Office Visit 11/28/2019 [facility]u Mccoy, J15.1 Pneumonia due to 1:30p [facility] Armand Hoang J44.1 Chronic obstructive pulmonary disease w (acute) exacerbation Office Visit 11/26/2019 [facility] J96.21 Acute and 11:14a master Kitchen PA chronic Hospitalists respiratory failure with hypoxia J96.22 Acute and chronic respiratory failure with hypercapnia J44.1 Chronic obstructive pulmonary disease w (acute) exacerbation F41.9 Anxiety disorder, unspecified Office Visit 11/25/2019 [facility] J96.21 Acute and 11:14a Assmaster machuca PA chronic Hospitalists respiratory failure with hypoxia J96.22 Acute and chronic respiratory failure with hypercapnia J44.1 Chronic obstructive pulmonary disease w (acute) exacerbation F41.9 Anxiety disorder, unspecified Office Visit 11/24/2019 [facility] J96.21 Acute and 11:14a master Kitchen MD chronic Hospitalists respiratory failure with hypoxia J96.22 Acute and chronic respiratory failure with hypercapnia J44.1 Chronic obstructive pulmonary disease w (acute) exacerbation F41.9 Anxiety disorder, unspecified Office Visit 11/24/2019 12:15p [facility] Bindu J44.0 [facility] obstructive [facility] Darius pulmon disease 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 with (acute) lower resp infct J15.1 Pneumonia due to Pseudomonas J44.1 Chronic obstructive pulmonary disease w (acute) exacerbation Office Visit 11/23/2019 [facility] J96.21 Acute and 11:13a master Kitchen MD chronic Hospitalists respiratory failure with hypoxia J96.22 Acute and chronic respiratory failure with hypercapnia J44.1 Chronic obstructive pulmonary disease w (acute) exacerbation F41.9 Anxiety disorder, unspecified Office Visit 11/22/2019 [facility] J96.21 Acute and 11:13a master Kitchen MD chronic Hospitalists respiratory failure with hypoxia J96.22 Acute and chronic respiratory failure with hypercapnia J44.1 Chronic obstructive pulmonary disease w (acute) exacerbation F41.9 Anxiety disorder, unspecified Office Visit 11/21/2019 [facility] J96.21 Acute and 11:12a master Kitchen MD chronic Hospitalists respiratory failure with hypoxia J96.22 Acute and chronic respiratory failure with hypercapnia J44.1 Chronic obstructive pulmonary disease w (acute) exacerbation F41.9 Anxiety disorder, unspecified Office Visit 11/20/2019 [facility] J96.21 Acute and 11:12a master Kitchen MD chronic Hospitalists respiratory failure with hypoxia J96.22 Acute and chronic respiratory failure with hypercapnia J44.1 Chronic obstructive pulmonary disease w (acute) exacerbation F41.9 Anxiety disorder, unspecified Office Visit 11/19/2019 [facility] J96.21 Acute and chronic 11:11a Assoc,pc [place], ARCHITECTURAL TECHNOLOGIST respiratory Hospitalists failure with hypoxia J96.22 Acute and chronic respiratory failure with hypercapnia J44.1 Chronic obstructive pulmonary disease w (acute) exacerbation F41.9 Anxiety disorder, unspecified Office Visit 11/18/2019 [facility] J96.21 Acute and chronic 11:11a Assoc,pc Kg ARCHITECTURAL TECHNOLOGIST respiratory Hospitalists failure with hypoxia J96.22 Acute and chronic respiratory failure with hypercapnia J44.1 Chronic obstructive pulmonary disease w (acute) exacerbation F41.9 Anxiety disorder, unspecified Office Visit 11/17/2019 [facility] J96.21 Acute and chronic 3:37p Assoc,pc Kg, ARCHITECTURAL TECHNOLOGIST respiratory Hospitalists failure with hypoxia J96.22 Acute and chronic respiratory failure with hypercapnia J44.1 Chronic obstructive pulmonary disease w (acute) exacerbation F41.9 Anxiety disorder, unspecified Office Visit 11/16/2019 11:04a [facility] Kaela Dill, J96.22 Acute and chronic Assoc,pc MD respiratory Hospitalists failure with hypercapnia J44.1 Chronic obstructive pulmonary disease w (acute) exacerbation Office Visit 11/14/2019 11:08a [facility] Jane Chris, J96.21 Acute and chronic Assoc,pc ARCHITECTURAL TECHNOLOGIST respiratory Hospitalists failure with hypoxia J44.1 Chronic obstructive pulmonary disease w (acute) exacerbation Office Visit 11/13/2019 11:08a [facility] Jane Chris, J96.21 Acute and chronic Assoc,pc ARCHITECTURAL TECHNOLOGIST respiratory Hospitalists failure with hypoxia J44.1 Chronic obstructive pulmonary disease w (acute) exacerbation Office Visit 11/12/2019 [facility] Teresa Mcgrath, J96.91 Respiratory 11:08a Assoc,pc M.D. failure, Hospitalists unspecified with hypoxia J96.92 Respiratory failure, unspecified with hypercapnia J44.1 Chronic obstructive pulmonary disease w (acute) exacerbation Assessments Date Code Description Provider 01/06/2020 J15.1 Pneumonia due to Pseudomonas Bindu Mccoy MD 01/06/2020 J44.9 Chronic obstructive pulmonary disease, Bindu Mccoy MD unspecified 01/06/2020 R09.02 Hypoxemia Bindu Mccoy MD 11/28/2019 J15.1 Pneumonia due to Pseudomonas Bindu Mccoy MD 11/28/2019 J44.1 Chronic obstructive pulmonary disease with Bindu Mccoy MD (acute) exacerbation 11/26/2019 J96.21 Acute and chronic respiratory failure with Sarahange Christensen PA hypoxia 11/26/2019 J96.22 Acute and chronic respiratory failure with Sarahange Christensen PA hypercapnia 11/26/2019 J44.1 Chronic obstructive pulmonary disease with Sarahange Cassidyham PA (acute) exacerbation 11/26/2019 F41.9 Anxiety disorder, unspecified Sarahange Christensen, PA 11/25/2019 J96.21 Acute and chronic respiratory failure with Sarahange Christensen, PA hypoxia 11/25/2019 J96.22 Acute and chronic respiratory failure with Sarahange Christensen PA hypercapnia 11/25/2019 J44.1 Chronic obstructive pulmonary disease with Sarahange Christensen PA (acute) exacerbation 11/25/2019 F41.9 Anxiety disorder, unspecified Sarahange Christensen PA 11/24/2019 J44.0 Chronic obstructive pulmonary disease with Bindu Mccoy MD (acute) lower respiratory infection 11/24/2019 J15.1 Pneumonia due to Pseudomonas Bindu Mccoy MD 11/24/2019 J96.21 Acute and chronic respiratory failure with Joanne Vazquez MD hypoxia 11/24/2019 J44.1 Chronic obstructive pulmonary disease with Bindu Mccoy MD (acute) exacerbat 11/24/2019 J96.22 Acute and chronic respiratory failure with Joanne Vazquez MD hypercapnia 11/24/2019 J44.1 Chronic obstructive pulmonary disease with Joanne Vazquez MD (acute) exacerbation 11/24/2019 F41.9 Anxiety disorder, unspecified Joanne Vazquez MD 11/23/2019 J96.21 Acute and chronic respiratory failure with Joanne Vazquez MD hypoxia 11/23/2019 J96.22 Acute and chronic respiratory failure with Joanne Vazquez MD hypercapnia 11/23/2019 J44.1 Chronic obstructive pulmonary disease with Joanne Vazquez MD (acute) exacerbation 11/23/2019 F41.9 Anxiety disorder, unspecified Joanne Vazquez MD 11/22/2019 J96.21 Acute and chronic respiratory failure with Joanne Vazquez MD hypoxia 11/22/2019 J96.22 Acute and chronic respiratory failure with Joanne Vazquez MD hypercapnia 11/22/2019 J44.1 Chronic obstructive pulmonary disease with Joanne Vazquez MD (acute) exacerbation 11/22/2019 F41.9 Anxiety disorder, unspecified Joanne Vazquez MD 11/21/2019 J96.21 Acute and chronic respiratory failure with Joanne Vazquez MD hypoxia 11/21/2019 J96.22 Acute and chronic respiratory failure with Joanne Vazquez MD hypercapnia 11/21/2019 J44.1 Chronic obstructive pulmonary disease with Joanne Vazquez MD (acute) exacerbation 11/21/2019 F41.9 Anxiety disorder, unspecified Joanne Vazquez MD 11/20/2019 J96.21 Acute and chronic respiratory failure with Joanne Vazquez MD hypoxia 11/20/2019 J96.22 Acute and chronic respiratory failure with Joanne Vazquez MD hypercapnia 11/20/2019 J44.1 Chronic obstructive pulmonary disease with Joanne Vazquez MD (acute) exacerbat 11/20/2019 F41.9 Anxiety disorder, unspecified Joanne Vazquez MD 11/19/2019 J96.21 Acute and chronic respiratory failure with Marianna Kg, ARCHITECTURAL TECHNOLOGIST hypoxia 11/19/2019 J96.22 Acute and chronic respiratory failure with Marianna Volga, ARCHITECTURAL TECHNOLOGIST hypercapnia 11/19/2019 J44.1 Chronic obstructive pulmonary disease with Marianna Kg , ARCHITECTURAL TECHNOLOGIST (acute) exacerbat 11/19/2019 F41.9 Anxiety disorder, unspecified Marianna Kg, ARCHITECTURAL TECHNOLOGIST 11/18/2019 J96.21 Acute and chronic respiratory failure with Marianna Volga, ARCHITECTURAL TECHNOLOGIST hypoxia 11/18/2019 J96.22 Acute and chronic respiratory failure with Marianna Kg, ARCHITECTURAL TECHNOLOGIST hypercapnia 11/18/2019 J44.1 Chronic obstructive pulmonary disease with Marianna Volga , ARCHITECTURAL TECHNOLOGIST (acute) exacerbat 11/18/2019 F41.9 Anxiety disorder, unspecified Marianna Volga, ARCHITECTURAL TECHNOLOGIST 11/17/2019 J96.21 Acute and chronic respiratory failure with Marianna Volga, ARCHITECTURAL TECHNOLOGIST hypoxia 11/17/2019 J96.22 Acute and chronic respiratory failure with Marianna Kg, ARCHITECTURAL TECHNOLOGIST hypercapnia 11/17/2019 J44.1 Chronic obstructive pulmonary disease with Mariannamoe Saul , ARCHITECTURAL TECHNOLOGIST (acute) exacerbat 11/17/2019 F41.9 Anxiety disorder, unspecified Marianna Kg, ARCHITECTURAL TECHNOLOGIST 11/16/2019 J96.22 Acute and chronic respiratory failure with Kaela Ku MD hypercapnia 11/16/2019 J44.1 Chronic obstructive pulmonary disease with Kaela Ku MD (acute) exacerbation 11/14/2019 J96.21 Acute and chronic respiratory failure with Jane Chris, ARCHITECTURAL TECHNOLOGIST hypoxia 11/14/2019 J44.1 Chronic obstructive pulmonary disease with Jane Chris, ARCHITECTURAL TECHNOLOGIST (acute) exacerbation 11/13/2019 J96.21 Acute and chronic respiratory failure with Jane Chris, ARCHITECTURAL TECHNOLOGIST hypoxia 11/13/2019 J44.1 Chronic obstructive pulmonary disease with Jane Chris, ARCHITECTURAL TECHNOLOGIST (acute) exacerbation 11/12/2019 J96.91 Respiratory failure, unspecified with hypoxia Teresa Mcgrath M.D. 11/12/2019 J96.92 Respiratory failure, unspecified with Teresa Mcgrath M.D. hypercapnia 11/12/2019 J44.1 Chronic obstructive pulmonary disease with Teresa Mcgrath M.D. (acute) exacerbat Plan of Treatment Future Appointment(s):03/11/2020 3:30 pm - Bindu Mccoy MD at [facility]01/06/2020 - Bindu Mccoy MDJ15.1 Pneumonia due to PseudomonasFollow up:2 [id number] Chronic obstructive pulmonary disease, [id number] Hypoxemia Functional Status Description No Information Available Mental Status Description No Information Available Referrals Description No Information Available
--- OUTSIDE RECORDS SUMMARY | 2020-01-19 15:56 | XMS REPORT ---
:1960 Author Organization [facility] Care Team Providers Name Role Phone Unavailable [...] Budesonide/ No Unknown Unknown Unknown Formote Formote 9-19 160/4.5(Nf) 160/4.5(Nf) ascorbic ascorbic No Unknown Unknown [...] Physician UnknownUrine urobilinogen measurement (units/volume) by test [id number] 17:40:00Identifier 18866-0 Result Time 2019-11-12 17:40: 00Unknown Test Item Value Reference Range Comments Urine urobilinogen measurement Negative Unknown Unknown F (units/volume) by test strip (test code = 79550-1) Ordering Physician UnknownInfluenza virus A RNA detection by probe and target amplification [id number] 17:40:00Identifier 44045-1 Result Time 17:40:00Unknown Test Item Value Reference Range Comments Influenza virus A RNA detection by probe Negative Unknown Unknown F and target amplification method (test code = 87267-3) Ordering Physician UnknownInfluenza virus B RNA detection by probe and target amplification [id number] 17:40:00Identifier 76826-9 Result Time 17:40:00Unknown Test Item Value Reference Range Comments Influenza virus B RNA detection by probe Negative Unknown Unknown F and target amplification method (test code = 79206-1) Ordering Physician UnknownUrine total bilirubin detection by automated test vygrd6196-59-74 17:40:00Identifier 21695-9 Result Time 2019-11-12 17:40: 00Unknown Test Item Value Reference Range Comments Urine total bilirubin detection by Negative Unknown Unknown F automated test strip (test code = 20812-6) Ordering Physician UnknownUrine clarity by refractometry [id number] 17: 40:00Identifier 99505-5 Result Time 2019-11-12 17:40:00Unknown Test Item Value Reference Range Comments Urine clarity by refractometry automated Clear Unknown Unknown F (test code = 29041-5) Ordering Physician UnknownColor of Urine by Ciri7004-77-18 17:40:00Identifier 43166-5 Result Time 2019-11-12 17:40:00Unknown Test Item Value Reference Range Comments Color of Urine by Auto (test code = 79424-6) Straw Unknown Unknown F Ordering Physician UnknownUrine glucose detection by automated test ghcss8925-52 -08 17:40:00Identifier 44952-4 Result Time 2019-11-12 17:40:00Unknown Test Item Value Reference Range Comments Urine glucose detection by automated test Negative Unknown Unknown F strip (test code = 35535-3) Ordering Physician UnknownKetones [Mass/volume] in Urine by Automated test [id number] 17:40:00Identifier 51711-2 Result Time 2019-11-12 17:40: 00Unknown Test Item Value Reference Range Comments Ketones [Mass/volume] in Urine by Automated Trace Unknown Unknown F test strip (test code = 58756-9) Ordering Physician UnknownUrine nitrite detection by automated test czgqx6298-30 -08 17:40:00Identifier 88836-6 Result Time 2019-11-12 17:40:00Unknown Test Item Value Reference Range Comments Urine nitrite detection by automated test Negative Unknown Unknown F strip (test code = 86571-0) Ordering Physician UnknownProtein [Mass/volume] in Urine by Automated test kfvjj8577-90-58 17:40:00Identifier 82856-5 Result Time 2019-11-12 17:40: 00Unknown Test Item Value Reference Range Comments Protein [Mass/volume] in Urine by Negative Unknown Unknown F Automated test strip (test code = 51890-0) Ordering Physician UnknownSpecific gravity of Urine by Refractometry zwcgnflrd0569-18-78 17:40:00Identifier 75930-3 Result Time 2019-11-12 17:40: 00Unknown Test Item Value Reference Range Comments Specific gravity of Urine by Refractometry 1.004 Unknown Unknown F automated (test code = 49983-3) Ordering Physician UnknownUrine hemoglobin detection by test [id number] 17: 40:00Identifier 5794-3 Result Time 2019-11-12 17:40:00Unknown Test Item Value Reference Range Comments Urine hemoglobin detection by test strip Negative Unknown Unknown F (test code = 5794-3) Ordering Physician UnknownUrine leukocyte esterase detection by automated test onauj6002-47-49 17:40:00Identifier 55799-5 Result Time 2019-11-12 17:40: 00Unknown Test Item Value Reference Range Comments Urine leukocyte esterase detection by Negative Unknown Unknown F automated test strip (test code = 19287-9) Ordering Physician UnknownArterial blood base excess kuetotmuqwn7592-65-94 16:24 :00Identifier 1925-7 Result Time 2019-11-12 16:24:00Unknown Test Item Value Reference Range Comments Arterial blood base excess measurement 13.0 mmol/L Unknown Unknown F (test code = 1925-7) Ordering Physician UnknownArterial blood partial pressure of oxygen with temperature xzzxvpepoq5801-45-99 16:24:00Identifier 04630-7 Result Time 16:24:00Unknown Test Item Value Reference Range Comments Arterial blood partial pressure of Not Reportable Unknown Unknown F oxygen with temperature correction (test code = 49032-3) Ordering Physician UnknownArterial blood bicarbonate measurement (moles/volume) 2019-11-12 16:24:00Identifier 1960-4 Result Time 2019-11-12 16:24:00Unknown Test Item Value Reference Range Comments Arterial blood bicarbonate measurement 34.9 mmol/L Unknown Unknown F (moles/volume) (test code = 1960-4) Ordering Physician UnknownArterial blood gas measurement with patient temperature nvrosqpxdx5197-61-72 16:24:00Identifier 33058-5 Result Time 16:24:00Unknown Test Item Value Reference Range Comments Arterial blood gas measurement with Not Reportable Unknown Unknown F patient temperature correction (test code = 13742-3) Ordering Physician UnknownO2 saturation arterial pddtg1149-02-64 16:24: 00Identifier 2708-6 Result Time 2019-11-12 16:24:00Unknown Test Item Value Reference Range Comments O2 saturation arterial blood (test code = 92.6 % Unknown Unknown F 2708-6) Ordering Physician UnknownArterial blood pH zyzafnszfvm5999-23-47 16:24: 00Identifier 2744-1 Result Time 2019-11-12 16:24:00Unknown Test Item Value Reference Range Comments Arterial blood pH measurement (test code = 7.40 Unknown Unknown F 2744-1) Ordering Physician UnknownPO2 arterial cord ivxbs6128-69-75 16:24:00Identifier 76117-4 Result Time 2019-11-12 16:24:00Unknown Test Item Value Reference Range Comments PO2 arterial cord blood (test code = 59 mmHg Unknown Unknown F 86194-4) Ordering Physician UnknownArterial pCO2 with temperature kqmfffckmi9172-39-91 16 :24:00Identifier 61282-8 Result Time 2019-11-12 16:24:00Unknown Test Item Value Reference Range Comments Arterial pCO2 with temperature Not Reportable Unknown Unknown F correction (test code = 65238-7) Ordering Physician UnknownSerum or plasma troponin i.cardiac measurement (mass/ volume)2019-11-12 16:11:00Identifier 69251-1 Result Time 2019-11-12 16:11: 00Unknown Test Item Value Reference Range Comments Serum or plasma troponin i.cardiac 0.00 ng/mL Unknown Unknown F measurement (mass/volume) (test code = 69038-6) Ordering Physician UnknownSerum or plasma creatine kinase MB measurement (mass/ volume)2019-11-12 16:11:00Identifier 25260-1 Result Time 2019-11-12 16:11: 00Unknown Test Item Value Reference Range Comments Serum or plasma creatine kinase MB 1.9 ng/mL Unknown Unknown F measurement (mass/volume) (test code = 26718-1) Ordering Physician UnknownSerum or plasma alanine aminotransferase measurement ( enzymatic activity/volume)2019-11-12 16:11:00Identifier 1742-6 Result Time 11-12 16:11:00Unknown Test Item Value Reference Range Comments Serum or plasma alanine aminotransferase 9 U/L Unknown Unknown F measurement (enzymatic activity/volume) (test code = 1742-6) Ordering Physician UnknownSerum or plasma albumin/globulin mass pprff6147-79-46 16:11:00Identifier 1759-0 Result Time 2019-11-12 16:11:00Unknown Test Item Value Reference Range Comments Serum or plasma albumin/globulin mass ratio 1.1 Unknown Unknown F (test code = 1759-0) Ordering Physician UnknownSerum or plasma calcium measurement (mass/volume)11-12 16:11:00Identifier 88914-4 Result Time 2019-11-12 16:11:00Unknown Test Item Value Reference Range Comments Serum or plasma calcium measurement 9.6 mg/dL Unknown Unknown F (mass/volume) (test code = 80698-9) Ordering Physician UnknownSerum or plasma aspartate aminotransferase [...] natriuretic peptide B measurement ( mass/volume)2019-11-12 16:11:00Identifier 35047-7 Result Time 2019-11-12 16:11: 00Unknown Test Item Value Reference Range Comments Serum or plasma natriuretic peptide B 33 pg/mL Unknown Unknown F measurement (mass/volume) (test code = 53156-9) Ordering Physician UnknownSerum or plasma urea nitrogen measurement (mass/volume )2019-11-12 16:11:00Identifier 3094-0 Result Time 2019-11-12 16:11:00Unknown Test Item Value Reference Range Comments Serum or plasma urea nitrogen measurement 15 mg/dL Unknown Unknown F (mass/volume) (test code = 3094-0) Ordering Physician UnknownSerum or plasma urea nitrogen/creatinine dbrdz9755-21- 08 16:11:00Identifier 3097-3 Result Time 2019-11-12 16:11:00Unknown Test Item Value Reference Range Comments Serum or plasma urea nitrogen/creatinine 22.1 Unknown Unknown F ratio (test code = 3097-3) Ordering Physician UnknownAutomated blood platelet mean volume jmblkjqgwwu0214- 01-08 16:11:00Identifier 80013-0 Result Time 2019-11-12 16:11:00Unknown Test Item Value Reference Range Comments Automated blood platelet mean volume 8.4 fL Unknown Unknown F measurement (test code = 84122-4) Ordering Physician UnknownSerum or plasma anion moi7179-29-17 16:11: 00Identifier 56643-5 Result Time 2019-11-12 16:11:00Unknown Test Item Value Reference Range Comments Serum or plasma anion gap (test code = 12 mmol/L Unknown Unknown F 39611-2) Ordering Physician UnknownAutomated blood leukocytes count corrected for nucleated erythrocytes (number/volume)2019-11-12 16:11:00Identifier 69346-5 Result Time 2019-11-12 16:11:00Unknown Test Item Value Reference Range Comments Automated blood leukocytes count 6.6 10^3/uL Unknown Unknown F corrected for nucleated erythrocytes (number/volume) (test code = 14772-1) Ordering Physician UnknownAutomated blood nucleated erythrocytes izzlnlxbx2007- 01-08 16:11:00Identifier 60175-2 Result Time 2019-11-12 16:11:00Unknown Test Item Value Reference Range Comments Automated blood nucleated erythrocytes 0.0 Unknown Unknown F detection (test code = 27053-5) Ordering Physician UnknownAutomated blood hematocrit (percentage)2019-11-12 16: 11:00Identifier 4544-3 Result Time 2019-11-12 16:11:00Unknown Test Item Value Reference Range Comments Automated blood hematocrit (percentage) (test 39 % Unknown Unknown F code = 4544-3) Ordering Physician UnknownEstimated glomerular filtration rate (GFR) non- Cekwtsey3881-67-53 16:11:00Identifier 97699-5 Result Time 2019-11-12 16: 11:00Unknown Test Item Value Reference Range Comments Estimated glomerular filtration rate (GFR) 88.9 Unknown Unknown F non- (test code = 05230-9) Ordering Physician UnknownAutomated blood monocytes/100 lgtmwxitnn1248-03-21 16: 11:00Identifier 5905-5 Result Time 2019-11-12 16:11:00Unknown Test Item Value Reference Range Comments Automated blood monocytes/100 leukocytes 5.1 % Unknown Unknown F (test code = 5905-5) Ordering Physician UnknownSerum or plasma albumin measurement by bromocresol green (BCG) dye binding method ([id number] 16:11:00Identifier 85975-7 Result Time 2019-11-12 16:11:00Unknown Test Item Value Reference Range Comments Serum or plasma albumin measurement by 4.0 g/dL Unknown Unknown F bromocresol green (BCG) dye binding method (ma (test code = 36141-2) Ordering Physician UnknownSerum or plasma alkaline phosphatase [...] = 704-7) Ordering Physician UnknownAutomated blood basophils/100 mlbkxadctm6726-12-79 16: 11:00Identifier 706-2 Result Time 2019-11-12 16:11:00Unknown [...] = 711-2) Ordering Physician UnknownAutomated blood eosinophils/100 oicchydvwj4279-32-28 16:11:00Identifier 713-8 Result Time 2019-11-12 16:11:00Unknown Test [...] = 731-0) Ordering Physician UnknownAutomated blood lymphocytes/100 dcvrfwxmbl5001-31-27 16:11:00Identifier 736-9 Result Time 2019-11-12 16:11:00Unknown Test Item Value Reference Range Comments Automated blood lymphocytes/100 leukocytes 16.3 % Unknown Unknown F (test code = 736-9) Ordering Physician UnknownBlood monocytes automated count (number/volume)2019-11 16:11:00Identifier 742-7 Result Time 2019-11-12 16:11:00Unknown Test Item Value Reference Range Comments Blood monocytes automated count 0.3 10^3/ul Unknown Unknown F (number/volume) (test code = 742-7) Ordering Physician UnknownAutomated blood neutrophils/100 nwbmsycujd7001-25-30 16:11:00Identifier 770-8 Result Time 2019-11-12 16:11:00Unknown Test [...] UnknownAutomated erythrocyte mean corpuscular hemoglobin concentration measurement (mass/drk6326-31-23 16:11:00Identifier 786-4 Result Time 2019-11-12 16:11:00Unknown Test Item Value Reference Range Comments Automated erythrocyte mean corpuscular 33 g/dL Unknown Unknown F hemoglobin concentration measurement (mass/vol (test code = 786-4) Ordering Physician UnknownAutomated erythrocyte mean corpuscular gyhbyw5796-92- 08 16:11:00Identifier 787-2 Result Time 2019-11-12 16:11:00Unknown Test Item Value Reference Range Comments Automated erythrocyte mean corpuscular volume 91 fL Unknown Unknown F (test code = 787-2) Ordering Physician UnknownAutomated erythrocyte distribution width qqbdu7009-68- 08 16:11:00Identifier 788-0 Result Time 2019-11-12 16:11:00Unknown [...] code = 789-8) Ordering Physician UnknownLymphocyte proliferation rvwv4459-55-57 16:11: 00Identifier HCS2929 Result Time 2019-11-12 16:11:00Unknown Test Item Value Reference Range Comments Lymphocyte proliferation test (test 5.0 10^3/ul Unknown Unknown F code = PQH2627) Ordering Physician Unknown
--- OUTSIDE RECORDS SUMMARY | 2020-01-19 15:56 | XMS REPORT ---
:1960 Author Organization [facility] Care Team Providers Name Role Phone Unavailable [...] Physician UnknownUrine urobilinogen measurement (units/volume) by test [id number] 17:40:00Identifier 27472-2 Result Time 2019-11-12 17:40: 00Unknown Test Item Value Reference Range Comments Urine urobilinogen measurement Negative Unknown Unknown F (units/volume) by test strip (test code = 99252-4) Ordering Physician UnknownInfluenza virus A RNA detection by probe and target amplification [id number] 17:40:00Identifier 16306-0 Result Time 17:40:00Unknown Test Item Value Reference Range Comments Influenza virus A RNA detection by probe Negative Unknown Unknown F and target amplification method (test code = 64834-6) Ordering Physician UnknownInfluenza virus B RNA detection by probe and target amplification [id number] 17:40:00Identifier 54437-0 Result Time 17:40:00Unknown Test Item Value Reference Range Comments Influenza virus B RNA detection by probe Negative Unknown Unknown F and target amplification method (test code = 94422-8) Ordering Physician UnknownUrine total bilirubin detection by automated test [id number] 17:40:00Identifier 57058-4 Result Time 2019-11-12 17:40: 00Unknown Test Item Value Reference Range Comments Urine total bilirubin detection by Negative Unknown Unknown F automated test strip (test code = 78023-4) Ordering Physician UnknownUrine clarity by refractometry [id number] 17: 40:00Identifier 18174-1 Result Time 2019-11-12 17:40:00Unknown Test Item Value Reference Range Comments Urine clarity by refractometry automated Clear Unknown Unknown F (test code = 83125-7) Ordering Physician UnknownColor of Urine by [id number] 17:40:00Identifier 61166-3 Result Time 2019-11-12 17:40:00Unknown Test Item Value Reference Range Comments Color of Urine by Auto (test code = 54137-2) Straw Unknown Unknown F Ordering Physician UnknownUrine glucose detection by automated test [id number] -08 17:40:00Identifier 12699-7 Result Time 2019-11-12 17:40:00Unknown Test Item Value Reference Range Comments Urine glucose detection by automated test Negative Unknown Unknown F strip (test code = 70790-7) Ordering Physician UnknownKetones [Mass/volume] in Urine by Automated test [id number] 17:40:00Identifier 62225-5 Result Time 2019-11-12 17:40: 00Unknown Test Item Value Reference Range Comments Ketones [Mass/volume] in Urine by Automated Trace Unknown Unknown F test strip (test code = 50876-0) Ordering Physician UnknownUrine nitrite detection by automated test [id number] -08 17:40:00Identifier 22449-3 Result Time 2019-11-12 17:40:00Unknown Test Item Value Reference Range Comments Urine nitrite detection by automated test Negative Unknown Unknown F strip (test code = 44998-6) Ordering Physician UnknownProtein [Mass/volume] in Urine by Automated test [id number] 17:40:00Identifier 13045-6 Result Time 2019-11-12 17:40: 00Unknown Test Item Value Reference Range Comments Protein [Mass/volume] in Urine by Negative Unknown Unknown F Automated test strip (test code = 96301-0) Ordering Physician UnknownSpecific gravity of Urine by Refractometry [id number] 17:40:00Identifier 58069-6 Result Time 2019-11-12 17:40: 00Unknown Test Item Value Reference Range Comments Specific gravity of Urine by Refractometry 1.004 Unknown Unknown F automated (test code = 43212-7) Ordering Physician UnknownUrine hemoglobin detection by test [id number] 17: 40:00Identifier 5794-3 Result Time 2019-11-12 17:40:00Unknown Test Item Value Reference Range Comments Urine hemoglobin detection by test strip Negative Unknown Unknown F (test code = 5794-3) Ordering Physician UnknownUrine leukocyte esterase detection by automated test [id number] 17:40:00Identifier 08692-9 Result Time 2019-11-12 17:40: 00Unknown Test Item Value Reference Range Comments Urine leukocyte esterase detection by Negative Unknown Unknown F automated test strip (test code = 96106-4) Ordering Physician UnknownArterial blood base excess [id number] 16:24 :00Identifier 1925-7 Result Time 2019-11-12 16:24:00Unknown Test Item Value Reference Range Comments Arterial blood base excess measurement 13.0 mmol/L Unknown Unknown F (test code = 1925-7) Ordering Physician UnknownArterial blood partial pressure of oxygen with temperature [id number] 16:24:00Identifier 79886-0 Result Time 16:24:00Unknown Test Item Value Reference Range Comments Arterial blood partial pressure of Not Reportable Unknown Unknown F oxygen with temperature correction (test code = 09362-8) Ordering Physician UnknownArterial blood bicarbonate measurement (moles/volume) 2019-11-12 16:24:00Identifier 1960-4 Result Time 2019-11-12 16:24:00Unknown Test Item Value Reference Range Comments Arterial blood bicarbonate measurement 34.9 mmol/L Unknown Unknown F (moles/volume) (test code = 1960-4) Ordering Physician UnknownArterial blood gas measurement with patient temperature [id number] 16:24:00Identifier 73509-9 Result Time 16:24:00Unknown Test Item Value Reference Range Comments Arterial blood gas measurement with Not Reportable Unknown Unknown F patient temperature correction (test code = 09898-4) Ordering Physician UnknownO2 saturation arterial [id number] 16:24: 00Identifier 2708-6 Result Time 2019-11-12 16:24:00Unknown Test Item Value Reference Range Comments O2 saturation arterial blood (test code = 92.6 % Unknown Unknown F 2708-6) Ordering Physician UnknownArterial blood pH [id number] 16:24: 00Identifier 2744-1 Result Time 2019-11-12 16:24:00Unknown Test Item Value Reference Range Comments Arterial blood pH measurement (test code = 7.40 Unknown Unknown F 2744-1) Ordering Physician UnknownPO2 arterial cord [id number] 16:24:00Identifier 06661-8 Result Time 2019-11-12 16:24:00Unknown Test Item Value Reference Range Comments PO2 arterial cord blood (test code = 59 mmHg Unknown Unknown F 65968-7) Ordering Physician UnknownArterial pCO2 with temperature [id number] 16 :24:00Identifier 15931-2 Result Time 2019-11-12 16:24:00Unknown Test Item Value Reference Range Comments Arterial pCO2 with temperature Not Reportable Unknown Unknown F correction (test code = 54177-6) Ordering Physician UnknownSerum or plasma troponin i.cardiac measurement (mass/ volume)2019-11-12 16:11:00Identifier 53906-8 Result Time 2019-11-12 16:11: 00Unknown Test Item Value Reference Range Comments Serum or plasma troponin i.cardiac 0.00 ng/mL Unknown Unknown F measurement (mass/volume) (test code = 72560-9) Ordering Physician UnknownSerum or plasma creatine kinase MB measurement (mass/ volume)2019-11-12 16:11:00Identifier 86495-3 Result Time 2019-11-12 16:11: 00Unknown Test Item Value Reference Range Comments Serum or plasma creatine kinase MB 1.9 ng/mL Unknown Unknown F measurement (mass/volume) (test code = 86047-0) Ordering Physician UnknownSerum or plasma alanine aminotransferase measurement ( enzymatic activity/volume)2019-11-12 16:11:00Identifier 1742-6 Result Time 11-12 16:11:00Unknown Test Item Value Reference Range Comments Serum or plasma alanine aminotransferase 9 U/L Unknown Unknown F measurement (enzymatic activity/volume) (test code = 1742-6) Ordering Physician UnknownSerum or plasma albumin/globulin mass [id number] 16:11:00Identifier 1759-0 Result Time 2019-11-12 16:11:00Unknown Test Item Value Reference Range Comments Serum or plasma albumin/globulin mass ratio 1.1 Unknown Unknown F (test code = 1759-0) Ordering Physician UnknownSerum or plasma calcium measurement (mass/volume)11-12 16:11:00Identifier 03919-9 Result Time 2019-11-12 16:11:00Unknown Test Item Value Reference Range Comments Serum or plasma calcium measurement 9.6 mg/dL Unknown Unknown F (mass/volume) (test code = 77960-7) Ordering Physician UnknownSerum or plasma aspartate aminotransferase [...] natriuretic peptide B measurement ( mass/volume)2019-11-12 16:11:00Identifier 12477-6 Result Time 2019-11-12 16:11: 00Unknown Test Item Value Reference Range Comments Serum or plasma natriuretic peptide B 33 pg/mL Unknown Unknown F measurement (mass/volume) (test code = 66476-6) Ordering Physician UnknownSerum or plasma urea nitrogen measurement (mass/volume )2019-11-12 16:11:00Identifier 3094-0 Result Time 2019-11-12 16:11:00Unknown Test Item Value Reference Range Comments Serum or plasma urea nitrogen measurement 15 mg/dL Unknown Unknown F (mass/volume) (test code = 3094-0) Ordering Physician UnknownSerum or plasma urea nitrogen/creatinine liksc2241-83- 08 16:11:00Identifier 3097-3 Result Time 2019-11-12 16:11:00Unknown Test Item Value Reference Range Comments Serum or plasma urea nitrogen/creatinine 22.1 Unknown Unknown F ratio (test code = 3097-3) Ordering Physician UnknownAutomated blood platelet mean volume bipjnfghqgc0353- 01-08 16:11:00Identifier 73994-6 Result Time 2019-11-12 16:11:00Unknown Test Item Value Reference Range Comments Automated blood platelet mean volume 8.4 fL Unknown Unknown F measurement (test code = 37435-1) Ordering Physician UnknownSerum or plasma anion ewv3626-01-29 16:11: 00Identifier 40797-1 Result Time 2019-11-12 16:11:00Unknown Test Item Value Reference Range Comments Serum or plasma anion gap (test code = 12 mmol/L Unknown Unknown F 30089-9) Ordering Physician UnknownAutomated blood leukocytes count corrected for nucleated erythrocytes (number/volume)2019-11-12 16:11:00Identifier 48770-6 Result Time 2019-11-12 16:11:00Unknown Test Item Value Reference Range Comments Automated blood leukocytes count 6.6 10^3/uL Unknown Unknown F corrected for nucleated erythrocytes (number/volume) (test code = 32848-0) Ordering Physician UnknownAutomated blood nucleated erythrocytes slclihxwn2096- 01-08 16:11:00Identifier 97297-3 Result Time 2019-11-12 16:11:00Unknown Test Item Value Reference Range Comments Automated blood nucleated erythrocytes 0.0 Unknown Unknown F detection (test code = 88014-0) Ordering Physician UnknownAutomated blood hematocrit (percentage)2019-11-12 16: 11:00Identifier 4544-3 Result Time 2019-11-12 16:11:00Unknown Test Item Value Reference Range Comments Automated blood hematocrit (percentage) (test 39 % Unknown Unknown F code = 4544-3) Ordering Physician UnknownEstimated glomerular filtration rate (GFR) non- Xretzzwb2434-48-13 16:11:00Identifier 73359-1 Result Time 2019-11-12 16: 11:00Unknown Test Item Value Reference Range Comments Estimated glomerular filtration rate (GFR) 88.9 Unknown Unknown F non- (test code = 02921-6) Ordering Physician UnknownAutomated blood monocytes/100 [id number] 16: 11:00Identifier 5905-5 Result Time 2019-11-12 16:11:00Unknown Test Item Value Reference Range Comments Automated blood monocytes/100 leukocytes 5.1 % Unknown Unknown F (test code = 5905-5) Ordering Physician UnknownSerum or plasma albumin measurement by bromocresol green (BCG) dye binding method (nq1904-05-29 16:11:00Identifier 38995-6 Result Time 2019-11-12 16:11:00Unknown Test Item Value Reference Range Comments Serum or plasma albumin measurement by 4.0 g/dL Unknown Unknown F bromocresol green (BCG) dye binding method (ma (test code = 31681-2) Ordering Physician UnknownSerum or plasma alkaline phosphatase [...] = 704-7) Ordering Physician UnknownAutomated blood basophils/100 [id number] 16: 11:00Identifier 706-2 Result Time 2019-11-12 16:11:00Unknown [...] = 711-2) Ordering Physician UnknownAutomated blood eosinophils/100 [id number] 16:11:00Identifier 713-8 Result Time 2019-11-12 16:11:00Unknown Test [...] = 731-0) Ordering Physician UnknownAutomated blood lymphocytes/100 [id number] 16:11:00Identifier 736-9 Result Time 2019-11-12 16:11:00Unknown Test Item Value Reference Range Comments Automated blood lymphocytes/100 leukocytes 16.3 % Unknown Unknown F (test code = 736-9) Ordering Physician UnknownBlood monocytes automated count (number/volume)2019-11 16:11:00Identifier 742-7 Result Time 2019-11-12 16:11:00Unknown Test Item Value Reference Range Comments Blood monocytes automated count 0.3 10^3/ul Unknown Unknown F (number/volume) (test code = 742-7) Ordering Physician UnknownAutomated blood neutrophils/100 [id number] 16:11:00Identifier 770-8 Result Time 2019-11-12 16:11:00Unknown Test [...] UnknownAutomated erythrocyte mean corpuscular hemoglobin concentration measurement (mass/etq0744-94-20 16:11:00Identifier 786-4 Result Time 2019-11-12 16:11:00Unknown Test Item Value Reference Range Comments Automated erythrocyte mean corpuscular 33 g/dL Unknown Unknown F hemoglobin concentration measurement (mass/vol (test code = 786-4) Ordering Physician UnknownAutomated erythrocyte mean corpuscular [id number]- 08 16:11:00Identifier 787-2 Result Time 2019-11-12 16:11:00Unknown Test Item Value Reference Range Comments Automated erythrocyte mean corpuscular volume 91 fL Unknown Unknown F (test code = 787-2) Ordering Physician UnknownAutomated erythrocyte distribution width [id number]- 08 16:11:00Identifier 788-0 Result Time 2019-11-12 16:11:00Unknown [...] code = 789-8) Ordering Physician UnknownLymphocyte proliferation [id number] 16:11: 00Identifier [id number] Result Time 2019-11-12 16:11:00Unknown Test Item Value Reference Range Comments Lymphocyte proliferation test (test 5.0 10^3/ul Unknown Unknown F code = XNZ9502) Ordering Physician Unknown
--- OUTSIDE RECORDS SUMMARY | 2020-01-19 15:56 | XMS REPORT ---
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 11-27 Tuan pulmonary pulmonary disease disease with with (acute) (acute) exacerbatio exacerbatio n n Anxiety Anxiety Diagnosis Active Mayi disorder, disorder, 11-27 Tuan unspecified unspecified Dependence Dependence Diagnosis Active Mayi on on 11-27 [place] supplementa supplementa l oxygen 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 longterm Diagnosis Active Mayi (current) (current) 11-27 Tuan use of use of antibiotics antibiotics Pain frequent Pain Mgmt Resolve 2019-12-03 Zena pain d 11-27 11:47:00 [place] 11:30: [id number] Cardio hypertensio Cardiovasc Resolve 2019-12-01 Zena n ular d 11-27 11:20:00 [place] 11:30: [id number] 00 Respiratory dyspnea Respirator Resolve 2019-12-30 Zena present y d 11-27 10:55:00 [place] 11:30: [id number] 00 Respiratory oxygen Respirator Resolve 2019-12-30 [place] treatments y d 11-27 10:55:00 Akash in home 11:30: [id number] 00 Respiratory knowledge/s Respirator Resolve 2019-12-30 Zena kill y d 11-27 10:55:00 [place] deficit: pt 11:30: [id number] 00 Respiratory knowledge/s Respirator Resolve 2019-12-30 Zena kill y d 11-27 10:55:00 [place] deficit: cg 11:30: [id number] 00 Respiratory lung sounds Respirator Resolve 2019-12-30 Zena deficit y d 11-27 10:55:00 [place] 11:30: [id number] Respiratory pneumonia Respirator Resolve 2019-12-30 Zena y d 11-27 10:55:00 [place] 11:30: [id number] 00 Respiratory nebulizer Respirator Resolve 2019-12-30 Zena treatment y d 11-27 10:55:00 [place] in home 11:30: [id number] 00 Nutrition changing Nutrition Resolve 2019-12-23 Zena weight/appe d 11-27 11:04:00 [place] tite 11:30: [id number] 00 Nutrition nutritional Nutrition Resolve 2019-12-23 Zena restriction d 11-27 11:04:00 [place] s 11:30: [id number] 00 Elimination urinary Eliminatio Resolve 2019-12-09 Zena incontinenc n d 11-27 12:05:00 [place] e 11:30: [id number] 00 Neuro confusion Neuro/Emot Resolve 2019-12-16 Zena present ion d 11-27 10:50:00 [place] 11:30: [id number] 00 Neuro anxiety Neuro/Emot Resolve 2019-12-16 Zena present ion d 11-27 10:50:00 [place] 11:30: [id number] 00 Neuro impaired Neuro/Emot Resolve 2019-12-16 Zena decision-ma ion d 11-27 10:50:00 [place] kris 11:30: [id number] 00 Activity ADL Activity Resolve 2019-12-30 Znea assistance d 11-27 10:55:00 [place] required 11:30: [id number] Activity self-care Activity Resolve 2019-12-30 Zena deficit d 11-27 10:55:00 [place] 11:30: [id number] 00 Safety structural Safety Resolve 2019-12-30 Zena barriers d 11-27 10:55:00 [place] present 11:30: [id number] 00 Safety fall risk Safety Resolve 2019-12-30 Zena factor d 11-27 10:55:00 [place] present 11:30: [id number] 00 Safety risk for Safety Resolve 2019-12-30 Zena hospitaliza d 11-27 10:55:00 [place] tion 11:30: [id number] 00 Safety can be left Safety Resolve 2019-12-30 Zena alone for d 11-27 10:55:00 [place] only short 11:30: [id number] 00 Medication oral med Meds Resolve 2019-12-09 Zena assistance d 11-27 12:05:00 [place] required 11:30: [id number] 00 Medication knowledge/s Meds Resolve 2019-12-09 Zena kill d 11-27 12:05:00 [place] deficit: pt 11:30: [id number] 00 Musculoskel transfer Musculoske Resolve 2019-12-09 Zena etal assistance letal d 11-27 12:05:00 [place] required 11:30: [id number] 00 Musculoskel requires Musculoske Resolve 2019-12-09 Zena etal human letal d 11-27 12:05:00 [place] assist to 11:30: [id number] leave home 00 Social knowledge/s SANDRA: Resolve 2019-12-29 Jessika Services kill Social d 12-01 10:30:00 [place] deficit - Services 14:15: [id number] pt 00 Social knowledge/s SANDRA: Resolve 2019-12-29 Jessika Services kill Social d 12-01 10:30:00 [place] deficit - Services 14:15: [id number] cg 00 24 Hr Diet nutrition NT: 24Hr Resolve 2019-12-29 Goldie intake Diet d 12-05 10:10:00 [place] deficit 12:54: [id number] 00 24 Hr Diet knowledge/s NT: 24Hr Resolve 2019-12-05 Goldie kill Diet d 12-05 12:54:00 [place] deficit - 12:54: [id number] pt 00 Nutritional food NT: Resolve 2019-12-05 Goldie Barrier storage/pre Barriers d 12-05 12:54:00 [place] p deficit 12:54: [id number] Nutritional eating NT: Resolve 2019-12-05 Goldie Barrier difficultie Barriers d 12-05 12:54:00 [place] s present 12:54: [id number] 00 Social knowledge/s SANDRA: Unknown Mayi Services kill Social 12-09 [place] deficit - Services 12:05: cg 00 Musculoskel transfer Musculoske Resolve 2019-12-16 Mayi etal assistance letal d - 10:50:00 [place] required 10:50: 00 24 Hr Diet knowledge/s NT: 24Hr Resolve 2019-12-19 Goldie kill Diet d 2- 12:40:00 [place] deficit - 12:40: [id number] pt 00 Nutritional food NT: Resolve 2019-12-19 Goldie Barrier storage/pre Barriers d 2-14 12:40:00 [place] p deficit 12:40: [id number] 00 Nutritional eating NT: Resolve 2019-12-19 Goldie Barrier difficultie Barriers d - 12:40:00 [place] s present 12:40: [id number] Neuro anxiety Neuro/Emot Resolve 2019-12-30 Mayi present ion d 12-23 10:55:00 [place] 11:04: 00 24 Hr Diet knowledge/s NT: 24Hr Resolve 2019-12-29 Goldie kill Diet d 2-24 10:10:00 [place] deficit - 10:10: [id number] pt 00 Nutritional food NT: Resolve 2019-12-29 Goldie Barrier storage/pre Barriers d 2-24 10:10:00 [place] p deficit 10:10: [id number] 00 Nutritional eating NT: Resolve 2019-12-29 Goldie Barrier difficultie Barriers d 2-24 10:10:00 [place] s present 10:10: [id number] 00 Medication oral med Meds Active Mayi assistance 12-30 [place] required 10:55: 00 Medication knowledge/s Meds Active Mayi kill 12-30 [place] deficit: pt 10:55: 00 Allergies, Adverse Reactions, Alerts Allergy Name Allergy Status Severity Reaction(s) Onset Inactive Treating Comments Type Date Date Clinician metronidazol Base Active Unknown Reaction Interface e Ingredient Unknown 08-01 Sulfa Unknown Active Unknown Reaction Interface (Sulfonamide Unknown 08-01 Antibiotics) amoxicillin Base Active Unknown DIARRHEA Ayah Beam Ingredient 1-10 azithromycin Base Active Unknown Diarrhea Ayah Beam Ingredient 1-10 Medications Ordered Filled Start Stop Current Ordering Indication Dosage Frequency Signature Comments Components Medication Medication Date Date Medication? Clinician (SIG) Name Name Combivent Combivent 2020- Yes [place] Unknown Unknown Respimat 20 Respimat 20 11-27 Harpreet SPRING mcg-100 mcg-100 mcg/actuati mcg/actuati on solution on solution for for inhalation inhalation Symbicort Symbicort 2019- Yes [place] Unknown Unknown 160 mcg-4.5 160 mcg-4.5 11-27 Harpreet SPR[place] mcg/actuati mcg/actuati on HFA on HFA aerosol aerosol inhaler inhaler ascorbic ascorbic 2020- Yes Bre[place] Unknown Unknown acid acid 11-27 Harpreet SPR[place] (vitamin C) (vitamin C) 1,000 mg 1,000 mg tablet tablet montelukast montelukast 2019- Yes Bre[place] Unknown Unknown 10 mg 10 mg 11-27 Harpreet SPRING tablet tablet Spiriva Spiriva 2019- No Bre[place] Unknown Unknown with with 12-30 Harpreet SPRING HandiHaler HandiHaler 18 mcg and 18 mcg and inhalation inhalation capsules capsules albuterol albuterol 2019- No [place] Unknown Unknown sulfate 2.5 sulfate 2.5 12-30 Harpreet [place] mg/3 mL mg/3 mL (0.083 %) (0.083 %) solution solution for for nebulizatio nebulizatio n n Claritin-D Claritin-D 2019- No Bre[place] Unknown Unknown 12 Hour 5 12 Hour 5 12-30 Harpreet SPR[place] mg-120 mg mg-120 mg tablet,exte tablet,exte nded nded release release Oxygen Oxygen 2019- Yes Bre[place] Unknown Unknown 11-27 Harpreet [place] Lactobac. Lactobac. 2020- Yes [place] Unknown Unknown acidophilus acidophilus 11-27 Harpreet [place] -Bifido. -Bifido. animalis 10 animalis 10 billion billion cell cell chewable chewable tablet tablet ipratropium ipratropium 2020- Yes Bre[place] Unknown Unknown -albuterol -albuterol 11-27 Harpreet [place] 0.5 mg-3 0.5 mg-3 mg(2.5 mg mg(2.5 mg base)/3 mL base)/3 mL nebulizatio nebulizatio n soln n soln clonazePAM clonazePAM 2019- Yes [place] Unknown Unknown 1 mg tablet 1 mg tablet 11-27 ,Harpreet predniSONE predniSONE 2019- Yes [place] Unknown Unknown 10 mg 10 mg 11-27 ,Harpreet tablet tablet busPIRone busPIRone 2019- Yes [place] Unknown Unknown 10 mg 10 mg 11-27 ,Harpreet tablet tablet Stiolto Stiolto 2019- Yes [place] Unknown Unknown Respimat Respimat 11-27 ,Harpreet 2.5 mcg-2.5 2.5 mcg-2.5 mcg/actuati mcg/actuati on solution on solution for for inhalation inhalation acetylcyste acetylcyste 2019- Yes [place] Unknown Unknown ine 200 ine 200 12-02 ,Harpreet mg/mL (20 mg/mL (20 %) solution %) solution Vital Signs Vital Name Observation Time Observation Value Comments SYSTOLIC mm[Hg] 2019-12-30 18:10:34 110 mm[Hg] mm[Hg] Method: Sit SYSTOLIC mm[Hg] 2019-11-27 18:10:01 130 mm[Hg] mm[Hg] Method: Stand DIASTOLIC mm[Hg] 2019-12-30 18:10:34 62 mm[Hg] mm[Hg] Method: Sit DIASTOLIC mm[Hg] 2019-11-27 18:10:01 80 mm[Hg] mm[Hg] Method: Stand PULSE 2019-12-30 18:10:34 88 /min /min RESP RATE 2019-12-30 18:10:34 20 /min /min TEMP 2019-12-30 18:10:34 98.4 [degF] Procedures This patient has no known procedures. Results This patient has no known results.
--- OUTSIDE RECORDS SUMMARY | 2020-01-19 15:56 | XMS REPORT ---
:1960 Author Organization [facility] Care Team Providers Name Role Phone Unavailable [...] Physician UnknownUrine urobilinogen measurement (units/volume) by test [id number] 17:40:00Identifier 75928-6 Result Time 2019-11-12 17:40: 00Unknown Test Item Value Reference Range Comments Urine urobilinogen measurement Negative Unknown Unknown F (units/volume) by test strip (test code = 92055-7) Ordering Physician UnknownInfluenza virus A RNA detection by probe and target amplification [id number] 17:40:00Identifier 87856-4 Result Time 17:40:00Unknown Test Item Value Reference Range Comments Influenza virus A RNA detection by probe Negative Unknown Unknown F and target amplification method (test code = 68131-4) Ordering Physician UnknownInfluenza virus B RNA detection by probe and target amplification [id number] 17:40:00Identifier 73189-5 Result Time 17:40:00Unknown Test Item Value Reference Range Comments Influenza virus B RNA detection by probe Negative Unknown Unknown F and target amplification method (test code = 08643-5) Ordering Physician UnknownUrine total bilirubin detection by automated test [id number] 17:40:00Identifier 37751-5 Result Time 2019-11-12 17:40: 00Unknown Test Item Value Reference Range Comments Urine total bilirubin detection by Negative Unknown Unknown F automated test strip (test code = 26695-6) Ordering Physician UnknownUrine clarity by refractometry dazuqskhx1419-40-83 17: 40:00Identifier 98468-9 Result Time 2019-11-12 17:40:00Unknown Test Item Value Reference Range Comments Urine clarity by refractometry automated Clear Unknown Unknown F (test code = 43427-4) Ordering Physician UnknownColor of Urine by Dljz1924-85-32 17:40:00Identifier 02113-9 Result Time 2019-11-12 17:40:00Unknown Test Item Value Reference Range Comments Color of Urine by Auto (test code = 85560-5) Straw Unknown Unknown F Ordering Physician UnknownUrine glucose detection by automated test iqjax3351-27 -08 17:40:00Identifier 35644-6 Result Time 2019-11-12 17:40:00Unknown Test Item Value Reference Range Comments Urine glucose detection by automated test Negative Unknown Unknown F strip (test code = 16564-9) Ordering Physician UnknownKetones [Mass/volume] in Urine by Automated test gnuhy5949-32-70 17:40:00Identifier 58357-9 Result Time 2019-11-12 17:40: 00Unknown Test Item Value Reference Range Comments Ketones [Mass/volume] in Urine by Automated Trace Unknown Unknown F test strip (test code = 62417-5) Ordering Physician UnknownUrine nitrite detection by automated test [id number] -08 17:40:00Identifier 36252-5 Result Time 2019-11-12 17:40:00Unknown Test Item Value Reference Range Comments Urine nitrite detection by automated test Negative Unknown Unknown F strip (test code = 73415-0) Ordering Physician UnknownProtein [Mass/volume] in Urine by Automated test [id number] 17:40:00Identifier 37190-5 Result Time 2019-11-12 17:40: 00Unknown Test Item Value Reference Range Comments Protein [Mass/volume] in Urine by Negative Unknown Unknown F Automated test strip (test code = 78965-9) Ordering Physician UnknownSpecific gravity of Urine by Refractometry [id number] 17:40:00Identifier 97661-1 Result Time 2019-11-12 17:40: 00Unknown Test Item Value Reference Range Comments Specific gravity of Urine by Refractometry 1.004 Unknown Unknown F automated (test code = 53120-6) Ordering Physician UnknownUrine hemoglobin detection by test [id number] 17: 40:00Identifier 5794-3 Result Time 2019-11-12 17:40:00Unknown Test Item Value Reference Range Comments Urine hemoglobin detection by test strip Negative Unknown Unknown F (test code = 5794-3) Ordering Physician UnknownUrine leukocyte esterase detection by automated test [id number] 17:40:00Identifier 03707-7 Result Time 2019-11-12 17:40: 00Unknown Test Item Value Reference Range Comments Urine leukocyte esterase detection by Negative Unknown Unknown F automated test strip (test code = 20876-8) Ordering Physician UnknownArterial blood base excess [id number] 16:24 :00Identifier 1925-7 Result Time 2019-11-12 16:24:00Unknown Test Item Value Reference Range Comments Arterial blood base excess measurement 13.0 mmol/L Unknown Unknown F (test code = 1925-7) Ordering Physician UnknownArterial blood partial pressure of oxygen with temperature [id number] 16:24:00Identifier 29653-4 Result Time 16:24:00Unknown Test Item Value Reference Range Comments Arterial blood partial pressure of Not Reportable Unknown Unknown F oxygen with temperature correction (test code = 03944-7) Ordering Physician UnknownArterial blood bicarbonate measurement (moles/volume) 2019-11-12 16:24:00Identifier 1960-4 Result Time 2019-11-12 16:24:00Unknown Test Item Value Reference Range Comments Arterial blood bicarbonate measurement 34.9 mmol/L Unknown Unknown F (moles/volume) (test code = 1960-4) Ordering Physician UnknownArterial blood gas measurement with patient temperature qnjteeeyhx6630-44-24 16:24:00Identifier 81950-2 Result Time 16:24:00Unknown Test Item Value Reference Range Comments Arterial blood gas measurement with Not Reportable Unknown Unknown F patient temperature correction (test code = 22090-2) Ordering Physician UnknownO2 saturation arterial [id number] 16:24: 00Identifier 2708-6 Result Time 2019-11-12 16:24:00Unknown Test Item Value Reference Range Comments O2 saturation arterial blood (test code = 92.6 % Unknown Unknown F 2708-6) Ordering Physician UnknownArterial blood pH lkbtykxzxfw7643-46-52 16:24: 00Identifier 2744-1 Result Time 2019-11-12 16:24:00Unknown Test Item Value Reference Range Comments Arterial blood pH measurement (test code = 7.40 Unknown Unknown F 2744-1) Ordering Physician UnknownPO2 arterial cord grfkq1486-07-68 16:24:00Identifier 78048-5 Result Time 2019-11-12 16:24:00Unknown Test Item Value Reference Range Comments PO2 arterial cord blood (test code = 59 mmHg Unknown Unknown F 16123-3) Ordering Physician UnknownArterial pCO2 with temperature eyusxcbhkm8140-81-24 16 :24:00Identifier 48747-9 Result Time 2019-11-12 16:24:00Unknown Test Item Value Reference Range Comments Arterial pCO2 with temperature Not Reportable Unknown Unknown F correction (test code = 93703-5) Ordering Physician UnknownSerum or plasma troponin i.cardiac measurement (mass/ volume)2019-11-12 16:11:00Identifier 94277-1 Result Time 2019-11-12 16:11: 00Unknown Test Item Value Reference Range Comments Serum or plasma troponin i.cardiac 0.00 ng/mL Unknown Unknown F measurement (mass/volume) (test code = 81152-6) Ordering Physician UnknownSerum or plasma creatine kinase MB measurement (mass/ volume)2019-11-12 16:11:00Identifier 02129-0 Result Time 2019-11-12 16:11: 00Unknown Test Item Value Reference Range Comments Serum or plasma creatine kinase MB 1.9 ng/mL Unknown Unknown F measurement (mass/volume) (test code = 36627-0) Ordering Physician UnknownSerum or plasma alanine aminotransferase measurement ( enzymatic activity/volume)2019-11-12 16:11:00Identifier 1742-6 Result Time 11-12 16:11:00Unknown Test Item Value Reference Range Comments Serum or plasma alanine aminotransferase 9 U/L Unknown Unknown F measurement (enzymatic activity/volume) (test code = 1742-6) Ordering Physician UnknownSerum or plasma albumin/globulin mass wumqs7620-64-40 16:11:00Identifier 1759-0 Result Time 2019-11-12 16:11:00Unknown Test Item Value Reference Range Comments Serum or plasma albumin/globulin mass ratio 1.1 Unknown Unknown F (test code = 1759-0) Ordering Physician UnknownSerum or plasma calcium measurement (mass/volume)11-12 16:11:00Identifier 31104-3 Result Time 2019-11-12 16:11:00Unknown Test Item Value Reference Range Comments Serum or plasma calcium measurement 9.6 mg/dL Unknown Unknown F (mass/volume) (test code = 15553-9) Ordering Physician UnknownSerum or plasma aspartate aminotransferase [...] natriuretic peptide B measurement ( mass/volume)2019-11-12 16:11:00Identifier 12092-4 Result Time 2019-11-12 16:11: 00Unknown Test Item Value Reference Range Comments Serum or plasma natriuretic peptide B 33 pg/mL Unknown Unknown F measurement (mass/volume) (test code = 33733-7) Ordering Physician UnknownSerum or plasma urea nitrogen measurement (mass/volume )2019-11-12 16:11:00Identifier 3094-0 Result Time 2019-11-12 16:11:00Unknown Test Item Value Reference Range Comments Serum or plasma urea nitrogen measurement 15 mg/dL Unknown Unknown F (mass/volume) (test code = 3094-0) Ordering Physician UnknownSerum or plasma urea nitrogen/creatinine dxzbu7700-07- 08 16:11:00Identifier 3097-3 Result Time 2019-11-12 16:11:00Unknown Test Item Value Reference Range Comments Serum or plasma urea nitrogen/creatinine 22.1 Unknown Unknown F ratio (test code = 3097-3) Ordering Physician UnknownAutomated blood platelet mean volume elsdxtmxcao6447- 01-08 16:11:00Identifier 25896-8 Result Time 2019-11-12 16:11:00Unknown Test Item Value Reference Range Comments Automated blood platelet mean volume 8.4 fL Unknown Unknown F measurement (test code = 23979-1) Ordering Physician UnknownSerum or plasma anion wbu4753-01-59 16:11: 00Identifier 38052-7 Result Time 2019-11-12 16:11:00Unknown Test Item Value Reference Range Comments Serum or plasma anion gap (test code = 12 mmol/L Unknown Unknown F 91039-1) Ordering Physician UnknownAutomated blood leukocytes count corrected for nucleated erythrocytes (number/volume)2019-11-12 16:11:00Identifier 65704-2 Result Time 2019-11-12 16:11:00Unknown Test Item Value Reference Range Comments Automated blood leukocytes count 6.6 10^3/uL Unknown Unknown F corrected for nucleated erythrocytes (number/volume) (test code = 40917-6) Ordering Physician UnknownAutomated blood nucleated erythrocytes vpurtepli2991- 01-08 16:11:00Identifier 96876-8 Result Time 2019-11-12 16:11:00Unknown Test Item Value Reference Range Comments Automated blood nucleated erythrocytes 0.0 Unknown Unknown F detection (test code = 19635-3) Ordering Physician UnknownAutomated blood hematocrit (percentage)2019-11-12 16: 11:00Identifier 4544-3 Result Time 2019-11-12 16:11:00Unknown Test Item Value Reference Range Comments Automated blood hematocrit (percentage) (test 39 % Unknown Unknown F code = 4544-3) Ordering Physician UnknownEstimated glomerular filtration rate (GFR) non- Xjfchynn7431-56-67 16:11:00Identifier 50980-6 Result Time 2019-11-12 16: 11:00Unknown Test Item Value Reference Range Comments Estimated glomerular filtration rate (GFR) 88.9 Unknown Unknown F non- (test code = 97484-6) Ordering Physician UnknownAutomated blood monocytes/100 xcdrlsvuzj2336-76-62 16: 11:00Identifier 5905-5 Result Time 2019-11-12 16:11:00Unknown Test Item Value Reference Range Comments Automated blood monocytes/100 leukocytes 5.1 % Unknown Unknown F (test code = 5905-5) Ordering Physician UnknownSerum or plasma albumin measurement by bromocresol green (BCG) dye binding method ([id number] 16:11:00Identifier 30252-8 Result Time 2019-11-12 16:11:00Unknown Test Item Value Reference Range Comments Serum or plasma albumin measurement by 4.0 g/dL Unknown Unknown F bromocresol green (BCG) dye binding method (ma (test code = 41078-8) Ordering Physician UnknownSerum or plasma alkaline phosphatase [...] = 704-7) Ordering Physician UnknownAutomated blood basophils/100 yxjcpnbfju3037-63-63 16: 11:00Identifier 706-2 Result Time 2019-11-12 16:11:00Unknown [...] = 711-2) Ordering Physician UnknownAutomated blood eosinophils/100 vvzjtqisxh6440-52-64 16:11:00Identifier 713-8 Result Time 2019-11-12 16:11:00Unknown Test [...] = 731-0) Ordering Physician UnknownAutomated blood lymphocytes/100 krrwqnziwk7393-76-07 16:11:00Identifier 736-9 Result Time 2019-11-12 16:11:00Unknown Test Item Value Reference Range Comments Automated blood lymphocytes/100 leukocytes 16.3 % Unknown Unknown F (test code = 736-9) Ordering Physician UnknownBlood monocytes automated count (number/volume)2019-11 16:11:00Identifier 742-7 Result Time 2019-11-12 16:11:00Unknown Test Item Value Reference Range Comments Blood monocytes automated count 0.3 10^3/ul Unknown Unknown F (number/volume) (test code = 742-7) Ordering Physician UnknownAutomated blood neutrophils/100 hgtqngfmlx8732-02-84 16:11:00Identifier 770-8 Result Time 2019-11-12 16:11:00Unknown Test [...] UnknownAutomated erythrocyte mean corpuscular hemoglobin concentration measurement (mass/fmy0840-59-16 16:11:00Identifier 786-4 Result Time 2019-11-12 16:11:00Unknown Test Item Value Reference Range Comments Automated erythrocyte mean corpuscular 33 g/dL Unknown Unknown F hemoglobin concentration measurement (mass/vol (test code = 786-4) Ordering Physician UnknownAutomated erythrocyte mean corpuscular nhxnxp2625-32- 08 16:11:00Identifier 787-2 Result Time 2019-11-12 16:11:00Unknown Test Item Value Reference Range Comments Automated erythrocyte mean corpuscular volume 91 fL Unknown Unknown F (test code = 787-2) Ordering Physician UnknownAutomated erythrocyte distribution width qdkvy5978-22- 08 16:11:00Identifier 788-0 Result Time 2019-11-12 16:11:00Unknown [...] code = 789-8) Ordering Physician UnknownLymphocyte proliferation talh9487-55-22 16:11: 00Identifier VUL7742 Result Time 2019-11-12 16:11:00Unknown Test Item Value Reference Range Comments Lymphocyte proliferation test (test 5.0 10^3/ul Unknown Unknown F code = QPC2620) Ordering Physician Unknown
--- OUTSIDE RECORDS SUMMARY | 2020-01-19 15:56 | XMS REPORT ---
:1960 Author Organization [facility] Care Team Providers Name Role Phone Unavailable [...] Physician UnknownUrine urobilinogen measurement (units/volume) by test [id number] 17:40:00Identifier 37064-7 Result Time 2019-11-12 17:40: 00Unknown Test Item Value Reference Range Comments Urine urobilinogen measurement Negative Unknown Unknown F (units/volume) by test strip (test code = 64569-5) Ordering Physician UnknownInfluenza virus A RNA detection by probe and target amplification [id number] 17:40:00Identifier 31139-5 Result Time 17:40:00Unknown Test Item Value Reference Range Comments Influenza virus A RNA detection by probe Negative Unknown Unknown F and target amplification method (test code = 99621-5) Ordering Physician UnknownInfluenza virus B RNA detection by probe and target amplification [id number] 17:40:00Identifier 98081-2 Result Time 17:40:00Unknown Test Item Value Reference Range Comments Influenza virus B RNA detection by probe Negative Unknown Unknown F and target amplification method (test code = 08464-2) Ordering Physician UnknownUrine total bilirubin detection by automated test [id number] 17:40:00Identifier 89422-4 Result Time 2019-11-12 17:40: 00Unknown Test Item Value Reference Range Comments Urine total bilirubin detection by Negative Unknown Unknown F automated test strip (test code = 73000-2) Ordering Physician UnknownUrine clarity by refractometry [id number] 17: 40:00Identifier 05267-0 Result Time 2019-11-12 17:40:00Unknown Test Item Value Reference Range Comments Urine clarity by refractometry automated Clear Unknown Unknown F (test code = 72023-4) Ordering Physician UnknownColor of Urine by Uncq8770-82-89 17:40:00Identifier 14366-8 Result Time 2019-11-12 17:40:00Unknown Test Item Value Reference Range Comments Color of Urine by Auto (test code = 33686-8) Straw Unknown Unknown F Ordering Physician UnknownUrine glucose detection by automated test [id number] -08 17:40:00Identifier 53015-2 Result Time 2019-11-12 17:40:00Unknown Test Item Value Reference Range Comments Urine glucose detection by automated test Negative Unknown Unknown F strip (test code = 76123-6) Ordering Physician UnknownKetones [Mass/volume] in Urine by Automated test [id number] 17:40:00Identifier 70894-6 Result Time 2019-11-12 17:40: 00Unknown Test Item Value Reference Range Comments Ketones [Mass/volume] in Urine by Automated Trace Unknown Unknown F test strip (test code = 73115-6) Ordering Physician UnknownUrine nitrite detection by automated test [id number] -08 17:40:00Identifier 12773-0 Result Time 2019-11-12 17:40:00Unknown Test Item Value Reference Range Comments Urine nitrite detection by automated test Negative Unknown Unknown F strip (test code = 01198-6) Ordering Physician UnknownProtein [Mass/volume] in Urine by Automated test [id number] 17:40:00Identifier 86985-4 Result Time 2019-11-12 17:40: 00Unknown Test Item Value Reference Range Comments Protein [Mass/volume] in Urine by Negative Unknown Unknown F Automated test strip (test code = 67789-6) Ordering Physician UnknownSpecific gravity of Urine by Refractometry [id number] 17:40:00Identifier 29671-4 Result Time 2019-11-12 17:40: 00Unknown Test Item Value Reference Range Comments Specific gravity of Urine by Refractometry 1.004 Unknown Unknown F automated (test code = 23057-0) Ordering Physician UnknownUrine hemoglobin detection by test [id number] 17: 40:00Identifier 5794-3 Result Time 2019-11-12 17:40:00Unknown Test Item Value Reference Range Comments Urine hemoglobin detection by test strip Negative Unknown Unknown F (test code = 5794-3) Ordering Physician UnknownUrine leukocyte esterase detection by automated test [id number] 17:40:00Identifier 33629-1 Result Time 2019-11-12 17:40: 00Unknown Test Item Value Reference Range Comments Urine leukocyte esterase detection by Negative Unknown Unknown F automated test strip (test code = 23362-7) Ordering Physician UnknownArterial blood base excess [id number] 16:24 :00Identifier 1925-7 Result Time 2019-11-12 16:24:00Unknown Test Item Value Reference Range Comments Arterial blood base excess measurement 13.0 mmol/L Unknown Unknown F (test code = 1925-7) Ordering Physician UnknownArterial blood partial pressure of oxygen with temperature mzmduqkhta0078-90-75 16:24:00Identifier 84006-1 Result Time 16:24:00Unknown Test Item Value Reference Range Comments Arterial blood partial pressure of Not Reportable Unknown Unknown F oxygen with temperature correction (test code = 11100-9) Ordering Physician UnknownArterial blood bicarbonate measurement (moles/volume) 2019-11-12 16:24:00Identifier 1960-4 Result Time 2019-11-12 16:24:00Unknown Test Item Value Reference Range Comments Arterial blood bicarbonate measurement 34.9 mmol/L Unknown Unknown F (moles/volume) (test code = 1960-4) Ordering Physician UnknownArterial blood gas measurement with patient temperature rzcobjtomc4118-70-07 16:24:00Identifier 77141-5 Result Time 16:24:00Unknown Test Item Value Reference Range Comments Arterial blood gas measurement with Not Reportable Unknown Unknown F patient temperature correction (test code = 79366-1) Ordering Physician UnknownO2 saturation arterial zpedi1348-20-92 16:24: 00Identifier 2708-6 Result Time 2019-11-12 16:24:00Unknown Test Item Value Reference Range Comments O2 saturation arterial blood (test code = 92.6 % Unknown Unknown F 2708-6) Ordering Physician UnknownArterial blood pH nkhfjufmdes1921-49-85 16:24: 00Identifier 2744-1 Result Time 2019-11-12 16:24:00Unknown Test Item Value Reference Range Comments Arterial blood pH measurement (test code = 7.40 Unknown Unknown F 2744-1) Ordering Physician UnknownPO2 arterial cord [id number] 16:24:00Identifier 40953-8 Result Time 2019-11-12 16:24:00Unknown Test Item Value Reference Range Comments PO2 arterial cord blood (test code = 59 mmHg Unknown Unknown F 86871-8) Ordering Physician UnknownArterial pCO2 with temperature gnbkszxisc9713-63-88 16 :24:00Identifier 97726-8 Result Time 2019-11-12 16:24:00Unknown Test Item Value Reference Range Comments Arterial pCO2 with temperature Not Reportable Unknown Unknown F correction (test code = 92453-3) Ordering Physician UnknownSerum or plasma troponin i.cardiac measurement (mass/ volume)2019-11-12 16:11:00Identifier 85873-2 Result Time 2019-11-12 16:11: 00Unknown Test Item Value Reference Range Comments Serum or plasma troponin i.cardiac 0.00 ng/mL Unknown Unknown F measurement (mass/volume) (test code = 33779-8) Ordering Physician UnknownSerum or plasma creatine kinase MB measurement (mass/ volume)2019-11-12 16:11:00Identifier 33216-7 Result Time 2019-11-12 16:11: 00Unknown Test Item Value Reference Range Comments Serum or plasma creatine kinase MB 1.9 ng/mL Unknown Unknown F measurement (mass/volume) (test code = 87850-6) Ordering Physician UnknownSerum or plasma alanine aminotransferase measurement ( enzymatic activity/volume)2019-11-12 16:11:00Identifier 1742-6 Result Time 11-12 16:11:00Unknown Test Item Value Reference Range Comments Serum or plasma alanine aminotransferase 9 U/L Unknown Unknown F measurement (enzymatic activity/volume) (test code = 1742-6) Ordering Physician UnknownSerum or plasma albumin/globulin mass [id number] 16:11:00Identifier 1759-0 Result Time 2019-11-12 16:11:00Unknown Test Item Value Reference Range Comments Serum or plasma albumin/globulin mass ratio 1.1 Unknown Unknown F (test code = 1759-0) Ordering Physician UnknownSerum or plasma calcium measurement (mass/volume)11-12 16:11:00Identifier 31577-8 Result Time 2019-11-12 16:11:00Unknown Test Item Value Reference Range Comments Serum or plasma calcium measurement 9.6 mg/dL Unknown Unknown F (mass/volume) (test code = 17091-6) Ordering Physician UnknownSerum or plasma aspartate aminotransferase [...] natriuretic peptide B measurement ( mass/volume)2019-11-12 16:11:00Identifier 78662-6 Result Time 2019-11-12 16:11: 00Unknown Test Item Value Reference Range Comments Serum or plasma natriuretic peptide B 33 pg/mL Unknown Unknown F measurement (mass/volume) (test code = 84101-5) Ordering Physician UnknownSerum or plasma urea nitrogen measurement (mass/volume )2019-11-12 16:11:00Identifier 3094-0 Result Time 2019-11-12 16:11:00Unknown Test Item Value Reference Range Comments Serum or plasma urea nitrogen measurement 15 mg/dL Unknown Unknown F (mass/volume) (test code = 3094-0) Ordering Physician UnknownSerum or plasma urea nitrogen/creatinine ymfwb8563-94- 08 16:11:00Identifier 3097-3 Result Time 2019-11-12 16:11:00Unknown Test Item Value Reference Range Comments Serum or plasma urea nitrogen/creatinine 22.1 Unknown Unknown F ratio (test code = 3097-3) Ordering Physician UnknownAutomated blood platelet mean volume ruqjwzmzlqo5462- 01-08 16:11:00Identifier 89916-3 Result Time 2019-11-12 16:11:00Unknown Test Item Value Reference Range Comments Automated blood platelet mean volume 8.4 fL Unknown Unknown F measurement (test code = 51034-4) Ordering Physician UnknownSerum or plasma anion [id number] 16:11: 00Identifier 70649-3 Result Time 2019-11-12 16:11:00Unknown Test Item Value Reference Range Comments Serum or plasma anion gap (test code = 12 mmol/L Unknown Unknown F 03795-9) Ordering Physician UnknownAutomated blood leukocytes count corrected for nucleated erythrocytes (number/volume)2019-11-12 16:11:00Identifier 31835-8 Result Time 2019-11-12 16:11:00Unknown Test Item Value Reference Range Comments Automated blood leukocytes count 6.6 10^3/uL Unknown Unknown F corrected for nucleated erythrocytes (number/volume) (test code = 40656-5) Ordering Physician UnknownAutomated blood nucleated erythrocytes lxycvcalz8310- 01-08 16:11:00Identifier 44394-8 Result Time 2019-11-12 16:11:00Unknown Test Item Value Reference Range Comments Automated blood nucleated erythrocytes 0.0 Unknown Unknown F detection (test code = 95899-9) Ordering Physician UnknownAutomated blood hematocrit (percentage)2019-11-12 16: 11:00Identifier 4544-3 Result Time 2019-11-12 16:11:00Unknown Test Item Value Reference Range Comments Automated blood hematocrit (percentage) (test 39 % Unknown Unknown F code = 4544-3) Ordering Physician UnknownEstimated glomerular filtration rate (GFR) non- Ipmqnybj1904-38-16 16:11:00Identifier 82601-6 Result Time 2019-11-12 16: 11:00Unknown Test Item Value Reference Range Comments Estimated glomerular filtration rate (GFR) 88.9 Unknown Unknown F non- (test code = 94431-7) Ordering Physician UnknownAutomated blood monocytes/100 zpqkqyrups0674-09-65 16: 11:00Identifier 5905-5 Result Time 2019-11-12 16:11:00Unknown Test Item Value Reference Range Comments Automated blood monocytes/100 leukocytes 5.1 % Unknown Unknown F (test code = 5905-5) Ordering Physician UnknownSerum or plasma albumin measurement by bromocresol green (BCG) dye binding method ([id number] 16:11:00Identifier 98725-0 Result Time 2019-11-12 16:11:00Unknown Test Item Value Reference Range Comments Serum or plasma albumin measurement by 4.0 g/dL Unknown Unknown F bromocresol green (BCG) dye binding method (ma (test code = 58286-9) Ordering Physician UnknownSerum or plasma alkaline phosphatase [...] = 704-7) Ordering Physician UnknownAutomated blood basophils/100 [id number] 16: 11:00Identifier 706-2 Result Time 2019-11-12 16:11:00Unknown [...] = 711-2) Ordering Physician UnknownAutomated blood eosinophils/100 ctiegvgzrw3962-56-04 16:11:00Identifier 713-8 Result Time 2019-11-12 16:11:00Unknown Test [...] = 731-0) Ordering Physician UnknownAutomated blood lymphocytes/100 wwsipmwivl9698-46-42 16:11:00Identifier 736-9 Result Time 2019-11-12 16:11:00Unknown Test Item Value Reference Range Comments Automated blood lymphocytes/100 leukocytes 16.3 % Unknown Unknown F (test code = 736-9) Ordering Physician UnknownBlood monocytes automated count (number/volume)2019-11 16:11:00Identifier 742-7 Result Time 2019-11-12 16:11:00Unknown Test Item Value Reference Range Comments Blood monocytes automated count 0.3 10^3/ul Unknown Unknown F (number/volume) (test code = 742-7) Ordering Physician UnknownAutomated blood neutrophils/100 qgdfcrlubf4970-11-51 16:11:00Identifier 770-8 Result Time 2019-11-12 16:11:00Unknown Test [...] UnknownAutomated erythrocyte mean corpuscular hemoglobin concentration measurement (mass/ylb9349-04-56 16:11:00Identifier 786-4 Result Time 2019-11-12 16:11:00Unknown Test Item Value Reference Range Comments Automated erythrocyte mean corpuscular 33 g/dL Unknown Unknown F hemoglobin concentration measurement (mass/vol (test code = 786-4) Ordering Physician UnknownAutomated erythrocyte mean corpuscular oyrpsb9127-01- 08 16:11:00Identifier 787-2 Result Time 2019-11-12 16:11:00Unknown Test Item Value Reference Range Comments Automated erythrocyte mean corpuscular volume 91 fL Unknown Unknown F (test code = 787-2) Ordering Physician UnknownAutomated erythrocyte distribution width lcnlj4375-83- 08 16:11:00Identifier 788-0 Result Time 2019-11-12 16:11:00Unknown [...] code = 789-8) Ordering Physician UnknownLymphocyte proliferation ntku6769-48-63 16:11: 00Identifier RIL6422 Result Time 2019-11-12 16:11:00Unknown Test Item Value Reference Range Comments Lymphocyte proliferation test (test 5.0 10^3/ul Unknown Unknown F code = THK7478) Ordering Physician Unknown
--- OUTSIDE RECORDS SUMMARY | 2020-01-19 15:56 | XMS REPORT ---
:1960 Author Organization [facility] Care Team Providers Name Role Phone Unavailable [...] Physician UnknownUrine urobilinogen measurement (units/volume) by test [id number] 17:40:00Identifier 08649-6 Result Time 2019-11-12 17:40: 00Unknown Test Item Value Reference Range Comments Urine urobilinogen measurement Negative Unknown Unknown F (units/volume) by test strip (test code = 99288-6) Ordering Physician UnknownInfluenza virus A RNA detection by probe and target amplification [id number] 17:40:00Identifier 78695-4 Result Time 17:40:00Unknown Test Item Value Reference Range Comments Influenza virus A RNA detection by probe Negative Unknown Unknown F and target amplification method (test code = 14068-8) Ordering Physician UnknownInfluenza virus B RNA detection by probe and target amplification [id number] 17:40:00Identifier 22326-9 Result Time 17:40:00Unknown Test Item Value Reference Range Comments Influenza virus B RNA detection by probe Negative Unknown Unknown F and target amplification method (test code = 35268-8) Ordering Physician UnknownUrine total bilirubin detection by automated test [id number] 17:40:00Identifier 79373-1 Result Time 2019-11-12 17:40: 00Unknown Test Item Value Reference Range Comments Urine total bilirubin detection by Negative Unknown Unknown F automated test strip (test code = 75763-1) Ordering Physician UnknownUrine clarity by refractometry sfdyaoxjf3212-70-32 17: 40:00Identifier 25427-8 Result Time 2019-11-12 17:40:00Unknown Test Item Value Reference Range Comments Urine clarity by refractometry automated Clear Unknown Unknown F (test code = 61886-2) Ordering Physician UnknownColor of Urine by Ogqj9253-17-61 17:40:00Identifier 30456-2 Result Time 2019-11-12 17:40:00Unknown Test Item Value Reference Range Comments Color of Urine by Auto (test code = 60503-5) Straw Unknown Unknown F Ordering Physician UnknownUrine glucose detection by automated test [id number] -08 17:40:00Identifier 48157-5 Result Time 2019-11-12 17:40:00Unknown Test Item Value Reference Range Comments Urine glucose detection by automated test Negative Unknown Unknown F strip (test code = 81790-7) Ordering Physician UnknownKetones [Mass/volume] in Urine by Automated test [id number] 17:40:00Identifier 17950-6 Result Time 2019-11-12 17:40: 00Unknown Test Item Value Reference Range Comments Ketones [Mass/volume] in Urine by Automated Trace Unknown Unknown F test strip (test code = 54144-2) Ordering Physician UnknownUrine nitrite detection by automated test fuoky4363-24 -08 17:40:00Identifier 42503-3 Result Time 2019-11-12 17:40:00Unknown Test Item Value Reference Range Comments Urine nitrite detection by automated test Negative Unknown Unknown F strip (test code = 81286-3) Ordering Physician UnknownProtein [Mass/volume] in Urine by Automated test [id number] 17:40:00Identifier 09633-9 Result Time 2019-11-12 17:40: 00Unknown Test Item Value Reference Range Comments Protein [Mass/volume] in Urine by Negative Unknown Unknown F Automated test strip (test code = 87084-4) Ordering Physician UnknownSpecific gravity of Urine by Refractometry [id number] 17:40:00Identifier 23843-3 Result Time 2019-11-12 17:40: 00Unknown Test Item Value Reference Range Comments Specific gravity of Urine by Refractometry 1.004 Unknown Unknown F automated (test code = 08268-6) Ordering Physician UnknownUrine hemoglobin detection by test [id number] 17: 40:00Identifier 5794-3 Result Time 2019-11-12 17:40:00Unknown Test Item Value Reference Range Comments Urine hemoglobin detection by test strip Negative Unknown Unknown F (test code = 5794-3) Ordering Physician UnknownUrine leukocyte esterase detection by automated test [id number] 17:40:00Identifier 92676-3 Result Time 2019-11-12 17:40: 00Unknown Test Item Value Reference Range Comments Urine leukocyte esterase detection by Negative Unknown Unknown F automated test strip (test code = 52881-9) Ordering Physician UnknownArterial blood base excess hawqzozhhde7446-16-81 16:24 :00Identifier 1925-7 Result Time 2019-11-12 16:24:00Unknown Test Item Value Reference Range Comments Arterial blood base excess measurement 13.0 mmol/L Unknown Unknown F (test code = 1925-7) Ordering Physician UnknownArterial blood partial pressure of oxygen with temperature sydkqwbanx4318-09-64 16:24:00Identifier 75528-5 Result Time 16:24:00Unknown Test Item Value Reference Range Comments Arterial blood partial pressure of Not Reportable Unknown Unknown F oxygen with temperature correction (test code = 03351-2) Ordering Physician UnknownArterial blood bicarbonate measurement (moles/volume) 2019-11-12 16:24:00Identifier 1960-4 Result Time 2019-11-12 16:24:00Unknown Test Item Value Reference Range Comments Arterial blood bicarbonate measurement 34.9 mmol/L Unknown Unknown F (moles/volume) (test code = 1960-4) Ordering Physician UnknownArterial blood gas measurement with patient temperature odsdsbpvds1478-10-18 16:24:00Identifier 84408-4 Result Time 16:24:00Unknown Test Item Value Reference Range Comments Arterial blood gas measurement with Not Reportable Unknown Unknown F patient temperature correction (test code = 65156-2) Ordering Physician UnknownO2 saturation arterial ygwxi1351-11-06 16:24: 00Identifier 2708-6 Result Time 2019-11-12 16:24:00Unknown Test Item Value Reference Range Comments O2 saturation arterial blood (test code = 92.6 % Unknown Unknown F 2708-6) Ordering Physician UnknownArterial blood pH mdarstarxso5355-36-73 16:24: 00Identifier 2744-1 Result Time 2019-11-12 16:24:00Unknown Test Item Value Reference Range Comments Arterial blood pH measurement (test code = 7.40 Unknown Unknown F 2744-1) Ordering Physician UnknownPO2 arterial cord goyhv3000-65-83 16:24:00Identifier 19480-2 Result Time 2019-11-12 16:24:00Unknown Test Item Value Reference Range Comments PO2 arterial cord blood (test code = 59 mmHg Unknown Unknown F 74333-4) Ordering Physician UnknownArterial pCO2 with temperature gysnvnavbx6048-81-75 16 :24:00Identifier 07765-1 Result Time 2019-11-12 16:24:00Unknown Test Item Value Reference Range Comments Arterial pCO2 with temperature Not Reportable Unknown Unknown F correction (test code = 48128-4) Ordering Physician UnknownSerum or plasma troponin i.cardiac measurement (mass/ volume)2019-11-12 16:11:00Identifier 23484-8 Result Time 2019-11-12 16:11: 00Unknown Test Item Value Reference Range Comments Serum or plasma troponin i.cardiac 0.00 ng/mL Unknown Unknown F measurement (mass/volume) (test code = 29198-8) Ordering Physician UnknownSerum or plasma creatine kinase MB measurement (mass/ volume)2019-11-12 16:11:00Identifier 84250-7 Result Time 2019-11-12 16:11: 00Unknown Test Item Value Reference Range Comments Serum or plasma creatine kinase MB 1.9 ng/mL Unknown Unknown F measurement (mass/volume) (test code = 02418-6) Ordering Physician UnknownSerum or plasma alanine aminotransferase measurement ( enzymatic activity/volume)2019-11-12 16:11:00Identifier 1742-6 Result Time 11-12 16:11:00Unknown Test Item Value Reference Range Comments Serum or plasma alanine aminotransferase 9 U/L Unknown Unknown F measurement (enzymatic activity/volume) (test code = 1742-6) Ordering Physician UnknownSerum or plasma albumin/globulin mass [id number] 16:11:00Identifier 1759-0 Result Time 2019-11-12 16:11:00Unknown Test Item Value Reference Range Comments Serum or plasma albumin/globulin mass ratio 1.1 Unknown Unknown F (test code = 1759-0) Ordering Physician UnknownSerum or plasma calcium measurement (mass/volume)11-12 16:11:00Identifier 02262-8 Result Time 2019-11-12 16:11:00Unknown Test Item Value Reference Range Comments Serum or plasma calcium measurement 9.6 mg/dL Unknown Unknown F (mass/volume) (test code = 20821-8) Ordering Physician UnknownSerum or plasma aspartate aminotransferase [...] natriuretic peptide B measurement ( mass/volume)2019-11-12 16:11:00Identifier 41831-8 Result Time 2019-11-12 16:11: 00Unknown Test Item Value Reference Range Comments Serum or plasma natriuretic peptide B 33 pg/mL Unknown Unknown F measurement (mass/volume) (test code = 87082-4) Ordering Physician UnknownSerum or plasma urea nitrogen measurement (mass/volume )2019-11-12 16:11:00Identifier 3094-0 Result Time 2019-11-12 16:11:00Unknown Test Item Value Reference Range Comments Serum or plasma urea nitrogen measurement 15 mg/dL Unknown Unknown F (mass/volume) (test code = 3094-0) Ordering Physician UnknownSerum or plasma urea nitrogen/creatinine hhoeo0734-87- 08 16:11:00Identifier 3097-3 Result Time 2019-11-12 16:11:00Unknown Test Item Value Reference Range Comments Serum or plasma urea nitrogen/creatinine 22.1 Unknown Unknown F ratio (test code = 3097-3) Ordering Physician UnknownAutomated blood platelet mean volume xzfnkseehgj4128- 01-08 16:11:00Identifier 57093-4 Result Time 2019-11-12 16:11:00Unknown Test Item Value Reference Range Comments Automated blood platelet mean volume 8.4 fL Unknown Unknown F measurement (test code = 90947-8) Ordering Physician UnknownSerum or plasma anion [id number] 16:11: 00Identifier 43090-7 Result Time 2019-11-12 16:11:00Unknown Test Item Value Reference Range Comments Serum or plasma anion gap (test code = 12 mmol/L Unknown Unknown F 68112-0) Ordering Physician UnknownAutomated blood leukocytes count corrected for nucleated erythrocytes (number/volume)2019-11-12 16:11:00Identifier 81076-9 Result Time 2019-11-12 16:11:00Unknown Test Item Value Reference Range Comments Automated blood leukocytes count 6.6 10^3/uL Unknown Unknown F corrected for nucleated erythrocytes (number/volume) (test code = 38332-1) Ordering Physician UnknownAutomated blood nucleated erythrocytes vlibikugd0006- 01-08 16:11:00Identifier 39588-6 Result Time 2019-11-12 16:11:00Unknown Test Item Value Reference Range Comments Automated blood nucleated erythrocytes 0.0 Unknown Unknown F detection (test code = 42027-9) Ordering Physician UnknownAutomated blood hematocrit (percentage)2019-11-12 16: 11:00Identifier 4544-3 Result Time 2019-11-12 16:11:00Unknown Test Item Value Reference Range Comments Automated blood hematocrit (percentage) (test 39 % Unknown Unknown F code = 4544-3) Ordering Physician UnknownEstimated glomerular filtration rate (GFR) non- Pidhybvt0015-44-40 16:11:00Identifier 18999-4 Result Time 2019-11-12 16: 11:00Unknown Test Item Value Reference Range Comments Estimated glomerular filtration rate (GFR) 88.9 Unknown Unknown F non- (test code = 30517-6) Ordering Physician UnknownAutomated blood monocytes/100 ogtyhvhhsq8074-39-25 16: 11:00Identifier 5905-5 Result Time 2019-11-12 16:11:00Unknown Test Item Value Reference Range Comments Automated blood monocytes/100 leukocytes 5.1 % Unknown Unknown F (test code = 5905-5) Ordering Physician UnknownSerum or plasma albumin measurement by bromocresol green (BCG) dye binding method ([id number] 16:11:00Identifier 91550-1 Result Time 2019-11-12 16:11:00Unknown Test Item Value Reference Range Comments Serum or plasma albumin measurement by 4.0 g/dL Unknown Unknown F bromocresol green (BCG) dye binding method (ma (test code = 21120-5) Ordering Physician UnknownSerum or plasma alkaline phosphatase [...] = 704-7) Ordering Physician UnknownAutomated blood basophils/100 nvntxqskpc9390-21-93 16: 11:00Identifier 706-2 Result Time 2019-11-12 16:11:00Unknown [...] = 711-2) Ordering Physician UnknownAutomated blood eosinophils/100 [id number] 16:11:00Identifier 713-8 Result Time 2019-11-12 16:11:00Unknown Test [...] = 731-0) Ordering Physician UnknownAutomated blood lymphocytes/100 sawbpsjzqe6996-34-13 16:11:00Identifier 736-9 Result Time 2019-11-12 16:11:00Unknown Test Item Value Reference Range Comments Automated blood lymphocytes/100 leukocytes 16.3 % Unknown Unknown F (test code = 736-9) Ordering Physician UnknownBlood monocytes automated count (number/volume)2019-11 16:11:00Identifier 742-7 Result Time 2019-11-12 16:11:00Unknown Test Item Value Reference Range Comments Blood monocytes automated count 0.3 10^3/ul Unknown Unknown F (number/volume) (test code = 742-7) Ordering Physician UnknownAutomated blood neutrophils/100 [id number] 16:11:00Identifier 770-8 Result Time 2019-11-12 16:11:00Unknown Test [...] UnknownAutomated erythrocyte mean corpuscular hemoglobin concentration measurement (mass/xft9791-08-01 16:11:00Identifier 786-4 Result Time 2019-11-12 16:11:00Unknown Test Item Value Reference Range Comments Automated erythrocyte mean corpuscular 33 g/dL Unknown Unknown F hemoglobin concentration measurement (mass/vol (test code = 786-4) Ordering Physician UnknownAutomated erythrocyte mean corpuscular [id number]- 08 16:11:00Identifier 787-2 Result Time 2019-11-12 16:11:00Unknown Test Item Value Reference Range Comments Automated erythrocyte mean corpuscular volume 91 fL Unknown Unknown F (test code = 787-2) Ordering Physician UnknownAutomated erythrocyte distribution width [id number]- 08 16:11:00Identifier 788-0 Result Time 2019-11-12 16:11:00Unknown [...] code = 789-8) Ordering Physician UnknownLymphocyte proliferation [id number] 16:11: 00Identifier [id number] Result Time 2019-11-12 16:11:00Unknown Test Item Value Reference Range Comments Lymphocyte proliferation test (test 5.0 10^3/ul Unknown Unknown F code = LAX2803) Ordering Physician Unknown
--- OUTSIDE RECORDS SUMMARY | 2020-01-19 15:56 | XMS REPORT ---
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 Diagnosis Active Mayi (current) (current) 11-27 Tuan use of use of antibiotics antibiotics Pain frequent Pain Mgmt Resolve 2019-12-03 Zena pain d 11-27 11:47:00 Wanda 11:30: [id number] Cardio hypertensio Cardiovasc Resolve 2019-12-01 Zena n ular d 11-27 11:20:00 Wanda 11:30: [id number] 00 Respiratory dyspnea Respirator Resolve 2019-12-30 Zena present y d 11-27 10:55:00 Akash 11:30: [id number] Respiratory oxygen Respirator Resolve 2019-12-30 Zena treatments y d 11-27 10:55:00 Akash in home 11:30: [id number] 00 Respiratory knowledge/s Respirator Resolve 2019-12-30 Zena kill y d 11-27 10:55:00 Akash deficit: pt 11:30: [id number] 00 Respiratory knowledge/s Respirator Resolve 2019-12-30 Zena kill y d 11-27 10:55:00 Wanda deficit: cg 11:30: [id number] 00 Respiratory lung sounds Respirator Resolve 2019-12-30 Zena deficit y d 11-27 10:55:00 Wanda 11:30: [id number] 00 Respiratory pneumonia Respirator Resolve 2019-12-30 Zena y d 11-27 10:55:00 Wanda 11:30: [id number] 00 Respiratory nebulizer Respirator Resolve 2019-12-30 Zena treatment y d 11-27 10:55:00 Wanda in home 11:30: [id number] 00 Nutrition changing Nutrition Resolve 2019-12-23 Zena weight/appe d 11-27 11:04:00 Wanda tite 11:30: [id number] 00 Nutrition nutritional Nutrition Resolve 2019-12-23 Zena restriction d 11-27 11:04:00 Wanda s 11:30: [id number] 00 Elimination urinary Eliminatio Resolve 2019-12-09 Zena incontinenc n d 11-27 12:05:00 Wanda e 11:30: [id number] 00 Neuro confusion Neuro/Emot Resolve 2019-12-16 Zena present ion d 11-27 10:50:00 Wanda 11:30: [id number] 00 Neuro anxiety Neuro/Emot Resolve 2019-12-16 Zena present ion d 11-27 10:50:00 Wanda 11:30: [id number] 00 Neuro impaired Neuro/Emot Resolve 2019-12-16 Zena decision-ma ion d 11-27 10:50:00 Wanda kris 11:30: [id number] 00 Activity ADL Activity Resolve 2019-12-30 Zena assistance d 11-27 10:55:00 Wanda required 11:30: [id number] 00 Activity self-care Activity Resolve 2019-12-30 Zena deficit d 11-27 10:55:00 Wanda 11:30: [id number] 00 Safety structural Safety Resolve 2019-12-30 Zena barriers d 11-27 10:55:00 Wanda present 11:30: [id number] 00 Safety fall risk Safety Resolve 2019-12-30 Zena factor d 11-27 10:55:00 Wanda present 11:30: [id number] Safety risk for Safety Resolve 2019-12-30 Zena hospitaliza d 11-27 10:55:00 Wanda tion 11:30: [id number] 00 Safety can be left Safety Resolve 2019-12-30 Zena alone for d 11-27 10:55:00 Wanda only short 11:30: [id number] 00 Medication oral med Meds Resolve 2019-12-09 Zena assistance d 11-27 12:05:00 Wanda required 11:30: [id number] 00 Medication knowledge/s Meds Resolve 2019-12-09 Zena kill d 11-27 12:05:00 Wanda deficit: pt 11:30: [id number] 00 Musculoskel transfer Musculoske Resolve 2019-12-09 Zena etal assistance letal d 11-27 12:05:00 Wanda required 11:30: [id number] 00 Musculoskel requires Musculoske Resolve 2019-12-09 Zena etal human letal d 11-27 12:05:00 Akash assist to 11:30: [id number] leave home 00 Social knowledge/s SANDRA: Resolve 2019-12-29 Jessika Services kill Social d 12-01 10:30:00 [place] deficit - Services 14:15: [id number] pt 00 Social knowledge/s SANDRA: Resolve 2019-12-29 Jessika Services kill Social d 12-01 10:30:00 [place] deficit - Services 14:15: [id number] cg 00 24 Hr Diet nutrition NT: 24Hr Resolve 2019-12-29 Goldie intake Diet d 12-05 10:10:00 [place] deficit 12:54: [id number] 00 24 Hr Diet knowledge/s NT: 24Hr Resolve 2019-12-05 Goldie kill Diet d 12-05 12:54:00 [place] deficit - 12:54: [id number] pt 00 Nutritional food NT: Resolve 2019-12-05 Goldie Barrier storage/pre Barriers d 12-05 12:54:00 [place] p deficit 12:54: [id number] 00 Nutritional eating NT: Resolve 2019-12-05 Goldie Barrier difficultie Barriers d 12-05 12:54:00 [place] s present 12:54: [id number] 00 Social knowledge/s SANDRA: Unknown Mayi Services kill Social 12-09 [place] deficit - Services 12:05: cg 00 Musculoskel transfer Musculoske Resolve 2019-12-16 Mayi etal assistance letal d - 10:50:00 [place] required 10:50: 00 24 Hr Diet knowledge/s NT: 24Hr Resolve 2019-12-19 Goldie kill Diet d 2- 12:40:00 [place] deficit - 12:40: [id number] pt 00 Nutritional food NT: Resolve 2019-12-19 Goldie Barrier storage/pre Barriers d 2-14 12:40:00 [place] p deficit 12:40: [id number] 00 Nutritional eating NT: Resolve 2019-12-19 Goldie Barrier difficultie Barriers d - 12:40:00 [place] s present 12:40: [id number] 00 Neuro anxiety Neuro/Emot Resolve 2019-12-30 Mayi present ion d 12-23 10:55:00 [place] 11:04: 00 24 Hr Diet knowledge/s NT: 24Hr Resolve 2019-12-29 Goldie kill Diet d 2-24 10:10:00 [place] deficit - 10:10: [id number] pt 00 Nutritional food NT: Resolve 2019-12-29 Goldie Barrier storage/pre Barriers d 2-24 10:10:00 [place] p deficit 10:10: [id number] 00 Nutritional eating NT: Resolve 2019-12-29 Goldie Barrier difficultie Barriers d 2-24 10:10:00 [place] s present 10:10: [id number] 00 Medication oral med Meds Active Mayi [...]
--- OUTSIDE RECORDS SUMMARY | 2020-01-19 15:56 | XMS REPORT ---
:1960 Author Organization [facility] Care Team Providers Name Role Phone Unavailable [...] Physician UnknownUrine urobilinogen measurement (units/volume) by test [id number] 17:40:00Identifier 39509-3 Result Time 2019-11-12 17:40: 00Unknown Test Item Value Reference Range Comments Urine urobilinogen measurement Negative Unknown Unknown F (units/volume) by test strip (test code = 89331-2) Ordering Physician UnknownInfluenza virus A RNA detection by probe and target amplification [id number] 17:40:00Identifier 32271-2 Result Time 17:40:00Unknown Test Item Value Reference Range Comments Influenza virus A RNA detection by probe Negative Unknown Unknown F and target amplification method (test code = 35971-4) Ordering Physician UnknownInfluenza virus B RNA detection by probe and target amplification [id number] 17:40:00Identifier 89740-8 Result Time 17:40:00Unknown Test Item Value Reference Range Comments Influenza virus B RNA detection by probe Negative Unknown Unknown F and target amplification method (test code = 60832-8) Ordering Physician UnknownUrine total bilirubin detection by automated test [id number] 17:40:00Identifier 58559-1 Result Time 2019-11-12 17:40: 00Unknown Test Item Value Reference Range Comments Urine total bilirubin detection by Negative Unknown Unknown F automated test strip (test code = 71380-0) Ordering Physician UnknownUrine clarity by refractometry [id number] 17: 40:00Identifier 06925-3 Result Time 2019-11-12 17:40:00Unknown Test Item Value Reference Range Comments Urine clarity by refractometry automated Clear Unknown Unknown F (test code = 17857-4) Ordering Physician UnknownColor of Urine by [id number] 17:40:00Identifier 96620-2 Result Time 2019-11-12 17:40:00Unknown Test Item Value Reference Range Comments Color of Urine by Auto (test code = 94607-8) Straw Unknown Unknown F Ordering Physician UnknownUrine glucose detection by automated test [id number] -08 17:40:00Identifier 56848-3 Result Time 2019-11-12 17:40:00Unknown Test Item Value Reference Range Comments Urine glucose detection by automated test Negative Unknown Unknown F strip (test code = 78054-5) Ordering Physician UnknownKetones [Mass/volume] in Urine by Automated test [id number] 17:40:00Identifier 18859-1 Result Time 2019-11-12 17:40: 00Unknown Test Item Value Reference Range Comments Ketones [Mass/volume] in Urine by Automated Trace Unknown Unknown F test strip (test code = 34493-7) Ordering Physician UnknownUrine nitrite detection by automated test [id number] -08 17:40:00Identifier 75097-2 Result Time 2019-11-12 17:40:00Unknown Test Item Value Reference Range Comments Urine nitrite detection by automated test Negative Unknown Unknown F strip (test code = 99016-6) Ordering Physician UnknownProtein [Mass/volume] in Urine by Automated test [id number] 17:40:00Identifier 23949-1 Result Time 2019-11-12 17:40: 00Unknown Test Item Value Reference Range Comments Protein [Mass/volume] in Urine by Negative Unknown Unknown F Automated test strip (test code = 30328-9) Ordering Physician UnknownSpecific gravity of Urine by Refractometry [id number] 17:40:00Identifier 97665-4 Result Time 2019-11-12 17:40: 00Unknown Test Item Value Reference Range Comments Specific gravity of Urine by Refractometry 1.004 Unknown Unknown F automated (test code = 90594-1) Ordering Physician UnknownUrine hemoglobin detection by test [id number] 17: 40:00Identifier 5794-3 Result Time 2019-11-12 17:40:00Unknown Test Item Value Reference Range Comments Urine hemoglobin detection by test strip Negative Unknown Unknown F (test code = 5794-3) Ordering Physician UnknownUrine leukocyte esterase detection by automated test [id number] 17:40:00Identifier 85977-2 Result Time 2019-11-12 17:40: 00Unknown Test Item Value Reference Range Comments Urine leukocyte esterase detection by Negative Unknown Unknown F automated test strip (test code = 12993-7) Ordering Physician UnknownArterial blood base excess [id number] 16:24 :00Identifier 1925-7 Result Time 2019-11-12 16:24:00Unknown Test Item Value Reference Range Comments Arterial blood base excess measurement 13.0 mmol/L Unknown Unknown F (test code = 1925-7) Ordering Physician UnknownArterial blood partial pressure of oxygen with temperature [id number] 16:24:00Identifier 19232-3 Result Time 16:24:00Unknown Test Item Value Reference Range Comments Arterial blood partial pressure of Not Reportable Unknown Unknown F oxygen with temperature correction (test code = 00772-1) Ordering Physician UnknownArterial blood bicarbonate measurement (moles/volume) 2019-11-12 16:24:00Identifier 1960-4 Result Time 2019-11-12 16:24:00Unknown Test Item Value Reference Range Comments Arterial blood bicarbonate measurement 34.9 mmol/L Unknown Unknown F (moles/volume) (test code = 1960-4) Ordering Physician UnknownArterial blood gas measurement with patient temperature [id number] 16:24:00Identifier 91821-2 Result Time 16:24:00Unknown Test Item Value Reference Range Comments Arterial blood gas measurement with Not Reportable Unknown Unknown F patient temperature correction (test code = 98726-7) Ordering Physician UnknownO2 saturation arterial [id number] 16:24: 00Identifier 2708-6 Result Time 2019-11-12 16:24:00Unknown Test Item Value Reference Range Comments O2 saturation arterial blood (test code = 92.6 % Unknown Unknown F 2708-6) Ordering Physician UnknownArterial blood pH [id number] 16:24: 00Identifier 2744-1 Result Time 2019-11-12 16:24:00Unknown Test Item Value Reference Range Comments Arterial blood pH measurement (test code = 7.40 Unknown Unknown F 2744-1) Ordering Physician UnknownPO2 arterial cord [id number] 16:24:00Identifier 04018-9 Result Time 2019-11-12 16:24:00Unknown Test Item Value Reference Range Comments PO2 arterial cord blood (test code = 59 mmHg Unknown Unknown F 69978-9) Ordering Physician UnknownArterial pCO2 with temperature [id number] 16 :24:00Identifier 37388-6 Result Time 2019-11-12 16:24:00Unknown Test Item Value Reference Range Comments Arterial pCO2 with temperature Not Reportable Unknown Unknown F correction (test code = 63512-0) Ordering Physician UnknownSerum or plasma troponin i.cardiac measurement (mass/ volume)2019-11-12 16:11:00Identifier 69145-2 Result Time 2019-11-12 16:11: 00Unknown Test Item Value Reference Range Comments Serum or plasma troponin i.cardiac 0.00 ng/mL Unknown Unknown F measurement (mass/volume) (test code = 62841-2) Ordering Physician UnknownSerum or plasma creatine kinase MB measurement (mass/ volume)2019-11-12 16:11:00Identifier 95704-9 Result Time 2019-11-12 16:11: 00Unknown Test Item Value Reference Range Comments Serum or plasma creatine kinase MB 1.9 ng/mL Unknown Unknown F measurement (mass/volume) (test code = 88928-8) Ordering Physician UnknownSerum or plasma alanine aminotransferase measurement ( enzymatic activity/volume)2019-11-12 16:11:00Identifier 1742-6 Result Time 11-12 16:11:00Unknown Test Item Value Reference Range Comments Serum or plasma alanine aminotransferase 9 U/L Unknown Unknown F measurement (enzymatic activity/volume) (test code = 1742-6) Ordering Physician UnknownSerum or plasma albumin/globulin mass [id number] 16:11:00Identifier 1759-0 Result Time 2019-11-12 16:11:00Unknown Test Item Value Reference Range Comments Serum or plasma albumin/globulin mass ratio 1.1 Unknown Unknown F (test code = 1759-0) Ordering Physician UnknownSerum or plasma calcium measurement (mass/volume)11-12 16:11:00Identifier 81045-7 Result Time 2019-11-12 16:11:00Unknown Test Item Value Reference Range Comments Serum or plasma calcium measurement 9.6 mg/dL Unknown Unknown F (mass/volume) (test code = 19658-6) Ordering Physician UnknownSerum or plasma aspartate aminotransferase [...] natriuretic peptide B measurement ( mass/volume)2019-11-12 16:11:00Identifier 59236-9 Result Time 2019-11-12 16:11: 00Unknown Test Item Value Reference Range Comments Serum or plasma natriuretic peptide B 33 pg/mL Unknown Unknown F measurement (mass/volume) (test code = 97227-3) Ordering Physician UnknownSerum or plasma urea nitrogen measurement (mass/volume )2019-11-12 16:11:00Identifier 3094-0 Result Time 2019-11-12 16:11:00Unknown Test Item Value Reference Range Comments Serum or plasma urea nitrogen measurement 15 mg/dL Unknown Unknown F (mass/volume) (test code = 3094-0) Ordering Physician UnknownSerum or plasma urea nitrogen/creatinine [id number]- 08 16:11:00Identifier 3097-3 Result Time 2019-11-12 16:11:00Unknown Test Item Value Reference Range Comments Serum or plasma urea nitrogen/creatinine 22.1 Unknown Unknown F ratio (test code = 3097-3) Ordering Physician UnknownAutomated blood platelet mean volume ktkynagwiui4873- 01-08 16:11:00Identifier 20553-7 Result Time 2019-11-12 16:11:00Unknown Test Item Value Reference Range Comments Automated blood platelet mean volume 8.4 fL Unknown Unknown F measurement (test code = 90529-3) Ordering Physician UnknownSerum or plasma anion [id number] 16:11: 00Identifier 69635-2 Result Time 2019-11-12 16:11:00Unknown Test Item Value Reference Range Comments Serum or plasma anion gap (test code = 12 mmol/L Unknown Unknown F 41933-4) Ordering Physician UnknownAutomated blood leukocytes count corrected for nucleated erythrocytes (number/volume)2019-11-12 16:11:00Identifier 82866-2 Result Time 2019-11-12 16:11:00Unknown Test Item Value Reference Range Comments Automated blood leukocytes count 6.6 10^3/uL Unknown Unknown F corrected for nucleated erythrocytes (number/volume) (test code = 99728-8) Ordering Physician UnknownAutomated blood nucleated erythrocytes [id number]- 01-08 16:11:00Identifier 24028-0 Result Time 2019-11-12 16:11:00Unknown Test Item Value Reference Range Comments Automated blood nucleated erythrocytes 0.0 Unknown Unknown F detection (test code = 84965-6) Ordering Physician UnknownAutomated blood hematocrit (percentage)2019-11-12 16: 11:00Identifier 4544-3 Result Time 2019-11-12 16:11:00Unknown Test Item Value Reference Range Comments Automated blood hematocrit (percentage) (test 39 % Unknown Unknown F code = 4544-3) Ordering Physician UnknownEstimated glomerular filtration rate (GFR) non- Qqdfywtw1107-37-61 16:11:00Identifier 44444-0 Result Time 2019-11-12 16: 11:00Unknown Test Item Value Reference Range Comments Estimated glomerular filtration rate (GFR) 88.9 Unknown Unknown F non- (test code = 31620-2) Ordering Physician UnknownAutomated blood monocytes/100 [id number] 16: 11:00Identifier 5905-5 Result Time 2019-11-12 16:11:00Unknown Test Item Value Reference Range Comments Automated blood monocytes/100 leukocytes 5.1 % Unknown Unknown F (test code = 5905-5) Ordering Physician UnknownSerum or plasma albumin measurement by bromocresol green (BCG) dye binding method ([id number] 16:11:00Identifier 43068-7 Result Time 2019-11-12 16:11:00Unknown Test Item Value Reference Range Comments Serum or plasma albumin measurement by 4.0 g/dL Unknown Unknown F bromocresol green (BCG) dye binding method (ma (test code = 59786-4) Ordering Physician UnknownSerum or plasma alkaline phosphatase [...] = 704-7) Ordering Physician UnknownAutomated blood basophils/100 [id number] 16: 11:00Identifier 706-2 Result Time 2019-11-12 16:11:00Unknown [...] = 711-2) Ordering Physician UnknownAutomated blood eosinophils/100 [id number] 16:11:00Identifier 713-8 Result Time 2019-11-12 16:11:00Unknown Test [...] = 731-0) Ordering Physician UnknownAutomated blood lymphocytes/100 [id number] 16:11:00Identifier 736-9 Result Time 2019-11-12 16:11:00Unknown Test Item Value Reference Range Comments Automated blood lymphocytes/100 leukocytes 16.3 % Unknown Unknown F (test code = 736-9) Ordering Physician UnknownBlood monocytes automated count (number/volume)2019-11 16:11:00Identifier 742-7 Result Time 2019-11-12 16:11:00Unknown Test Item Value Reference Range Comments Blood monocytes automated count 0.3 10^3/ul Unknown Unknown F (number/volume) (test code = 742-7) Ordering Physician UnknownAutomated blood neutrophils/100 [id number] 16:11:00Identifier 770-8 Result Time 2019-11-12 16:11:00Unknown Test [...] UnknownAutomated erythrocyte mean corpuscular hemoglobin concentration measurement (mass/[id number] 16:11:00Identifier 786-4 Result Time 2019-11-12 16:11:00Unknown Test Item Value Reference Range Comments Automated erythrocyte mean corpuscular 33 g/dL Unknown Unknown F hemoglobin concentration measurement (mass/vol (test code = 786-4) Ordering Physician UnknownAutomated erythrocyte mean corpuscular [id number]- 08 16:11:00Identifier 787-2 Result Time 2019-11-12 16:11:00Unknown Test Item Value Reference Range Comments Automated erythrocyte mean corpuscular volume 91 fL Unknown Unknown F (test code = 787-2) Ordering Physician UnknownAutomated erythrocyte distribution width [id number]- 08 16:11:00Identifier 788-0 Result Time 2019-11-12 16:11:00Unknown [...] code = 789-8) Ordering Physician UnknownLymphocyte proliferation [id number] 16:11: 00Identifier JMP4263 Result Time 2019-11-12 16:11:00Unknown Test Item Value Reference Range Comments Lymphocyte proliferation test (test 5.0 10^3/ul Unknown Unknown F code = AHE6162) Ordering Physician Unknown
--- OUTSIDE RECORDS SUMMARY | 2020-01-19 15:56 | XMS REPORT ---
:1960 Author Organization [facility] Care Team Providers Name Role Phone Unavailable [...] [place] supplementa supplementa l oxygen l oxygen FPC FPC Diagnosis Active Mayi (current) (current) 11-27 [place] use of use of antibiotics antibiotics Pain frequent Pain Mgmt Resolve 2019-12-03 Zena pain d 11-27 11:47:00 [place] 11:30: [id number] Cardio hypertensio Cardiovasc Resolve 2019-12-01 Zena n ular d 11-27 11:20:00 [place] 11:30: [id number] 00 Respiratory dyspnea Respirator Resolve 2019-12-30 Zena present y d 11-27 10:55:00 [place]ash 11:30: [id number] 00 Respiratory oxygen Respirator Resolve 2019-12-30 Zena treatments y d 11-27 10:55:00 [place] in home 11:30: [id number] 00 Respiratory knowledge/s Respirator Resolve 2019-12-30 Zena kill y d 11-27 10:55:00 [place] deficit: pt 11:30: [id number] 00 Respiratory knowledge/s Respirator Resolve 2019-12-30 Zena kill y d 11-27 10:55:00 [place] deficit: cg 11:30: [id number] 00 Respiratory lung sounds Respirator Resolve 2019-12-30 [place] deficit y d 11-27 10:55:00 [place] 11:30: [id number] 00 Respiratory pneumonia Respirator Resolve 2019-12-30 Zena y d 11-27 10:55:00 [place] 11:30: [id number] 00 Respiratory nebulizer Respirator Resolve 2019-12-30 Zena treatment y d 11-27 10:55:00 [place] in home 11:30: [id number] 00 Nutrition changing Nutrition Resolve 2019-12-23 Zena weight/appe d 11-27 11:04:00 [place] tite 11:30: [id number] 00 Nutrition nutritional Nutrition Resolve 2019-12-23 Zena restriction d 11-27 11:04:00 [place] s 11:30: [id number] 00 Elimination urinary Eliminatio Resolve 2019-12-09 Zena incontinenc n d 11-27 12:05:00 [place] e 11:30: [id number] 00 Neuro confusion Neuro/Emot Resolve 2019-12-16 Zena present ion d 11-27 10:50:00 [place] 11:30: [id number] 00 Neuro anxiety Neuro/Emot Resolve 2019-12-16 Zena present ion d 11-27 10:50:00 [place] 11:30: [id number] 00 Neuro impaired Neuro/Emot Resolve 2019-12-16 Zena decision-ma ion d 11-27 10:50:00 [place] kris 11:30: [id number] 00 Activity ADL Activity Resolve 2019-12-30 Zena assistance d 11-27 10:55:00 [place] required 11:30: [id number] 00 Activity self-care Activity Resolve 2019-12-30 [place] deficit d 11-27 10:55:00 [place] 11:30: [id number] 00 Safety structural Safety Resolve 2019-12-30 Zena barriers d 11-27 10:55:00 [place] present 11:30: [id number] 00 Safety fall risk Safety Resolve 2019-12-30 Zena factor d 11-27 10:55:00 [place] present 11:30: [id number] 00 Safety risk for Safety Resolve 2019-12-30 Zena hospitaliza d 11-27 10:55:00 [place] tion 11:30: [id number] 00 Safety can be left Safety Resolve 2019-12-30 Zena alone for d 11-27 10:55:00 [place] only short 11:30: [id number] 00 Medication oral med Meds Resolve 2019-12-09 [place]ena assistance d 11-27 12:05:00 [place] required 11:30: [id number] 00 Medication knowledge/s Meds Resolve 2019-12-09 Zena kill d 11-27 12:05:00 [place] deficit: pt 11:30: [id number] 00 Musculoskel transfer Musculoske Resolve 2019-12-09 Zena etal assistance letal d 11-27 12:05:00 [place] required 11:30: [id number] 00 Musculoskel requires Musculoske Resolve 2019-12-09 Zena etal human letal d 11-27 12:05:00 [place] assist to 11:30: [id number] leave home 00 Social knowledge/s SANDRA: Resolve 2019-12-29 [facility] Services kill Social d 12-01 10:30:00 [place] deficit - Services 14:15: [id number] pt 00 Social knowledge/s SANDRA: Resolve 2019-12-29 [facility] Services kill Social d 12-01 10:30:00 [place] deficit - Services 14:15: [id number] cg 00 24 Hr Diet nutrition NT: 24Hr Resolve 2019-12-29 Goldie intake Diet d 12-05 10:10:00 [place] deficit 12:54: [id number] 00 24 Hr Diet knowledge/s NT: 24Hr Resolve 2019-12-05 Goldie kill Diet d 12-05 12:54:00 [place] deficit - 12:54: [id number] pt 00 Nutritional food NT: Resolve 2019-12-05 Goldie Barrier storage/pre Barriers d 12-05 12:54:00 [place] p deficit 12:54: [id number] Nutritional eating NT: Resolve 2019-12-05 Goldie Barrier difficultie Barriers d 12-05 12:54:00 [place] s present 12:54: [id number] 00 Social knowledge/s SANDRA: Unknown [facility] Services kill Social 12-09 [place] deficit - Services 12:05: cg 00 Musculoskel transfer Musculoske Resolve 2019-12-16 Mayi etal assistance letal d - 10:50:00 [place] required 10:50: 00 24 Hr Diet knowledge/s NT: 24Hr Resolve 2019-12-19 [place]ie kill Diet d 2- 12:40:00 [place] deficit - 12:40: [id number] pt 00 Nutritional food NT: Resolve 2019-12-19 [place]ie Barrier storage/pre Barriers d 2-14 12:40:00 [place] p deficit 12:40: [id number] Nutritional eating NT: Resolve 2019-12-19 [place]ie Barrier difficultie Barriers d - 12:40:00 [place] present 12:40: [id number] Neuro anxiety Neuro/Emot Resolve 2019-12-30 Mayi present ion d 12-23 10:55:00 [place] 11:04: 00 24 Hr Diet knowledge/s NT: 24Hr Resolve 2019-12-29 [place] kill Diet d 2-24 10:10:00 [place] deficit - 10:10: [id number] pt 00 Nutritional food NT: Resolve 2019-12-29 [place] Barrier storage/pre Barriers d 2-24 10:10:00 [place] p deficit 10:10: [id number] 00 Nutritional eating NT: Resolve 2019-12-29 [place]ie Barrier difficultie Barriers d 2-24 10:10:00 [place] present 10:10: [id number] 00 Medication oral med Meds Active Mayi [...]
--- OUTSIDE RECORDS SUMMARY | 2020-01-19 15:56 | XMS REPORT ---
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 (current) (current) 11-27 Tuan use of use of antibiotics antibiotics Pain frequent Pain Mgmt Resolve 2019-12-03 Zena pain d 11-27 11:47:00 Warren 11:30: [id number] 00 Cardio hypertensio Cardiovasc Resolve 2019-12-01 Zena n ular d 11-27 11:20:00 Warren 11:30: [id number] 00 Respiratory dyspnea Respirator Resolve 2019-12-30 Zena present y d 11-27 10:55:00 Akash 11:30: [id number] 00 Respiratory oxygen Respirator Resolve 2019-12-30 Zena treatments y d 11-27 10:55:00 Warren in home 11:30: [id number] 00 Respiratory knowledge/s Respirator Resolve 2019-12-30 Zena kill y d 11-27 10:55:00 Akash deficit: pt 11:30: [id number] 00 Respiratory knowledge/s Respirator Resolve 2019-12-30 Zena kill y d 11-27 10:55:00 Warren deficit: cg 11:30: [id number] 00 Respiratory lung sounds Respirator Resolve 2019-12-30 Zena deficit y d 11-27 10:55:00 Warren 11:30: [id number] 00 Respiratory pneumonia Respirator Resolve 2019-12-30 Zena y d 11-27 10:55:00 Warren 11:30: [id number] 00 Respiratory nebulizer Respirator Resolve 2019-12-30 Zena treatment y d 11-27 10:55:00 Warren in home 11:30: [id number] 00 Nutrition changing Nutrition Resolve 2019-12-23 Zena weight/appe d 11-27 11:04:00 Warren tite 11:30: [id number] 00 Nutrition nutritional Nutrition Resolve 2019-12-23 Zena restriction d 11-27 11:04:00 Warren s 11:30: [id number] 00 Elimination urinary Eliminatio Resolve 2019-12-09 Zena incontinenc n d 11-27 12:05:00 Warren e 11:30: [id number] 00 Neuro confusion Neuro/Emot Resolve 2019-12-16 Zena present ion d 11-27 10:50:00 Warren 11:30: [id number] 00 Neuro anxiety Neuro/Emot Resolve 2019-12-16 Zena present ion d 11-27 10:50:00 Warren 11:30: [id number] 00 Neuro impaired Neuro/Emot Resolve 2019-12-16 Zena decision-ma ion d 11-27 10:50:00 Warren kris 11:30: [id number] 00 Activity ADL Activity Resolve 2019-12-30 Zena assistance d 11-27 10:55:00 Warren required 11:30: [id number] 00 Activity self-care Activity Resolve 2019-12-30 Zena deficit d 11-27 10:55:00 Warren 11:30: [id number] 00 Safety structural Safety Resolve 2019-12-30 Zena barriers d 11-27 10:55:00 Akash present 11:30: [id number] 00 Safety fall risk Safety Resolve 2019-12-30 Zena factor d 11-27 10:55:00 Warren present 11:30: [id number] 00 Safety risk for Safety Resolve 2019-12-30 Zena hospitaliza d 11-27 10:55:00 Akash tion 11:30: [id number] 00 Safety can be left Safety Resolve 2019-12-30 Zena alone for d 11-27 10:55:00 Warren only short 11:30: [id number] 00 Medication oral med Meds Resolve 2019-12-09 Zena assistance d 11-27 12:05:00 Warren required 11:30: [id number] 00 Medication knowledge/s Meds Resolve 2019-12-09 Zena kill d 11-27 12:05:00 Akash deficit: pt 11:30: [id number] 00 Musculoskel transfer Musculoske Resolve 2019-12-09 Zena etal assistance letal d 11-27 12:05:00 Akash required 11:30: [id number] 00 Musculoskel requires Musculoske Resolve 2019-12-09 Zena etal human letal d 11-27 12:05:00 Warren assist to 11:30: [id number] leave home 00 Social knowledge/s SANDRA: Active Jessika Services kill Social - [place] deficit - Services 14:15: [id number] pt 00 Social knowledge/s SANDRA: Active Jessika Services kill Social - [place] deficit - Services 14:15: [id number] cg 00 24 Hr Diet nutrition NT: 24Hr Resolve 2019-12-29 Goldie intake Diet d 12-05 10:10:00 [place] deficit 12:54: [id number] 00 24 Hr Diet knowledge/s NT: 24Hr Resolve 2019-12-05 Goldie kill Diet d 12-05 12:54:00 [place] deficit - 12:54: [id number] pt 00 Nutritional food NT: Resolve 2019-12-05 Goldie Barrier storage/pre Barriers d 12-05 12:54:00 [place] p deficit 12:54: [id number] Nutritional eating NT: Resolve 2019-12-05 Goldie Barrier difficultie Barriers d 12-05 12:54:00 [place] s present 12:54: [id number] 00 Social knowledge/s SANDRA: Unknown Mayi Services kill Social 2-04 Dickerson deficit - Services 12:05: cg 00 Musculoskel transfer Musculoske Resolve 2019-12-16 Mayi etal assistance letal d 2-11 10:50:00 Dickerson required 10:50: 00 24 Hr Diet knowledge/s NT: 24Hr Resolve 2019-12-19 Goldie kill Diet d 2-14 12:40:00 [place] deficit - 12:40: [id number] pt 00 Nutritional food NT: Resolve 2019-12-19 Goldie Barrier storage/pre Barriers d 2-14 12:40:00 [place] p deficit 12:40: [id number] Nutritional eating NT: Resolve 2019-12-19 Goldie Barrier difficultie Barriers d 2-14 12:40:00 [place] s present 12:40: [id number] Neuro anxiety Neuro/Emot Resolve 2019-12-30 Mayi present ion d 2- 10:55:00 Tuan 11:04: 00 24 Hr Diet knowledge/s NT: 24Hr Resolve 2019-12-29 Goldie kill Diet d 2-24 10:10:00 [place] deficit - 10:10: [id number] pt 00 Nutritional food NT: Resolve 2019-12-29 Goldie Barrier storage/pre Barriers d 2-24 10:10:00 [place] p deficit 10:10: [id number] 00 Nutritional eating NT: Resolve 2019-12-29 Goldie Barrier difficultie Barriers d 2-24 10:10:00 [place] s present 10:10: [id number] 00 Medication oral med Meds Active Mayi assistance 12-30 Dickerson required 10:55: 00 Medication knowledge/s Meds Active [...] Medication? Clinician (SIG) Name Name Combivent Combivent 0 2020- Yes Breiman Unknown Unknown Respimat 20 Respimat 20 11-27 Harpreet SPRING mcg-100 mcg-100 mcg/actuati mcg/actuati on solution on solution for for inhalation inhalation Symbicort Symbicort 2020- Yes Breiman Unknown Unknown 160 mcg-4.5 160 mcg-4.5 11-27 Harpreet SPRING mcg/actuati mcg/actuati on HFA on HFA aerosol aerosol inhaler inhaler ascorbic ascorbic 2020- Yes Breiman Unknown Unknown acid acid 11-27 Harpreet SPIRNG (vitamin C) (vitamin C) 1,000 mg 1,000 [...] nebulizatio n soln n soln clonazePAM clonazePAM 2020- Yes Breiman Unknown Unknown 1 mg tablet 1 mg tablet 11-27 Harpreet SPRING predniSONE predniSONE 2019- Yes Breiman Unknown Unknown 10 mg 10 mg 11-27 Harpreet SPRING tablet tablet busPIRone busPIRone 2020- Yes Breiman Unknown Unknown 10 mg 10 mg 11-27 Harpreet SPRING tablet tablet Stiolto Stiolto 2020- Yes Breiman Unknown Unknown Respimat Respimat 11-27 Harpreet SPRING 2.5 mcg-2.5 2.5 mcg-2.5 mcg/actuati mcg/actuati on [...]
--- OUTSIDE RECORDS SUMMARY | 2020-01-19 15:56 | XMS REPORT ---
:1960 Author Organization [facility] Care Team Providers Name Role Phone Unavailable [...] Physician UnknownUrine urobilinogen measurement (units/volume) by test [id number] 17:40:00Identifier 15576-9 Result Time 2019-11-12 17:40: 00Unknown Test Item Value Reference Range Comments Urine urobilinogen measurement Negative Unknown Unknown F (units/volume) by test strip (test code = 70567-3) Ordering Physician UnknownInfluenza virus A RNA detection by probe and target amplification [id number] 17:40:00Identifier 75250-0 Result Time 17:40:00Unknown Test Item Value Reference Range Comments Influenza virus A RNA detection by probe Negative Unknown Unknown F and target amplification method (test code = 76153-9) Ordering Physician UnknownInfluenza virus B RNA detection by probe and target amplification [id number] 17:40:00Identifier 71474-5 Result Time 17:40:00Unknown Test Item Value Reference Range Comments Influenza virus B RNA detection by probe Negative Unknown Unknown F and target amplification method (test code = 00327-9) Ordering Physician UnknownUrine total bilirubin detection by automated test [id number] 17:40:00Identifier 74039-7 Result Time 2019-11-12 17:40: 00Unknown Test Item Value Reference Range Comments Urine total bilirubin detection by Negative Unknown Unknown F automated test strip (test code = 90944-0) Ordering Physician UnknownUrine clarity by refractometry [id number] 17: 40:00Identifier 28586-6 Result Time 2019-11-12 17:40:00Unknown Test Item Value Reference Range Comments Urine clarity by refractometry automated Clear Unknown Unknown F (test code = 76467-8) Ordering Physician UnknownColor of Urine by [id number] 17:40:00Identifier 05132-8 Result Time 2019-11-12 17:40:00Unknown Test Item Value Reference Range Comments Color of Urine by Auto (test code = 70188-3) Straw Unknown Unknown F Ordering Physician UnknownUrine glucose detection by automated test [id number] 17:40:00Identifier 34270-8 Result Time 2019-11-12 17:40:00Unknown Test Item Value Reference Range Comments Urine glucose detection by automated test Negative Unknown Unknown F strip (test code = 62311-0) Ordering Physician UnknownKetones [Mass/volume] in Urine by Automated test [id number] 17:40:00Identifier 70148-5 Result Time 2019-11-12 17:40: 00Unknown Test Item Value Reference Range Comments Ketones [Mass/volume] in Urine by Automated Trace Unknown Unknown F test strip (test code = 64760-3) Ordering Physician UnknownUrine nitrite detection by automated test [id number] -08 17:40:00Identifier 23743-7 Result Time 2019-11-12 17:40:00Unknown Test Item Value Reference Range Comments Urine nitrite detection by automated test Negative Unknown Unknown F strip (test code = 49224-3) Ordering Physician UnknownProtein [Mass/volume] in Urine by Automated test [id number] 17:40:00Identifier 98364-1 Result Time 2019-11-12 17:40: 00Unknown Test Item Value Reference Range Comments Protein [Mass/volume] in Urine by Negative Unknown Unknown F Automated test strip (test code = 48467-5) Ordering Physician UnknownSpecific gravity of Urine by Refractometry [id number] 17:40:00Identifier 66694-7 Result Time 2019-11-12 17:40: 00Unknown Test Item Value Reference Range Comments Specific gravity of Urine by Refractometry 1.004 Unknown Unknown F automated (test code = 02880-5) Ordering Physician UnknownUrine hemoglobin detection by test [id number] 17: 40:00Identifier 5794-3 Result Time 2019-11-12 17:40:00Unknown Test Item Value Reference Range Comments Urine hemoglobin detection by test strip Negative Unknown Unknown F (test code = 5794-3) Ordering Physician UnknownUrine leukocyte esterase detection by automated test [id number] 17:40:00Identifier 48923-8 Result Time 2019-11-12 17:40: 00Unknown Test Item Value Reference Range Comments Urine leukocyte esterase detection by Negative Unknown Unknown F automated test strip (test code = 20741-5) Ordering Physician UnknownArterial blood base excess [id number] 16:24 :00Identifier 1925-7 Result Time 2019-11-12 16:24:00Unknown Test Item Value Reference Range Comments Arterial blood base excess measurement 13.0 mmol/L Unknown Unknown F (test code = 1925-7) Ordering Physician UnknownArterial blood partial pressure of oxygen with temperature [id number] 16:24:00Identifier 28440-0 Result Time 16:24:00Unknown Test Item Value Reference Range Comments Arterial blood partial pressure of Not Reportable Unknown Unknown F oxygen with temperature correction (test code = 10686-6) Ordering Physician UnknownArterial blood bicarbonate measurement (moles/volume) 2019-11-12 16:24:00Identifier 1960-4 Result Time 2019-11-12 16:24:00Unknown Test Item Value Reference Range Comments Arterial blood bicarbonate measurement 34.9 mmol/L Unknown Unknown F (moles/volume) (test code = 1960-4) Ordering Physician UnknownArterial blood gas measurement with patient temperature [id number] 16:24:00Identifier 54745-5 Result Time 16:24:00Unknown Test Item Value Reference Range Comments Arterial blood gas measurement with Not Reportable Unknown Unknown F patient temperature correction (test code = 05702-9) Ordering Physician UnknownO2 saturation arterial [id number] 16:24: 00Identifier 2708-6 Result Time 2019-11-12 16:24:00Unknown Test Item Value Reference Range Comments O2 saturation arterial blood (test code = 92.6 % Unknown Unknown F 2708-6) Ordering Physician UnknownArterial blood pH [id number] 16:24: 00Identifier 2744-1 Result Time 2019-11-12 16:24:00Unknown Test Item Value Reference Range Comments Arterial blood pH measurement (test code = 7.40 Unknown Unknown F 2744-1) Ordering Physician UnknownPO2 arterial cord [id number] 16:24:00Identifier 90567-6 Result Time 2019-11-12 16:24:00Unknown Test Item Value Reference Range Comments PO2 arterial cord blood (test code = 59 mmHg Unknown Unknown F 17277-7) Ordering Physician UnknownArterial pCO2 with temperature [id number] 16 :24:00Identifier 88230-5 Result Time 2019-11-12 16:24:00Unknown Test Item Value Reference Range Comments Arterial pCO2 with temperature Not Reportable Unknown Unknown F correction (test code = 06519-1) Ordering Physician UnknownSerum or plasma troponin i.cardiac measurement (mass/ volume)2019-11-12 16:11:00Identifier 96804-3 Result Time 2019-11-12 16:11: 00Unknown Test Item Value Reference Range Comments Serum or plasma troponin i.cardiac 0.00 ng/mL Unknown Unknown F measurement (mass/volume) (test code = 10026-8) Ordering Physician UnknownSerum or plasma creatine kinase MB measurement (mass/ volume)2019-11-12 16:11:00Identifier 15184-9 Result Time 2019-11-12 16:11: 00Unknown Test Item Value Reference Range Comments Serum or plasma creatine kinase MB 1.9 ng/mL Unknown Unknown F measurement (mass/volume) (test code = 73122-7) Ordering Physician UnknownSerum or plasma alanine aminotransferase measurement ( enzymatic activity/volume)2019-11-12 16:11:00Identifier 1742-6 Result Time 11-12 16:11:00Unknown Test Item Value Reference Range Comments Serum or plasma alanine aminotransferase 9 U/L Unknown Unknown F measurement (enzymatic activity/volume) (test code = 1742-6) Ordering Physician UnknownSerum or plasma albumin/globulin mass [id number] 16:11:00Identifier 1759-0 Result Time 2019-11-12 16:11:00Unknown Test Item Value Reference Range Comments Serum or plasma albumin/globulin mass ratio 1.1 Unknown Unknown F (test code = 1759-0) Ordering Physician UnknownSerum or plasma calcium measurement (mass/volume)11-12 16:11:00Identifier 75288-2 Result Time 2019-11-12 16:11:00Unknown Test Item Value Reference Range Comments Serum or plasma calcium measurement 9.6 mg/dL Unknown Unknown F (mass/volume) (test code = 45205-0) Ordering Physician UnknownSerum or plasma aspartate aminotransferase [...] natriuretic peptide B measurement ( mass/volume)2019-11-12 16:11:00Identifier 11036-2 Result Time 2019-11-12 16:11: 00Unknown Test Item Value Reference Range Comments Serum or plasma natriuretic peptide B 33 pg/mL Unknown Unknown F measurement (mass/volume) (test code = 58014-3) Ordering Physician UnknownSerum or plasma urea nitrogen measurement (mass/volume )2019-11-12 16:11:00Identifier 3094-0 Result Time 2019-11-12 16:11:00Unknown Test Item Value Reference Range Comments Serum or plasma urea nitrogen measurement 15 mg/dL Unknown Unknown F (mass/volume) (test code = 3094-0) Ordering Physician UnknownSerum or plasma urea nitrogen/creatinine [id number]- 08 16:11:00Identifier 3097-3 Result Time 2019-11-12 16:11:00Unknown Test Item Value Reference Range Comments Serum or plasma urea nitrogen/creatinine 22.1 Unknown Unknown F ratio (test code = 3097-3) Ordering Physician UnknownAutomated blood platelet mean volume kknxgndtbmg0449- 01-08 16:11:00Identifier 37444-3 Result Time 2019-11-12 16:11:00Unknown Test Item Value Reference Range Comments Automated blood platelet mean volume 8.4 fL Unknown Unknown F measurement (test code = 83902-5) Ordering Physician UnknownSerum or plasma anion [id number] 16:11: 00Identifier 10594-7 Result Time 2019-11-12 16:11:00Unknown Test Item Value Reference Range Comments Serum or plasma anion gap (test code = 12 mmol/L Unknown Unknown F 59423-6) Ordering Physician UnknownAutomated blood leukocytes count corrected for nucleated erythrocytes (number/volume)2019-11-12 16:11:00Identifier 95446-5 Result Time 2019-11-12 16:11:00Unknown Test Item Value Reference Range Comments Automated blood leukocytes count 6.6 10^3/uL Unknown Unknown F corrected for nucleated erythrocytes (number/volume) (test code = 89173-4) Ordering Physician UnknownAutomated blood nucleated erythrocytes bcfkzieyv3362- 01-08 16:11:00Identifier 87112-5 Result Time 2019-11-12 16:11:00Unknown Test Item Value Reference Range Comments Automated blood nucleated erythrocytes 0.0 Unknown Unknown F detection (test code = 50652-4) Ordering Physician UnknownAutomated blood hematocrit (percentage)2019-11-12 16: 11:00Identifier 4544-3 Result Time 2019-11-12 16:11:00Unknown Test Item Value Reference Range Comments Automated blood hematocrit (percentage) (test 39 % Unknown Unknown F code = 4544-3) Ordering Physician UnknownEstimated glomerular filtration rate (GFR) non- [id number] 16:11:00Identifier 22613-2 Result Time 2019-11-12 16: 11:00Unknown Test Item Value Reference Range Comments Estimated glomerular filtration rate (GFR) 88.9 Unknown Unknown F non- (test code = 68761-2) Ordering Physician UnknownAutomated blood monocytes/100 evevqwzqfm5868-07-76 16: 11:00Identifier 5905-5 Result Time 2019-11-12 16:11:00Unknown Test Item Value Reference Range Comments Automated blood monocytes/100 leukocytes 5.1 % Unknown Unknown F (test code = 5905-5) Ordering Physician UnknownSerum or plasma albumin measurement by bromocresol green (BCG) dye binding method ([id number] 16:11:00Identifier 73517-8 Result Time 2019-11-12 16:11:00Unknown Test Item Value Reference Range Comments Serum or plasma albumin measurement by 4.0 g/dL Unknown Unknown F bromocresol green (BCG) dye binding method (ma (test code = 51788-1) Ordering Physician UnknownSerum or plasma alkaline phosphatase [...] = 704-7) Ordering Physician UnknownAutomated blood basophils/100 llwboryzop6558-83-31 16: 11:00Identifier 706-2 Result Time 2019-11-12 16:11:00Unknown [...] = 711-2) Ordering Physician UnknownAutomated blood eosinophils/100 gropmzszrh4708-40-27 16:11:00Identifier 713-8 Result Time 2019-11-12 16:11:00Unknown Test [...] = 731-0) Ordering Physician UnknownAutomated blood lymphocytes/100 fthwvfpvpi9584-35-30 16:11:00Identifier 736-9 Result Time 2019-11-12 16:11:00Unknown Test Item Value Reference Range Comments Automated blood lymphocytes/100 leukocytes 16.3 % Unknown Unknown F (test code = 736-9) Ordering Physician UnknownBlood monocytes automated count (number/volume)2019-11 16:11:00Identifier 742-7 Result Time 2019-11-12 16:11:00Unknown Test Item Value Reference Range Comments Blood monocytes automated count 0.3 10^3/ul Unknown Unknown F (number/volume) (test code = 742-7) Ordering Physician UnknownAutomated blood neutrophils/100 qomwmzodky6700-85-12 16:11:00Identifier 770-8 Result Time 2019-11-12 16:11:00Unknown Test [...] UnknownAutomated erythrocyte mean corpuscular hemoglobin concentration measurement (mass/[id number] 16:11:00Identifier 786-4 Result Time 2019-11-12 16:11:00Unknown Test Item Value Reference Range Comments Automated erythrocyte mean corpuscular 33 g/dL Unknown Unknown F hemoglobin concentration measurement (mass/vol (test code = 786-4) Ordering Physician UnknownAutomated erythrocyte mean corpuscular [id number]- 08 16:11:00Identifier 787-2 Result Time 2019-11-12 16:11:00Unknown Test Item Value Reference Range Comments Automated erythrocyte mean corpuscular volume 91 fL Unknown Unknown F (test code = 787-2) Ordering Physician UnknownAutomated erythrocyte distribution width [id number]- 08 16:11:00Identifier 788-0 Result Time 2019-11-12 16:11:00Unknown [...] code = 789-8) Ordering Physician UnknownLymphocyte proliferation [id number] 16:11: 00Identifier [id number] Result Time 2019-11-12 16:11:00Unknown Test Item Value Reference Range Comments Lymphocyte proliferation test (test 5.0 10^3/ul Unknown Unknown F code = ZPD0422) Ordering Physician Unknown
--- OUTSIDE RECORDS SUMMARY | 2020-01-19 15:57 | XMS REPORT ---
:1960 Author Organization [facility] Care Team Providers Name Role Phone Unavailable [...] Physician UnknownUrine urobilinogen measurement (units/volume) by test [id number] 17:40:00Identifier 17734-5 Result Time 2019-11-12 17:40: 00Unknown Test Item Value Reference Range Comments Urine urobilinogen measurement Negative Unknown Unknown F (units/volume) by test strip (test code = 50686-5) Ordering Physician UnknownInfluenza virus A RNA detection by probe and target amplification [id number] 17:40:00Identifier 02132-2 Result Time 17:40:00Unknown Test Item Value Reference Range Comments Influenza virus A RNA detection by probe Negative Unknown Unknown F and target amplification method (test code = 78685-8) Ordering Physician UnknownInfluenza virus B RNA detection by probe and target amplification [id number] 17:40:00Identifier 80607-1 Result Time 17:40:00Unknown Test Item Value Reference Range Comments Influenza virus B RNA detection by probe Negative Unknown Unknown F and target amplification method (test code = 94585-2) Ordering Physician UnknownUrine total bilirubin detection by automated test [id number] 17:40:00Identifier 92992-2 Result Time 2019-11-12 17:40: 00Unknown Test Item Value Reference Range Comments Urine total bilirubin detection by Negative Unknown Unknown F automated test strip (test code = 41706-8) Ordering Physician UnknownUrine clarity by refractometry izmdyiyxl9836-49-47 17: 40:00Identifier 19103-5 Result Time 2019-11-12 17:40:00Unknown Test Item Value Reference Range Comments Urine clarity by refractometry automated Clear Unknown Unknown F (test code = 70552-8) Ordering Physician UnknownColor of Urine by Vfgt8274-64-67 17:40:00Identifier 14576-1 Result Time 2019-11-12 17:40:00Unknown Test Item Value Reference Range Comments Color of Urine by Auto (test code = 17053-0) Straw Unknown Unknown F Ordering Physician UnknownUrine glucose detection by automated test [id number] -08 17:40:00Identifier 41255-5 Result Time 2019-11-12 17:40:00Unknown Test Item Value Reference Range Comments Urine glucose detection by automated test Negative Unknown Unknown F strip (test code = 42462-7) Ordering Physician UnknownKetones [Mass/volume] in Urine by Automated test [id number] 17:40:00Identifier 36872-0 Result Time 2019-11-12 17:40: 00Unknown Test Item Value Reference Range Comments Ketones [Mass/volume] in Urine by Automated Trace Unknown Unknown F test strip (test code = 77493-0) Ordering Physician UnknownUrine nitrite detection by automated test gnrfp4956-05 -08 17:40:00Identifier 08209-3 Result Time 2019-11-12 17:40:00Unknown Test Item Value Reference Range Comments Urine nitrite detection by automated test Negative Unknown Unknown F strip (test code = 48504-1) Ordering Physician UnknownProtein [Mass/volume] in Urine by Automated test [id number] 17:40:00Identifier 82341-9 Result Time 2019-11-12 17:40: 00Unknown Test Item Value Reference Range Comments Protein [Mass/volume] in Urine by Negative Unknown Unknown F Automated test strip (test code = 33318-4) Ordering Physician UnknownSpecific gravity of Urine by Refractometry arncrciol1506-41-56 17:40:00Identifier 03248-0 Result Time 2019-11-12 17:40: 00Unknown Test Item Value Reference Range Comments Specific gravity of Urine by Refractometry 1.004 Unknown Unknown F automated (test code = 54639-9) Ordering Physician UnknownUrine hemoglobin detection by test [id number] 17: 40:00Identifier 5794-3 Result Time 2019-11-12 17:40:00Unknown Test Item Value Reference Range Comments Urine hemoglobin detection by test strip Negative Unknown Unknown F (test code = 5794-3) Ordering Physician UnknownUrine leukocyte esterase detection by automated test [id number] 17:40:00Identifier 11337-9 Result Time 2019-11-12 17:40: 00Unknown Test Item Value Reference Range Comments Urine leukocyte esterase detection by Negative Unknown Unknown F automated test strip (test code = 06013-5) Ordering Physician UnknownArterial blood base excess uzgvmshmiqq2471-83-60 16:24 :00Identifier 1925-7 Result Time 2019-11-12 16:24:00Unknown Test Item Value Reference Range Comments Arterial blood base excess measurement 13.0 mmol/L Unknown Unknown F (test code = 1925-7) Ordering Physician UnknownArterial blood partial pressure of oxygen with temperature ygkqgpjluu9349-40-54 16:24:00Identifier 76942-2 Result Time 16:24:00Unknown Test Item Value Reference Range Comments Arterial blood partial pressure of Not Reportable Unknown Unknown F oxygen with temperature correction (test code = 61173-3) Ordering Physician UnknownArterial blood bicarbonate measurement (moles/volume) 2019-11-12 16:24:00Identifier 1960-4 Result Time 2019-11-12 16:24:00Unknown Test Item Value Reference Range Comments Arterial blood bicarbonate measurement 34.9 mmol/L Unknown Unknown F (moles/volume) (test code = 1960-4) Ordering Physician UnknownArterial blood gas measurement with patient temperature qumncxprws8577-75-85 16:24:00Identifier 03260-7 Result Time 16:24:00Unknown Test Item Value Reference Range Comments Arterial blood gas measurement with Not Reportable Unknown Unknown F patient temperature correction (test code = 76326-4) Ordering Physician UnknownO2 saturation arterial [id number] 16:24: 00Identifier 2708-6 Result Time 2019-11-12 16:24:00Unknown Test Item Value Reference Range Comments O2 saturation arterial blood (test code = 92.6 % Unknown Unknown F 2708-6) Ordering Physician UnknownArterial blood pH ujmkrhecfge9405-80-70 16:24: 00Identifier 2744-1 Result Time 2019-11-12 16:24:00Unknown Test Item Value Reference Range Comments Arterial blood pH measurement (test code = 7.40 Unknown Unknown F 2744-1) Ordering Physician UnknownPO2 arterial cord qkfvf8065-24-77 16:24:00Identifier 53088-2 Result Time 2019-11-12 16:24:00Unknown Test Item Value Reference Range Comments PO2 arterial cord blood (test code = 59 mmHg Unknown Unknown F 69145-6) Ordering Physician UnknownArterial pCO2 with temperature zvpxjoeyti2516-27-17 16 :24:00Identifier 65296-2 Result Time 2019-11-12 16:24:00Unknown Test Item Value Reference Range Comments Arterial pCO2 with temperature Not Reportable Unknown Unknown F correction (test code = 65697-3) Ordering Physician UnknownSerum or plasma troponin i.cardiac measurement (mass/ volume)2019-11-12 16:11:00Identifier 10087-7 Result Time 2019-11-12 16:11: 00Unknown Test Item Value Reference Range Comments Serum or plasma troponin i.cardiac 0.00 ng/mL Unknown Unknown F measurement (mass/volume) (test code = 05016-0) Ordering Physician UnknownSerum or plasma creatine kinase MB measurement (mass/ volume)2019-11-12 16:11:00Identifier 83994-1 Result Time 2019-11-12 16:11: 00Unknown Test Item Value Reference Range Comments Serum or plasma creatine kinase MB 1.9 ng/mL Unknown Unknown F measurement (mass/volume) (test code = 18712-1) Ordering Physician UnknownSerum or plasma alanine aminotransferase measurement ( enzymatic activity/volume)2019-11-12 16:11:00Identifier 1742-6 Result Time 11-12 16:11:00Unknown Test Item Value Reference Range Comments Serum or plasma alanine aminotransferase 9 U/L Unknown Unknown F measurement (enzymatic activity/volume) (test code = 1742-6) Ordering Physician UnknownSerum or plasma albumin/globulin mass [id number] 16:11:00Identifier 1759-0 Result Time 2019-11-12 16:11:00Unknown Test Item Value Reference Range Comments Serum or plasma albumin/globulin mass ratio 1.1 Unknown Unknown F (test code = 1759-0) Ordering Physician UnknownSerum or plasma calcium measurement (mass/volume)11-12 16:11:00Identifier 62326-4 Result Time 2019-11-12 16:11:00Unknown Test Item Value Reference Range Comments Serum or plasma calcium measurement 9.6 mg/dL Unknown Unknown F (mass/volume) (test code = 58317-6) Ordering Physician UnknownSerum or plasma aspartate aminotransferase [...] natriuretic peptide B measurement ( mass/volume)2019-11-12 16:11:00Identifier 91648-9 Result Time 2019-11-12 16:11: 00Unknown Test Item Value Reference Range Comments Serum or plasma natriuretic peptide B 33 pg/mL Unknown Unknown F measurement (mass/volume) (test code = 66010-4) Ordering Physician UnknownSerum or plasma urea nitrogen measurement (mass/volume )2019-11-12 16:11:00Identifier 3094-0 Result Time 2019-11-12 16:11:00Unknown Test Item Value Reference Range Comments Serum or plasma urea nitrogen measurement 15 mg/dL Unknown Unknown F (mass/volume) (test code = 3094-0) Ordering Physician UnknownSerum or plasma urea nitrogen/creatinine edpsi8291-81- 08 16:11:00Identifier 3097-3 Result Time 2019-11-12 16:11:00Unknown Test Item Value Reference Range Comments Serum or plasma urea nitrogen/creatinine 22.1 Unknown Unknown F ratio (test code = 3097-3) Ordering Physician UnknownAutomated blood platelet mean volume bmftwbdpvey0815- 01-08 16:11:00Identifier 99813-9 Result Time 2019-11-12 16:11:00Unknown Test Item Value Reference Range Comments Automated blood platelet mean volume 8.4 fL Unknown Unknown F measurement (test code = 70015-5) Ordering Physician UnknownSerum or plasma anion xhb3703-19-02 16:11: 00Identifier 46864-1 Result Time 2019-11-12 16:11:00Unknown Test Item Value Reference Range Comments Serum or plasma anion gap (test code = 12 mmol/L Unknown Unknown F 72319-7) Ordering Physician UnknownAutomated blood leukocytes count corrected for nucleated erythrocytes (number/volume)2019-11-12 16:11:00Identifier 38360-6 Result Time 2019-11-12 16:11:00Unknown Test Item Value Reference Range Comments Automated blood leukocytes count 6.6 10^3/uL Unknown Unknown F corrected for nucleated erythrocytes (number/volume) (test code = 20860-0) Ordering Physician UnknownAutomated blood nucleated erythrocytes lrwuuaejf2283- 01-08 16:11:00Identifier 72308-5 Result Time 2019-11-12 16:11:00Unknown Test Item Value Reference Range Comments Automated blood nucleated erythrocytes 0.0 Unknown Unknown F detection (test code = 69877-5) Ordering Physician UnknownAutomated blood hematocrit (percentage)2019-11-12 16: 11:00Identifier 4544-3 Result Time 2019-11-12 16:11:00Unknown Test Item Value Reference Range Comments Automated blood hematocrit (percentage) (test 39 % Unknown Unknown F code = 4544-3) Ordering Physician UnknownEstimated glomerular filtration rate (GFR) non- Seormpve1800-13-71 16:11:00Identifier 17854-1 Result Time 2019-11-12 16: 11:00Unknown Test Item Value Reference Range Comments Estimated glomerular filtration rate (GFR) 88.9 Unknown Unknown F non- (test code = 38598-4) Ordering Physician UnknownAutomated blood monocytes/100 [id number] 16: 11:00Identifier 5905-5 Result Time 2019-11-12 16:11:00Unknown Test Item Value Reference Range Comments Automated blood monocytes/100 leukocytes 5.1 % Unknown Unknown F (test code = 5905-5) Ordering Physician UnknownSerum or plasma albumin measurement by bromocresol green (BCG) dye binding method (dv0569-47-27 16:11:00Identifier 38156-9 Result Time 2019-11-12 16:11:00Unknown Test Item Value Reference Range Comments Serum or plasma albumin measurement by 4.0 g/dL Unknown Unknown F bromocresol green (BCG) dye binding method (ma (test code = 29218-6) Ordering Physician UnknownSerum or plasma alkaline phosphatase [...] = 704-7) Ordering Physician UnknownAutomated blood basophils/100 ddgzzvdozj5680-04-02 16: 11:00Identifier 706-2 Result Time 2019-11-12 16:11:00Unknown [...] = 711-2) Ordering Physician UnknownAutomated blood eosinophils/100 kstupbbqpc3186-79-27 16:11:00Identifier 713-8 Result Time 2019-11-12 16:11:00Unknown Test [...] = 731-0) Ordering Physician UnknownAutomated blood lymphocytes/100 efgswdahua3057-70-41 16:11:00Identifier 736-9 Result Time 2019-11-12 16:11:00Unknown Test Item Value Reference Range Comments Automated blood lymphocytes/100 leukocytes 16.3 % Unknown Unknown F (test code = 736-9) Ordering Physician UnknownBlood monocytes automated count (number/volume)2019-11 16:11:00Identifier 742-7 Result Time 2019-11-12 16:11:00Unknown Test Item Value Reference Range Comments Blood monocytes automated count 0.3 10^3/ul Unknown Unknown F (number/volume) (test code = 742-7) Ordering Physician UnknownAutomated blood neutrophils/100 dmdaepsggk9477-99-50 16:11:00Identifier 770-8 Result Time 2019-11-12 16:11:00Unknown Test [...] UnknownAutomated erythrocyte mean corpuscular hemoglobin concentration measurement (mass/anr4986-84-18 16:11:00Identifier 786-4 Result Time 2019-11-12 16:11:00Unknown Test Item Value Reference Range Comments Automated erythrocyte mean corpuscular 33 g/dL Unknown Unknown F hemoglobin concentration measurement (mass/vol (test code = 786-4) Ordering Physician UnknownAutomated erythrocyte mean corpuscular efvtbh9956-80- 08 16:11:00Identifier 787-2 Result Time 2019-11-12 16:11:00Unknown Test Item Value Reference Range Comments Automated erythrocyte mean corpuscular volume 91 fL Unknown Unknown F (test code = 787-2) Ordering Physician UnknownAutomated erythrocyte distribution width uvbfx4618-40- 08 16:11:00Identifier 788-0 Result Time 2019-11-12 16:11:00Unknown [...] code = 789-8) Ordering Physician UnknownLymphocyte proliferation [id number] 16:11: 00Identifier [id number] Result Time 2019-11-12 16:11:00Unknown Test Item Value Reference Range Comments Lymphocyte proliferation test (test 5.0 10^3/ul Unknown Unknown F code = YSZ8034) Ordering Physician Unknown
--- NOTE | 2020-01-19 16:09 | ED ---
Respiratory - HPI Summary HPI Summary: 59 year old F presenting to [facility] with a chief complaint of congestion with runny, yellow sputum. The patient rates the pain 0/10 in severity. Patient reports that she has 15% use of her lungs. She contacted Dr. Mccoy who advised her to come to the emergency department for further evaluation. Patient denies any fever. Medication list reviewed. Allergy list reviewed. - History of Current Complaint Chief Complaint: EDShortnessOfBreath Stated Complaint: SOB PER PT Time Seen by Provider: 01/19/20 16:03 Hx Obtained From: Patient Current Severity: None Pain Intensity: 0 Sputum Color: Yellow Associated Signs and Symptoms: Negative - Fever, Nasal Congestion - Allergy/Home Medications Allergies/Adverse Reactions: Allergies Allergy/AdvReac Type Severity Reaction Status Date / Time metronidazole [From Flagyl] Allergy Unknown Verified 01/19/20 15:58 Reaction Details Sulfa (Sulfonamide Allergy Unknown Verified 01/19/20 15:58 Antibiotics) Reaction Details amoxicillin AdvReac Diarrhea Verified 01/19/20 15:58 azithromycin AdvReac Diarrhea Verified 01/19/20 15:58 Home Medications: Home Medications Budesonide/Formote 160/4.5(NF) [Symbicort 160/4.5 (NF)] 2 puff INH BID 07/24/13 [History Confirmed 01/19/20] Ascorbic Acid TAB* [Vitamin C TAB*] 1,000 mg PO DAILY 12/10/13 [History Confirmed 01/19/20] Montelukast Sodium TAB* [Singulair 10 MG TAB*] 10 mg PO BEDTIME 08/01/18 [ History Confirmed 01/19/20] Albuterol/Ipratropium NEB.LUIGI* [Duoneb (Albuterol 2.5 MG/Ipratropium 0.5 MG)] 1 neb INH Q4H PRN #150 neb.luigi 11/15/19 [Rx Confirmed 01/19/20] predniSONE [Prednisone 5 MG TAB] 5 mg PO DAILY #30 tablet 11/26/19 [Rx Confirmed 01/19/20] Acetylcysteine INHALATION LUIGI* [Mucomyst INHALATION LUIGI*] 400 mg INH BID [History Confirmed 01/19/20] Albuterol/Ipratropium RESP(NF) [Combivent Respimat(NF)] 2 puff INH .Q2-3H PRN [History Confirmed 01/19/20] Tobramycin 300 MG/5 ML INH(NF) [Akin(NF)] 300 mg INH Q4HR PRN 01/19/20 [History Confirmed 01/19/20] busPIRone TAB* [Buspar TAB*] 10 mg PO DAILY 01/19/20 [History Confirmed 01/19/20 ] clonazePAM TAB(*) [KlonoPIN TAB(*)] 1 mg PO .FIVE TIMES A DAY PRN MDD 5 mg 01/18 [History Confirmed 01/19/20] PMH/Surg Hx/FS Hx/Imm Hx Endocrine/Hematology History: Denies: Hx Diabetes, Hx Sickle Cell Disease Cardiovascular History: Reports: Other Cardiovascular Problems/Disorders - BLE swelling-possible heART HISTORY Denies: Hx Congestive Heart Failure, Hx Hypercholesterolemia, Hx Hypertension Respiratory History: Reports: Hx Asthma, Hx Chronic Bronchitis, Hx Chronic Obstructive Pulmonary Disease (COPD), Hx Pneumonia, Other Respiratory Problems/ Disorders - Emphysema GI History: Reports: Hx Diverticulosis, Other GI Disorders - Appendectomy Sensory History: Reports: Hx Contacts or Glasses Denies: Hx Legally Blind, Hx Deafness, Hx Hearing Aid Opthamlomology History: Reports: Hx Contacts or Glasses Denies: Hx Legally Blind Psychiatric History: Reports: Hx Anxiety - Surgical History Surgery Procedure, Year, and Place: wisdom teeth. x1. hysterectomy. Tubal ligation. Appendectomy- [facility] [place]- [facility] Hx Anesthesia Reactions: No - Immunization History Date of Tetanus Vaccine: unk Date of Influenza Vaccine: none Infectious Disease History: No Infectious Disease History: Reports: History Other Infectious Disease - pseudomonas sputum Denies: Traveled Outside the [place] in Last 30 Days - Family History Known Family History: Negative: Diabetes - Social History Alcohol Use: None Hx Substance Use: No Substance Use Type: Reports: None Hx Tobacco Use: Yes Smoking Status (MU): Former Smoker Type: Cigarettes Review of Systems Positive: Other - Congestion. Negative: Fever Positive: Nasal Discharge All Other Systems Reviewed And Are Negative: Yes Physical Exam - Summary Physical Exam Summary: Appearance: The patient is well-nourished in no acute distress and in no acute pain. Skin: The skin is warm and dry, and skin color reflects adequate perfusion. HEENT: The head is normocephalic and atraumatic. The pupils are equal and reactive. The conjunctivae are clear and without drainage. Nares are patent and without drainage. Mouth reveals moist mucous membranes, and the throat is without erythema and exudate. The external ears are intact. The ear canals are patent and without drainage. The tympanic membranes are intact. Neck: The neck is supple with full range of motion and non-tender. There are no carotid bruits. There is no neck vein distension. Respiratory: Chest is non-tender. Decreased breath sounds. Cardiovascular: Heart is regular rate and rhythm. There is no murmur or rub auscultated. There is no peripheral edema and pulses are symmetrical and equal. Abdomen: The abdomen is soft and non-tender. There are normal bowel sounds heard in all four quadrants and there is no organomegaly palpated. Musculoskeletal: There is no back tenderness noted. Extremities are non-tender with full range of motion. There is good capillary refill. There is no peripheral edema or calf tenderness elicited. Neurological: Patient is alert and oriented to person, place and time. The patient has symmetrical motor strength in all four extremities. Cranial nerves are grossly intact. Deep tendon reflexes are symmetrical and equal in all four extremities. Psychiatric: The patient has an appropriate affect and does not exhibit any anxiety or depression. Triage Information Reviewed: Yes Vital Signs On Initial Exam: Initial Vitals Temp Pulse Resp BP Pulse Ox 98.5 F 99 28 119/56 96 01/19/20 15:54 01/19/20 15:54 01/19/20 15:54 01/19/20 15:54 01/19/20 15:54 Vital Signs Reviewed: Yes Procedures - Sedation Patient Received Moderate/Deep Sedation with Procedure: No Diagnostics - Vital Signs Vital Signs Temp Pulse Resp BP Pulse Ox 01/19/20 15:54 98.5 F 99 28 119/56 96 - Laboratory Result Diagrams: 01/19/20 17:25 01/19/20 17:25 Lab Statement: Any lab studies that have been ordered have been reviewed, and results considered in the medical decision making process. - Radiology Chest x-ray Radiology Interpretation Completed By: Radiologist Summary of Radiographic Findings: Severe chronic obstructive pulmonary disease and emphysema with component of interstitial fibrosis and bronchiectasis with unchanged finding of fluid levels within dilated RIGHT lower lung zone bronchiectatic airways. Pneumonia in this region is not excluded. #. No superimposed new pathologic process evident. ED physician has reviewed this report. - EKG 18:13 Cardiac Rate: NL - 95 BPM EKG Rhythm: Sinus Rhythm - Non-specific changes consistent with 11/16/2019. ED physician has reviewed and interpreted this EKG. Disposition - Course Course Of Treatment: Ms. Gotti tells me that she chronically has a cough with yellow sputum. She periodically has exacerbations and gets treated. Last week or 2 she's been feeling like she is flaring up. She spoke with Dr. Mccoy today who recommended she come in. She denies any fever or chills. She is chronically on 5 L of oxygen at home and uses nebulizers. She has been using the nebulizers but none today. Here she was given a nebulizer and Solu-Medrol and really didn't improve much. I spoke with Dr. Mendoza of the hospitalists who requested more observation in the department and repeat nebulizers as well as flu swab.. Was negative and after a couple hours of observation in 2 nebs we tried to ambulate her on her normal 5 L of oxygen. She dropped her pulse ox down into the low 80s and I spoke with Dr. López for admission. - Diagnoses Provider Diagnoses: COPD exacerbation - Physician Notifications Discussed Care Of Patient With: Stephanie López Time Discussed With Above Provider: 19:06 Instructed by Provider To: Other - Discussed with Dr. López regarding the patient. - Critical Care Time Critical Care Time: 30-74 min Discharge ED - Sign-Out/Discharge Documenting (check all that apply): Patient Departure - Discharge Plan Condition: Stable Disposition: ADMITTED TO [facility] Referrals: Harpreet Padilla MD [Primary Care Provider] - - Billing Disposition and Condition Condition: STABLE Disposition: Admitted to [facility] - Attestation Statements Document Initiated by Sylwiaibe: Yes Documenting Scribe: Eli Garcia Provider For Whom Sylwiaibsugey is Documenting (Include Credential): Velasquez Peoples MD Scribe Attestation: Eli Valle scribed for Velasquez Peoples MD on 01/19/20 at 6488. Scribe Documentation Reviewed: Yes Provider Attestation: The documentation as recorded by the Eli garg accurately reflects the service I personally performed and the decisions made by me, Velasquez Peoples MD Status of Scribe Document: Viewed
[2020-01-19] MEDS ORDERED: methylPREDNISolone 125 MG* 2 ML VIAL IV ONE (17:00)
[2020-01-19] MEDS ORDERED: Albuterol/Ipratropium NEB.SOL* Albuterol 2.5 MG/Ipratropium 0.5 MG 3 ML INH ONE ×3 (17:00→20:42)
[2020-01-19 17:32] LABS: ABS Lymphocytes 0.9 10^3/ul (1.0-4.8); ABS Monocytes 0.8 10^3/ul (0-0.8); ABS Neutrophils 6.2 10^3/ul (1.5-7.7); Eosinophil % 0.2 %; Hematocrit 35 % (35-47); Hemoglobin 11.3 g/dL (12.0-16.0); Lymphocyte % 11.1 %; Mean Corpuscular HGB Conc 32 g/dL (31-36); Mean Corpuscular Hemoglobin 29 pg (27-31); Mean Corpuscular Volume 90 fL (80-97); Mean Platelet Volume 8.3 fL (7.4-10.4); Nucleated Red Blood Cells % 0.1; Platelet Count 343 10^3/uL (150-450); Red Blood Count 3.89 10^6 /uL (3.70-4.87); Red Cell Distribution Width 14 % (10-15); White Blood Count 7.9 10^3/uL (3.5-10.8)
[2020-01-19 17:41] LABS: INR 1.13 (0.82-1.09)
[2020-01-19 17:50] LABS: Albumin 3.5 g/dL (3.2-5.2); Albumin/Globulin Ratio 0.8 (1-3); BUN/Creatinine Ratio 13.7 (8-20); C Reactive Protein 80.54 mg/L (<8.01); Calcium 9.7 mg/dL (8.6-10.3); EGFR African American 99.1 (>60); EGFR Non-African American 81.9 (>60); Globulin 4.5 g/dL (2-4); Potassium 3.9 mmol/L (3.5-5.0); Total Bilirubin 0.4 mg/dL (0.2-1.0)
[2020-01-19] MEDS ORDERED: Levofloxacin 750 MG IVPREMIX(* 750 MG/150 ML BAG IVPB ONE (19:11)
[2020-01-19 20:22] LABS: Influenza A Molecular Negative (Negative); Influenza B Molecular Negative (Negative)
[2020-01-19] MEDS ORDERED: Albuterol/Ipratropium NEB.SOL* Albuterol 2.5 MG/Ipratropium 0.5 MG 3 ML INH PRN (23:05)
[2020-01-19] MEDS ORDERED: Enoxaparin(*) 40 MG/0.4 ML SYR SUBCUT SCH (23:45)
[2020-01-20] MEDS: Enoxaparin(*) 40 MG/0.4 ML SYR SUBCUT SCH ×2 (00:13→21:11)
[2020-01-20] MEDS: DOXYcycline CAP(*) 100 MG PO SCH ×2 (00:13→08:55)
[2020-01-20] MEDS: busPIRone TAB* 10 MG PO SCH ×3 (00:13→21:11)
[2020-01-20] MEDS ORDERED: Benzonatate CAP* 100 MG PO PRN (01:15)
[2020-01-20] MEDS: Cefepime 2 GM in Dextrose(*) 2 GM/50 ML BAG IV SCH ×2 (01:21→08:57)
--- NOTE | 2020-01-20 01:31 | HP ---
CC: Dr. Harpreet Padilla; Dr. Bindu Mccoy * HISTORY AND PHYSICAL: DATE OF ADMISSION: 01/19/20 PRIMARY CARE PHYSICIAN: Dr. Harpreet Padilla. LAPEL STITCHER: Dr. Bindu Mccoy. HEALTHCARE PROXY: Her and son, So Lomeli CODE STATUS: Full. CHIEF COMPLAINT: Subacute progressive shortness of breath with cough. HISTORY OF PRESENT ILLNESS: Ms. Gotti is a 59-year-old woman with severe COPD , bronchiectasis, complicated by chronic hypercarbic and hypoxic respiratory failure on 3 to 5 L supplemental O2 at home, also severe anxiety with benzodiazepine dependence, who is presenting with worsening shortness of breath and malaise for 2 days. The patient was admitted twice 2 months ago, both times with COPD exacerbation with low evidence for pneumonia. The discharge from the second hospitalization is here occurred approximately 1-1/2 months ago. She reports that since discharge she has been following with Dr. Mccoy in [facility] and has been started on new inhaled medications including Mucomyst and tobramycin and she states that she was feeling at her generally poor baseline, which includes significant shortness of breath and desaturation when ambulating to the bathroom, also with intermittent wet cough. On one day prior to this presentation, the patient woke up with significant malaise and did not feel like getting out of bed. She felt like she had very low energy. Also yesterday, she reports an increase in her productive cough with yellow to white sputum and also reports increased shortness of breath. She did not need to use extra oxygen around this time. She denies associated fevers, chills, myalgias, headache, sneezing, or sore throat. She states that her symptoms feel exactly like the last few times she was admitted earlier this year. She denies sick contacts or recent travel. She is reporting significant anxiety recently and it was thought that this previously was related to some of her feelings of shortness of breath associated with tachypnea. In the emergency room, the patient was intermittently tachycardic to the low 100s and was on her baseline of 5 L of supplemental oxygen at home. Her most significant lab abnormality is an increase in CRP. Previously, her levels were normal with a peak of 32 but her CRP in the ER today was 80. Influenza A and B swabs are negative. In the emergency room, she also received a dose of levofloxacin with multiple rounds of nebulizers. The patient was still feeling very tired with increased work of breathing and was noted to desaturate to 84% when walking to the bathroom in the ER, so she was asked to be admitted. Of note, during the patient's admission approximately 6 weeks ago, her cultures grew Pseudomonas, which they had before with intermediate resistance to fluoroquinolones. She was given a 7-day course of cefepime. She was also given IV steroids at admission, eventually transitioned to oral prednisone with instructions to taper to 5 mg daily, which she has still been taking. During that admission, the patient never desaturated below 90% on her home O2 and she was not eligible for BiPAP. PAST MEDICAL HISTORY: 1. Severe COPD, on home O2, 3 to 5 L with history of intubation as recently as 2019, which was complicated by right-sided spontaneous pneumothorax. 2. Bronchiectasis with possible chronic Pseudomonas colonization. 3. Severe anxiety with benzodiazepine dependence. PAST SURGICAL HISTORY: 1. Pneumothorax in 2019, status post chest tube. 2. Appendectomy. 3. and tubal ligation. MEDICATIONS: 1. Symbicort 2 puffs twice a day. 2. Mucomyst 400 mg inhaled twice a day. 3. Tobramycin 300 mg inhaled every 4 hours. 4. Prednisone 5 mg daily. 5. Combivent 2 puffs every 2 to 3 hours as needed for shortness of breath. 6. Montelukast 10 mg daily. 7. Clonazepam 1 mg up to 5 times a day as needed for anxiety. 8. Buspirone 10 mg twice a day. 9. Vitamin C 1000 mg daily. ALLERGIES: MULTIPLE ANTIBIOTICS including METRONIDAZOLE, SULFA ANTIBIOTICS, AMOXICILLIN, and AZITHROMYCIN have caused diarrhea and weight loss. FAMILY HISTORY: The patient does not know her father. She reports her mother has heart disease and diabetes. Multiple siblings have diabetes and 1 sister had a stroke. 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 She lives with her . She has a [id number] history of tobacco and quit in 2011. She denies alcohol or recreational drug use. Her , Velasquez and son, Velasquez Lomeli, are her healthcare proxies. REVIEW OF SYSTEMS: A complete 10-point review of systems was performed and pertinent positives and negatives are listed in the HPI. PHYSICAL EXAMINATION GENERAL: She is an anxious-appearing woman who is mildly tachypneic but is able to speak in full sentences. She is very pleasant and frail appearing. VITAL SIGNS: Temperature 98.5, heart rate 103, blood pressure 121/58, respiratory rate 23, oxygen saturation 95% on 5 L. HEENT: PERRL with anicteric sclerae. Mucous membranes moist. OP without erythema. NECK: Supple without JVD. LUNGS: Distant lung sounds appreciated but without wheezes or crackles. HEART: Sinus tachycardia with regular rhythm. No murmurs, gallops, or rubs. ABDOMEN: Soft, nontender, nondistended. EXTREMITIES: Warm and well perfused without edema. NEURO: No focal deficits. CN II through XII intact. PSYCH: Mildly anxious. DIAGNOSTIC STUDIES/LAB DATA: CBC notable for mild anemia to 11.3, which was slightly improved from baseline with normal MCV. BMP notable for bicarb of 38, which is the patient's baseline. INR 1.13. CRP 80. Influenza A and B swabs negative. Chest x-ray with severe chronic obstructive pulmonary disease and emphysema with component of interstitial fibrosis and bronchiectasis with unchanged findings of fluid levels within dilated right lower lung zone bronchiectatic airways. Pneumonia in this region not excluded. No superimposed new pathologic process evident. ASSESSMENT AND PLAN: Ms. Gotti is a 59-year-old woman with chronic obstructive pulmonary disease on home oxygen 3 to 5 L, bronchiectasis with pseudomonal colonization, and severe anxiety, who is presenting with acute onset of malaise and worsened productive cough and shortness of breath above her poor baseline. She will be admitted with concern for chronic obstructive pulmonary disease exacerbation. 1. Chronic obstructive pulmonary disease with chronic hypoxic and hypercarbic respiratory failure. It is unclear what is driving the patient's chronic obstructive pulmonary disease exacerbation at this time with the exception of the CRP above her prior baseline. She is without other symptoms concerning for infection. She has no fever, leukocytosis, myalgias, or chills that would be suspicious for viral or bacterial process, although this could be triggered by a mild upper respiratory infection. As the patient is known to have a pseudomonas colonization in her sputum and given that her CRP is elevated to 80 , I will initiate her on cefepime at this time and order repeat sputum cultures and day team can consider a consultation with patient's bpm analyst, Dr. Mccoy in the morning. The patient will also be started on methylprednisolone IV 40 mg every 8 hours, which should be transitioned to oral and tapered since possible. Of note, she was on prednisone 5 mg daily before this presentation. At home, the patient was only on a LABA/ICS. The patient reports that she previously took a LAMA inhaled medication, most notably Spiriva and she reports that she felt much better on this medication and she is unclear why outpatient provider had stopped this medication. I will restart Spiriva now to complete best triple therapy for her chronic obstructive pulmonary disease. She will also be ordered for nebulizers with DuoNebs to take as needed. Her goal SaO2 is between 90% and 92%. She will also be initiated on doxycycline 100 mg twice a day for chronic obstructive pulmonary disease exacerbation. It will also be important to manage this patient's anxiety as this could be playing a role as well. To complete workup in case the does have bacterial process, although again I think this is unlikely, she was ordered for urine antigens. 2. Anxiety. The patient will continue her home medications of buspirone twice a day with as needed clonazepam. 3. DVT prophylaxis: Initiate subcutaneous Lovenox. 4. Code status: Full. TIME SPENT: Approximately 60 minutes was spent on admission of this patient, more than half of which was spent at bedside for interview, exam, and to answer all the patient's questions. [id number]/[facility] #: [id number] MTDD
[2020-01-20] MEDS: guaiFENesin 100 mg/5 ml LIQ unit dose cup PO PRN ×4 (02:04→22:54)
[2020-01-20] MEDS: methylPREDNISolone 125 MG* 2 ML VIAL IV SCH ×2 (05:54→15:53)
[2020-01-20] MEDS: Acetylcysteine INHALATION SOL* 200 MG/ML NEB.SOLN 10 ML INH SCH ×2 (08:38→19:20)
[2020-01-20] MEDS: Mometasone/Formoter 200/5 MDI INH SCH ×2 (08:39→19:20)
[2020-01-20] MEDS: Ascorbic Acid TAB* 500 MG PO SCH (08:55)
[2020-01-20] MEDS: clonazePAM TAB(*) 1 MG PO PRN ×4 (08:56→22:53)
[2020-01-20] MEDS: Saline NASAL DROPS 0.65%* 1 DROP BTL BOTH NARES PRN (10:54)
[2020-01-20] MEDS: Albuterol/Ipratropium NEB.SOL* Albuterol 2.5 MG/Ipratropium 0.5 MG 3 ML INH SCH ×4 (11:55→22:56)
[2020-01-20] MEDS ORDERED: Albuterol/Ipratropium NEB.SOL* Albuterol 2.5 MG/Ipratropium 0.5 MG 3 ML INH SCH (12:00)
[2020-01-20] MEDS ORDERED: Zosyn per Pharmacy* NOTE FOLLOW UP SCH (13:00)
[2020-01-20] MEDS ORDERED: ZOSYN 3.375 GM x ONE DOSE over 30 miuntes IVPB ×2 (13:30)
--- NOTE | 2020-01-20 14:59 | PN ---
Subjective Date of Service: 01/20/20 Interval History: HD 2 on 01/19 59 F with PMH of chronic respiratory failure 2/2 to COPD, bronchiectasis, recurrent pneumonia presented with Increased SOB and increased frequency and productivity of Cough for 2 days. FOund to be on COPD exacerbation secondary to suspected PNA. Overnight: Admitted Patient seen and examined at bedside. patient states that she is feeling better than yesterday. She started having increased cough and sob from sunday but denies any fever. Denies chest pain. No recent travel history. She uses 5 L of oxygen at home. Objective Active Medications: Acetylcysteine (Mucomyst Inhalation Sandra*) 400 mg INH BID [facility] Last Admin: 01/20/20 08:38 Dose: 400 mg Albuterol/Ipratropium (Duoneb (Albuterol 2.5 Mg/Ipratropium 0.5 Mg)) 1 neb INH [id number] AWAKE PRN PRN Reason: sob/wheexing Last Admin: 01/20/20 08:38 Dose: 1 neb Albuterol/Ipratropium (Duoneb (Albuterol 2.5 Mg/Ipratropium 0.5 Mg)) 1 neb INH Q4H [facility] Last Admin: 01/20/20 11:55 Dose: 1 neb Ascorbic Acid (Vitamin C Tab*) 1,000 mg PO DAILY [facility] Last Admin: 01/20/20 08:55 Dose: 1,000 mg Benzonatate (Tessalon Cap*) 100 mg PO BID PRN PRN Reason: COUGH Buspirone HCl (Buspar Tab*) 10 mg PO BID [facility] Last Admin: 01/20/20 08:55 Dose: 10 mg Clonazepam (Klonopin Tab(*)) 1 mg PO .FIVE TIMES A DAY PRN PRN Reason: ANXIETY Last Admin: 01/20/20 12:42 Dose: 1 mg Doxycycline Hyclate (Vibramycin Cap(*)) 100 mg PO BID [facility] Last Admin: 01/20/20 08:55 Dose: 100 mg Enoxaparin Sodium (Lovenox(*)) 40 mg SUBCUT DAILY@2100 [facility] Last Admin: 01/20/20 00:13 Dose: 40 mg Guaifenesin (Robitussin 100 Mg/5ml Liq) 5 ml PO Q6H PRN PRN Reason: COUGH Last Admin: 01/20/20 09:48 Dose: 5 ml Piperacillin Sod/Tazobactam (Sod 3.375 gm/ Sodium Chloride) 100 mls @ 25 mls/ hr IVPB Q8H [facility] Methylprednisolone Sodium Succinate (Solu-Medrol 125mg *) 40 mg IV Q8H [facility] Last Admin: 01/20/20 05:54 Dose: 40 mg Mometasone Furoate/Formoterol Fumar (Dulera 200/5 Mdi*) 2 puff INH BID [facility]; Protocol Last Admin: 01/20/20 08:39 Dose: 2 puff Montelukast Sodium (Singulair Tab*) 10 mg PO BEDTIME [facility] Pharmacy Consult (Zosyn Per Pharmacy*) 1 note FOLLOW UP .ZOSYN PER PHARMACY [facility] Sodium Chloride (Sodium Chloride 0.65% Nasal Drops*) 1 drop BOTH NARES Q4H PRN PRN Reason: CONGESTION Last Admin: 01/20/20 10:54 Dose: 1 drop Tiotropium [place] (Spiriva Respimat 2.5 Mcg) 2 puff INH QPM [facility] Vital Signs - 8 hr 01/20/20 01/20/20 01/20/20 07:15 08:00 08:55 Temperature 97.7 F Pulse Rate 79 80 Respiratory 18 18 18 Rate Blood Pressure 113/57 (mmHg) O2 Sat by Pulse 100 96 Oximetry 01/20/20 01/20/20 01/20/20 08:56 10:56 11:34 Temperature 97.6 F Pulse Rate 89 Respiratory 24 18 18 Rate Blood Pressure 109/56 (mmHg) O2 Sat by Pulse 99 Oximetry 01/20/20 01/20/20 11:58 12:42 Temperature Pulse Rate 85 Respiratory 18 16 Rate Blood Pressure (mmHg) O2 Sat by Pulse 93 Oximetry Oxygen Devices in Use Now: Nasal Cannula Exam: Patient is lying on a bed in supine position and is not in acute dstress. HEENT: Normocephalic and atraumatic. Sclera anicteric. EOMI. PERRLA. Neck: No lymphadenopathy and enlarged thyroid. NO JVD elevation. Lungs: Good respiratory effort and chest expansion. Crackles heard on bilateral bases. Heart: Normal in rate and rhythm. S1/S2 heard with no murmur, rubs or gallops. Abdomen: Soft, nondistended and nontender. Normal BS heard. Extremities; No swelling, cyanosis or clubbing Neuro: Alert, oriented and coperative. CN intact. Motor normal and sensation intact. Result Diagrams: 01/19/20 17:25 01/19/20 17:25 Assess/Plan/Problems-Billing Assessment: 59 F with PMH of chronic respiratory failure 2/2 to COPD, bronchiectasis, recurrent pneumonia presented with Increased SOB and increased frequency and productivity of Cough for 2 days. FOund to be on COPD exacerbation secondary to suspected PNA. - Patient Problems (1) Acute on chronic respiratory failure with hypoxia Current Visit: No Status: Acute Code(s): J96.21 - ACUTE AND CHRONIC RESPIRATORY FAILURE WITH HYPOXIA SNOMED Code(s): 84250947 Comment: -states she uses 3-5 L of oxygen at home -Currently requiring 5 L continous -Secondary to COPD exacerbation (2) COPD exacerbation Current Visit: No Status: Acute Code(s): J44.1 - CHRONIC OBSTRUCTIVE PULMONARY DISEASE W (ACUTE) EXACERBATION SNOMED Code(s): 939630506 Comment: -Secondary to suspected PNA -patient has history of recurrent PNA with pseudomonas -CXR shows hyperinflated lungs with right infiltrates and there is questionable new infiltrates on left side -we will confirm it with Chest CT -This could just be progression of her COPD and bronchiectasis and colonization with pseudomonas -we will do sputumn culture and till then cover her with ZOsyn(started on 01/19) -Urine Ag negative -If culture negative then can dc zosyn -Discussed with Dr. Mccoy -Continue inhalers and steroids- will chnge to PO steroid tomorrow(started on ) (3) Anxiety Current Visit: No Status: Chronic Code(s): F41.9 - ANXIETY DISORDER, UNSPECIFIED SNOMED Code(s): 97584289 Comment: - Continue clonazepam and buspar (4) DVT prophylaxis Current Visit: No Status: Acute Code(s): KIT7283 - SNOMED Code(s): 054808354 Comment: -Lovenox (5) Full code status Current Visit: No Status: Acute Code(s): Z78.9 - OTHER SPECIFIED HEALTH STATUS SNOMED Code(s): 582802229 Comment: Status and Disposition: Inpatient Pulm following Attending: Taty Buenrostro Attestation Documenting Resident: Sagar Supervising Physician: Porter Attending/Supervising Physician Comment: Overall, she does not seem far from baseline. She has had bronchiectasis custodial and has been treated by Dr. Mccoy with little improvement. Appreciate Dr. Mccoy's recommendations. Awaiting repeat sputum cultures; covering empirically with pip/tazo for now. Attestation: This service has been performed in part by a resident under the direction of a teaching physician.IPorter, performed the service, or was physically present during the critical, or teague portions of the service, furnished by the resident. I participated in the management of the patient.
[2020-01-20] MEDS ORDERED: SPIRIVA Respimat* (tiotropium) 2.5 mcg/inh Inhaler INH SCH (18:00)
[2020-01-20] MEDS: ZOSYN 3.375 GM Q8H per EXTENDED INFUSION IVPB SCH ×2 (19:49)
[2020-01-20] MEDS ORDERED: Montelukast Sodium TAB* 10 MG PO SCH (21:00)
--- NOTE | 2020-01-20 21:00 | CONS ---
PULMONARY CONSULTATION REPORT: DATE OF CONSULT: 01/20/20 CONSULTATION REQUESTED BY: Dr. Perez and Dr. Ku. REASON FOR CONSULT: Respiratory failure. HISTORY OF PRESENT ILLNESS: The patient is a 59-year-old female known to me from prior inpatient and outpatient evaluation. The patient with history of severe COPD, bronchiectasis. The patient recently diagnosed with pseudomonas pneumonia. She is being managed after discharge at home with inhaled tobramycin. She has completed IV antibiotics during recent hospitalization. She continued to have issues with thick secretions. She was started on Mucomyst. The patient presents for reevaluation of worsening shortness of breath and cough. The patient was seen and examined at bedside. The patient reports having significant cough, her cough medicine has not been very helpful. The patient reports feeling slightly better since she came into the hospital. The patient denies fevers, chills, myalgias, sneezing, sore throat. The patient reports continuing to have cough productive of yellow to white phlegm. The patient recently was seen as outpatient, at which time she had green phlegm , which was sent for cultures. The patient found to be tachycardic in low 100s and with O2 requirement at baseline at 5 L. Influenza A and B swabs were negative. She was admitted for further management to the hospital. The patient was started on cefepime. PAST MEDICAL HISTORY: 1. Severe COPD, on home O2 anywhere between 3 to 5 L. 2. History of recent hospitalization for right-sided pneumothorax and intubation. 3. Severe bronchiectasis and recent pseudomonas pneumonia. 4. Severe anxiety. PAST SURGICAL HISTORY: 1. Pneumothorax in 2019, status post chest tube. 2. Appendectomy. 3. and tubal ligation. MEDICATIONS: 1. Symbicort. 2. Mucomyst. 3. Tobramycin. 4. Prednisone. 5. Combivent 6. Montelukast. 7. Klonopin. 8. Buspirone. 9. Vitamin C. ALLERGIES: Multiple ANTIBIOTICS including METRONIDAZOLE, SULFA, AMOXICILLIN, and AZITHROMYCIN. FAMILY HISTORY: Mother with heart disease and diabetes. SOCIAL HISTORY: Disabled. 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 Lives with her . 40-pack year smoking history and quit in 2011. No alcohol or drug abuse. REVIEW OF SYSTEMS: All 12 systems reviewed as per HPI. PHYSICAL EXAM: General: The patient in no apparent distress. Vital Signs: Temperature 98.3, pulse 102 beats per minute, respiratory rate 18 per minute, O2 sat 98% on 5 L, blood pressure 129/53. HEENT: Pupils are equal, reactive to light. Mucous membranes moist. Lungs: Diminished air entry bilaterally. Scattered rhonchi present. Cardiovascular: S1, S2 present. Abdomen: Soft, nontender, nondistended. Bowel sounds present. Extremities: Normal range of motion. Skin: No rash. DIAGNOSTIC STUDIES/LAB DATA: WBC count 7.9, hemoglobin 11.3, hematocrit 35, platelet count 343. Sodium 139, potassium 3.9, chloride 96, bicarb 38, BUN 10, creatinine 0.73, CRP elevated at 80. Influenza A and B negative. Sputum cultures from 01/20/20 pending. Cultures from 01/19/20 showed gram-negative bacilli. Further identification pending. Chest CT performed today was personally reviewed by me - evidence of bilateral bronchiectasis with mucous plugging. Emphysematous changes predominantly in the upper lung zones. The patient also with atelectasis at the right base with improved aeration in the left base. IMPRESSION AND RECOMMENDATIONS: 59-year-old female with history of severe chronic obstructive pulmonary disease, bronchiectasis with recent pneumonia with pseudomonas and having complicated course since then. The patient with ongoing issues with mucus and shortness of breath. CT chest shows slight worsening of atelectasis at the right base. She has mildly improved aeration and mucous plugging in the upper lung zones. Still has significant bronchiectatic and plugged airways in the lower lobes. Would order aggressive management with MetaNeb. Continue with Mucomyst and nebulizers, chest physical therapy. If the patient is stable in the morning, can be discharged home and will continue and complete her inhaled tobramycin. Thank you for allowing me participate in the care of mutual patient. [id number]/[facility] #: [id number] TYRESE
[2020-01-21] MEDS ORDERED: SPIRIVA Respimat* (tiotropium) 2.5 mcg/inh Inhaler INH SCH (01:00)
[2020-01-21] MEDS: ZOSYN 3.375 GM Q8H per EXTENDED INFUSION IVPB SCH ×4 (02:02→08:44)
[2020-01-21] MEDS: Albuterol/Ipratropium NEB.SOL* Albuterol 2.5 MG/Ipratropium 0.5 MG 3 ML INH SCH ×4 (03:11→14:42)
[2020-01-21 05:48] LABS: Hematocrit 30 % (35-47); Hemoglobin 9.7 g/dL (12.0-16.0); Mean Corpuscular HGB Conc 33 g/dL (31-36); Mean Corpuscular Hemoglobin 29 pg (27-31); Mean Corpuscular Volume 89 fL (80-97); Mean Platelet Volume 8.8 fL (7.4-10.4); Platelet Count 285 10^3/uL (150-450); Red Blood Count 3.32 10^6 /uL (3.70-4.87); Red Cell Distribution Width 15 % (10-15); White Blood Count 7.2 10^3/uL (3.5-10.8)
[2020-01-21] MEDS: guaiFENesin 100 mg/5 ml LIQ unit dose cup PO PRN (06:07)
[2020-01-21 06:11] LABS: BUN/Creatinine Ratio 25.7 (8-20); EGFR African American 65.1 (>60); EGFR Non-African American 53.8 (>60); Potassium 3.9 mmol/L (3.5-5.0)
[2020-01-21] MEDS: Acetylcysteine INHALATION SOL* 200 MG/ML NEB.SOLN 10 ML INH SCH (07:40)
[2020-01-21] MEDS: Mometasone/Formoter 200/5 MDI INH SCH (07:41)
[2020-01-21] MEDS: busPIRone TAB* 10 MG PO SCH (08:43)
[2020-01-21] MEDS: Saline NASAL DROPS 0.65%* 1 DROP BTL BOTH NARES PRN (08:44)
[2020-01-21] MEDS: clonazePAM TAB(*) 1 MG PO PRN ×3 (08:44→15:30)
[2020-01-21] MEDS: Ascorbic Acid TAB* 500 MG PO SCH (08:44)
--- NOTE | 2020-01-21 16:21 | PN ---
Progress Note - Progress Note Date of Service: 01/21/20 - Pulm f/u note Note: Patient seen and examined at bedside. Patient reports improvement in breathing. Patient still continues to have significant cough with productive sputum Active Medications Generic Name Dose Route Start Last Admin Trade Name Freq PRN Reason Stop Dose Admin Acetylcysteine 400 mg 01/20/20 09:00 01/21/20 07:40 Mucomyst Inhalation Sandra* INH 400 mg BID AYDIN Administration Albuterol/Ipratropium 1 neb 01/19/20 23:05 01/20/20 08:38 Duoneb (Albuterol 2.5 Mg/Ipratropium 0.5 Mg) INH 1 neb [id number] AWAKE PRN Administration sob/wheexing Albuterol/Ipratropium 1 neb 01/20/20 15:00 01/21/20 14:42 Duoneb (Albuterol 2.5 Mg/Ipratropium 0.5 Mg) INH 1 neb Q4H AYDIN Administration Ascorbic Acid 1,000 mg 01/20/20 09:00 01/21/20 08:44 Vitamin C Tab* PO 1,000 mg DAILY AYDIN Administration Benzonatate 100 mg 01/20/20 01:15 Tessalon Cap* PO BID PRN COUGH Buspirone HCl 10 mg 01/19/20 23:45 01/21/20 08:43 Buspar Tab* PO 10 mg BID AYDIN Administration Clonazepam 1 mg 01/19/20 23:12 01/21/20 15:30 Klonopin Tab(*) PO 1 mg .FIVE TIMES A DAY PRN Administration ANXIETY Enoxaparin Sodium 40 mg 01/19/20 23:45 01/20/20 21:11 Lovenox(*) SUBCUT 40 mg DAILY@2100 AYDIN Administration Guaifenesin 5 ml 01/20/20 01:42 01/21/20 06:07 Robitussin 100 Mg/5ml Liq PO 5 ml Q6H PRN Administration COUGH Piperacillin Sod/Tazobactam 100 mls @ 25 mls/hr 01/20/20 18:00 01/21/20 08:44 Sod 3.375 gm/ Sodium Chloride IVPB 25 mls/hr Q8H AYDIN Administration Mometasone Furoate/Formoterol Fumar 2 puff 01/20/20 09:00 01/21/20 07:41 Dulera 200/5 Mdi* INH 2 puff BID AYDIN Administration Protocol Montelukast Sodium 10 mg 01/20/20 21:00 01/20/20 21:11 Singulair Tab* PO 10 mg BEDTIME AYDIN Administration Pharmacy Consult 1 note 01/20/20 13:00 Zosyn Per Pharmacy* FOLLOW UP .ZOSYN PER PHARMACY AYDIN Prednisone 50 mg 01/21/20 09:00 01/21/20 08:44 Deltasone 50 Mg Tab PO 50 mg DAILY AYDIN Administration Sodium Chloride 1 drop 01/20/20 10:20 01/21/20 08:44 Sodium Chloride 0.65% Nasal Drops* BOTH NARES 1 drop Q4H PRN Administration CONGESTION Tiotropium [place] 2 puff 01/20/20 18:00 01/20/20 19:20 Spiriva Respimat 2.5 Mcg INH 2 puff QPM AYDIN Administration Vital Signs Temp Pulse Resp BP Pulse Ox 98.3 F 88 19 106/46 94 01/21/20 11:27 01/21/20 14:46 01/21/20 15:30 01/21/20 11:27 01/21/20 14:46 O/E: Pt in NAD HEENT: PERRLA Lungs:Diminished air entry b/l CVS: S1, S Abd: Soft, BS+ Ext: Normal ROM Skin: NO rash Neuro: NO focal deficits Laboratory Results - last 24 hr 01/21/20 01/21/20 05:31 05:31 WBC 7.2 RBC 3.32 L Hgb 9.7 L Hct 30 L MCV 89 MCH 29 MCHC 33 RDW 15 Plt Count 285 MPV 8.8 Sodium 142 Potassium 3.9 Chloride 101 Carbon Dioxide 37 H Anion Gap 4 BUN 27 H Creatinine 1.05 H Est GFR ( Amer) 65.1 Est GFR (Non-Af Amer) 53.8 BUN/Creatinine Ratio 25.7 H Glucose 93 Calcium 9.0 I/R: 59 F with PMH of chronic respiratory failure 2/2 to COPD, bronchiectasis, recurrent pneumonia presented with Increased SOB and increased frequency and productivity of Cough for 2 days,Being treated for COPD exacerbation. patient recently hospitalized for pseudomonal pneumonia Patient continues to have productive cough with thick sputum She has been on mucus clearance techniques at home She has history of bronchiectasis and severe COPD Repeat CT chest showed interval improvement in mucus plugging and consolidation Still has significant consolidation at right base She had responded to metanebs Repeat sputum cultures show Pseudomonas She will continue with inhaled tobramycin for another 2 weeks along with Augmentin for 1 week She will also continue with mucus clearance techniques O2 requirements at baseline Patient to be discharged home with home care
[2020-01-21 17:42] VITALS: BP 126/62
--- NOTE | 2020-01-21 18:55 | DS ---
CC: Dr. Padilla; Dr. Mccoy * DISCHARGE SUMMARY: DATE OF ADMISSION: 01/19/20 DATE OF DISCHARGE: 01/21/20 PRIMARY CARE PHYSICIAN: Dr. Padilla. JAVA SECURITY ENGINEER: Dr. Mccoy. PRINCIPAL DISCHARGE DIAGNOSES: 1. Chronic hypoxic respiratory failure. 2. Severe chronic obstructive pulmonary disease. 3. Bronchiectasis with pseudomonas colonization. 4. Anxiety with benzodiazepine dependence. DISCHARGE MEDICATIONS: 1. Symbicort 2 puffs inhaled b.i.d. 2. Ascorbic acid 1000 mg daily. 3. Singulair 10 mg q.h.s. 4. DuoNeb 1 neb inhaled q.4 p.r.n. wheezing. 5. Prednisone 5 mg daily. 6. Mucomyst 400 mg inhaled b.i.d. 7. Tobramycin 300 mg inhaled b.i.d. 8. Combivent 2 puffs inhaled q.2 to 3 p.r.n. 9. Clonazepam 1 mg 5 times a day p.r.n. anxiety. 10. BuSpar 10 mg b.i.d. 11. Augmentin 500 mg b.i.d. for 5 more days. PHYSICAL EXAM AT DISCHARGE: Temperature 98.3, heart rate 70, respiratory rate 20, pulse ox 96% on 5 L, blood pressure 106/46. General: Alert, tired woman, in no respiratory distress. She is able to speak in full sentences with no accessory respiratory muscle use. HEENT: Temporal wasting. Extraocular muscles intact. Oral mucosa is moist. Neck: No JVP. No adenopathy. Chest: Regular rate and rhythm. No murmurs. Lungs have distant breath sounds with no wheezes. There are a few rhonchi at the bases. Abdomen is soft, thin, nontender, nondistended. No CVA tenderness. Extremities: No edema, rashes, or ulcers. PERTINENT STUDIES ON THIS ADMISSION: A chest CT on 01/20/20 showed again noted is emphysema with extensive bronchiectasis and mucus plugging. There has been interval development of atelectasis of the right lower lobe. Sputum culture from 01/20/20 showed Pseudomonas aeruginosa. The sensitivities are pending. HOSPITAL COURSE BY PROBLEM: Chronic hypoxic respiratory failure. Overall, Mylene was not far from her baseline at the time of admission; however, she had been calling Dr. Mccoy's office daily with complaints that she was not improving after being started on the inhaled tobramycin for pseudomonas colonization. She was admitted and the cultures were repeated and she was started on Zosyn and higher doses of prednisone. It sounds like her Spiriva was not covered by insurance prior to admission and she was switched to an alternative brand name of tiotropium and she did not believe that this was working; however, she cannot describe what that implied and she stopped taking it. I suspect that her stopping taking the tiotropium may have led to her not feeling well. She was on her home O2 requirement, however, and as mentioned in the above report, her CT chest was unchanged from prior with ongoing bronchiectasis and mucus plugging and Dr. Mccoy was consulted and recommended repeating her sputum culture that continued to be positive for pseudomonas. She had not yet completed her course of inhaled tobramycin at home, so Dr. Mccoy recommended discharging her on the remaining dose of her tobramycin, which is another 20 days. This will make a total of 30 days of inhaled tobramycin. We will also send her on 5 days of Augmentin, which she has tolerated in the past. She will need close followup with Dr. Mccoy and with her PCP. She is being discharged on her chronic home O2 requirement of 3 to 5 L round- the-clock. She has nebulizers, home health aides and the support of her . She has been recommended strongly to be discharged to short-term rehab ; however, she has adamantly declined short-term rehab. We have discussed the risks of returning to home without attending rehab first and she expresses good understanding, but does not wish to go to rehab at this time. DISPOSITION: Mylene is being discharged to home with her on 01/21/20 with follow up with Dr. Mccoy and her PCP, Dr. Padilla. CONDITION AT THE TIME OF DISCHARGE: Stable. [id number]/[facility] #: [id number] [facility]
== END 2020-01-21 17:10 | disposition home health service (06) | DRG 140 ==
LOC: ED 15:44 → MED 23:05
PROVIDERS: ADMIT Internal Medicine; ATTEND Internal Medicine
DX: J44.1 Chronic obstructive pulmonary disease with (acute) exacerbation (principal); J96.21 Acute and chronic respiratory failure with hypoxia; J18.9 Pneumonia, unspecified organism; T17.890A Other foreign object in other parts of respiratory tract causing asphyxiation, initial encounter; J96.12 Chronic respiratory failure with hypercapnia; F13.20 Sedative, hypnotic or anxiolytic dependence, uncomplicated; J98.11 Atelectasis; Z16.23 Resistance to quinolones and fluoroquinolones; Z99.81 Dependence on supplemental oxygen; J98.2 Interstitial emphysema; B96.5 Pseudomonas (aeruginosa) (mallei) (pseudomallei) as the cause of diseases classified elsewhere; F41.9 Anxiety disorder, unspecified; X58.XXXA Exposure to other specified factors, initial encounter; Z79.51 Long term (current) use of inhaled steroids; Z79.52 Long term (current) use of systemic steroids; Z79.899 Other long term (current) drug therapy; Z88.1 Allergy status to other antibiotic agents; Z88.2 Allergy status to sulfonamides; Z88.8 Allergy status to other drugs, medicaments and biological substances; Z82.49 Family history of ischemic heart disease and other diseases of the circulatory system; Z83.3 Family history of diabetes mellitus; Z82.3 Family history of stroke; Z87.891 Personal history of nicotine dependence
CPT/HCPCS: 36415; 71046; 71250; 80048; 80053; 83605; 84484; 85025; 85027; 85379; 85610; 86140; 87070; 87205; 87899; 93005; 94640; 94667; 94668; 96365; 96375; 99285; A9270-GY; J0692; J1650; J2543; J2930; J3535; J7512

== ENCOUNTER 2020-04-21 17:05 | Inpatient (IN) ==
[2020-04-21] MEDS ORDERED: methylPREDNISolone 125 mg 2 ML VIAL IV ONE (17:16)
[2020-04-21] MEDS ORDERED: Albuterol/Ipratropium NEB.SOL (2.5/0.5 MG) 3 ML NEB.SOLN INH ONE ×2 (17:16→19:09)
[2020-04-21] MEDS ORDERED: cefTRIAXone 1 gm/50 mL NS BAG 1 GM/50 ML BAG IV ONE (17:16)
[2020-04-21 18:28] LABS: ABS Eosinophils 0.2 10^3/ul (0-0.6); ABS Monocytes 0.4 10^3/ul (0-0.8); Eosinophil % 3.2 %; Hematocrit 38 % (35-47); Hemoglobin 12.2 g/dL (12.0-16.0); Lymphocyte % 16.2 %; Mean Corpuscular HGB Conc 33 g/dL (31-36); Mean Corpuscular Hemoglobin 29 pg (27-31); Mean Corpuscular Volume 88 fL (80-97); Mean Platelet Volume 9.6 fL (7.4-10.4); Platelet Count 277 10^3/uL (150-450); Red Blood Count 4.27 10^6 /uL (3.70-4.87); Red Cell Distribution Width 17 % (10-15); White Blood Count 5.9 10^3/uL (3.5-10.8)
[2020-04-21 18:47] LABS: ALT 11 U/L (7-52); Albumin 3.9 g/dL (3.2-5.2); Alkaline Phosphatase 67 U/L (34-104); BUN/Creatinine Ratio 14.5 (8-20); Blood Urea Nitrogen 9 mg/dL (6-24); CO2 Carbon Dioxide 38 mmol/L (22-32); Calcium 9.3 mg/dL (8.6-10.3); Chloride 96 mmol/L (101-111); EGFR African American 119.6 (>60); EGFR Non-African American 98.9 (>60); Glucose 79 mg/dL (70-100); Sodium 138 mmol/L (135-145); Total Protein 7.9 g/dL (6.4-8.9)
[2020-04-21] MEDS ORDERED: Albuterol/Ipratropium NEB.SOL (2.5/0.5 MG) 3 ML NEB.SOLN ONE (19:11)
[2020-04-21] MEDS ORDERED: LORazepam 2 mg VIAL 1 ml IV PUSH ONE (19:20)
[2020-04-21] MEDS ORDERED: Lorazepam PYXIS KEY PRN (19:20)
[2020-04-21] MEDS ORDERED: Ondansetron 4 mg VIAL 2 MG/ML 2 ml VIAL IV PRN (20:05)
[2020-04-21] MEDS ORDERED: Al Hydrox/Mg Hydrox/Simet LIQ 30 ML UDC PO PRN (20:05)
[2020-04-21] MEDS ORDERED: Al Hydrox/Mg Hydrox/Simet LIQ 30 ML UDC PO ONE (20:08)
[2020-04-21] MEDS ORDERED: Albuterol HFA INHALER 8 gm MDI INH PRN (20:09)
[2020-04-21] MEDS ORDERED: Albuterol/Ipratropium RESP(NF) MDI (Combivent Respimat) INH PRN (20:10)
[2020-04-21] MEDS ORDERED: Albuterol 2.5mg/3 ml (0.083%) NEB.SOLN INH PRN (20:10)
[2020-04-21 20:15] LABS: Anion Gap 4 mmol/L (2-11)
[2020-04-21] MEDS ORDERED: Cefepime 2 GM in Dextrose(*) 2 GM/50 ML BAG IV ONE (20:16)
[2020-04-21] MEDS ORDERED: Pantoprazole VIAL 40 MG VIAL IV ONE (20:17)
[2020-04-21] MEDS ORDERED: Acetylcysteine ORAL SOL 200 mg/ml 30 ml VIAL INH SCH (21:00)
[2020-04-21] MEDS ORDERED: Acetylcysteine INHALATION SOL 200 MG/ML NEB.SOLN 10 ML INH SCH (21:00)
[2020-04-21] MEDS ORDERED: TOBRAMYCIN 300 MG/5 ML INH SCH (21:00)
[2020-04-21 21:23] LABS: Potassium Redraw 3.7 mmol/L (3.5-5.0)
[2020-04-21] MEDS: TOBRAMYCIN 300 MG/5 ML INH SCH (21:36)
[2020-04-21] MEDS: Acetylcysteine INHALATION SOL 200 MG/ML NEB.SOLN 10 ML INH SCH (22:21)
[2020-04-21] MEDS: NS 0.9% 1000 ml BAG 1,000 ML IV SCH (23:43)
[2020-04-21] MEDS: clonazePAM 1 mg TAB(*) PO PRN (23:46)
[2020-04-21] MEDS: Heparin 5000 UNITS/ML VIAL(*) 1 ml vial SUBCUT SCH (23:47)
[2020-04-22] MEDS: Acetylcysteine INHALATION SOL 200 MG/ML NEB.SOLN 10 ML INH SCH ×3 (00:51→19:20)
[2020-04-22] MEDS: Albuterol/Ipratropium NEB.SOL (2.5/0.5 MG) 3 ML NEB.SOLN INH PRN ×2 (00:51→08:03)
[2020-04-22] MEDS: Mometasone/Formoter 200/5 MDI INH SCH ×3 (00:53→19:20)
[2020-04-22] MEDS: TOBRAMYCIN 300 MG/5 ML INH SCH ×3 (00:53→19:44)
[2020-04-22] MEDS: Heparin 5000 UNITS/ML VIAL(*) 1 ml vial SUBCUT SCH ×3 (05:52→21:02)
[2020-04-22 07:25] LABS: ABS Lymphocytes 0.4 10^3/ul (1.0-4.8); ABS Monocytes 0.1 10^3/ul (0-0.8); Hematocrit 34 % (35-47); Hemoglobin 10.8 g/dL (12.0-16.0); Lymphocyte % 10.8 %; Mean Corpuscular HGB Conc 32 g/dL (31-36); Mean Corpuscular Hemoglobin 29 pg (27-31); Mean Corpuscular Volume 90 fL (80-97); Mean Platelet Volume 8.9 fL (7.4-10.4); Platelet Count 176 10^3/uL (150-450); Red Blood Count 3.74 10^6 /uL (3.70-4.87); Red Cell Distribution Width 16 % (10-15); White Blood Count 3.2 10^3/uL (3.5-10.8)
[2020-04-22 07:40] LABS: BUN/Creatinine Ratio 20.7 (8-20); Calcium 8.7 mg/dL (8.6-10.3); EGFR African American 80.9 (>60); EGFR Non-African American 66.9 (>60)
[2020-04-22] MEDS: clonazePAM 1 mg TAB(*) PO PRN ×4 (08:10→21:00)
[2020-04-22] MEDS: Cefepime 2 GM in Dextrose(*) 2 GM/50 ML BAG IV SCH ×2 (08:10→20:48)
[2020-04-22] MEDS: guaiFENesin 100 mg/5 ml LIQ unit dose cup PO PRN ×2 (10:19→20:51)
[2020-04-22] MEDS: Albuterol/Ipratropium NEB.SOL (2.5/0.5 MG) 3 ML NEB.SOLN INH SCH ×4 (11:24→23:40)
[2020-04-22] MEDS ORDERED: TOBRAMYCIN 300 MG/5 ML INH SCH (20:00)
[2020-04-23] MEDS: NS 0.9% 1000 ml BAG 1,000 ML IV SCH (00:32)
[2020-04-23] MEDS: Albuterol/Ipratropium NEB.SOL (2.5/0.5 MG) 3 ML NEB.SOLN INH SCH ×5 (03:10→19:47)
[2020-04-23] MEDS: Acetylcysteine INHALATION SOL 200 MG/ML NEB.SOLN 10 ML INH SCH ×2 (06:56→19:48)
[2020-04-23] MEDS: TOBRAMYCIN 300 MG/5 ML INH SCH ×3 (06:57→19:48)
[2020-04-23] MEDS: Mometasone/Formoter 200/5 MDI INH SCH ×2 (07:02→19:47)
[2020-04-23] MEDS: Heparin 5000 UNITS/ML VIAL(*) 1 ml vial SUBCUT SCH ×3 (07:27→22:10)
[2020-04-23] MEDS: guaiFENesin 100 mg/5 ml LIQ unit dose cup PO PRN (07:27)
[2020-04-23] MEDS: Cefepime 2 GM in Dextrose(*) 2 GM/50 ML BAG IV SCH ×2 (08:04→22:30)
[2020-04-23 08:40] LABS: ABS Monocytes 0.6 10^3/ul (0-0.8); Eosinophil % 0.1 %; Hematocrit 35 % (35-47); Lymphocyte % 16.9 %; Mean Corpuscular HGB Conc 31 g/dL (31-36); Mean Corpuscular Hemoglobin 29 pg (27-31); Mean Corpuscular Volume 91 fL (80-97); Platelet Count 202 10^3/uL (150-450); Red Blood Count 3.85 10^6 /uL (3.70-4.87); Red Cell Distribution Width 16 % (10-15); White Blood Count 6.1 10^3/uL (3.5-10.8)
[2020-04-23 08:52] LABS: BUN/Creatinine Ratio 21.2 (8-20); Calcium 8.9 mg/dL (8.6-10.3); EGFR African American 83.1 (>60); EGFR Non-African American 68.7 (>60); Potassium 3.6 mmol/L (3.5-5.0)
[2020-04-23] MEDS: clonazePAM 1 mg TAB(*) PO PRN (10:37)
[2020-04-23] MEDS ORDERED: Buffered Lidocaine 1% SYRIN 1 ml INTRADERM ONE (13:35)
[2020-04-23] MEDS ORDERED: Rocuronium 50 mg VIAL 10 mg/ml 5 ml VIAL (50 mg) ONE (14:30)
[2020-04-23] MEDS ORDERED: Lidocaine 2% JELLY 6 ML TOPICAL ONE (14:49)
[2020-04-23] MEDS ORDERED: Lidocaine 1% VIAL 10 MG/ML VIAL ONE (14:49)
[2020-04-23] MEDS ORDERED: Lidocaine 2% PF 10 ML AMP ONE (14:49)
[2020-04-23] MEDS ORDERED: Benzocaine/Butamben/Tetracain (CETACAINE - SINGLE USE) 5 gm TOPICAL ONE (14:49)
[2020-04-23] MEDS ORDERED: fentaNYL 100 mcg/2 ml 50 MCG/ML VIAL ONE (15:01)
[2020-04-23] MEDS ORDERED: Etomidate 20 mg/10 ml 2 MG/ML 10 ml VIAL ONE (15:17)
[2020-04-23] MEDS ORDERED: Ondansetron 4 mg VIAL 2 MG/ML 2 ml VIAL ONE (15:17)
[2020-04-23] MEDS ORDERED: Dexamethasone IV 4 MG/ML VIAL 1 ml VIAL ONE (15:17)
[2020-04-23] MEDS ORDERED: Propofol 10 MG/ML 20 ML BTL ONE (15:17)
[2020-04-23] MEDS ORDERED: Albuterol/Ipratropium NEB.SOL (2.5/0.5 MG) 3 ML NEB.SOLN INH ONE (15:44)
[2020-04-24] MEDS: clonazePAM 1 mg TAB(*) PO PRN ×4 (00:43→20:26)
[2020-04-24] MEDS: Albuterol/Ipratropium NEB.SOL (2.5/0.5 MG) 3 ML NEB.SOLN INH SCH ×7 (01:18→22:44)
[2020-04-24] MEDS: Heparin 5000 UNITS/ML VIAL(*) 1 ml vial SUBCUT SCH ×3 (06:13→21:06)
[2020-04-24] MEDS: Mometasone/Formoter 200/5 MDI INH SCH ×2 (07:32→19:20)
[2020-04-24] MEDS: Acetylcysteine INHALATION SOL 200 MG/ML NEB.SOLN 10 ML INH SCH ×2 (07:33→19:20)
[2020-04-24] MEDS: TOBRAMYCIN 300 MG/5 ML INH SCH ×2 (08:06→19:22)
[2020-04-24] MEDS: Cefepime 2 GM in Dextrose(*) 2 GM/50 ML BAG IV SCH ×2 (11:11→21:03)
[2020-04-24] MEDS: guaiFENesin 100 mg/5 ml LIQ unit dose cup PO PRN (21:53)
[2020-04-25] MEDS: guaiFENesin 100 mg/5 ml LIQ unit dose cup PO PRN (03:40)
[2020-04-25] MEDS: clonazePAM 1 mg TAB(*) PO PRN ×4 (03:42→23:35)
[2020-04-25] MEDS: Albuterol/Ipratropium NEB.SOL (2.5/0.5 MG) 3 ML NEB.SOLN INH SCH ×6 (04:05→23:57)
[2020-04-25] MEDS: Heparin 5000 UNITS/ML VIAL(*) 1 ml vial SUBCUT SCH ×3 (05:53→20:45)
[2020-04-25] MEDS: TOBRAMYCIN 300 MG/5 ML INH SCH ×2 (07:35→19:11)
[2020-04-25] MEDS: Mometasone/Formoter 200/5 MDI INH SCH ×2 (07:35→19:11)
[2020-04-25] MEDS: Acetylcysteine INHALATION SOL 200 MG/ML NEB.SOLN 10 ML INH SCH ×2 (07:35→19:10)
[2020-04-25 08:44] LABS: ABS Lymphocytes 1.7 10^3/ul (1.0-4.8); ABS Monocytes 1.1 10^3/ul (0-0.8); Eosinophil % 0.1 %; Hematocrit 33 % (35-47); Hemoglobin 10.3 g/dL (12.0-16.0); Lymphocyte % 19.2 %; Mean Corpuscular HGB Conc 32 g/dL (31-36); Mean Corpuscular Hemoglobin 29 pg (27-31); Mean Corpuscular Volume 91 fL (80-97); Mean Platelet Volume 9.1 fL (7.4-10.4); Platelet Count 185 10^3/uL (150-450); Red Blood Count 3.58 10^6 /uL (3.70-4.87); Red Cell Distribution Width 17 % (10-15); White Blood Count 8.6 10^3/uL (3.5-10.8)
[2020-04-25] MEDS ORDERED: Senna TAB 8.6 mg TAB PO PRN (08:50)
[2020-04-25] MEDS ORDERED: Magnesium Hydroxide LIQ 30 ML UDC PO PRN (08:50)
[2020-04-25] MEDS ORDERED: Polyethylene Glycol 3350 17 GM PACKET PO PRN (08:50)
[2020-04-25 08:51] LABS: BUN/Creatinine Ratio 31.8 (8-20); Calcium 8.4 mg/dL (8.6-10.3); EGFR African American 111.3 (>60); Potassium 3.8 mmol/L (3.5-5.0)
[2020-04-25] MEDS: Al Hydrox/Mg Hydrox/Simet LIQ 30 ML UDC PO PRN (10:05)
[2020-04-25] MEDS: Cefepime 2 GM in Dextrose(*) 2 GM/50 ML BAG IV SCH ×2 (10:05→20:45)
[2020-04-26] MEDS: Heparin 5000 UNITS/ML VIAL(*) 1 ml vial SUBCUT SCH ×2 (05:24→14:46)
[2020-04-26] MEDS: Mometasone/Formoter 200/5 MDI INH SCH (07:22)
[2020-04-26] MEDS: TOBRAMYCIN 300 MG/5 ML INH SCH (07:22)
[2020-04-26] MEDS: Albuterol/Ipratropium NEB.SOL (2.5/0.5 MG) 3 ML NEB.SOLN INH SCH ×4 (07:23→15:21)
[2020-04-26] MEDS: Acetylcysteine INHALATION SOL 200 MG/ML NEB.SOLN 10 ML INH SCH (07:23)
[2020-04-26] MEDS: Cefepime 2 GM in Dextrose(*) 2 GM/50 ML BAG IV SCH (08:38)
[2020-04-26] MEDS: Al Hydrox/Mg Hydrox/Simet LIQ 30 ML UDC PO PRN (09:28)
[2020-04-26 10:11] LABS: ABS Eosinophils 0.1 10^3/ul (0-0.6); ABS Lymphocytes 0.8 10^3/ul (1.0-4.8); ABS Monocytes 0.7 10^3/ul (0-0.8); Eosinophil % 0.6 %; Hematocrit 38 % (35-47); Hemoglobin 12.1 g/dL (12.0-16.0); Lymphocyte % 8.1 %; Mean Corpuscular HGB Conc 32 g/dL (31-36); Mean Corpuscular Hemoglobin 29 pg (27-31); Mean Corpuscular Volume 91 fL (80-97); Mean Platelet Volume 9.2 fL (7.4-10.4); Nucleated Red Blood Cells % 0.2; Platelet Count 174 10^3/uL (150-450); Red Blood Count 4.15 10^6 /uL (3.70-4.87); Red Cell Distribution Width 16 % (10-15); White Blood Count 9.3 10^3/uL (3.5-10.8)
[2020-04-26] MEDS: clonazePAM 1 mg TAB(*) PO PRN ×2 (10:24→16:51)
[2020-04-26 10:45] LABS: CO2 Carbon Dioxide 38 mmol/L (22-32); Calcium 8.5 mg/dL (8.6-10.3); Chloride 97 mmol/L (101-111); Sodium 139 mmol/L (135-145)
[2020-04-26 10:51] LABS: BUN/Creatinine Ratio 38.6 (8-20); Blood Urea Nitrogen 22 mg/dL (6-24); EGFR African American 131.8 (>60); EGFR Non-African American 108.9 (>60); Glucose 122 mg/dL (70-100)
[2020-04-26 17:49] VITALS: BP 115/55
[2020-04-26 18:35] LABS: Anion Gap 4 mmol/L (2-11)
== END 2020-04-26 18:30 | disposition home or self-care (01) | DRG 140 ==
LOC: ED 17:05 → MED 20:05 → ICU 04-23 16:20 → MED 04-24 10:43
PROVIDERS: ADMIT Pediatrics; ATTEND Internal Medicine

== ENCOUNTER 2020-06-16 23:22 | Inpatient (IN) ==
[2020-06-17 01:47] LABS: INR 1.02 (0.82-1.09)
[2020-06-17 02:23] LABS: ABS Eosinophils 0.1 10^3/ul (0-0.6); ABS Lymphocytes 1.1 10^3/ul (1.0-4.8); ABS Monocytes 0.7 10^3/ul (0-0.8); ABS Neutrophils 4.4 10^3/ul (1.5-7.7); Eosinophil % 1.9 %; Hematocrit 32 % (35-47); Hemoglobin 10.4 g/dL (12.0-16.0); Lymphocyte % 16.6 %; Mean Corpuscular HGB Conc 32 g/dL (31-36); Mean Corpuscular Hemoglobin 29 pg (27-31); Mean Corpuscular Volume 89 fL (80-97); Mean Platelet Volume 8.6 fL (7.4-10.4); Platelet Count 278 10^3/uL (150-450); Red Blood Count 3.61 10^6 /uL (3.70-4.87); Red Cell Distribution Width 16 % (10-15); White Blood Count 6.4 10^3/uL (3.5-10.8)
[2020-06-17] MEDS ORDERED: Albuterol/Ipratropium NEB.SOL (2.5/0.5 MG) 3 ML NEB.SOLN INH ONE (02:53)
[2020-06-17 03:01] LABS: Albumin 3.3 g/dL (3.2-5.2); Calcium 9.2 mg/dL (8.6-10.3); Potassium 3.6 mmol/L (3.5-5.0); Total Bilirubin 0.3 mg/dL (0.2-1.0)
[2020-06-17 03:07] LABS: Albumin/Globulin Ratio 0.9 (1-3); C Reactive Protein 18.4 mg/L (<8.01); EGFR African American 131.8 (>60); EGFR Non-African American 108.9 (>60); Globulin 3.7 g/dL (2-4)
[2020-06-17] MEDS ORDERED: cefTRIAXone 2 GM ADDV.VIAL 2 GM in NS 0.9% 100 ml BAG 100 ML IVPB ONE (03:25)
[2020-06-17] MEDS ORDERED: Al Hydrox/Mg Hydrox/Simet LIQ 30 ML UDC PO PRN (04:05)
[2020-06-17] MEDS ORDERED: Albuterol/Ipratropium NEB.SOL (2.5/0.5 MG) 3 ML NEB.SOLN INH PRN (04:05)
[2020-06-17] MEDS ORDERED: Ondansetron 4 mg VIAL 2 MG/ML 2 ml VIAL IV PRN (04:05)
[2020-06-17] MEDS ORDERED: Albuterol/Ipratropium RESP(NF) MDI (Combivent Respimat) INH PRN (04:19)
[2020-06-17] MEDS ORDERED: methylPREDNISolone 125 mg 2 ML VIAL IV ONE (04:32)
[2020-06-17] MEDS ORDERED: Polyethylene Glycol 3350 17 GM PACKET PO PRN (04:36)
[2020-06-17] MEDS ORDERED: Acetylcysteine INHALATION SOL 200 MG/ML NEB.SOLN 10 ML INH PRN (04:36)
[2020-06-17] MEDS: Heparin 5000 UNITS/ML 1 mL VIAL SUBCUT SCH ×3 (06:21→23:28)
[2020-06-17] MEDS: Cholecalciferol (VIT D3) 1,000 unit TAB PO SCH (08:43)
[2020-06-17] MEDS: Senna TAB 8.6 mg TAB PO SCH ×2 (08:43→20:22)
[2020-06-17] MEDS: Mometasone/Formoter 200/5 MDI INH SCH ×2 (09:24→20:07)
[2020-06-17] MEDS: TOBRAMYCIN 300 MG/5 ML INH SCH ×2 (09:25→20:07)
[2020-06-17] MEDS: Morphine ORAL CONCENTRATE 5 MG/0.25 ML ORAL.SYRIN SL PRN (20:23)
[2020-06-18] MEDS: Morphine ORAL CONCENTRATE 5 MG/0.25 ML ORAL.SYRIN SL PRN ×3 (00:37→13:56)
[2020-06-18] MEDS: Heparin 5000 UNITS/ML 1 mL VIAL SUBCUT SCH ×3 (06:40→21:03)
[2020-06-18] MEDS: Mometasone/Formoter 200/5 MDI INH SCH ×2 (07:59→20:38)
[2020-06-18] MEDS: TOBRAMYCIN 300 MG/5 ML INH SCH ×2 (07:59→20:39)
[2020-06-18] MEDS: Cholecalciferol (VIT D3) 1,000 unit TAB PO SCH (09:53)
[2020-06-18] MEDS: Senna TAB 8.6 mg TAB PO SCH ×2 (09:54→21:05)
[2020-06-18] MEDS ORDERED: Magnesium Hydroxide LIQ 30 ML UDC PO PRN (11:40)
[2020-06-18] MEDS: Psyllium PAK PO SCH (13:10)
[2020-06-18] MEDS: Albuterol/Ipratropium NEB.SOL (2.5/0.5 MG) 3 ML NEB.SOLN INH PRN ×2 (14:06→20:39)
[2020-06-18] MEDS: Acetylcysteine INHALATION SOL 200 MG/ML NEB.SOLN 10 ML INH SCH (20:39)
[2020-06-19] MEDS: Morphine ORAL CONCENTRATE 5 MG/0.25 ML ORAL.SYRIN SL PRN ×4 (00:07→21:26)
[2020-06-19] MEDS: Heparin 5000 UNITS/ML 1 mL VIAL SUBCUT SCH ×3 (05:20→21:27)
[2020-06-19 06:50] LABS: BUN/Creatinine Ratio 35.5 (8-20); Calcium 8.8 mg/dL (8.6-10.3); EGFR African American 119.6 (>60); EGFR Non-African American 98.9 (>60); Potassium 3.7 mmol/L (3.5-5.0)
[2020-06-19] MEDS: Albuterol/Ipratropium NEB.SOL (2.5/0.5 MG) 3 ML NEB.SOLN INH PRN ×3 (07:10→23:22)
[2020-06-19] MEDS: TOBRAMYCIN 300 MG/5 ML INH SCH ×2 (07:11→19:13)
[2020-06-19] MEDS: Mometasone/Formoter 200/5 MDI INH SCH ×2 (07:11→19:13)
[2020-06-19] MEDS: Acetylcysteine INHALATION SOL 200 MG/ML NEB.SOLN 10 ML INH SCH ×2 (07:11→19:11)
[2020-06-19] MEDS: Senna TAB 8.6 mg TAB PO SCH ×2 (10:04→21:27)
[2020-06-19] MEDS: Cholecalciferol (VIT D3) 1,000 unit TAB PO SCH (10:04)
[2020-06-19] MEDS: Psyllium PAK PO SCH (10:04)
[2020-06-20] MEDS: Heparin 5000 UNITS/ML 1 mL VIAL SUBCUT SCH ×3 (05:47→21:58)
[2020-06-20] MEDS: Morphine ORAL CONCENTRATE 5 MG/0.25 ML ORAL.SYRIN SL PRN ×3 (05:54→23:19)
[2020-06-20] MEDS: TOBRAMYCIN 300 MG/5 ML INH SCH ×2 (07:07→19:37)
[2020-06-20] MEDS: Acetylcysteine INHALATION SOL 200 MG/ML NEB.SOLN 10 ML INH SCH ×2 (07:08→19:37)
[2020-06-20] MEDS: Albuterol/Ipratropium NEB.SOL (2.5/0.5 MG) 3 ML NEB.SOLN INH PRN ×3 (07:08→19:37)
[2020-06-20] MEDS: Mometasone/Formoter 200/5 MDI INH SCH ×2 (07:11→19:38)
[2020-06-20 08:18] LABS: ABS Lymphocytes 1.1 10^3/ul (1.0-4.8); ABS Monocytes 0.8 10^3/ul (0-0.8); ABS Neutrophils 3.8 10^3/ul (1.5-7.7); Eosinophil % 0.2 %; Hematocrit 33 % (35-47); Hemoglobin 10.5 g/dL (12.0-16.0); Lymphocyte % 19.4 %; Mean Corpuscular HGB Conc 32 g/dL (31-36); Mean Corpuscular Hemoglobin 29 pg (27-31); Mean Corpuscular Volume 91 fL (80-97); Mean Platelet Volume 9.2 fL (7.4-10.4); Platelet Count 248 10^3/uL (150-450); Red Blood Count 3.58 10^6 /uL (3.70-4.87); Red Cell Distribution Width 16 % (10-15); White Blood Count 5.8 10^3/uL (3.5-10.8)
[2020-06-20 08:26] LABS: BUN/Creatinine Ratio 29.2 (8-20); EGFR African American 113.3 (>60); EGFR Non-African American 93.6 (>60)
[2020-06-20 08:42] LABS: Potassium 3.4 mmol/L (3.5-5.0)
[2020-06-20] MEDS: Senna TAB 8.6 mg TAB PO SCH ×2 (10:21→21:49)
[2020-06-20] MEDS: Psyllium PAK PO SCH (10:21)
[2020-06-20] MEDS: Cholecalciferol (VIT D3) 1,000 unit TAB PO SCH (10:23)
[2020-06-20] MEDS ORDERED: Potassium Chlor 20 meq TAB.ER PO ONE (10:52)
[2020-06-21] MEDS: Heparin 5000 UNITS/ML 1 mL VIAL SUBCUT SCH ×3 (05:31→21:18)
[2020-06-21] MEDS: TOBRAMYCIN 300 MG/5 ML INH SCH ×2 (07:53→19:38)
[2020-06-21] MEDS: Mometasone/Formoter 200/5 MDI INH SCH ×2 (07:53→19:38)
[2020-06-21] MEDS: Acetylcysteine INHALATION SOL 200 MG/ML NEB.SOLN 10 ML INH SCH ×2 (07:53→19:33)
[2020-06-21] MEDS: Albuterol/Ipratropium NEB.SOL (2.5/0.5 MG) 3 ML NEB.SOLN INH PRN ×3 (07:54→19:26)
[2020-06-21] MEDS: Senna TAB 8.6 mg TAB PO SCH ×2 (08:43→20:48)
[2020-06-21] MEDS: Psyllium PAK PO SCH (08:43)
[2020-06-21] MEDS: Cholecalciferol (VIT D3) 1,000 unit TAB PO SCH (08:44)
[2020-06-21 11:20] LABS: BUN/Creatinine Ratio 25.6 (8-20); EGFR African American 86.6 (>60); EGFR Non-African American 71.6 (>60); Potassium 3.5 mmol/L (3.5-5.0)
[2020-06-21] MEDS: Morphine ORAL CONCENTRATE 5 MG/0.25 ML ORAL.SYRIN SL PRN ×2 (12:31→22:44)
[2020-06-22] MEDS: Morphine ORAL CONCENTRATE 5 MG/0.25 ML ORAL.SYRIN SL PRN (02:37)
[2020-06-22] MEDS: Heparin 5000 UNITS/ML 1 mL VIAL SUBCUT SCH (05:53)
[2020-06-22 07:56] LABS: BUN/Creatinine Ratio 26.8 (8-20); Calcium 8.5 mg/dL (8.6-10.3); EGFR African American 102.3 (>60); EGFR Non-African American 84.6 (>60); Potassium 3.6 mmol/L (3.5-5.0)
[2020-06-22 07:58] VITALS: BP 94/52
[2020-06-22] MEDS: Albuterol/Ipratropium NEB.SOL (2.5/0.5 MG) 3 ML NEB.SOLN INH PRN (08:36)
[2020-06-22] MEDS: Acetylcysteine INHALATION SOL 200 MG/ML NEB.SOLN 10 ML INH SCH (08:37)
[2020-06-22] MEDS: TOBRAMYCIN 300 MG/5 ML INH SCH (08:37)
[2020-06-22] MEDS: Cholecalciferol (VIT D3) 1,000 unit TAB PO SCH (09:02)
[2020-06-22] MEDS: Psyllium PAK PO SCH (09:03)
[2020-06-22] MEDS: Senna TAB 8.6 mg TAB PO SCH (09:03)
[2020-06-22] MEDS: Mometasone/Formoter 200/5 MDI INH SCH (09:12)
== END 2020-06-22 11:30 | disposition home or self-care (01) | DRG 133 ==
LOC: ED 23:22 → ICU 06-17 00:19 → MED 06-17 13:09
PROVIDERS: ADMIT Pediatrics; ATTEND Internal Medicine

== ENCOUNTER 2020-12-31 19:27 | Inpatient (IN) ==
[2020-12-31] MEDS ORDERED: NS 0.9% 1000 ml BAG 1,000 ML IV ONE ×2 (19:44→21:10)
[2020-12-31 20:38] LABS: ABS Lymphocytes 0.5 10^3/ul (1.0-4.8); ABS Monocytes 1.3 10^3/ul (0-0.8); Hematocrit 36 % (35-47); Hemoglobin 11.3 g/dL (12.0-16.0); Lymphocyte % 3.3 %; Mean Corpuscular HGB Conc 31 g/dL (31-36); Mean Corpuscular Hemoglobin 28 pg (27-31); Mean Corpuscular Volume 88 fL (80-97); Mean Platelet Volume 9.1 fL (7.4-10.4); Platelet Count 278 10^3/uL (150-450); Red Blood Count 4.11 10^6 /uL (3.70-4.87); Red Cell Distribution Width 16 % (10-15); White Blood Count 14.8 10^3/uL (3.5-10.8)
[2020-12-31] MEDS ORDERED: cefTRIAXone 1 gm/50 mL NS BAG 1 GM/50 ML BAG IV ONE (20:42)
[2020-12-31] MEDS ORDERED: Azithromycin 500 mg/250 ml NS 500 MG/250 ML BAG IVPB ONE (20:42)
[2020-12-31] MEDS ORDERED: methylPREDNISolone 125 mg 2 ML VIAL IV ONE (20:43)
[2020-12-31] MEDS ORDERED: Albuterol HFA INHALER 8 gm MDI INH ONE (20:44)
[2020-12-31 20:54] LABS: Albumin 3.4 g/dL (3.2-5.2); Albumin/Globulin Ratio 0.7 (1-3); Calcium 9.6 mg/dL (8.6-10.3); EGFR African American 123.8 (>60); EGFR Non-African American 102.3 (>60); Globulin 4.7 g/dL (2-4); Total Bilirubin 0.8 mg/dL (0.2-1.0); Total Protein 8.1 g/dL (6.4-8.9)
[2020-12-31 20:56] LABS: Troponin I 0.01 ng/mL (<0.03)
[2020-12-31 21:05] LABS: Activated Partial Thrombo Time 30.3 seconds (26.0-38.0); INR 1.23 (0.82-1.09)
[2020-12-31] MEDS ORDERED: Lorazepam PYXIS KEY PRN (21:42)
[2020-12-31] MEDS ORDERED: LORazepam 2 mg VIAL 1 ml IV PUSH ONE (21:42)
[2020-12-31] MEDS ORDERED: Iohexol 350 (CONTRAST) 500 ML MDV IV ONE (23:01)
[2020-12-31 23:07] LABS: C Reactive Protein 197.52 mg/L (<8.01)
[2020-12-31] MEDS: Albuterol HFA INHALER 8 gm MDI INH SCH (23:21)
[2021-01-01] MEDS: Morphine ORAL CONCENTRATE 5 MG/0.25 ML ORAL.SYRIN SL PRN ×3 (01:41→21:03)
[2021-01-01] MEDS: Enoxaparin 40 MG/0.4 ML SYR SUBCUT SCH (01:42)
[2021-01-01] MEDS: Albuterol HFA INHALER 8 gm MDI INH SCH ×6 (01:46→19:22)
[2021-01-01 06:28] LABS: Hematocrit 30 % (35-47); Hemoglobin 9.3 g/dL (12.0-16.0); Mean Corpuscular HGB Conc 31 g/dL (31-36); Mean Corpuscular Hemoglobin 28 pg (27-31); Mean Corpuscular Volume 90 fL (80-97); Mean Platelet Volume 8.9 fL (7.4-10.4); Platelet Count 208 10^3/uL (150-450); Red Blood Count 3.35 10^6 /uL (3.70-4.87); Red Cell Distribution Width 16 % (10-15); White Blood Count 12.4 10^3/uL (3.5-10.8)
[2021-01-01] MEDS: Mometasone/Formoter 200/5 MDI INH SCH ×2 (07:37→20:05)
[2021-01-01] MEDS: SPIRIVA Respimat (tiotropium) 2.5 mcg/inh Inhaler INH SCH (07:37)
[2021-01-01] MEDS: methylPREDNISolone SOD 40 mg/ml 1 ml VIAL IV SCH ×2 (09:24→21:05)
[2021-01-01] MEDS ORDERED: NS 0.9% 250 ml 250 ML IV ONE (10:01)
[2021-01-01] MEDS ORDERED: Acetylcysteine INHALATION SOL 200 MG/ML NEB.SOLN 10 ML INH PRN (14:58)
[2021-01-01] MEDS ORDERED: Cefepime 2 GM in Dextrose 2 GM/50 ML BAG IV SCH (15:00)
[2021-01-01] MEDS ORDERED: Piperacillin/Tazobac ADVAN 3.375 GM in NS 0.9% 100 ml BAG 100 ML IV ONE (15:23)
[2021-01-01] MEDS ORDERED: Zosyn per Pharmacy NOTE FOLLOW UP SCH (16:00)
[2021-01-01] MEDS: TOBRAMYCIN 300 MG/5 ML INH SCH (18:59)
[2021-01-01] MEDS ORDERED: Albuterol/Ipratropium NEB.SOL (2.5/0.5 MG) 3 ML NEB.SOLN INH SCH (19:00)
[2021-01-01] MEDS ORDERED: cefTRIAXone 1 gm/50 mL NS BAG 1 GM/50 ML BAG IVPB SCH (21:00)
[2021-01-01] MEDS ORDERED: ZOSYN 3.375 GM Q8H per EXTENDED INFUSION IV SCH (22:00)
[2021-01-01] MEDS: Albuterol/Ipratropium NEB.SOL (2.5/0.5 MG) 3 ML NEB.SOLN INH SCH (22:50)
[2021-01-02] MEDS: Cefepime 2 GM in Dextrose 2 GM/50 ML BAG IV SCH ×3 (00:05→15:55)
[2021-01-02] MEDS: Enoxaparin 40 MG/0.4 ML SYR SUBCUT SCH ×3 (00:06→23:06)
[2021-01-02] MEDS: Morphine ORAL CONCENTRATE 5 MG/0.25 ML ORAL.SYRIN SL PRN ×5 (00:46→21:20)
[2021-01-02] MEDS: Albuterol HFA INHALER 8 gm MDI INH SCH ×2 (02:48→06:37)
[2021-01-02] MEDS: Albuterol/Ipratropium NEB.SOL (2.5/0.5 MG) 3 ML NEB.SOLN INH SCH ×6 (02:48→22:48)
[2021-01-02 05:17] LABS: ABS Lymphocytes 0.3 10^3/ul (1.0-4.8); ABS Monocytes 0.5 10^3/ul (0-0.8); ABS Neutrophils 11.6 10^3/ul (1.5-7.7); Hematocrit 29 % (35-47); Hemoglobin 8.9 g/dL (12.0-16.0); Lymphocyte % 2.7 %; Mean Corpuscular HGB Conc 31 g/dL (31-36); Mean Corpuscular Hemoglobin 28 pg (27-31); Mean Corpuscular Volume 90 fL (80-97); Mean Platelet Volume 9.3 fL (7.4-10.4); Platelet Count 212 10^3/uL (150-450); Red Blood Count 3.21 10^6 /uL (3.70-4.87); Red Cell Distribution Width 16 % (10-15); White Blood Count 12.4 10^3/uL (3.5-10.8)
[2021-01-02 05:34] LABS: EGFR African American 126.2 (>60); EGFR Non-African American 104.3 (>60); Potassium 4.4 mmol/L (3.5-5.0)
[2021-01-02] MEDS: TOBRAMYCIN 300 MG/5 ML INH SCH ×2 (07:00→19:02)
[2021-01-02] MEDS: Mometasone/Formoter 200/5 MDI INH SCH ×2 (07:00→19:02)
[2021-01-02] MEDS: SPIRIVA Respimat (tiotropium) 2.5 mcg/inh Inhaler INH SCH (07:00)
[2021-01-02] MEDS: methylPREDNISolone SOD 40 mg/ml 1 ml VIAL IV SCH ×2 (08:23→20:52)
[2021-01-02 11:17] LABS: Magnesium 1.7 mg/dL (1.9-2.7); Phosphorus 2.9 mg/dL (2.5-5.0)
[2021-01-02] MEDS ORDERED: Magnesium Sulfate 2 gm BAG 2 GM/50 ML BAG IVPB ONE (15:36)
[2021-01-02] MEDS: Al Hydrox/Mg Hydrox/Simet LIQ 30 ML UDC PO PRN (17:33)
[2021-01-03] MEDS: Cefepime 2 GM in Dextrose 2 GM/50 ML BAG IV SCH ×3 (00:19→15:50)
[2021-01-03] MEDS: Albuterol/Ipratropium NEB.SOL (2.5/0.5 MG) 3 ML NEB.SOLN INH SCH ×6 (03:20→23:07)
[2021-01-03] MEDS: SPIRIVA Respimat (tiotropium) 2.5 mcg/inh Inhaler INH SCH ×2 (06:58→07:32)
[2021-01-03] MEDS: TOBRAMYCIN 300 MG/5 ML INH SCH ×3 (06:58→19:06)
[2021-01-03] MEDS: Mometasone/Formoter 200/5 MDI INH SCH ×2 (06:59→19:06)
[2021-01-03 07:25] LABS: ABS Lymphocytes 0.3 10^3/ul (1.0-4.8); ABS Monocytes 0.4 10^3/ul (0-0.8); Hematocrit 31 % (35-47); Hemoglobin 9.4 g/dL (12.0-16.0); Lymphocyte % 3.7 %; Mean Corpuscular HGB Conc 31 g/dL (31-36); Mean Corpuscular Hemoglobin 28 pg (27-31); Mean Corpuscular Volume 91 fL (80-97); Mean Platelet Volume 9.2 fL (7.4-10.4); Platelet Count 212 10^3/uL (150-450); Red Blood Count 3.38 10^6 /uL (3.70-4.87); Red Cell Distribution Width 16 % (10-15); White Blood Count 8.8 10^3/uL (3.5-10.8)
[2021-01-03] MEDS: Morphine ORAL CONCENTRATE 5 MG/0.25 ML ORAL.SYRIN SL PRN ×5 (07:43→23:14)
[2021-01-03 07:44] LABS: BUN/Creatinine Ratio 42.6 (8-20); Blood Urea Nitrogen 23 mg/dL (6-24); C Reactive Protein 60.02 mg/L (<8.01); Calcium 8.9 mg/dL (8.6-10.3); Chloride 98 mmol/L (101-111); EGFR African American 139.8 (>60); EGFR Non-African American 115.6 (>60); Glucose 129 mg/dL (70-100); Magnesium 2.1 mg/dL (1.9-2.7); Phosphorus 2.4 mg/dL (2.5-5.0); Potassium 4.7 mmol/L (3.5-5.0); Sodium 140 mmol/L (135-145)
[2021-01-03] MEDS: methylPREDNISolone SOD 40 mg/ml 1 ml VIAL IV SCH ×2 (07:52→20:14)
[2021-01-03 07:54] LABS: CO2 Carbon Dioxide 42 mmol/L (22-32)
[2021-01-03] MEDS: Enoxaparin 40 MG/0.4 ML SYR SUBCUT SCH (22:19)
[2021-01-04] MEDS: Cefepime 2 GM in Dextrose 2 GM/50 ML BAG IV SCH ×2 (00:35→09:23)
[2021-01-04] MEDS: Albuterol/Ipratropium NEB.SOL (2.5/0.5 MG) 3 ML NEB.SOLN INH SCH ×6 (02:48→23:44)
[2021-01-04 05:31] LABS: ABS Lymphocytes 0.3 10^3/ul (1.0-4.8); ABS Monocytes 0.4 10^3/ul (0-0.8); ABS Neutrophils 6.8 10^3/ul (1.5-7.7); Hematocrit 30 % (35-47); Hemoglobin 9.3 g/dL (12.0-16.0); Lymphocyte % 3.8 %; Mean Corpuscular HGB Conc 31 g/dL (31-36); Mean Corpuscular Hemoglobin 28 pg (27-31); Mean Corpuscular Volume 90 fL (80-97); Mean Platelet Volume 9.2 fL (7.4-10.4); Nucleated Red Blood Cells % 0.1; Platelet Count 201 10^3/uL (150-450); Red Blood Count 3.31 10^6 /uL (3.70-4.87); Red Cell Distribution Width 16 % (10-15); White Blood Count 7.4 10^3/uL (3.5-10.8)
[2021-01-04 05:40] LABS: Calcium 8.8 mg/dL (8.6-10.3); Chloride 97 mmol/L (101-111); Potassium 4.6 mmol/L (3.5-5.0); Sodium 140 mmol/L (135-145)
[2021-01-04 05:45] LABS: Blood Urea Nitrogen 29 mg/dL (6-24); CO2 Carbon Dioxide 45 mmol/L (22-32); EGFR African American 152.8 (>60); EGFR Non-African American 126.3 (>60); Glucose 135 mg/dL (70-100); Phosphorus 2.3 mg/dL (2.5-5.0)
[2021-01-04] MEDS: TOBRAMYCIN 300 MG/5 ML INH SCH (07:53)
[2021-01-04] MEDS: SPIRIVA Respimat (tiotropium) 2.5 mcg/inh Inhaler INH SCH (07:54)
[2021-01-04] MEDS: Mometasone/Formoter 200/5 MDI INH SCH ×2 (08:02→19:22)
[2021-01-04] MEDS: methylPREDNISolone SOD 40 mg/ml 1 ml VIAL IV SCH ×3 (09:23→21:35)
[2021-01-04] MEDS: Morphine ORAL CONCENTRATE 5 MG/0.25 ML ORAL.SYRIN SL PRN ×3 (10:33→19:52)
[2021-01-04] MEDS: Morphine ORAL CONCENTRATE 5 MG/0.25 ML ORAL.SYRIN SL SCH ×2 (12:36→21:35)
[2021-01-04] MEDS: Meropenem 1 GM PREMIX(*) 1 GM/50 ML BAG IV SCH ×2 (13:00→21:35)
[2021-01-04] MEDS: Al Hydrox/Mg Hydrox/Simet LIQ 30 ML UDC PO PRN (16:13)
[2021-01-05] MEDS: Cefepime 2 GM in Dextrose 2 GM/50 ML BAG IV SCH (00:26)
[2021-01-05] MEDS: Enoxaparin 40 MG/0.4 ML SYR SUBCUT SCH (01:00)
[2021-01-05] MEDS: Albuterol/Ipratropium NEB.SOL (2.5/0.5 MG) 3 ML NEB.SOLN INH SCH ×4 (03:13→15:54)
[2021-01-05] MEDS: Morphine ORAL CONCENTRATE 5 MG/0.25 ML ORAL.SYRIN SL SCH ×2 (05:20→11:30)
[2021-01-05] MEDS: Meropenem 1 GM PREMIX(*) 1 GM/50 ML BAG IV SCH ×2 (05:57→15:18)
[2021-01-05] MEDS: Mometasone/Formoter 200/5 MDI INH SCH (07:46)
[2021-01-05] MEDS: SPIRIVA Respimat (tiotropium) 2.5 mcg/inh Inhaler INH SCH (07:47)
[2021-01-05 08:24] LABS: ABS Lymphocytes 0.4 10^3/ul (1.0-4.8); ABS Monocytes 0.4 10^3/ul (0-0.8); Hematocrit 29 % (35-47); Lymphocyte % 6.3 %; Mean Corpuscular HGB Conc 31 g/dL (31-36); Mean Corpuscular Hemoglobin 28 pg (27-31); Mean Corpuscular Volume 90 fL (80-97); Nucleated Red Blood Cells % 0.1; Platelet Count 203 10^3/uL (150-450); Red Blood Count 3.19 10^6 /uL (3.70-4.87); Red Cell Distribution Width 16 % (10-15); White Blood Count 5.8 10^3/uL (3.5-10.8)
[2021-01-05 08:45] LABS: Calcium 8.6 mg/dL (8.6-10.3); Chloride 95 mmol/L (101-111); Potassium 4.7 mmol/L (3.5-5.0); Sodium 143 mmol/L (135-145)
[2021-01-05 08:51] LABS: BUN/Creatinine Ratio 53.3 (8-20); Blood Urea Nitrogen 24 mg/dL (6-24); EGFR African American 172.6 (>60); EGFR Non-African American 142.6 (>60); Glucose 115 mg/dL (70-100)
[2021-01-05] MEDS: methylPREDNISolone SOD 40 mg/ml 1 ml VIAL IV SCH (09:01)
[2021-01-05 09:14] LABS: Vitamin D Total 25(OH) 46.1 ng/mL (20-50)
[2021-01-05 09:30] LABS: CO2 Carbon Dioxide 50 mmol/L (22-32)
[2021-01-05] MEDS: Morphine ORAL CONCENTRATE 5 MG/0.25 ML ORAL.SYRIN SL PRN ×2 (11:30→15:17)
[2021-01-05 18:02] VITALS: BP 135/49
== END 2021-01-05 17:45 | disposition home or self-care (01) | DRG 140 ==
LOC: ED 19:27 → MED 19:27 → ICU 01-03 20:57 → MED 01-04 17:30
PROVIDERS: ADMIT Hospitalist; ATTEND Pediatrics

== ENCOUNTER 2021-01-06 13:06 | Inpatient (IN) ==
[2021-01-06] MEDS ORDERED: Albuterol/Ipratropium NEB.SOL (2.5/0.5 MG) 3 ML NEB.SOLN INH ONE (13:18)
[2021-01-06 13:42] LABS: ABS Lymphocytes 2.6 10^3/ul (1.0-4.8); ABS Monocytes 1.7 10^3/ul (0-0.8); ABS Neutrophils 11.6 10^3/ul (1.5-7.7); Eosinophil % 0.2 %; Hematocrit 35 % (35-47); Hemoglobin 10.7 g/dL (12.0-16.0); Lymphocyte % 16.2 %; Mean Corpuscular HGB Conc 31 g/dL (31-36); Mean Corpuscular Hemoglobin 28 pg (27-31); Mean Corpuscular Volume 89 fL (80-97); Mean Platelet Volume 8.8 fL (7.4-10.4); Platelet Count 342 10^3/uL (150-450); Red Blood Count 3.88 10^6 /uL (3.70-4.87); Red Cell Distribution Width 15 % (10-15); White Blood Count 15.9 10^3/uL (3.5-10.8)
[2021-01-06 13:52] LABS: ALT 21 U/L (7-52); AST 25 U/L (13-39); Albumin/Globulin Ratio 0.8 (1-3); Alkaline Phosphatase 65 U/L (34-104); BUN/Creatinine Ratio 44.2 (8-20); Blood Urea Nitrogen 19 mg/dL (6-24); Calcium 8.8 mg/dL (8.6-10.3); Chloride 92 mmol/L (101-111); EGFR African American 181.9 (>60); EGFR Non-African American 150.3 (>60); Globulin 3.7 g/dL (2-4); Glucose 130 mg/dL (70-100); Sodium 141 mmol/L (135-145); Total Protein 6.7 g/dL (6.4-8.9)
[2021-01-06 13:55] LABS: Troponin I 0.24 ng/mL (<0.03)
[2021-01-06 14:02] LABS: CO2 Carbon Dioxide 49 mmol/L (22-32)
[2021-01-06] MEDS ORDERED: Albuterol/Ipratropium RESP(NF) MDI (Combivent Respimat) INH PRN (15:34)
[2021-01-06] MEDS: Morphine ORAL CONCENTRATE 5 MG/0.25 ML ORAL.SYRIN SL SCH (18:01)
[2021-01-06] MEDS: Mometasone/Formoter 200/5 MDI INH SCH (19:36)
[2021-01-06] MEDS: Enoxaparin 40 MG/0.4 ML SYR SUBCUT SCH (19:55)
[2021-01-06] MEDS: Meropenem 1 GM PREMIX(*) 1 GM/50 ML BAG IV SCH (19:55)
[2021-01-06] MEDS ORDERED: Morphine ORAL CONCENTRATE 5 MG/0.25 ML ORAL.SYRIN SL ONE (20:15)
[2021-01-06] MEDS: Acetylcysteine ORAL SOL 200 mg/ml 30 ml VIAL INH SCH (20:21)
[2021-01-07] MEDS: Morphine ORAL CONCENTRATE 5 MG/0.25 ML ORAL.SYRIN SL SCH ×4 (00:19→22:22)
[2021-01-07] MEDS: Acetylcysteine ORAL SOL 200 mg/ml 30 ml VIAL INH SCH ×4 (00:53→18:58)
[2021-01-07 04:02] LABS: ABS Lymphocytes 1.1 10^3/ul (1.0-4.8); ABS Monocytes 0.8 10^3/ul (0-0.8); ABS Neutrophils 6.9 10^3/ul (1.5-7.7); Eosinophil % 0.1 %; Hematocrit 30 % (35-47); Hemoglobin 9.5 g/dL (12.0-16.0); Lymphocyte % 12.8 %; Mean Corpuscular HGB Conc 32 g/dL (31-36); Mean Corpuscular Hemoglobin 28 pg (27-31); Mean Corpuscular Volume 88 fL (80-97); Mean Platelet Volume 8.7 fL (7.4-10.4); Platelet Count 252 10^3/uL (150-450); Red Blood Count 3.43 10^6 /uL (3.70-4.87); Red Cell Distribution Width 16 % (10-15); White Blood Count 8.9 10^3/uL (3.5-10.8)
[2021-01-07 04:05] LABS: Calcium 8.1 mg/dL (8.6-10.3); Chloride 91 mmol/L (101-111); Sodium 137 mmol/L (135-145)
[2021-01-07 04:11] LABS: BUN/Creatinine Ratio 52.5 (8-20); Blood Urea Nitrogen 21 mg/dL (6-24); EGFR African American 197.7 (>60); EGFR Non-African American 163.4 (>60); Glucose 84 mg/dL (70-100)
[2021-01-07 04:22] LABS: Anion Gap 3 mmol/L (2-11); CO2 Carbon Dioxide 43 mmol/L (22-32)
[2021-01-07] MEDS: Meropenem 1 GM PREMIX(*) 1 GM/50 ML BAG IV SCH (04:58)
[2021-01-07] MEDS ORDERED: Morphine ORAL CONCENTRATE 5 MG/0.25 ML ORAL.SYRIN SL ONE (06:00)
[2021-01-07] MEDS: Mometasone/Formoter 200/5 MDI INH SCH ×2 (07:53→19:15)
[2021-01-07] MEDS: Cholecalciferol (VIT D3) 1,000 unit TAB PO SCH (08:37)
[2021-01-07] MEDS: Morphine ORAL CONCENTRATE 5 MG/0.25 ML ORAL.SYRIN PO PRN ×3 (10:58→18:47)
[2021-01-07] MEDS: Albuterol/Ipratropium NEB.SOL (2.5/0.5 MG) 3 ML NEB.SOLN INH PRN ×3 (14:28→22:37)
[2021-01-07] MEDS: Cefepime 1 GM in Dextrose 1 GM/50 ML BAG IV SCH (16:10)
[2021-01-07] MEDS ORDERED: Acetylcysteine INH SOL (RT) 200 MG/ML 4 ML VIAL INH SCH (18:45)
[2021-01-07] MEDS: Enoxaparin 40 MG/0.4 ML SYR SUBCUT SCH (22:12)
[2021-01-07] MEDS: Acetylcysteine INHALATION SOL 200 MG/ML NEB.SOLN 10 ML INH SCH (22:38)
[2021-01-08] MEDS ORDERED: Acetylcysteine INH SOL (RT) 200 MG/ML 4 ML VIAL INH SCH (01:00)
[2021-01-08] MEDS: Cefepime 1 GM in Dextrose 1 GM/50 ML BAG IV SCH (07:59)
[2021-01-08] MEDS: Morphine ORAL CONCENTRATE 5 MG/0.25 ML ORAL.SYRIN PO PRN ×4 (08:05→23:50)
[2021-01-08] MEDS: Acetylcysteine INHALATION SOL 200 MG/ML NEB.SOLN 10 ML INH SCH ×4 (08:12→23:55)
[2021-01-08] MEDS: Albuterol/Ipratropium NEB.SOL (2.5/0.5 MG) 3 ML NEB.SOLN INH PRN ×6 (08:12→23:56)
[2021-01-08] MEDS: Mometasone/Formoter 200/5 MDI INH SCH ×3 (08:18→19:08)
[2021-01-08] MEDS: Morphine ORAL CONCENTRATE 5 MG/0.25 ML ORAL.SYRIN SL SCH ×2 (09:06→15:05)
[2021-01-08] MEDS: Cholecalciferol (VIT D3) 1,000 unit TAB PO SCH (09:08)
[2021-01-08] MEDS ORDERED: Morphine ORAL CONCENTRATE 5 MG/0.25 ML ORAL.SYRIN PO ONE (09:42)
[2021-01-08 14:35] LABS: Urine Appearance Cloudy; Urine Bilirubin Negative (Negative); Urine Blood Negative (Negative); Urine Color Straw; Urine Glucose Negative (Negative); Urine Ketones Negative (Negative); Urine Nitrite Negative (Negative); Urine Protein 2+(100 mg/dL) (Negative); Urine Specific Gravity 1.008 (1.010-1.030); Urine Urobilinogen Negative (Negative)
[2021-01-08 14:43] LABS: Urine Bacteria Absent (Absent); Urine Red Blood Cell Trace(0-2/hpf) (Absent); Urine Squamous Epithelial Cell Present (Absent); Urine White Blood Cell Absent (Absent)
[2021-01-08] MEDS: Enoxaparin 40 MG/0.4 ML SYR SUBCUT SCH (21:49)
[2021-01-09] MEDS: Morphine ORAL CONCENTRATE 5 MG/0.25 ML ORAL.SYRIN SL SCH ×3 (02:06→16:04)
[2021-01-09] MEDS: Acetylcysteine INHALATION SOL 200 MG/ML NEB.SOLN 10 ML INH SCH ×4 (06:08→23:57)
[2021-01-09] MEDS: Albuterol/Ipratropium NEB.SOL (2.5/0.5 MG) 3 ML NEB.SOLN INH PRN ×4 (06:08→23:57)
[2021-01-09] MEDS: Mometasone/Formoter 200/5 MDI INH SCH ×4 (06:09→19:35)
[2021-01-09] MEDS: Morphine ORAL CONCENTRATE 5 MG/0.25 ML ORAL.SYRIN PO PRN ×4 (06:21→23:30)
[2021-01-09] MEDS: Cholecalciferol (VIT D3) 1,000 unit TAB PO SCH (08:31)
[2021-01-09 19:11] LABS: % Iron Saturation 10 % (15-55); Iron 26 ug/dL (50-212); Total Iron Binding Capacity 265 mcg/dL (250-450); Transferrin 189 mg/dL (203-362); Unsaturated Iron Binding < 250 ug/dL
[2021-01-09 19:31] LABS: Ferritin 79.8 ng/mL (11-307)
[2021-01-09 19:36] LABS: Vitamin B12 197 pg/mL (180-914)
[2021-01-09] MEDS: Enoxaparin 40 MG/0.4 ML SYR SUBCUT SCH (20:25)
[2021-01-10] MEDS: Morphine ORAL CONCENTRATE 5 MG/0.25 ML ORAL.SYRIN PO PRN ×4 (03:35→17:39)
[2021-01-10] MEDS: Acetylcysteine INHALATION SOL 200 MG/ML NEB.SOLN 10 ML INH SCH ×3 (05:58→17:20)
[2021-01-10] MEDS: Albuterol/Ipratropium NEB.SOL (2.5/0.5 MG) 3 ML NEB.SOLN INH PRN ×4 (05:58→17:20)
[2021-01-10] MEDS: Mometasone/Formoter 200/5 MDI INH SCH ×2 (05:58→07:00)
[2021-01-10] MEDS: Cholecalciferol (VIT D3) 1,000 unit TAB PO SCH (08:52)
[2021-01-10 11:24] VITALS: BP 120/44
== END 2021-01-10 18:10 | disposition home or self-care (01) | DRG 140 ==
LOC: ED 13:06 → ICU 15:29 → MEDTELE 01-07 15:49
PROVIDERS: ADMIT Surgery Surgical Critical Care; ATTEND Hospitalist

== ENCOUNTER 2021-01-16 00:37 | Inpatient (IN) ==
[2021-01-16] MEDS ORDERED: Albuterol HFA INHALER 8 gm MDI INH ONE (01:44)
[2021-01-16 01:56] LABS: Hematocrit 41 % (35-47); Hemoglobin 12.8 g/dL (12.0-16.0); Mean Corpuscular HGB Conc 31 g/dL (31-36); Mean Corpuscular Hemoglobin 28 pg (27-31); Mean Corpuscular Volume 89 fL (80-97); Mean Platelet Volume 9.5 fL (7.4-10.4); Platelet Count 422 10^3/uL (150-450); Red Blood Count 4.58 10^6 /uL (3.70-4.87); Red Cell Distribution Width 16 % (10-15); White Blood Count 26.6 10^3/uL (3.5-10.8)
[2021-01-16 03:05] LABS: INR 1.23 (0.82-1.09)
[2021-01-16] MEDS ORDERED: LORazepam 2 mg VIAL 1 ml IV PUSH ONE ×4 (03:09→08:10)
[2021-01-16] MEDS ORDERED: Lorazepam PYXIS KEY PRN ×5 (03:09→18:16)
[2021-01-16] MEDS ORDERED: Lorazepam PYXIS KEY ONE ×4 (03:09→13:06)
[2021-01-16] MEDS ORDERED: LORazepam 2 mg VIAL 1 ml ONE ×5 (03:10→13:06)
[2021-01-16 03:16] LABS: Albumin 3.1 g/dL (3.2-5.2); Albumin/Globulin Ratio 0.8 (1-3); BUN/Creatinine Ratio 36.1 (8-20); C Reactive Protein 331.91 mg/L (<8.01); Calcium 9.4 mg/dL (8.6-10.3); EGFR African American 121.5 (>60); EGFR Non-African American 100.4 (>60); Potassium 4.5 mmol/L (3.5-5.0); Total Bilirubin 0.8 mg/dL (0.2-1.0); Total Protein 7.1 g/dL (6.4-8.9)
[2021-01-16 03:16] LABS: Influenza A Molecular Negative (Negative); Influenza B Molecular Negative (Negative)
[2021-01-16 03:17] LABS: Troponin I 0.01 ng/mL (<0.03)
[2021-01-16] MEDS ORDERED: NS 0.9% 1000 ml BAG 1,000 ML IV ONE (03:27)
[2021-01-16 03:36] LABS: ABS Basophils 0.1 10^3/ul (0-0.2); ABS Lymphocytes 0.3 10^3/ul (1.0-4.8); ABS Monocytes 1.4 10^3/ul (0-0.8); ABS Neutrophils 24.8 10^3/ul (1.5-7.7); Lymphocyte % 1.1 %; Nucleated Red Blood Cells % 0.1
[2021-01-16] MEDS ORDERED: Etomidate 40 mg/20 ml (2 MG/ML) 20 ml VIAL (40 mg) ONE (04:49)
[2021-01-16] MEDS ORDERED: Succinylcholine 200 mg VIAL 20 mg/ml 10 ml VIAL (200 mg) ONE (04:49)
[2021-01-16] MEDS ORDERED: Etomidate 20 mg/10 ml 2 MG/ML 10 ml VIAL IV ONE (04:57)
[2021-01-16] MEDS ORDERED: Succinylcholine 200 mg VIAL 20 mg/ml 10 ml VIAL (200 mg) IV ONE (04:57)
[2021-01-16] MEDS ORDERED: Albuterol/Ipratropium NEB.SOL (2.5/0.5 MG) 3 ML NEB.SOLN INH PRN ×2 (05:03→05:07)
[2021-01-16] MEDS ORDERED: Morphine ORAL CONCENTRATE 5 MG/0.25 ML ORAL.SYRIN PO PRN (05:03)
[2021-01-16] MEDS ORDERED: Piperacillin/Tazobac ADVAN 3.375 GM in NS 0.9% 100 ml BAG 100 ML IV ONE (05:05)
[2021-01-16] MEDS ORDERED: NS 0.9% 1000 ml BAG 1,000 ML IV SCH (05:15)
[2021-01-16] MEDS ORDERED: Norepinephrine 16MCG/ML IVPRE 4,000 MCG/250 ML BAG IV ONE (05:43)
[2021-01-16] MEDS ORDERED: Zosyn per Pharmacy NOTE FOLLOW UP SCH (06:00)
[2021-01-16] MEDS ORDERED: Norepinephrine 16MCG/ML IVPRE 4,000 MCG/250 ML BAG IV SCH ×2 (06:00→11:00)
[2021-01-16] MEDS ORDERED: Vancomycin 1,000 MG in NS 0.9% 250 ml 250 ML IVPB ONE (06:00)
[2021-01-16] MEDS: Dexmedetomidine 1,000 MCG in NS 0.9% 250 ml 240 ML IV SCH ×2 (06:08→06:09)
[2021-01-16] MEDS ORDERED: Rocuronium 50 mg VIAL 10 mg/ml 5 ml VIAL (50 mg) ONE (07:58)
[2021-01-16] MEDS ORDERED: Rocuronium 50 mg VIAL 10 mg/ml 5 ml VIAL (50 mg) IV ONE (08:09)
[2021-01-16] MEDS: Enoxaparin 40 MG/0.4 ML SYR SUBCUT SCH (08:11)
[2021-01-16] MEDS: methylPREDNISolone SOD 40 mg/ml 1 ml VIAL IV SCH ×3 (08:12→21:36)
[2021-01-16] MEDS ORDERED: Lactated Ringers 1000 ml BAG 1,000 ML IV ONE (08:44)
[2021-01-16] MEDS ORDERED: Vancomycin per Pharmacy 1 EA NOTE FOLLOW UP PRN (08:44)
[2021-01-16 08:59] LABS: Urine Appearance Cloudy; Urine Bilirubin Negative (Negative); Urine Blood Negative (Negative); Urine Color Yellow; Urine Glucose Negative (Negative); Urine Ketones Negative (Negative); Urine Nitrite Negative (Negative); Urine Protein 1+(30 mg/dL) (Negative); Urine Specific Gravity 1.015 (1.010-1.030); Urine Urobilinogen Negative (Negative)
[2021-01-16] MEDS ORDERED: Pantoprazole VIAL 40 MG VIAL IV SCH (09:00)
[2021-01-16] MEDS ORDERED: Phenylephrine IV 50 MG in NS 0.9% 250 ml 245 ML IV SCH (09:00)
[2021-01-16] MEDS ORDERED: Albuterol/Ipratropium NEB.SOL (2.5/0.5 MG) 3 ML NEB.SOLN INH ONE (09:02)
[2021-01-16 09:18] LABS: Urine White Blood Cell Trace(0-5/hpf) (Absent)
[2021-01-16] MEDS: Meropenem 1 GM PREMIX(*) 1 GM/50 ML BAG IV SCH ×2 (09:20→17:16)
[2021-01-16] MEDS ORDERED: Norepinephrine IV 1 MG/ML 4 ML VIAL ONE ×2 (10:00→18:08)
[2021-01-16] MEDS ORDERED: ZOSYN 3.375 GM Q8H per EXTENDED INFUSION IV SCH (10:00)
[2021-01-16] MEDS ORDERED: fentaNYL 100 mcg/2 ml 50 MCG/ML VIAL IV PRN (10:39)
[2021-01-16] MEDS ORDERED: fentaNYL 100 mcg/2 ml 50 MCG/ML VIAL ONE (10:45)
[2021-01-16] MEDS ORDERED: Morphine 10 MG/ML VIAL (1 ml) ONE ×2 (13:05→13:54)
[2021-01-16] MEDS ORDERED: Morphine 10 MG/ML VIAL (1 ml) IV ONE (14:00)
[2021-01-16] MEDS: Norepinephrine 8 mg in 500 mL NS (Pharmacy Admixed Drip) IV SCH ×3 (14:28→21:46)
[2021-01-16] MEDS ORDERED: Morphine PCA ADULT 5 MG/ML 30 ML PCA SCH (14:45)
[2021-01-16] MEDS ORDERED: LORazepam 2 mg VIAL 1 ml IV PUSH PRN (18:16)
[2021-01-16] MEDS: Vancomycin 750 MG in NS 0.9% 250 ML IVPB SCH (19:48)
[2021-01-16] MEDS ORDERED: Vancomycin 1,000 MG VIAL IVPB SCH (20:00)
[2021-01-16] MEDS: Chlorhexidine MOUTHWASH 0.12% 15 ML UDC TOPICAL SCH (21:36)
[2021-01-16] MEDS: Pantoprazole VIAL 40 MG VIAL IV SCH (21:36)
[2021-01-17] MEDS: Norepinephrine 8 mg in 500 mL NS (Pharmacy Admixed Drip) IV SCH ×2 (01:20→08:11)
[2021-01-17] MEDS: Meropenem 1 GM PREMIX(*) 1 GM/50 ML BAG IV SCH ×2 (01:36→11:20)
[2021-01-17] MEDS: Chlorhexidine MOUTHWASH 0.12% 15 ML UDC TOPICAL SCH ×3 (01:36→08:06)
[2021-01-17] MEDS: methylPREDNISolone SOD 40 mg/ml 1 ml VIAL IV SCH (05:06)
[2021-01-17] MEDS ORDERED: Phenylephrine IV 50 MG in NS 0.9% 250 ml 245 ML IV SCH (08:00)
[2021-01-17] MEDS: Vancomycin 750 MG in NS 0.9% 250 ML IVPB SCH (08:02)
[2021-01-17] MEDS: Enoxaparin 40 MG/0.4 ML SYR SUBCUT SCH (08:05)
[2021-01-17] MEDS: Pantoprazole VIAL 40 MG VIAL IV SCH (08:06)
[2021-01-17] MEDS ORDERED: LORazepam 2 mg VIAL 1 ml IV PUSH PRN (11:08)
[2021-01-17] MEDS ORDERED: Norepinephrine 16MCG/ML IVPRE 4,000 MCG/250 ML BAG IV ONE ×2 (11:30→12:00)
[2021-01-17 12:29] VITALS: BP 58/33
[2021-01-18] MEDS ORDERED: Vancomycin Trough Check NOTE FOLLOW UP ONE (07:30)
== END 2021-01-17 16:03 | disposition expired | DRG 720 ==
LOC: ED 00:37 → ICU 05:45
PROVIDERS: ADMIT Internal Medicine; ATTEND Internal Medicine